=== PATIENT | male | born 1965 | race Caucasian/White ===

== ENCOUNTER 2024-05-05 14:18 | Outpatient (AMB) | payer BC, SELFPAY ==
--- NOTE | 2024-05-05 14:26 | MHC.PC.OV ---
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 Intake Note: New patient visit Rotor Balancer Required: No Allergies No Known Allergies Allergy (Verified 05/05/24 14:26) Tobacco use date assessed: 05/05/24 Dental Screening Dental Screen Date: 05/05/24 Did you have a dental visit in the last 12 months?: Yes Did you have a dental problem in the last 6 months where you did not have access to dental care?: No Was dental information given to patient?: Patient has dentist HPI HPI Comments History of Present Illness Details 58-year-old male with a past medical history of lumbosacral radiculopathy, controlled type 2 diabetes, hypertension, mesenteric panniculitis and ground glass opacities on chest CT presents to establish care. He is accompanied by his who is a nurse. Patient is here requesting Neurosurgery referral and MRI for his lower back. Patient was seen at [facility] on 04/21/2024 for severe chronic lower back pain radiating to his right hip and thigh and numbness of the right thigh that started a week prior to that. Patient reported that the pain began insidiously and increased in severity so much so that he was having difficulty with daily activities and could not sit down. He tried ibuprofen scheduled and ice with no relief. Heat helps slightly. 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 He was making 8 hours trips 3 times per week between [place] and [place]. Renal and hepatic function tests were normal. There was no leukocytosis. He had a CT scan of the lumbar spine without contrast which showed multilevel degenerative disc disease: L2-L3: No significant canal stenosis. Moderate right neural foraminal narrowing. No significant left neural foraminal narrowing L3-L4: Mild canal stenosis with symmetric disc bulge. Moderate bilateral neural foraminal stenosis. L4-L5: Mild canal stenosis with symmetric disc bulge. Severe left and moderate right neuroforaminal stenosis. L5-S1: No significant canal stenosis. Severe bilateral neural foraminal narrowing. He was treated with IV Dilaudid, Flexeril and Toradol with minimal symptom relief. He was discharged with naproxen 500 mg twice a day, oxycodone 5 mg every 6 hours, Medrol Dosepak and methocarbamol 500 mg 2 pills 3 times a day. Patient reports no relief with oxycodone 5 mg, naproxen 500 mg, Medrol Dosepak. He tried another Medrol Dosepak, and he still had no relief. Methocarbamol helps a little bit. Pain is worse when he is sitting, standing, walking and lying down. He is having a lot of difficulty sleeping. Patient reports having surgery for herniated discs in his lower back in [address] Casey. Patient says he was diagnosed by Gastroenterology with mesenteric panniculitis. He needs an EGD and colonoscopy but is going to defer this until after his back pain is treated. He takes metformin 500 mg daily for type 2 diabetes. His A1c was 5.9% in March. He sees thoracic surgery, Dr. Jasso, for ground-glass opacities that were originally in the left lung which resolved and now has them in the right lung. He sees him once per year. He quit smoking 20 years ago. He has a history of gout which has not been a problem recently. ROS: Constitutional: No unexplained weight loss, fevers, chills or night sweats. Respiratory: No shortness of breath, cough or sputum production. Cardiovascular: No chest pain, chest pressure or chest discomfort. No palpitations or pedal edema. Gastrointestinal: No anorexia, nausea, vomiting or diarrhea. No abdominal pain or blood in stool. Genitourinary: No dysuria, hematuria, urinary frequency. Neurologic: No headache, dizziness, syncope, seizures, loss of bowel or bladder control, footdrop. Skin: No rash Physical exam: Constitutional: Alert, appears uncomfortable in exam room in his standing and not able to sit for exam. Respiratory: Clear to auscultation. Cardiovascular: S1 S2 regular. No murmurs Neurologic: No focal neurological deficits. Musculoskeletal: Midline tenderness of the lumbosacral spine. Right paraspinal muscles tender and firm. Straight leg raise could not be performed because patient can not sit down on the table without severe pain. Bilateral lower extremity strength 4/5. No footdrop. Ambulates antalgic daily. Limited lumbar flexion, extension, lateral bending and rotation. Patient winces in pain with range of motion exercises. Extremities: Warm and well perfused. No clubbing, cyanosis or edema. 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 1. Little interest or pleasure in doing things: not at all 2. Feeling down, depressed, or hopeless: not at all 3. Trouble falling or staying asleep, or sleeping too much: not at all 4. Feeling tired or having little energy: not at all 5. Poor appetite or overeating: not at all 6. Feeling bad about yourself - or that you are a failure or have let yourself or your family down: not at all 7. Trouble concentrating on things, such as reading the newspaper or watching television: not at all 8. Moving or speaking so slowly that other people could have noticed. Or the opposite - being so fidgety or restless that you have been moving around a lot more than usual: not at all 9. Thoughts that you would be better off or of hurting yourself in some way: not at all Total score: 0 Source: Developed by Drs. Efraín Cardona, Marcy Villegas, Miki Garcia and colleagues, with an educational elsa from [employer]. Thrive Questionnaire I am a: Patient What is your living situation today?: I have a steady place to live Within the past 12 months, did the food you bought not last and you didn't have the money to get more?: Never true Within the past 12 months, did you worry whether your food would run out before you got money to buy more?: Never true Do you have trouble paying for medicines?: No Do you have trouble getting transportation to medical appointments?: No Do you have trouble paying your heating and electricity bill?: No Do you have trouble taking care of your child, family member or friend?: No Do you have trouble with day-to-day activities such as bathing, preparing meals, shopping, managing finances, etc.?: Yes Are you currently unemployed and looking for a job?: No Are you interested in more education?: No Please select the resources that you would like help with: None Currently or been in a relationship where the following occur: No concerns reported THRIVE Score: 0 AUDIT C Alcohol Use Questionnaire (AUDIT-C) 1. How often do you have a drink containing alcohol?: Never 3. How often do you have six or more drinks on one occasion?: Never Total Score: 0 MAYA-7 AMB Questionnaire MAYA-7 Feeling nervous, anxious, or on edge: 0 = Not at all Not being able to stop or control worryin = Not at all Worrying too much about different things: 0 = Not at all Trouble relaxin = Not at all Being so restless that it is hard to sit still: 0 = Not at all Feeling afraid as if something awful might happen: 0 = Not at all Source: Developed by Drs. Efraín Cardona, Marcy Villegas, Miki Garcia and colleagues, with an educational elsa from [employer]. Physical exam (Primary Care) Vital Signs: Last Vital Signs Pulse 93 05/05/24 14:30 Resp 16 05/05/24 14:30 BP 138/74 05/05/24 14:30 Pulse Ox 96 05/05/24 14:30 Oxygen Delivery Method Room Air 05/05/24 14:30 BMI result Body Mass Index 34.7 Tobacco/Smoking Status: Tobacco use Status Tobacco use date assessed 05/05/24 05/05/24 14:34 Patient Tobacco Use Status Former Tobacco user 05/05/24 14:34 e-Cigarette/Vaping Use Never Used 05/05/24 14:34 PHQ-9: PHQ-9 Score PHQ-9: Total score 0 05/05/24 15:03 Currently or been in a relationship where the following occur: No concerns reported Coding Level of Care Code New Pt Level 4 (16052) Complex EM visit Add On G2211 Diagnoses Lumbosacral radiculitis M54.17 Neuroforaminal stenosis of lumbar spine M48.061 Assessment & Plan Assessment & Plan (1) Lumbosacral radiculitis: Code(s): M54.17 - Radiculopathy, lumbosacral region Category: Medical (2) Neuroforaminal stenosis of lumbar spine: Code(s): M48.061 - Spinal stenosis, lumbar region without neurogenic claudication Category: Medical Plan Patient has severe symptoms of lumbosacral radiculitis despite 2 rounds of steroids, NSAIDs, opioid and muscle relaxer. He will stop his current medication regimen. He would not be able to participate in conservative management like physical therapy due to his level of pain. We discussed his CT and that he may need surgery. I prescribed meloxicam 15 mg daily for pain and inflammation. Side effects of NSAIDs reviewed. He will take famotidine every day on this medication. Do not take other NSAIDs with this. Since he does respond partially to a skeletal muscle relaxant I prescribed Valium 2-4 mg at night which will hopefully allow him enough relief and help him sleep. Prescribed Percocet 7.5-325 mg tab every 6 hours as needed. Advised not to exceed 3000 mg of acetaminophen from all sources in a day. Patient is aware this is a controlled substance that his habit forming. He is advised not to drive, operate heavy machinery or drink alcohol with the medication. Advised not to take this within 6 hours of Valium. Warned of risk of respiratory depression. Trial of gabapentin 300 mg 3 times daily for nerve pain. Advised this is sedating and not to drive or operate heavy machinery. Urgent order for MRI placed and patient has urgent referral into Dr. Judge. Note provided to stay out of work at this time. Follow up with me TBD. Orders: Orders MR lumbar spine wo con Today M48.07 - Spinal stenosis, lumbosacral region, M54.17 - Radiculopathy, lumbosacral region Medications: New gabapentin 300 mg PO TID 90 caps 0RF M48.061 - Spinal stenosis, lumbar region without neurogenic claudication meloxicam 15 mg PO DAILY 30 tabs 0RF M48.061 - Spinal stenosis, lumbar region without neurogenic claudication oxycodone-acetaminophen 7.5-325 mg (Percocet) Partial Fill upon patient request. 1 tab PO Q6H PRN 40 tabs 0RF pain 10 days M48.061 - Spinal stenosis, lumbar region without neurogenic claudication diazepam (Valium) 2 - 4 mg (1 - 2 x 2 mg) PO BEDTIME PRN 20 tabs 0RF muscle spasm M48.061 - Spinal stenosis, lumbar region without neurogenic claudication
[2024-05-05 14:30] VITALS: BP 138/74; PULSE 93; RESP 16; O2SAT 96; BMI 34.7
== END 2024-05-05 15:31 | disposition home or self-care (01) ==
PROVIDERS: PCP Internal Medicine; Visit Provider Physician Assistant Medical
DX: M54.17 Radiculopathy, lumbosacral region (principal); M48.061 Spinal stenosis, lumbar region without neurogenic claudication

== ENCOUNTER → 2024-05-05 14:18 | Outpatient (BNVA) | payer BC, SELFPAY | PROVIDERS: PCP Internal Medicine; Visit Provider Physician Assistant Medical ==

== ENCOUNTER 2024-05-07 12:41 | Outpatient (AMB) | payer BC, SELFPAY ==
--- NOTE | 2024-05-07 13:06 | HO.SPINEOV ---
Intake Visit Reasons: LBP Intake Note: Mr. Peralta is here today c/o low back pain. Cleat Thrower Required: No Allergies No Known Allergies Allergy (Verified 05/05/24 14:26) Assessment & Plan Assessment & Plan (1) Lumbar radiculopathy, acute: Code(s): M54.16 - Radiculopathy, lumbar region Category: Medical Plan Dear colleague Thank you for referring Swapnil Peralta to the office today with a chief complaint of right back and thigh pain. HPI: This 58-year-old male developed acute radiating pain from the back down to the front of his thigh on 04/16/2024. The pain was immediately associated with numbness. The pain is 9/10. 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 He also developed weakness of his right leg. Currently he can not sleep. He can only stand and sitting down produces severe pain in his buttock radiating down the front of his thigh. The left side is unaffected. He is currently taking steroids, morphine and muscle relaxants and despite all of these medications no improvement in pain is noted. PMH: Diabetes type 2, well controlled with an A1c of 5.1, previous laminectomy in 2008 and 2018, most likely at L2-3 and L4-5 according to the patient., hypertension Medications: Metformin, losartan, naproxen, diazepam, Neurontin, Percocet, Robaxin Allergies: NKDA Social history: . Employed. Nonsmoker Physical Exam: Pleasant male in severe agony. He can not sit in the office. He stands with a deviated posterior due to pain. Straight leg raise is positive on the right side with radiating pain down ventral part of his right thigh. There is numbness in the L4 dermatome. There is a grade 3/5 weakness of the hip flexors. Radiological Studies: A CT scan done at [facility] describes severe left and moderate right L5 foraminal stenosis and moderate L3 and bilateral L3-4 foraminal stenosis. More importantly, I reviewed the CT scan in detail and it shows a right extraforaminal disc herniation compressing the right L4 nerve root, which is not mentioned in the report. The patient is scheduled to undergo an MRI. Impression/Plan: This patient is suffering from a right L4 radiculopathy with numbness and weakness. The pain is unresponsive to heavy pain medications. He is scheduled to undergo an MRI. I think the right L4 radiculopathy is coming from an extraforaminal disc herniation compressing the L4 nerve root. I will see him after the MRI is done and schedule him for surgery KAL if my diagnosis is correct to prevent further neurological damage Thank you for allowing me to participate in your patients care. total time spent was 50 minutes in counseling ,coordination of plan, personal review of imaging, surgical decision making and subsequent plan Ellis Judge MD, PhD Sp[facility] Trained Neurosurgeon Director, [facility] Coding Level of Care Code New Pt Level 4 (22422) Diagnoses Lumbar radiculopathy, acute M54.16
== END 2024-05-07 13:39 | disposition home or self-care (01) ==
PROVIDERS: PCP Internal Medicine; Referring Provider Physician Assistant Medical; Visit Provider Neurological Surgery
DX: M54.16 Radiculopathy, lumbar region (principal)
CPT/HCPCS: 99204

== ENCOUNTER → 2024-05-07 12:41 | Outpatient (BNVA) | payer BC, SELFPAY | PROVIDERS: PCP Internal Medicine; Visit Provider Neurological Surgery ==

== ENCOUNTER 2024-05-09 07:43 | Outpatient (REF) | payer BC, SELFPAY ==
--- NOTE | ~2024-05-09 | MR_ITS ---
EXAMINATION: MR LUMBAR SPINE WITHOUT AND WITH CONTRAST CLINICAL INFORMATION: Right thigh pain. Low back pain. COMPARISON: None available. TECHNIQUE: MRI of the lumbar spine was obtained using routine sequences with and without contrast. Intravenous contrast: Gadavist 10 cc mL without reported immediate complications FINDINGS: [The last rib-bearing vertebra labeled T12. Bone marrow inhomogeneity. Multilevel marginal osteophyte formation and disc desiccation. Intrinsic hyperintense T1 bone lesion at vertebral body of T11. Grade 1 anterolisthesis L3-4. Grade 1 retrolisthesis L4-5 and L5-S1. Conus medullaris ends at the intervertebral disc T12-L1 with normal signal. No abnormal enhancement within the neural elements of the cauda equina, filum terminalis nor the prevertebral compartment T11-12: No disc herniation or compression upon neural elements. T12-L1: No disc herniation or compression upon elements. L1-2: Broad-based disc bulging. Facet joint hypertrophy. No compression upon neural elements. L2-3: Broad-based disc bulging. Facet joint and ligamentum flavum hypertrophy. Reduced AP diameter of the thecal sac and the neural foramina encroaching the exiting nerve roots. L3-4: Grade 1 anterolisthesis. Broad-based disc bulging. Facet joint hypertrophy. Bilateral neuroforamina narrowing encroaching the exiting nerve roots. L4-5: Broad-based disc bulging. Facet joint hypertrophy. Bilateral neuroforamina stenosis encroaching the exiting nerve roots. L5-S1: Broad-based disc bulging. Facet joint hypertrophy. Bilateral neuroforamina stenosis encroaching likely compressing the exiting nerve roots. No prevertebral compartment hematoma, mass or fluid collection. 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 . MR/MR lumbar spine wo/w con IMPRESSION: Multilevel lumbar spondylosis resulting in bilateral neuroforamina stenosis from L2-3 to L5-S1 more conspicuous at L4-5 and L5-S1 levels encroaching the exiting nerve roots. Grade 1 anterolisthesis L3-4 and grade 1 retrolisthesis L4-5 and L5-S1 on a degenerative basis. No abnormal enhancement. Discussed with the referring physician Dr. Cecilia Noyola on 05/09/2024 at 9:20 AM. Electronically signed by: Florentino Guerrier MD 05/09/2024 09:33 AM EDT RP
[2024-05-09] MEDS: gadobutroL 10 ML VIAL IVPUSH (09:11)
== END 2024-05-09 07:44 | disposition home or self-care (01) ==
LOC: HO.MRI 07:43
PROVIDERS: PCP Internal Medicine; Visit Provider Physician Assistant Medical
DX: M48.07 Spinal stenosis, lumbosacral region (principal); M48.061 Spinal stenosis, lumbar region without neurogenic claudication
CPT/HCPCS: 72158; A9585

== ENCOUNTER → 2024-05-09 08:09 | Outpatient (BNV) | payer BC, SELFPAY | PROVIDERS: PCP Internal Medicine; Visit Provider Radiology Diagnostic Radiology | DX: M54.50 Low back pain, unspecified (principal) | CPT/HCPCS: 72158 ==

== ENCOUNTER 2024-05-22 10:48 | Day surgery (SDC) | payer BC, SELFPAY ==
[2024-05-14 12:24] VITALS: BMI 34.6
--- NOTE | 2024-05-21 10:55 | P.CONAN_ITS ---
Documented by User: Krys Chakraborty NP 05/21/24 11:01 HPI - Anesthesia Eval Consult details Narrative: 59yo M for L4-5 Extraforaminal discectomy with Metrix Tubes, Follows thoracic for chronic pulmo nodules and ground glass opacities. CT q 6 months. Last was unchanged/improved PMF Active Problems Active Problems: All Active Problems Neuroforaminal stenosis of lumbar spine (Acute) Lumbar radiculopathy, acute (Acute) Ground glass opacity present on imaging of lung (Acute) Mesenteric panniculitis (Acute) Lumbosacral radiculitis (Acute) Controlled type 2 diabetes mellitus (Acute) Essential hypertension (Acute) Past Medical History Medical History Pulmonary nodule GERD (gastroesophageal reflux disease) Spinal stenosis Cervical radiculopathy Ground glass opacity present on imaging of lung Mesenteric panniculitis Lumbosacral radiculitis Controlled type 2 diabetes mellitus Essential hypertension Surgical History Surgical History History of laminectomy (2019) Hx of varicose vein ligation (~1998) Hx of colonoscopy Hx of appendectomy (~1974) Social History Social History Housing: House Are you a primary day care home mother to a significant other at home: No Do you presently have visiting nurse or other home services: No Patient Tobacco Use Status: Former Tobacco user Tobacco use type: Cigarette Cigarette Packs Per Day: 1 Years Smoked: 20 Smoked in Last 30 Days: No e-Cigarette/Vaping Use: Never Used Use of substances other than those prescribed or required for medical reasons: No Have you been hit, kicked, punched, or otherwise hurt by someone within the past year? 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 Current occupational exposures/hazards: No Cognitive needs: No Hearing needs: No Vision needs: No Meds Allergies Allergy/AdvReac Type Severity Reaction Status Date / Time No Known Allergies Allergy Verified 05/22/24 11:24 Home Medications ?Medication ?Instructions ?Recorded ?Confirmed ?Last Taken ?Type atorvastatin 20 mg tablet 20 mg PO BEDTIME 05/05/24 05/14/24 Unknown History losartan 25 mg tablet 25 mg PO DAILY 05/05/24 05/14/24 Unknown History metformin 500 mg tablet 500 mg PO DAILY 05/05/24 05/14/24 Unknown History famotidine 20 mg tablet 20 mg PO BID PRN heartburn 05/14/24 05/14/24 Unknown History sennosides 8.6 mg-docusate sodium 1 tab-cap PO BEDTIME PRN 05/14/24 05/14/24 Unknown History 50 mg tablet (Senexon-S) Constipation ibuprofen 800 mg tablet 800 mg PO TID 05/21/24 05/21/24 Unknown History Exam Height,Weight and Vital Signs: Height 6 ft 3 in Weight 125.645 kg Pertinent Lab Results Pertinent Lab Results: CBC and BMP 04/2024 from outside facility WNL Assessment and Plan Assessment Anesthesia Assessment: Chart Reviewed Documented by User: Cheyenne Jimenez MD 05/22/24 11:28 [facility] Active Problems Active Problems: All Active Problems Neuroforaminal stenosis of lumbar spine (Acute) Lumbar radiculopathy, acute (Acute) Ground glass opacity present on imaging of lung (Acute) Mesenteric panniculitis (Acute) Lumbosacral radiculitis (Acute) Controlled type 2 diabetes mellitus (Acute) Essential hypertension (Acute) Increased BMI Past Medical History Medical History Pulmonary nodule GERD (gastroesophageal reflux disease) Spinal stenosis Cervical radiculopathy Ground glass opacity present on imaging of lung Mesenteric panniculitis Lumbosacral radiculitis Controlled type 2 diabetes mellitus Essential hypertension Family History Family history of problems with anesthesia: No Surgical History Surgical History History of laminectomy (2019) Hx of varicose vein ligation (~1998) Hx of colonoscopy Hx of appendectomy (~1974) History of Problems with Anesthesia: No Social History Social History Housing: House Are you a primary day care home mother to a significant other at home: No Do you presently have visiting nurse or other home services: No Patient Tobacco Use Status: Former Tobacco user Tobacco use type: Cigarette Cigarette Packs Per Day: 1 Years Smoked: 20 Smoked in Last 30 Days: No e-Cigarette/Vaping Use: Never Used Use of substances other than those prescribed or required for medical reasons: No Have you been hit, kicked, punched, or otherwise hurt by someone within the past year? 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 Current occupational exposures/hazards: No Cognitive needs: No Hearing needs: No Vision needs: No Meds Allergies Allergy/AdvReac Type Severity Reaction Status Date / Time No Known Allergies Allergy Verified 05/22/24 11:24 Home Medications ?Medication ?Instructions ?Recorded ?Confirmed ?Last Taken ?Type atorvastatin 20 mg tablet 20 mg PO BEDTIME 05/05/24 05/14/24 Unknown History losartan 25 mg tablet 25 mg PO DAILY 05/05/24 05/14/24 Unknown History metformin 500 mg tablet 500 mg PO DAILY 05/05/24 05/14/24 Unknown History famotidine 20 mg tablet 20 mg PO BID PRN heartburn 05/14/24 05/14/24 Unknown History sennosides 8.6 mg-docusate sodium 1 tab-cap PO BEDTIME PRN 05/14/24 05/14/24 Unknown History 50 mg tablet (Senexon-S) Constipation ibuprofen 800 mg tablet 800 mg PO TID 05/21/24 05/21/24 Unknown History Exam Height,Weight and Vital Signs: Height 6 ft 3 in Weight 125.645 kg Vital Signs Temp Pulse Resp BP Pulse Ox O2 Del Method 05/22/24 11:20 98.8 F 74 15 114/68 96 Room Air Airway Mallampati Class: I TM Dist: >3cm Neck ROM: Full Loose/Missing/Broken Teeth: Yes (Missing 1 tooth bottom right. Dental implants intact. Denies broken or loose teeth) Heart: RRR Lungs: CTAB Assessment and Plan Assessment Anesthesia Assessment: Anesthesia Plan Discussed and Chart Reviewed Final Anesthetic Review Family History of Problems with Anesthesia: No History of Problems with Anesthesia: No NPO: Yes ASA Class: II Final Preanesthetic Review: No Changes in Pt Med Stat, Meds/Allgs Chart Revie wed, Consent Obtained/Reviewed and Anes Risks/Benef Reviewed Patient Risk: Low Procedure Risk: Low Assessment/Block/Sedation in SS: Assess/Block/Sedation-SS Anesthetic Plan Anesthetic Plan: GA Disposition: Standard PACU
[2024-05-22] MEDS: methocarbamoL 750 MG TABLET PO (11:08)
[2024-05-22 11:20] VITALS: BP 114/68; PULSE 74; RESP 15; TEMP 37.1; O2SAT 96; BMI 33.2
[2024-05-22 11:33] LABS: Glucose, Whole Blood 111 mg/dL (60-115)
[2024-05-22] MEDS: Lactated Ringers 1,000 ML 100 ML IVCONT (11:33)
--- NOTE | 2024-05-22 12:59 | MHC.SHP ---
Pre-Procedural Eval Section A - 24 Hr Update-Section A only Date of Service: 05/22/24 The patient is an INPATIENT: No Section B - Complete if H&P > 30 days Chief Complaint: Radiculopathy, lumbar region Details of Present Illness: right radiculopathy Allergies: Allergies Allergy/AdvReac Type Severity Reaction Status Date / Time No Known Allergies Allergy Verified 05/22/24 11:24 Review of Systems Sugical H&P ROS: Negative: Constitution, Cardiovascular, Respiratory, Neurological, Psychiatric, Hem-Onc, Allergic/Immunologic, Gastrointestinal, Genitourinary, Musculoskeletal, Integumentary, Endocrine and Eyes/Ears/Nose/Throat Exam Surgical H&P Exam: Normal: HEENT, Normal: Heart, Normal: Lungs, Normal: Extremities, Normal: Abdomen, Normal: Skin and Normal: Neurological (awake, alert) Plan Diagnosis/Plan: Unchanged I have reviewed the history and physical and performed a pertinent physical examination on my patient. No changes have occurred unless specified. extraforrminal L4-5 discectomy with Metrix tubes Time Spent With Patient Time: Total time managing care of this patient today ____ minutes.
--- NOTE | 2024-05-22 14:27 | P.OP_ITS ---
Operative Note Operative Note Date of Service: 05/22/24 Narrative: Preop diagnosis: lumbar disc herniation L4-5, extraforaminal ( far lateral) with lumbar radiculopathy Postop diagnosis: same Procedure: Right L4-5 lumbar microdiskectomy, extraforaminal approach with microscope Description of procedure: This patient is suffering from a right L4 lumbar radiculopathy due to an L4-5 extraforaminal lumbar disc herniation compressing the right L4 nerve root. The patient was offered a lumbar microdiskectomy through an extraforaminal approach. The procedure and complications were explained. The patient was consented. The patient was brought to the operating room and endotracheally intubated. The patient was turned in the prone position on Jermaine frame. Prepping and draping was done followed by time-out. The lateral border of the L4-5 facet joint was marked on the skin with x-ray. A right paramedian incision was made. The muscle fascia was opened. Sequential dilators were inserted followed by a 18 mm Metrx tube. the lateral border of the L4-5 facet joint as well as the transverse process of L5 and L 4 were exposed. The microscope was brought in. The lateral part of facet joint was resected with a high-speed drill. The medial border of the L L5 pedicle was i dentified as well as the foramen. I went into the Kambin's triangle and exposed the intervertebral disc. An annulotomy was done after which with a straight and curved pituitary several fragments of disc herniation were removed. Initially else feeling a bulge under the nerve root which was gone after the diskectomy was completed. Physician assistant professor of sociology took over the procedure and performed hemostasis and closure of the incision in 2 layers. Steri-Strips were used to approximate the incision. An Oppsite with tegaderm was used to cover the incision. All sponge and needle counts were correct. The patient was extubated and transported in stable condition to recovery room. Surgeon: Ellis Judge MD Assist: CHRISTINA Pastrana Anesthesia: general Estimated blood loss: minimal Specimen: none Deposition: Discharge home
--- NOTE | 2024-05-22 14:38 | PM.DS ---
DS: Providers Provider Date of Service: 05/22/24 Primary care physician: Rosario Heaton MD DS: Summary Time Attestation Discharge Coordination Time (in mins): 15 Quality: Safe Use of Opioids Does Pt have an Active Cancer Diagnosis on the Problem List?: No Quality: Stroke Does the patient have a stroke diagnosis?: No Physical Exam Vital Signs: Vital Signs: Last Vital Signs Temp 98.8 F 05/22/24 11:20 Pulse 74 05/22/24 11:20 Resp 15 05/22/24 11:20 BP 114/68 05/22/24 11:20 Pulse Ox 96 05/22/24 11:20 O2 Del Method Room Air 05/22/24 11:20 BMI result Body Mass Index 33.2 DS: Data Data Completed and Pending Labs on day of discharge: Laboratory Results - last 24 hr 05/22/24 11:18 POC Glucose 111 Discharge Plan Discharge Patient Disposition: Home, Self-Care Referrals: Rosario Heaton MD [Primary Care Provider] - 1 Week Discharge Medications: Continued diazepam [Valium] 2 mg tablet 2 - 4 mg PO BEDTIME PRN (Reason: muscle spasm) Qty: 30 0RF oxycodone-acetaminophen [Percocet] 7.5-325 mg tablet 1 tab PO Q6H PRN (Reason: pain) 15 Days Qty: 60 0RF Rx Instructions: Partial Fill upon patient request. sennosides-docusate sodium [Senexon-S] 8.6-50 mg tablet 1 tab-cap PO BEDTIME PRN (Reason: Constipation) famotidine 20 mg tablet 20 mg PO BID PRN (Reason: heartburn) metformin 500 mg tablet 500 mg PO DAILY losartan 25 mg tablet 25 mg PO DAILY atorvastatin 20 mg tablet 20 mg PO BEDTIME gabapentin 300 mg capsule 300 mg PO TID Qty: 90 0RF Held ibuprofen 800 mg tablet 800 mg PO TID Hold Instructions: Resume on 05/23/24. meloxicam 15 mg tablet 15 mg PO DAILY Qty: 30 0RF Hold Instructions: Resume on 05/23/24. Discharge Orders: Discharge Order (Routine); Ordered 05/22/24 Ordered By: Abraham Roman Diet: Advance to usual diet Activity on Discharge: As tolerated Activity Restrictions/Additional Instructions: After your spinal surgery we ask you to observe the following restrictions/guidelines: Activity: It is normal to feel some discomfort as you increase your activity, but that will improve with time. We ask you avoid heavy lifting or acitivities that cause pain. As a general rule, 8lbs is a safe limit for lifting right after surgery. Walk as much as you feel comfortable but not to exhaustion. You will feel extra tired the first few days after surgery. Stay well hydrated. It is OK to walk up and down stairs You may return to driving when you are off narcotics (such as vicodin, oxycodone, dilaudid, etc), and you are back to normal functional capacity. If you have any concerns please check with office before driving. Return to work is specific to each patient and each surgery, so please speak with your doctor/PA at first follow up. Please bring paperwork such as FMLA at that time if you need it filled out. Medications: We recommend you take 1,000mg Tylenol every 8 hours for the first few weeks after surgery, if you do not have any liver issues and can tolerate this medication. Do not exceed 4,000mg daily. We will give you a short supply of narcotics after surgery (usually one weeks worth). If you need more please call the office but do not use more than prescribed. You will need to give our office 48 hours notice if you need narcotics refilled and we do not fill narcotics on weekends or evenings. If you are on a narcotic, it is a good idea to take a stool softener such as colace or senna to avoid constipation If you take blood thinner such as aspirin, Plavix, Coumadin, Effient, Eliquis etc for conditions such as Afib, DVT, Pulmonary embolus, coronary disease, stents etc please speak with your surgeon about specific details as to when you can resume these medications. You can resume NSAIDs on post op day 1 (eg: Motrin, Naproxen, etc). Follow up: Please call the office, , after surgery to arrange a 3 week follow up for wound check. Wound Care: You may remove your dressing on the first day after surgery. ?You may ?leave open to air. Please do not remove the steri strips underneath. they will fall off on their own in one week. IT IS NORMAL FOR THE WOUND TO OOZE OR BE BLOODY FOR A FEW DAYS AFTER SURGERY. ?IF THIS HAPPENS JUST PLACE NEW DRESSING OVER IT TO AVOID STAINING CLOTHES. You may shower on post op day # 1 We ask that you do not let the water soak the wound. If it does get wet, just towel dry lightly. Please do not scrub your incision or place any type of chemical/ointment on the wound. No tub baths, pools or jacuzzis for one month. If you have any leaking or redness from your wound, or fevers, please call the office. Print Language: Ukrainian
[2024-05-22 14:50] VITALS: BP 133/67; PULSE 83; RESP 16; TEMP 36.3; O2SAT 100
[2024-05-22 14:55] VITALS: BP 128/65; PULSE 88; RESP 16; O2SAT 98
[2024-05-22 15:00] VITALS: BP 121/69; PULSE 90; RESP 16; O2SAT 97
[2024-05-22 15:05] VITALS: BP 115/66; PULSE 78; RESP 16; O2SAT 97
[2024-05-22 15:20] VITALS: BP 132/71; PULSE 82; RESP 16; TEMP 36.1; O2SAT 95
== END 2024-05-22 15:42 | disposition home or self-care (01) ==
PROVIDERS: PCP Internal Medicine; Visit Provider Neurological Surgery
PROC: (CPT 63056; principal; 2024-05-22 13:00)
DX: M51.16 Intervertebral disc disorders with radiculopathy, lumbar region (principal); R20.0 Anesthesia of skin; E11.9 Type 2 diabetes mellitus without complications; I10 Essential (primary) hypertension; Z79.1 Long term (current) use of non-steroidal anti-inflammatories (NSAID); Z79.84 Long term (current) use of oral hypoglycemic drugs; Z79.899 Other long term (current) drug therapy
CPT/HCPCS: 63056; 82947; J0131; J0690; J1100; J1885; J2003; J2371; J2405; J2704; J3010

== ENCOUNTER → 2024-05-22 10:48 | Outpatient (BNV) | payer BC, SELFPAY | PROVIDERS: PCP Internal Medicine; Visit Provider Neurological Surgery | DX: M54.16 Radiculopathy, lumbar region (principal); M51.26 Other intervertebral disc displacement, lumbar region | CPT/HCPCS: 63056; 99499 ==

== ENCOUNTER 2024-06-02 14:39 | Outpatient (AMB) | payer BC, SELFPAY ==
--- NOTE | 2024-06-02 14:58 | MHC.PC.OV ---
Vital Signs 06/02/24 15:00 Height 6 ft 3 in Weight 277 lb 2 oz BMI 34.6 BP 136/78 Blood Pressure Location Rt brachial Position Sitting Pulse 83 Pulse Source Pulse Oximeter Pulse Oximetry (%) 97 Oxygen Delivery Method Room Air Intake Visit Reasons: Post-op visit Intake Note: Post-op back sugery. Allergies No Known Allergies Allergy (Verified 05/22/24 11:24) Tobacco use date assessed: 05/05/24 Dental Screening Dental Screen Date: 05/05/24 HPI HPI Comments History of Present Illness Details 58-year-old male with a past medical history of lumbosacral radiculopathy, controlled type 2 diabetes, hypertension, mesenteric panniculitis and ground glass opacities on chest CT presenting for follow up Patient is s/p right L4-5 lumbar microdiscectomy, extraforaminal approach with microscope on 05/22/2024. Developed severe right hip and thigh pain, with numbness in the right thing, and associated chronic lower pain pain. He has MRI performed which was referred by [facility] and he was advised to have surgery. He notes complete resolution of pain. He only has some residual neuralgia in the right leg. He is off opiates. He continues the neurontin 300mg cap three times daily. Patient reports having surgery for herniated discs in his lower back in [address] Casey. During the surgery it was noted that his back was quite osteoporotic MSK: As above. Patient reports having surgery for herniated discs in his lower back in [address] Casey. History of gout. Quiet GI: has followed for mesenteric panniculitis. He notes that his colonoscopy is up to date. Endocrine: Type 2 diabetes His A1c was 5.9% in March. Continues metformin 500mg daily. On statin and ARB. He sees thoracic surgery, Dr. Jasso, for ground-glass opacities that were originally in the left lung which resolved and now has them in the right lung. He sees him once per year. He quit smoking 20 years ago. ROS see HPI PHYSICAL EXAM: GENERAL: Alert and oriented x 3. NAD EYES: EOMI. Anicteric. HENT: Moist mucous membranes. No scleral icterus. No cervical lymphadenopathy. LUNGS: Clear to auscultation bilaterally. CARDIOVASCULAR: Regular rate and rhythm. No murmur. No JVD. ABDOMEN: Soft, non-tender +bs EXTREMITIES: No edema. Non-tender. SKIN: No rashes or lesions. Warm. NEUROLOGIC: No focal neurological deficits. CN II-XII grossly intact PSYCHIATRIC: Cooperative. Appropriate mood and affect [facility] Medical History Pulmonary nodule GERD (gastroesophageal reflux disease) Spinal stenosis Cervical radiculopathy Ground glass opacity present on imaging of lung Mesenteric panniculitis Lumbosacral radiculitis Controlled type 2 diabetes mellitus Essential hypertension Surgical History History of laminectomy (2019) Hx of varicose vein ligation (~1998) Hx of colonoscopy Hx of appendectomy (~1974) Social History Housing: House Are you a primary critical care nurse practitioner to a significant other at home: No Do you presently have visiting nurse or other home services: No Patient Tobacco Use Status: Former Tobacco user Tobacco use type: Cigarette Cigarette Packs Per Day: 1 Years Smoked: 20 e-Cigarette/Vaping Use: Never Used service: Yes Current occupational status: employed 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 Current occupational exposures/hazards: No Cognitive needs: No Hearing needs: No Vision needs: No Questionnaire Thrive Questionnaire Date Thrive assessed: 05/05/24 I am a: Patient What is your living situation today?: I have a steady place to live Within the past 12 months, did the food you bought not last and you didn't have the money to get more?: Never true Within the past 12 months, did you worry whether your food would run out before you got money to buy more?: Never true Do you have trouble paying for medicines?: No Do you have trouble getting transportation to medical appointments?: No Do you have trouble paying your heating and electricity bill?: No Do you have trouble taking care of your child, family member or friend?: No Do you have trouble with day-to-day activities such as bathing, preparing meals, shopping, managing finances, etc.?: Yes Are you currently unemployed and looking for a job?: No Are you interested in more education?: No Please select the resources that you would like help with: None Currently or been in a relationship where the following occur: No concerns reported THRIVE Score: 0 MAYA-7 AMB Questionnaire MAYA-7 Becoming easily annoyed or irritable: 0 = Not at all Source: Developed by Drs. Efraín Cardona, Marcy Villegas, Miki Garcia and colleagues, with an educational elsa from [employer]. Physical exam (Primary Care) Vital Signs: Last Vital Signs Pulse 83 06/02/24 15:00 BP 136/78 06/02/24 15:00 Pulse Ox 97 06/02/24 15:00 Oxygen Delivery Method Room Air 06/02/24 15:00 BMI result Body Mass Index 34.6 Tobacco/Smoking Status: Tobacco use Status Tobacco use date assessed 05/05/24 06/02/24 15:02 Patient Tobacco Use Status Former Tobacco user 06/02/24 15:02 Tobacco use type Cigarette 06/02/24 15:02 e-Cigarette/Vaping Use Never Used 06/02/24 15:02 Thrive Assessment: Date of Thrive Assessment Date Thrive assessed 05/05/24 06/02/24 15:02 Currently or been in a relationship where the following occur: No concerns reported Coding Level of Care Code Est Pt Level 4 (59548) Diagnoses Controlled type 2 diabetes mellitus with diabetic polyneuropathy, without long-term current use of insulin E11.42 Diabetes mellitus complication detail: with polyneuropathy Diabetes mellitus complication status: with neurologic complications 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: without fdc use Neuroforaminal stenosis of lumbar spine M48.061 Mesenteric panniculitis K65.4 Assessment & Plan Assessment & Plan (1) Controlled type 2 diabetes mellitus: Comment: FBS usually 100-115, checks it daily, last A1c 5.7----04/14/24 Code(s): E11.9 - Type 2 diabetes mellitus without complications Category: Medical Qualifiers: Diabetes mellitus complication detail: with polyneuropathy Diabetes mellitus complication status: with neurologic complications 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: without intermodal owner operator truck driver use Qualified Code(s): E11.42 - Type 2 diabetes mellitus with diabetic polyneuropathy Plan: Controlled on metformin Annual eye exam (2) Neuroforaminal stenosis of lumbar spine: Code(s): M48.061 - Spinal stenosis, lumbar region without neurogenic claudication Category: Medical Plan: Resolving acute/subactue symptoms following surgery (3) Mesenteric panniculitis: Code(s): K65.4 - Sclerosing mesenteritis Category: Medical Plan: Continue follow up with GI Orders: Orders XR DEXA axial skeleton 06/02/24 M81.0 - Age-related osteoporosis without current pathological fracture Hemoglobin A1c 6 Months E11.9 - Type 2 diabetes mellitus without complications, M48.061 - Spinal stenosis, lumbar region without neurogenic claudication, M81.0 - Age-related osteoporosis without current pathological fracture Comprehensive Met. Panel 6 Months E11.9 - Type 2 diabetes mellitus without complications, M48.061 - Spinal stenosis, lumbar region without neurogenic claudication, M81.0 - Age-related osteoporosis without current pathological fracture Lipid Panel 6 Months E11.9 - Type 2 diabetes mellitus without complications, M48.061 - Spinal stenosis, lumbar region without neurogenic claudication, M81.0 - Age-related osteoporosis without current pathological fracture Complete Blood Count Auto Diff 6 Months E11.9 - Type 2 diabetes mellitus without complications, M48.061 - Spinal stenosis, lumbar region without neurogenic claudication, M81.0 - Age-related osteoporosis without current pathological fracture Prostate Specific Antigen 6 Months E11.9 - Type 2 diabetes mellitus without complications, M48.061 - Spinal stenosis, lumbar region without neurogenic claudication, M81.0 - Age-related osteoporosis without current pathological fracture Referrals Endocrinology Referral M81.0 - Age-related osteoporosis without current pathological fracture
[2024-06-02 15:00] VITALS: BP 136/78; PULSE 83; O2SAT 97; BMI 34.6
== END 2024-06-02 15:29 | disposition home or self-care (01) ==
PROVIDERS: PCP Internal Medicine; Visit Provider Internal Medicine
DX: E11.42 Type 2 diabetes mellitus with diabetic polyneuropathy (principal); M48.061 Spinal stenosis, lumbar region without neurogenic claudication; K65.4 Sclerosing mesenteritis

== ENCOUNTER → 2024-06-02 14:39 | Outpatient (BNVA) | payer BC, SELFPAY | PROVIDERS: PCP Internal Medicine; Visit Provider Internal Medicine ==

== ENCOUNTER 2024-06-16 08:45 | Outpatient (AMB) | payer BC, SELFPAY ==
--- NOTE | 2024-06-16 08:51 | A.SPINEOV_ITS ---
Intake Visit Reasons: 1st post op Intake Note: Mr. Peralta is here today for his 1st post op visit. 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 Peralta comes in today for his first post-operative visit. To recap he was initially evaluated in our clinic for low back pain radiating down his right leg into his anterior thigh. He reports he is feeling much better since his surgery and is overall very satisfied with the procedure we had completed. His right leg pain is completely gone, but he still reports some residual numbness/tingling in his right anterior thigh. He feels that this too is improving, day by day. He is only taking Neurontin routinely for medication at this time, along with the occasional ibuprofen. No new neurological deficits. The patient ambulates well and rises from a seated position without difficulty. His posterior incision site appears closed, well healing, no signs of edema or fluctuance. I would like to follow up with Swapnil again in 6 weeks for his 2nd postoperative visit to ensure his incision is completely healed and he continues to do well. At the conclusion of this visit I signed paperwork for short-term disability for him and discuss the postoperative healing course. Abraham Judge MD,PhD [facility] Coding Level of Care Code Global (60232) Diagnoses Status post lumbar spine surgery for decompression of spinal cord Z98.890
== END 2024-06-16 09:08 | disposition home or self-care (01) ==
PROVIDERS: PCP Internal Medicine; Visit Provider Physician Assistant
DX: Z98.890 Other specified postprocedural states (principal)
CPT/HCPCS: 99024

== ENCOUNTER → 2024-06-16 08:45 | Outpatient (BNVA) | payer BC, SELFPAY | PROVIDERS: PCP Internal Medicine; Visit Provider Physician Assistant ==

== ENCOUNTER 2024-07-11 10:03 | Outpatient (REF) | payer BC, SELFPAY ==
--- NOTE | ~2024-07-11 | MM_ITS ---
EXAMINATION: BONE DENSITOMETRY CLINICAL INDICATION: Age-related osteoporosis without current pathological fracture. Osteoporosis noted during spinal surgery. Severe lumbar degenerative disc disease. COMPARISON: This is the patient's baseline examination. TECHNIQUE: Using a [employer] DXA System (software version: 13.1) manufactured by [employer], dual-energy x-ray absorptiometry was performed of the lumbar spine and left hip. The images are of good technical quality. Summary results are attached. FINDINGS: AP SPINE L1-L4: BMD 1.487 g/cm2, Z-score 1.9, T-score 2.2, normal. LEFT FEMUR, NECK: BMD 0.994 g/cm2, Z-score -0.1, T-score -0.6, normal. LEFT FEMUR, TOTAL: BMD 1.048 g/cm2, Z-score -0.3, T-score -0.4, normal. IDENTIFIED RISK FACTORS: Osteoporosis. Height loss. HISTORY OF FRACTURE: None listed. MEDICATIONS: Multivitamin. MM/XR DEXA axial skeleton IMPRESSION: 1. DIAGNOSIS: Normal bone density based on the lowest T-score value of -0.6 in the femoral neck applying World Health Organization criteria. 2. 10-YEAR FRACTURE RISK PREDICTION, FRAX: According to the guidelines, FRAX calculation should only be performed on patients in the osteopenia bone density category. Therefore, FRAX was not performed on this patient. 3. Treatment Recommendations: NOF guidelines recommend consideration for treatment in postmenopausal women and men age 50 and older presenting with the following: -A hip or vertebral (clinical or morphometric) fracture. -T-score less than or equal to -2.5 at the femoral neck or spine after appropriate evaluation to exclude secondary causes. -Low bone mass at the hip or spine and a 10-year fracture probability by FRAX of greater than or equal to 3% for hip fracture or greater than or equal to 20% for major osteoporotic fracture based on the [place] adapted WHO algorithm. 4. Other Recommendations: All treatment decisions require clinical judgment and consideration of individual patient factors, including patient preferences, comorbidities, previous drug use, risk factors not captured in the FRAX model (e.g. frailty, falls, vitamin D deficiency, increased bone turnover, interval significant decline in bone density) and possible under or overestimation of fracture risk by FRAX. FUTURE SCAN RECOMMENDATION: People with diagnosed cases of osteoporosis or at high risk for fracture should have regular bone mineral density tests. For patients eligible for Medicare, routine testing is allowed once every 2 years. The testing frequency can be increased to one year for patients who have rapidly progressing disease, those who are receiving or discontinuing medical therapy to restore bone mass, or have additional risk factors. Electronically signed by: Lenore Russell MD 07/11/2024 11:27 AM [facility]
== END 2024-07-11 10:04 | disposition home or self-care (01) ==
LOC: HO.MAMMO 10:03
PROVIDERS: PCP Internal Medicine; Visit Provider Internal Medicine
DX: M81.0 Age-related osteoporosis without current pathological fracture (principal)
CPT/HCPCS: 77080

== ENCOUNTER 2024-07-28 08:44 | Outpatient (AMB) | payer BC, SELFPAY ==
--- NOTE | 2024-07-28 08:48 | A.SPINEOV_ITS ---
Intake Visit Reasons: 2nd post op Intake Note: Mr. Peralta is here today for his 2nd post op. 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 Judge. To recap he was initially seen in clinic for acute radiating pain from his back down to the front of his thigh on the right side. This leg pain completed resolved by his 1st postoperative visit. Today he reports that he has had new onset severe low back pain and worsening lower extremity numbness since he saw us last. He states that initially he had tingling in the bilateral anterior thighs, now it has progressed to feeling of near complete numbness in his bilateral anterior thighs and bilateral lateral calves. In addition to this he has developed severe axial low back pain across both sides of his low back since the beginning of June. He reports this feels as though it is worsening by the day, and was recently exacerbated by bending about 7-10 days ago. He is currently taking gabapentin 900 mg daily and 800 mg ibuprofen daily. Notably he does continue to report complete resolution of the shooting pain that he initially went to surgery for. He is concerned he is not able to return to work, and brought his employers paperwork with him to review which states that he must lift 50-70 lb occasionally. The patient has diffuse 4/5 strength in his right lower extremity, 5/5 strength in his left lower extremity. (+) right-sided straight leg raise. (-) left- sided straight leg raise. The patient is able to rise from a seated position with the assistance of a chair. He uses no assistive devices to ambulate. He walks with a slightly antalgic gait favoring the left side. He is still able to complete stairs and walked upstairs to get x-rays today. I believe that Swapnil may be suffering from either an instability issue or recurrent disc herniation. These need to be ruled out in the setting of new onset different pain status post microdiskectomy surgery. I will be sending him for a set of flexion/extension x-rays and ordering a stat MRI of the lumbar spine with contrast to evaluate the difference between his recent surgery and any new pathology. We will follow up with him after the MRI. Abraham Judge MD,PhD [facility] Orders: Orders XR lumbar spine 4V min Today Z98.890 - Other specified postprocedural states MR lumbar spine wo/w con Today Z98.890 - Other specified postprocedural states Coding Level of Care Code Global (38033) Diagnoses Status post lumbar spine surgery for decompression of spinal cord Z98.890
== END 2024-07-28 09:26 | disposition home or self-care (01) ==
PROVIDERS: PCP Internal Medicine; Visit Provider Physician Assistant
DX: Z98.890 Other specified postprocedural states (principal)
CPT/HCPCS: 99024

== ENCOUNTER 2024-07-28 08:44 | Outpatient (REF) | payer BC, SELFPAY ==
--- NOTE | ~2024-07-28 | XR_ITS ---
EXAMINATION: Lumbar spine 4 views. CLINICAL INDICATION: Low back pain. COMPARISON: Lumbar spine MRI 05/09/2024. FINDINGS: There is maintained lumbar lordosis. There is grade 1 anterolisthesis L3 over L4 and grade 1 retrolisthesis L4 over L5. There is no significant change on flexion or extension views. As the vertebral alignment is normal. There is loss of L2-3, L4-5 and L5-S1 disc heights with moderate ventral osteophytes throughout the lumbar spine. No lytic process seen. There is mild levoscoliosis of upper mid lumbar spine. XR/XR lumbar spine 4V min IMPRESSION: Grade 1 anterolisthesis L3 on L4 and grade 1 retrolisthesis L4 over L5. There is no change on flexion-extension views. Degenerative disc changes as described above. Moderate ventral spondylosis throughout lumbar spine. Electronically signed by: Liu Klein MD 07/28/2024 09:41 AM [facility]
== END 2024-07-28 08:45 | disposition home or self-care (01) ==
LOC: HO.HOSX 08:44
PROVIDERS: PCP Internal Medicine; Visit Provider Physician Assistant
DX: Z98.890 Other specified postprocedural states (principal)
CPT/HCPCS: 72110

== ENCOUNTER → 2024-07-28 09:12 | Outpatient (BNV) | payer BC, SELFPAY | PROVIDERS: PCP Internal Medicine; Visit Provider Radiology Diagnostic Radiology | DX: M54.50 Low back pain, unspecified (principal) | CPT/HCPCS: 72110; 72158 ==

== ENCOUNTER 2024-07-28 15:03 | Outpatient (REF) | payer BC, SELFPAY ==
--- NOTE | ~2024-07-28 | MR_ITS ---
EXAMINATION: MR LUMBAR SPINE WITH AND WITHOUT CONTRAST CLINICAL INFORMATION: Worsening descending numbness right lower extremity and severe back pain status post right side L4-5 microdiscectomy. COMPARISON: MR lumbar 05/09/2024. TECHNIQUE: Multiplanar multisequence MR imaging of the lumbar spine was done both before and after the administration of 10 mL IV Gadavist gadolinium contrast. Examination was performed on a 1.5 Betzy Siemens magnet, utilizing standard sequences. FINDINGS: CORONAL ALIGNMENT: -Mild levoconvex scoliosis, apex at L2. SAGITTAL ALIGNMENT: - Mild straightening of the normal lordosis. -5 mm degenerative appearing anterolisthesis L3 on L4, unchanged. -2 mm retrolisthesis L4 on L5 and L5 on S1, also unchanged. -Sagittal alignment otherwise anatomic. LUMBOSACRAL JUNCTION: -Normal. There are 5 suc-abq-[id number] lumbar-type vertebral bodies. VERTEBRAL BODIES/BONE MARROW: -There are no compression deformities or evidence of fractures. -No gross bone marrow edema, or abnormal infiltrating bone marrow signal. -Hemangioma partially imaged and T11. -No abnormal bone marrow enhancement. -There has been a micro-laminectomy at L4-5 with microdiscectomy. There has been stripping of the ligamentum flavum. DISCS: -Severe disc space desiccation, loss of height and signal at L2-3, L4-5, and L5-S1. -Mild air changes at the other levels. SPINAL CANAL: -There is congenital spinal canal narrowing with shortened pedicles spanning L1-2 through L4, CONUS MEDULLARIS: -Terminates at L1. Morphology and signal is normal. INTRADURAL NERVE ROOTS: - Within normal limits. -No abnormal nerve root enhancement, clumping, or mass. -No abnormal intra-axial or extra medullary enhancement identified aside from expected postoperative changes at L4-5. Axial Disc Space Images: T12-L1: Only included in the sagittal imaging. No central canal or neural foraminal stenosis. Normal facets. L1-L2: Mild congenital spinal canal narrowing. There is a shallow diffuse bulging disc with left paracentral annular fissuring, concentrically involving both foraminal zones left greater than right. There are mild to moderate hypertrophic degenerative facet changes bilaterally, with posterior ligamentous infolding/thickening. There is mild central canal narrowing, mild bilateral subarticular recess narrowing, and mild bilateral neural foraminal narrowing. No change. L2-L3: Mild congenital spinal canal narrowing. There is a concentric disc bulge present extending into both foraminal zones, with superimposed right foraminal disc extrusion which extends lateral to foramen. Moderate hypertrophic degenerative facet changes are present bilaterally, with mild posterior ligamentous thickening/infolding. Combination of findings is resulting in mild to moderate central canal stenosis, mild to moderate bilateral subarticular recess stenosis, and moderate right greater than left neural foraminal stenosis. No interval change. L3-L4: Mild congenital spinal canal narrowing. Disc uncovering secondary to anterolisthesis. There is a shallow concentric disc bulge extending into both foraminal zones. This indents upon the ventral thecal sac but does not contact or impingement nerve roots. There are moderate to severe hypertrophic degenerative facet changes bilaterally, left greater than right, with the combination of findings resulting in mild to moderate central canal stenosis, at least moderate left subarticular recess stenosis with mild deviation of the traversing left L4 nerve roots without gross impingement. There is moderate to severe right greater than left neural foraminal stenosis. No interval change. L4-L5: Since the prior study, there has been interval right foraminotomy and microdiscectomy. There appears to be a more remote laminectomy. No definite recurrent focal disc herniation or extrusion. There is a persistent diffuse bulging disc with a superimposed right foraminal extrusion of disc which appears to have been recently partially resected, with a mix of residual disc and enhancing granulation tissue in the inferior right foramen. Despite this, there is persistent severe narrowing of the right neural foramen with flattening and impingement of the exiting right L4 nerve root. Moderate to severe hypertrophic degenerative facet changes are present. There has been stripping of the ligamentum flavum. There is mild central canal narrowing, mild bilateral subarticular recess narrowing right greater than left, with contact but no definite deviation of the traversing right L5 nerve roots. There is moderate to severe left neural foraminal narrowing with contact but no definite impingement of the exiting left L4 nerve roots. There is no significant central canal narrowing. L5-S1: There is a subtle retrolisthesis. There is a shallow diffuse concentric disc bulge extending into both foraminal zones symmetrically. There is a significant left lateral to foramen component. This indents upon the ventral thecal sac but does not contact nor impinge nerve roots. There is mild central canal narrowing. There are moderate hypertrophic degenerative facet changes bilaterally. There is minimal bilateral subarticular recess narrowing, and severe bilateral neural foraminal impingement with mild flattening and impingement of the exiting L5 nerve roots. No change. IMAGED SI JOINTS: -Mild degenerative arthropathy bilaterally. PARAVERTEBRAL AND INCLUDED EXTRASPINAL SOFT TISSUES: -There is edema and enhancement in the right paraspinous musculature at the L4-5 level related to recent surgery. -Aorta is normal in caliber. -No retroperitoneal adenopathy detected. -No abnormal fluid collection. -Tiny Tarlov cyst S2. MR/MR lumbar spine wo/w con IMPRESSION: 1. Since the prior examination, there has been right foraminotomy and microdiscectomy at L4-5. There is enhancing granulation tissue within the right neural foramen, with some residual disc material present, although the majority appears to be enhancing suggesting granulation tissue.. Despite the decompression, the exiting right L4 root demonstrates persistent flattening and mild impingement. This may be a postoperative feature secondary to localized swelling. There is no definite new or recurrent disc herniation. 2. There is no change in the other levels, which are described in detail above. There is a component of congenital spinal canal narrowing, exacerbating acquired spondylosis, as detailed. 3. Remote unchanged laminectomies at L4-5. Electronically signed by: Sav Muir MD 07/29/2024 08:50 AM [facility]
[2024-07-28] MEDS: gadobutroL 10 ML VIAL IVPUSH (16:00)
== END 2024-07-28 15:04 | disposition home or self-care (01) ==
LOC: HO.MRI 15:03
PROVIDERS: PCP Internal Medicine; Visit Provider Physician Assistant
DX: Z98.890 Other specified postprocedural states (principal)
CPT/HCPCS: 72158; A9585

== ENCOUNTER 2024-08-06 14:32 | Outpatient (AMB) | payer BC, SELFPAY ==
--- NOTE | 2024-08-06 14:34 | A.SPINEOV_ITS ---
Intake Visit Reasons: MRI f/u discuss sx Intake Note: Mr. Peralta is here today to F/u on the results to his MRI and Discuss Surgical options. Baker Biscuit Required: No Allergies No Known Allergies Allergy (Verified 08/06/24 14:36) Assessment & Plan Assessment & Plan (1) Spondylolisthesis, lumbar region: Code(s): M43.16 - Spondylolisthesis, lumbar region Category: Medical Plan Dear colleague, On 08/06/2024, , I saw Swapnil Peralta with a new complaint of severe low back pain. As you know, he underwent an L4-5 microdiskectomy, extraforaminal approach for right lumbar radiculopathy to which he responded well. He has residual numbness but the radicular pain is gone. In June he developed acute lumbago. He has had episodes in the past that usually resolve within days or weeks. This time it is not getting better. When he gets up in the morning the symptoms start after proximally 20 minutes and progress of the day. Changing positions it is very painful. He is currently taking anti- inflammatories, gabapentin to control the pain. He denies radiation down his legs. On exam, he is in agony. Changing positions from sitting to standing is painful across the lumbar spine. No new neurological deficits. Radiologic studies: MRI of the lumbar spine shows a grade L3-4 spondylolisthesis with associated spinal stenosis. This is the same area where he had a previous laminotomy done in 2008 and 2018. This patient is suffering from severe low back pain that could be associated with the lumbar spondylolisthesis. I will refer him for a lumbar epidural steroid injection to see if we can calm the situation down. I will also review old MRIs to see if the spondylolisthesis is new. He will return to see me 3 weeks after the epidural steroid injection. I spent 30 minutes in his consult to review imaging and to discuss plan of care. Thank you for allowing me take care of your patient. Ellis Judge MD, PhD Spine Fellowship Trained Neurosurgeon Director, [facility] Orders: Referrals Pain Management Referral M43.16 - Spondylolisthesis, lumbar region Coding Level of Care Code Est Pt Level 3 (57545) Diagnoses Spondylolisthesis, lumbar region M43.16
== END 2024-08-06 14:45 | disposition home or self-care (01) ==
PROVIDERS: PCP Internal Medicine; Visit Provider Neurological Surgery
DX: M43.16 Spondylolisthesis, lumbar region (principal)
CPT/HCPCS: 99213

== ENCOUNTER → 2024-08-06 14:32 | Outpatient (BNVA) | payer BC, SELFPAY | PROVIDERS: PCP Internal Medicine; Visit Provider Neurological Surgery ==

== ENCOUNTER 2024-08-28 07:42 | Outpatient (REF) | payer BC, SELFPAY ==
--- NOTE | ~2024-08-28 | FL_ITS ---
EXAMINATION: FLUOROSCOPY GUIDANCE FOR NEEDLE PLACEMENT CLINICAL INFORMATION: M54.16 - Radiculopathy, lumbar region COMPARISON: None available. TECHNIQUE: Fluoroscopy guidance was provided to referring physician during intervention. No radiologist present. FINDINGS/ FL/FL guidance in treatment room IMPRESSION: 3 digital images obtained in the OR. There is a needle positioned right L4 pedicle with contrast opacifying the soft tissues. There is mild spondylosis at the L3-for L4-5 disc levels. FLUOROSCOPY TIME: 0.5 minutes DOSE AREA PRODUCT: 14.6 uGy-m2 (microgray-meter squared) Electronically signed by: Liu Klein MD 09/17/2024 07:46 AM [facility]
--- OUTSIDE RECORDS SUMMARY | 2024-08-28 07:44 | XMS_ITS | Encounter Summary ---
Author Organization [facility] Address [address] [place] [address] Care Team Providers Care Property Appraiser Name Role Phone Cain Cooley DO Primary Care Provider UnavailMichael Leonard MD Unavailable Namita Brown MD Primary Care Provider Un available Vahid Baum PA-C Unavailable [phone] Encounter Details Date Type Department Care Team Description 06/27/2023 Orders Only Medical Records [address] [place] [id number] Génesis Valero PA-C Social History Tobacco Use Types Packs/Day Years Used Date Smoking Tobacco: Former Cigarettes 1 20 Smokeless Tobacco: Never Alcohol Use Standard Drinks/Week Comments No 0 (1 standard drink = 0.6 oz pur e alcohol) Alcohol Habits Answer Date Recorded How often do you have a drin k containing alcohol? Not asked How many drinks containing a lcohol do you have on a typical day when you are drinking? Patient does not drink 09/13/2022 How often do you have six or more drinks on one occasion? Not asked Social Isolation Answer Date Recorded In a typical week, how many times do you talk on the phone with family, friends, or neighbors? More than three times a week 09/13/2022 How often do you get togethe r with friends or relatives? More than three times a week 09/13/2022 How often do you attend chur ch or jew services? Never 09/13/2022 Do you belong to any clubs o r organizations such as yazdanism groups, unions, fraternal or athletic groups, or school groups? No 09/13/2022 How often do you attend meet ings of the clubs or organizations you belong to? Never 09/13/2022 Are you now , , , , never or living with a partner? 09/13/2022 Physical Activity Answer Date Recorded On average, how many days pe r week do you engage in moderate to strenuous exercise (like walking fast, running, jogging, dancing, swimming, biking, or other activities that cause a light or heavy sweat)? 6 days 09/13/2022 On average, how many minutes do you engage in exercise at this level? 30 min 09/13/2022 Stress Answer Date Recorded Do you feel stress - tense, restless, nervous, or anxious, or unable to sleep at night because your mind is troubled all the time - these days? Not at all 09/13/2022 Financial Resource Strain Answer Date R ecorded How hard is it for you to pa y for the very basics like food, housing, medical care, and heating? Not hard at all 09/13/2022 Intimate Partner Violence Answer Date R ecorded Within the last year, have y ou been afraid of your partner or ex-partner? No 09/13/2022 Within the last year, have y ou been humiliated or emotionally abused in other ways by your partner or ex-partner? No Within the last year, have y ou been kicked, hit, slapped, or otherwise physically hurt by your partner or ex-partner? No 09/13/2022 Within the last year, have y ou been raped or forced to have any kind of sexual activity by your partner or ex-partner? No 09/13/2022 Food Insecurity Answer Date Recorded Within the past 12 months, y ou worried that your food would run out before you got money to buy more. Never true 09/13/2022 Within the past 12 months, t he food you bought just didn't last and you didn't have money to get more. Never true 09/13/2022 Transportation Needs Answer Date Record ed In the past 12 months, has l ack of transportation kept you from medical appointments or from getting medications? No 07/2022 In the past 12 months, has l ack of transportation kept you from meetings, work, or getting things needed for daily living? No 09/13/2022 Housing Stability Answer Date Recorded In the last 12 months, was t here a time when you were not able to pay the mortgage or rent on time? Not asked In the last 12 months, how many places have you lived? Not asked In the last 12 months, was t here a time when you did not have a steady place to sleep or slept in a jail (including now)? No 09/13/2022 Sex Assigned at Date Recorded Not on file Job Start Date Occupation Industry Not on file Not on file Not on file documented as of this encounter Plan of Treatment Not on file documented as of this encounter Procedures Procedure Name Priority Date/Time Associated Diagnosis Comments OUTSIDE CT Routine 06/01/2023 documented in this encounter Results * OUTSIDE CT (06/01/2023) Génesis Valero PA-C RADIOLOGY documented in this encounter Visit Diagnoses Not on filedocumented in this encounter Care Teams Property Appraiser Relationship Specialty Start Date End Date Cain Cooley DO PCP - General Internal Medicine 07/18/21 12/24/23 Namita Brown MD PCP - General Internal Medicine 12/25/23 Michael Herron MD Lung Cancer Hot Header Operator 10/08/23 Vahid Baum PA-C [address] [place] [phone] Specialist Thoracic Surgery 04/02/24 documented as of this encounter
--- OUTSIDE RECORDS SUMMARY | 2024-08-28 07:44 | XMS_ITS | Encounter Summary ---
Author Organization [facility] Address [address] [place] [address] Care Team Providers Care Digital Controls Technical Officer Name Role Phone Jannet Doherty MD Primary Care Provider Unavailable Cain Cooley DO Primary Care Provider UnavailMichael Leonard MD Unavailable Namita Brown MD Primary Care Provider Un available Vahid Baum PA-C Unavailable [phone] Encounter Details Date Type Department Care Team Description 10/28/2020 Supervisor Laboratory Report Medical Records [address] [place] [id number] Amy Young Social History Tobacco Use Types Packs/Day Years [...] often do you attend chur ch or synagogue services? Never 09/13/2022 Do you belong to any clubs o r organizations such as mandaeism groups, unions, fraternal or athletic groups, or [...] place to sleep or slept in a detention (including now)? No 09/13/2022 Sex Assigned at Date Recorded Not on file Job Start Date Occupation Industry Not on file Not on file Not on file COVID-19 Exposure Response Date Recorded In the last month, have you been in contact with someone who was confirmed or suspected to have Coronavirus / COVID-19? No / Unsure 10/27/2020 4:42 PM EDT documented as of this encounter Plan of Treatment Not on file documented as of this encounter Visit Diagnoses Not on filedocumented in this encounter Care Teams Digital Controls Technical Officer Relationship Specialty Start Date End Date Jannet Doherty MD PCP - General Internal Medicine 02/27/17 07/17/21 Cain Cooley DO PCP - General Internal Medicine 07/18/21 12/24/23 Namita Brown MD PCP - General Internal Medicine 12/25/23 Michael Herron MD Lung Cancer Senior Ux Designer 10/08/23 Vahid Baum PA-C [address] [place] [phone] Specialist Thoracic Surgery 04/02/24 documented as of this encounter
--- OUTSIDE RECORDS SUMMARY | 2024-08-28 07:44 | XMS_ITS | Encounter Summary ---
Author Organization [facility] Address [address] [place] [address] Care Team Providers Care Sketch Maker Name Role Phone Cain Cooley DO Primary Care Provider UnavailMichael Leonard MD Unavailable Namita Brown MD Primary Care Provider Un available Vahid Baum PA-C Unavailable Encounter Details Date Type Department Care Team Description 06/26/2023 Telephone Adult Medicine - [address] [address] Cain Cooley DO Social History Tobacco Use Types Packs/Day Years [...] often do you attend chur ch or church services? Never 09/13/2022 Do you belong to any clubs o r organizations such as jainism groups, unions, fraternal or athletic groups, or [...] place to sleep or slept in a intermediate (including now)? No 09/13/2022 Sex Assigned at Date Recorded Not on file Job Start Date Occupation Industry Not on file Not on file Not on file documented as of this encounter Miscellaneous Notes * Telephone Encounter - Cain Cooley DO - 06/26/2023 11:[address] chest reviewed Called and discussed with patient Patient has schedule appointment with Dr. Jasso on 06/29/2023 documented in this encounter Plan of Treatment Not on file documented as of this encounter Visit Diagnoses Not on filedocumented in this encounter Care Teams Sketch Maker Relationship Specialty Start Date End Date Cain Cooley DO PCP - General Internal Medicine 07/18/21 12/24/23 Namita Brown MD PCP - General Internal Medicine 12/25/23 Michael Herron MD Lung Cancer Knocker Off 10/08/23 Vahid Baum PA-C [address] [place] [phone] Specialist Thoracic Surgery 04/02/24 documented as of this encounter
--- OUTSIDE RECORDS SUMMARY | 2024-08-28 07:44 | XMS_ITS | Encounter Summary ---
Author Organization [facility] Address [address] [place] [address] Care Team Providers Care Beater Operator Name Role Phone Jannet Doherty MD Primary Care Provider Unavailable Cain Cooley DO Primary Care Provider UnavailMichael Leonard MD Unavailable Namita Brown MD Primary Care Provider Un available Vahid Baum PA-C Unavailable [phone] Encounter Details Date Type Department Care Team Description 01/29/2020 Orders Only Medical Records [address] [place] [id number] Jannet Doherty MD Social History Tobacco Use Types Packs/Day Years [...] 09/13/2022 How often do you attend chur or zoroastrian services? Never 09/13/2022 Do you belong to any clubs o r organizations such as alevism groups, unions, fraternal or athletic groups, or [...] place to sleep or slept in a correction (including now)? No 09/13/2022 Sex Assigned at Date Recorded Not on file Job Start Date Occupation Industry Not on file Not on file Not on file documented as of this encounter Plan of Treatment Not on file documented as of this encounter Procedures Procedure Name Priority Date/Time Associated Diagnosis Comments OUTSIDE LAB Routine 01/27/2020 documented in this encounter Results * OUTSIDE LAB (01/27/2020) Jannet Doherty MD LAB documented in this encounter Visit Diagnoses Not on filedocumented in this encounter Care Teams Beater Operator Relationship Specialty Start Date End Date Jannet Doherty MD PCP - General Internal Medicine 02/27/17 07/17/21 Cain Cooley DO PCP - General Internal Medicine 07/18/21 12/24/23 Namita Brown MD PCP - General Internal Medicine 12/25/23 Michael Herron MD Lung Cancer [facility] 10/08/23 Vahid Baum PA-C [address] [place] [phone] Specialist Thoracic Surgery 04/02/24 documented as of this encounter
--- OUTSIDE RECORDS SUMMARY | 2024-08-28 07:44 | XMS_ITS | Encounter Summary ---
Author Organization [facility] Address [address] [place] [address] Care Team Providers Care Design Engineering Manager Name Role Phone Jannet Doherty MD Primary Care Provider Unavailable Cain Cooley DO Primary Care Provider UnavailMichael Leonard MD Unavailable Namita Brown MD Primary Care Provider Un available Vahid Baum PA-C Unavailable [phone] Reason for Visit * Reason Onset Date Comments Pre-visit Diabetes Lab Adult Medicine 10/26/202011/08 Encounter Details Date Type Department Care Team Description 10/26/2020 Telephone Adult Medicine - [address] [address] Jannet Doherty MD Pre-visit Diabetes Lab Adult Medicine (11/08) Social History Tobacco Use Types Packs/Day Years [...] week 09/13/2022 How often do you attend [facility] or baptism services? Never 09/13/2022 Do you belong to any clubs o r organizations such as baptism groups, unions, fraternal or athletic groups, or [...] place to sleep or slept in a custodial (including now)? No 09/13/2022 Sex Assigned at [...] PM EDT documented as of this encounter Miscellaneous Notes * Telephone Encounter - Holly Rea - 10/26/2020 8:53 AM EDT Sent patient an email advising them to complete diabetic lab work at least three days prior to their upcoming appointment. documented in this encounter Plan of Treatment Not on file documented as of this encounter Results * HEMOGLOBIN A1C (10/27/2020 4:43 PM EDT) GLYCATED HEMOGLOBIN A1C 6.4 <6.5 % 10/27/2020 8:32 PM EDT [facility] ESTIMATED AVERAGE GLUCOSE 137 mg/dL 10/27/2020 8:32 PM EDT [facility] 10/27/2020 4:43 PM EDT 10/27/2020 4:44 PM EDT Narrative [facility] - 10/27/2020 8:32 PM EDT Release to patient->Immediate [facility] Doherty [facility] documented in this encounter Visit Diagnoses Diagnosis Type 2 diabetes mellitus without complication, without long-term current use of insulin (HCC)- Primary Type 2 diabetes mellitus without complication, without long-term current use of insulin (HCC) documented in this encounter Care Teams Design Engineering Manager Relationship Specialty Start Date End Date Jannet Doherty MD PCP - General Internal Medicine 02/27/17 07/17/21 Cain Cooley DO PCP - General Internal Medicine 07/18/21 12/24/23 Namita Brown MD PCP - General Internal Medicine 12/25/23 Michael Herron MD Lung Cancer Sheet Writer 10/08/23 Vahid Baum PA-C [address] [place] [phone] Specialist Thoracic Surgery 04/02/24 documented as of this encounter
--- OUTSIDE RECORDS SUMMARY | 2024-08-28 07:44 | XMS_ITS | Encounter Summary ---
Author Organization [facility] Address [address] [place] [address] Care Team Providers Care Junior Data Analyst Name Role Phone Jannet Doherty MD Primary Care Provider Unavailable Cain Cooley DO Primary Care Provider UnavailMichael Leonard MD Unavailable Namita Brown MD Primary Care Provider Un available Vahid Baum PA-C Unavailable [phone] Encounter Details Date Type Department Care Team Description 12/12/2018 Hospital Medical Records [address] [place] [id number] Swapnil Casey MD Social History Tobacco Use Types Packs/Day [...] often do you attend chur ch or holiness services? Never 09/13/2022 Do you belong to any clubs o r organizations such as jew groups, unions, fraternal or athletic groups, or [...] place to sleep or slept in a assisted (including now)? No 09/13/2022 Sex Assigned at Date Recorded Not on file Job Start Date Occupation Industry Not on file Not on file Not on file documented as of this encounter Plan of Treatment Not on file documented as of this encounter Visit Diagnoses Not on filedocumented in this encounter Care Teams Junior Data Analyst Relationship Specialty Start Date End Date Jannet Doherty MD PCP - General Internal Medicine 02/27/17 07/17/21 Cain Cooley DO PCP - General Internal Medicine 07/18/21 12/24/23 Namita Brown MD PCP - General Internal Medicine 12/25/23 Michael Herron MD Lung Cancer Linux Vmware Administrator 10/08/23 Vahid Baum PA-C [address] [place] [phone] Specialist Thoracic Surgery 04/02/24 documented as of this encounter
--- OUTSIDE RECORDS SUMMARY | 2024-08-28 07:44 | XMS_ITS | Encounter Summary ---
Author Organization [facility] Address [address] [place] [address] Care Team Providers Care Dolphin Trainer Name Role Phone Jannet Doherty MD Primary Care Provider Unavailable Cain Cooley DO Primary Care Provider UnavailMichael Leonard MD Unavailable Namita Brown MD Primary Care Provider Un available Vahid Baum PA-C Unavailable [phone] Encounter Details Date Type Department Care Team Description 09/30/2019 Refill Adult Medicine [address] [address] Jannet Doherty MD Social History Tobacco Use [...] week 09/13/2022 How often do you attend [facility] or baptism services? Never 09/13/2022 Do you belong to any clubs o r organizations such as baptist groups, unions, fraternal or athletic groups, or [...] on filedocumented in this encounter Care Teams Dolphin Trainer Relationship Specialty Start Date End Date Jannet Doherty MD PCP - General Internal Medicine 02/27/17 07/17/21 Cain Cooley DO PCP - General Internal Medicine 07/18/21 12/24/23 Namita Brown MD PCP - General Internal Medicine 12/25/23 Michael Herron MD Lung Cancer Seaman 10/08/23 Vahid Baum PA-C [address] [place] [phone] Specialist Thoracic Surgery 04/02/24 documented as of this encounter
--- OUTSIDE RECORDS SUMMARY | 2024-08-28 07:44 | XMS_ITS | Encounter Summary ---
Author Organization [facility] Address [address] [place] [address] Care Team Providers Care Instrument Designer Name Role Phone Jannet Doherty MD Primary Care Provider Unavailable Cain Cooley DO Primary Care Provider UnavailMichael Leonard MD Unavailable Namita Brown MD Primary Care Provider Un available Vahid Baum PA-C Unavailable [phone] Encounter Details Date Type Department Care Team Description 12/03/2018 Bull Driver Report Medical Records [address] [place] [address] Swapnil Casey MD Social History Tobacco Use [...] often do you attend chur ch or judaism services? Never 09/13/2022 Do you belong to any clubs o r organizations such as mormonism groups, unions, fraternal or athletic groups, or [...] place to sleep or slept in a [facility] (including now)? No 09/13/2022 Sex Assigned at Date Recorded Not on file Job Start Date Occupation Industry Not on file Not on file Not on file documented as of this encounter Plan of Treatment Not on file documented as of this encounter Visit Diagnoses Not on filedocumented in this encounter Care Teams Instrument Designer Relationship Specialty Start Date End Date Jannet Doherty MD PCP - General Internal Medicine 02/27/17 07/17/21 Cain Cooley DO PCP - General Internal Medicine 07/18/21 12/24/23 Namita Brown MD PCP - General Internal Medicine 12/25/23 Michael Herron MD Lung Cancer Baseboard Heating Installer 10/08/23 Vahid Bamu PA-C [address] [place] [phone] Specialist Thoracic Surgery 04/02/24 documented as of this encounter
--- OUTSIDE RECORDS SUMMARY | 2024-08-28 07:44 | XMS_ITS | Encounter Summary ---
Author Organization [facility] Address [address] [place] [address] Care Team Providers Care Tread Builder Name Role Phone Jannet Doherty MD Primary Care Provider Unavailable Cain Cooley DO Primary Care Provider UnavailMichael Leonard MD Unavailable Namita Brown MD Primary Care Provider Un available Vahid Baum PA-C Unavailable [phone] Reason for Visit * Reason Comments E-prescribe Rx Request Encounter Details Date Type Department Care Team Description 05/26/2020 Refill Adult Medicine [address] [address] Jannet Doherty MD E-prescribe Rx Request Social History Tobacco Use Types Packs/Day Years [...] week 09/13/2022 How often do you attend [facility] or methodist services? Never 09/13/2022 Do you belong to any clubs o r organizations such as druze groups, unions, fraternal or athletic groups, or [...] place to sleep or slept in a [place] [facility] (including now)? No 09/13/2022 Sex Assigned at Date Recorded Not on file Job Start Date Occupation Industry Not on file Not on file Not on file documented as of this encounter Miscellaneous Notes * Telephone Encounter - Dorina Patrick - 05/26/2020 12:19 PM EST Patient would like script to be: E-PRESCRIBED/FAXED TO PHARMACY ?? WHEN WAS THE PATIENT'S LAST APPOINTMENT IN ADULT MEDICINE? 03/17/2020 ?? WHEN WAS THE LAST TIME THE PATIENT SAW THEIR PCP? Same as above ?? Does patient have an upcoming appointment? No-unable to reach left [facility] to call for appointment due to refill request. Appt due dec ?? (THE MEDICATION REQUESTED IS ON THE MED LIST ABOVE) All of the medications requested were on the CURRENT MEDS list ?? Did you check the Pharmacy information above?: YES ?? Patient wants: 30 -day supply ?? Is this a mail order prescription request ? NO ?? If the refill is from a FAXED refill request what is the RX # listed on the fax? N/A ?? Patients current insurance carrier is: [place]: [place] / Plan: JOSÉ LUIS GARCIA $20/$35 / Product Type: HMO [id number] ? documented in this encounter Plan of Treatment Not on file documented as of this encounter Visit Diagnoses Not on filedocumented in this encounter Care Teams Tread Builder Relationship Specialty Start Date End Date Jannet Doherty MD PCP - General Internal Medicine 02/27/17 07/17/21 Cain Cooley DO PCP - General Internal Medicine 07/18/21 12/24/23 Namita Brown MD PCP - General Internal Medicine 12/25/23 Michael Herron MD Lung Cancer Trial Manager 10/08/23 Vahid Baum PA-C [address] [phone] Specialist Thoracic Surgery 04/02/24 documented as of this encounter
--- OUTSIDE RECORDS SUMMARY | 2024-08-28 07:44 | XMS_ITS | Encounter Summary ---
Author Organization [facility] Address [address] [place] [address] Care Team Providers Care Newspaper Distributor Supervisor Name Role Phone Cain Cooley DO Primary Care Provider UnavailMichael Leonard MD Unavailable Namita Brown MD Primary Care Provider Un available Vahid Baum PA-C Unavailable [phone] Encounter Details Date Type Department Care Team Description 07/02/2023 Refill Pediatrics [address] [address] Cain Cooley DO Social History Tobacco Use [...] often do you attend chur ch or adventist services? Never 09/13/2022 Do you belong to any clubs o r organizations such as latter-day groups, unions, fraternal or athletic groups, or [...] Telephone Encounter - Cain Cooley DO - 07/03/2023 12:24 PM EST Patient needs to schedule appointment for acute visit with available provider in the clinic If no provider available in the clinic, please advise patient to go to ER/urgent care IT IS strongly recommended to examine patient before prescribing the medicine I already prescribed prednisone without examining the patient No further medicine will prescribe without examine the patient * Telephone Encounter - Brigette Barber L.P.N. - 07/03/2023 10:44 AM EST Please review message regarding prednisone I started Prednisone on the and finished it Sunday the . The prednisone was working and helping my symptoms. I cannot get into GI until October 23 2023 and my GI symptoms started coming backon Monday 07/02. * Telephone Encounter - Cain Cooley DO - 07/03/2023 8:35 AM EST Refill not appropriate. Patient was prescribed prednisone for 9 days. Today is day 7. Please advisepatient to complete the course of the prednisone. If symptoms not improved then he needs to follow-up in the clinic as an acute visit. * Telephone Encounter - Brigette Childers.P.N. - 07/03/2023 8:18 AM EST Please review message regarding prednisone documented in this encounter Plan of Treatment Not on file documented as of this encounter Visit Diagnoses Diagnosis Pancolitis (HCC) [place] ulcerative (chronic) colitis documented in this encounter Care Teams Newspaper Distributor Supervisor Relationship Specialty Start Date End Date Cain Cooley DO PCP - General Internal Medicine 07/18/21 12/24/23 Namita Brown MD PCP - General Internal Medicine 12/25/23 Michael Herron MD Lung Cancer Post Doctoral Researcher 10/08/23 Vahid Baum PA-C [address] [place] [phone] Specialist Thoracic Surgery 04/02/24 documented as of this encounter
--- OUTSIDE RECORDS SUMMARY | 2024-08-28 07:44 | XMS_ITS | Encounter Summary ---
Author Organization [facility] Address [address] [place] [address] Care Team Providers Care Scanning Coordinator Name Role Phone Jannet Doherty MD Primary Care Provider Unavailable Cain Cooley DO Primary Care Provider UnavailMichael Leonard MD Unavailable Namita Brown MD Primary Care Provider Un available Vahid Baum PA-C Unavailable [phone] Encounter Details Date Type Department Care Team Description 03/05/2019 Outreach Manager Report Medical Records [address] [place] [address] Swapnil Casey MD Social History Tobacco Use [...] often do you attend chur ch or shinto services? Never 09/13/2022 Do you belong to any clubs o r organizations such as muslim groups, unions, fraternal or athletic groups, or [...] on filedocumented in this encounter Care Teams Scanning Coordinator Relationship Specialty Start Date End Date Jannet Doherty MD PCP - General Internal Medicine 02/27/17 07/17/21 Cain Cooley DO PCP - General Internal Medicine 07/18/21 12/24/23 Namita Brown MD PCP - General Internal Medicine 12/25/23 Michael Herron MD Lung Cancer Histologist Technologist 10/08/23 Vahid Baum PA-C [address] [place] [phone] Specialist Thoracic Surgery 04/02/24 documented as of this encounter
--- OUTSIDE RECORDS SUMMARY | 2024-08-28 07:44 | XMS_ITS | Encounter Summary ---
Author Organization [facility] Address [address] [place] [address] Care Team Providers Care Drafter Seismograph Name Role Phone Jannet Doherty MD Primary Care Provider Unavailable Cain Cooley DO Primary Care Provider UnavailMichael Leonard MD Unavailable Namita Brown MD Primary Care Provider Un available Vahid Baum PA-C Unavailable [phone] Encounter Details Date Type Department Care Team Description 12/06/2018 [facility] Adult [address] [address] Nuris Rivera PA-C Social History Tobacco Use Types Packs/Day [...] week 09/13/2022 How often do you attend [facility] or hoahaoism services? Never 09/13/2022 Do you belong to any clubs o r organizations such as religious groups, unions, fraternal or athletic groups, or [...] place to sleep or slept in a half-way (including now)? No 09/13/2022 Sex Assigned at Date Recorded Not on file Job Start Date Occupation Industry Not on file Not on file Not on file documented as of this encounter Miscellaneous Notes * Telephone Encounter - Long Alcazar M.A. - 12/06/2018 8:43 AM EDT 11/21 No upcoming No csc, psi Mass[employer] printed * Telephone Encounter - Long Alcazar M.A. - 12/06/2018 8:42 AM EDTFrom: Swapnil Peralta To: Nuris Rivera PA-C Sent: 12/06/2018 5:34 AM EDT Subject: Medication Renewal Request Original authorizing provider: BONY Carrion would like a refill of the following medications: oxycodone-acetaminophen (PERCOCET) 5-325 MG per tablet [Nuris Rivera PA-C] Preferred pharmacy: [facility] [place] [address] Comment: still no relief. surgery is scheduled for 12/12. hoping this will be my last refill ever! documented in this encounter Plan of Treatment Not on file documented as of this encounter Visit Diagnoses Not on filedocumented in this encounter Care Teams Drafter Seismograph Relationship Specialty Start Date End Date Jannet Doherty MD PCP - General Internal Medicine 02/27/17 07/17/21 Cain Cooley DO PCP - General Internal Medicine 07/18/21 12/24/23 Namita Brown MD PCP - General Internal Medicine 12/25/23 Michael Herron MD Lung Cancer Digital Imaging Technician 10/08/23 Vahid Baum PA-C [address] [place] [phone] Specialist Thoracic Surgery 04/02/24 documented as of this encounter
--- OUTSIDE RECORDS SUMMARY | 2024-08-28 07:44 | XMS_ITS | Encounter Summary ---
Author Organization [facility] Address [address] [place] [address] Care Team Providers Care Game Room Attendant Name Role Phone Jannet Doherty MD Primary Care Provider Unavailable Cain Cooley DO Primary Care Provider UnavailMichael Leonard MD Unavailable Namita Brown MD Primary Care Provider Un available Vahid Baum PA-C Unavailable [phone] Encounter Details Date Type Department Care Team Description 03/19/2020 Controlled Substance Plan Medical Records [address] [place] [address] Abstract, Provider Social History Tobacco Use Types Packs/Day Years [...] often do you attend chur ch or jain services? Never 09/13/2022 Do you belong to any clubs o r organizations such as episcopal groups, unions, fraternal or athletic groups, or [...] place to sleep or slept in a care home (including now)? No 09/13/2022 Sex Assigned at Date Recorded Not on file Job Start Date Occupation Industry Not on file Not on file Not on file COVID-19 Exposure Response Date Recorded In the last month, have you been in contact with someone who was confirmed or suspected to have Coronavirus / COVID-19? No / Unsure 03/17/2020 8:17 AM EDT documented as of this encounter Plan of Treatment Not on file documented as of this encounter Visit Diagnoses Not on filedocumented in this encounter Care Teams Game Room Attendant Relationship Specialty Start Date End Date Jannet Doherty MD PCP - General Internal Medicine 02/27/17 07/17/21 Cain Cooley DO PCP - General Internal Medicine 07/18/21 12/24/23 Namita Brown MD PCP - General Internal Medicine 12/25/23 Michael Herron MD Lung Cancer Under Cutter 10/08/23 Vahid Baum PA-C [address] [phone] Specialist Thoracic Surgery 04/02/24 documented as of this encounter
--- OUTSIDE RECORDS SUMMARY | 2024-08-28 07:44 | XMS_ITS | Encounter Summary ---
Author Organization [facility] Address [address] [place] [address] Care Team Providers Care Supervisor Concrete Stone Finishing Name Role Phone Cain Cooley DO Primary Care Provider UnavailMichael Leonard MD Unavailable Namita Brown MD Primary Care Provider Un available Vahid Baum PA-C Unavailable Encounter Details Date Type Department Care Team Description 06/25/2023 Pt. Non Urgent Medic al Question Adult Medicine - [address] [address] Cain Cooley, Social History Tobacco Use Types Packs/Day Years [...] often do you attend chur ch or sabianism services? Never 09/13/2022 Do you belong to any clubs o r organizations such as tenriism groups, unions, fraternal or athletic groups, or [...] place to sleep or slept in a residential (including now)? No 09/13/2022 Sex Assigned at Date Recorded Not on file Job Start Date Occupation Industry Not on file Not on file Not on file documented as of this encounter Miscellaneous Notes * Telephone Encounter - Aide Francois L.P.N. - 06/25/2023 10:23 AM ESTFrom: Swapnil Peralta To: James Cooley Sent: 06/25/2023 10:23 AM EST Subject: Prednisone RX I appreciate you sending in the RX for the Prednisone. I see that you have not received a copy of the CT scan on 06/12/23. I have included a copy of the findings documented in this encounter Plan of Treatment Not on file documented as of this encounter Visit Diagnoses Not on filedocumented in this encounter Care Teams Supervisor Concrete Stone Finishing Relationship Specialty Start Date End Date Cain Cooley DO PCP - General Internal Medicine 07/18/21 12/24/23 Namita Brown MD PCP - General Internal Medicine 12/25/23 Michael Herron MD Lung Cancer Director Of Customer Acquisition 10/08/23 Vahid Baum PA-C [address] [phone] Specialist Thoracic Surgery 04/02/24 documented as of this encounter
--- OUTSIDE RECORDS SUMMARY | 2024-08-28 07:44 | XMS_ITS | Encounter Summary ---
Author Organization [facility] Address [address] [place] [address] Care Team Providers Care Skin Peeling Machine Operator Name Role Phone Cain Cooley DO Primary Care Provider UnavailMichael Leonard MD Unavailable Namita Brown MD Primary Care Provider Un available Vahid Baum PA-C Unavailable [phone] Encounter Details Date Type Department Care Team Description 11/04/2021 Telephone Adult Medicine - [address] [address] Cain Cooley DO Social History Tobacco Use [...] often do you attend chur ch or congregational services? Never 09/13/2022 Do you belong to any clubs o r organizations such as nondenominational groups, unions, fraternal or athletic groups, or [...] Exposure Response Date Recorded In the last 10 days, have yo u been in contact with someone who was confirmed or suspected to have Coronavirus/COVID-19? No / Unsure 11/04/2021 8:45 AM EDT documented as of this encounter Miscellaneous Notes * Telephone Encounter - Gertrude Miles M.A. - 11/07/2021 3:09 PM EDT Pt informed of this message. * Telephone Encounter - Gertrude Miles M.A. - 11/04/2021 4:30 PM EDT Left message to return call * Telephone Encounter - Gertrude Miles M.A. - 11/04/2021 4:29 PM EDT ----- Message from Cain Cooley DO sent at 11/04/2021 10:33 AM EDT ----- Please review documented in this encounter Plan of Treatment Not on file documented as of this encounter Visit Diagnoses Not on filedocumented in this encounter Care Teams Skin Peeling Machine Operator Relationship Specialty Start Date End Date Cain Cooley DO PCP - General Internal Medicine 07/18/21 12/24/23 Namita Brown MD PCP - General Internal Medicine 12/25/23 Michael Herron MD Lung Cancer Continuous Wave Operator 10/08/23 Vahid Baum PA-C [address] [place] [phone] Specialist Thoracic Surgery 04/02/24 documented as of this encounter
--- OUTSIDE RECORDS SUMMARY | 2024-08-28 07:44 | XMS_ITS | Encounter Summary ---
Author Organization [facility] Address [address] [place] [address] Care Team Providers Care Last Picker Name Role Phone Jannet Doherty MD Primary Care Provider Unavailable Cain Cooley DO Primary Care Provider UnavailMichael Leonard MD Unavailable Namita Brown MD Primary Care Provider Un available Vahid Baum PA-C Unavailable [phone] Encounter Details Date Type Department Care Team Description 12/14/2018 Pt. Non Urgent Medic al Question Adult Medicine - [address] [address] Nuris Rivera PA-C Social History Tobacco Use [...] How often do you attend chur or orthodoxy services? Never 09/13/2022 Do you belong to any clubs o r organizations such as pentecostalism groups, unions, fraternal or athletic groups, or [...] place to sleep or slept in a skilled nursing (including now)? No 09/13/2022 Sex Assigned at Date Recorded Not on file Job Start Date Occupation Industry Not on file Not on file Not on file documented as of this encounter Plan of Treatment Not on file documented as of this encounter Visit Diagnoses Not on filedocumented in this encounter Care Teams Last Picker Relationship Specialty Start Date End Date Jannet Doherty MD PCP - General Internal Medicine 02/27/17 07/17/21 Cain Cooley DO PCP - General Internal Medicine 07/18/21 12/24/23 Namita Brown MD PCP - General Internal Medicine 12/25/23 Michael Herron MD Lung Cancer Extension Educator 10/08/23 Vahid Baum PA-C [address] [place] [phone] Specialist Thoracic Surgery 04/02/24 documented as of this encounter
--- OUTSIDE RECORDS SUMMARY | 2024-08-28 07:44 | XMS_ITS | Encounter Summary ---
Author Organization [facility] Address [address] [place] [address] Care Team Providers Care Orange Grower Name Role Phone Jannet Doherty MD Primary Care Provider Unavailable Cain Cooley DO Primary Care Provider UnavailMichael Leonard MD Unavailable Namita Brown MD Primary Care Provider Un available Vahid Baum PA-C Unavailable [phone] Encounter Details Date Type Department Care Team Description 01/30/2020 [facility] Medical Records [address] [place] [id number] Abstract, Provider Social History Tobacco Use Types [...] often do you attend chur ch or taoism services? Never 09/13/2022 Do you belong to any clubs o r organizations such as temple groups, unions, fraternal or athletic groups, or [...] on filedocumented in this encounter Care Teams Orange Grower Relationship Specialty Start Date End Date Jannet Doherty MD PCP - General Internal Medicine 02/27/17 07/17/21 Cain Cooley DO PCP - General Internal Medicine 07/18/21 12/24/23 Namita Brown MD PCP - General Internal Medicine 12/25/23 Michael Herron MD Lung Cancer Treasurer 10/08/23 Vahid Baum PA-C [address] [phone] Specialist Thoracic Surgery 04/02/24 documented as of this encounter
--- OUTSIDE RECORDS SUMMARY | 2024-08-28 07:44 | XMS_ITS | Encounter Summary ---
Author Organization [facility] Address [address] [place] [address] Care Team Providers Care Instructor Adjunct Surgical Technician Name Role Phone Michael Herron MD Unavailable Namita Brown MD Primary Care Provider Un available Vahid Baum PA-C Unavailable [phone] Encounter Details Date Type Department Care Team Description 02/24/2024 Refill Adult Medicine - [address] [address] Yoli Mckeon PA-C [address] [place] [address] Social History Tobacco Use Types Packs/Day Years [...] How often do you attend chur or voodoo services? Never 09/13/2022 Do you belong to any clubs o r organizations such as sikh groups, unions, fraternal or athletic groups, or [...] place to sleep or slept in a senior care (including now)? No 09/13/2022 Sex Assigned at Date Recorded Not on file Job Start Date Occupation Industry Not on file Not on file Not on file documented as of this encounter Plan of Treatment Not on file documented as of this encounter Visit Diagnoses Diagnosis Lumbar degenerative disc disease Degeneration of lumbar or lumbosacral intervertebral disc documented in this encounter Care Teams Instructor Adjunct Surgical Technician Relationship Specialty Start Date End Date Namita Brown MD PCP - General Internal Medicine 12/25/23 Michael Herron MD Lung Cancer Digital Marketing Project Manager 10/08/23 Vahid Baum PA-C [address] [phone] Specialist Thoracic Surgery 04/02/24 documented as of this encounter
--- OUTSIDE RECORDS SUMMARY | 2024-08-28 07:44 | XMS_ITS | Clinical Summary ---
Author Organization [facility] Address [address] [place] [address] Care Team Providers Care Necktie Maker Name Role Phone Cain Cooley DO Primary Care Provider [phone] Allergies No known active allergies Medications Medication Sig Dispensed Refills Start Date End Date Status ibuprofen 800 MG tablet Take by mouth every 8 (eight) hours as needed for pain. 0 Active metFORMIN (GLUCOPHAGE) tablet 500 mg Take 1 tablet (500 mg total) by mouth 2 (two) times a day with meals. 0 Active atorvastatin (LIPITOR) tablet 20 mg Take 1 tablet (20 mg total) by mouth daily. 0 Active losartan (COZAAR) tablet 25 mg Take 1 tablet (25 mg total) by mouth daily. 0 Active Multiple Vitamins-Minerals (CENTRUM SILVER 50+MEN PO) Take by mouth. 0 Active Glucosamine Sulfate 750 MG CAPS Take by mouth. 0 Active Methylsulfonylmethane (MSM) 500 MG CAPS Take by mouth. 0 Act vivian Turmeric (QC TUMERIC COMPLEX PO) Take by mouth. 0 Active ascorbic acid (VITAMIN C) 500 MG tablet Take 1 tablet (500 mg total) by mouth daily. 0 Active vitamin D3 (cholecalciferol) 25 MCG (1000 UT) tablet Take 1 tablet (25 mcg total) by mouth daily. 0 Active Family History Medical History Relation Name Comments Prostate cancer Brother Esophageal cancer Father Breast cancer Mother Breast cancer Sister Relation Name Status Comments Brother Alive Father Mother Sister Alive Social History Tobacco Use Types Packs/Day Years Used Date Smoking Tobacco: Former Cigarettes Q uit: 1999 Tobacco Cessation:Counseling Given: Not Answered Alcohol Use Standard Drinks/Week Comments Not Currently 0 (1 standard drink = 0.6 oz pur e alcohol) Sex and Gender Information Value Date Recorded Sex Assigned at Not on file Gender Identity Not on file Sexual Orientation Not on file Job Start Date Occupation Industry Not on file Not on file Not on file Last Filed Vital Signs Vital Sign Reading Time Taken Comments Blood Pressure 124/64 06/13/2023 9:41 AM EST Pulse 79 06/13/2023 9:41 AM EST Temperature 37 ??C (98.6 ??F) 06/13/2023 9:41 AM EST Respiratory Rate - - Oxygen Saturation 100% 06/13/2023 9:41 AM EST Inhaled Oxygen Concentration - - Weight 116.3 kg (256 lb 6.4 oz) 06/13/2023 9:41 AM EST Height 190.5 cm (6' 3 ) 06/13/2023 9:41 AM EST Body Mass Index 32.05 06/13/2023 9:41 AM EST Plan of Treatment Health Maintenance Due Date Last Done Comments Hepatitis C Screening 1963 Depression Screening 1975 Preventative Health Evaluation 1981 Colon Cancer Screening (Colonoscopy) 2008 Shingrix-Zoster Vaccine (1 o f 2) 2013 COVID-19 Vaccine (2 - 2023-2 5 season) 2024 10/21/2020 Influenza Vaccine (#1) 2024 3, 03/17/2020, 04/10/2018 DTap / Tdap / Td (2 - Td or Tdap) 10/23/2027 10/22/2017 RSV Adult > 60+ Yrs or (1 - 1-dose 75+ series) 2038 Pneumococcal Vaccine Aged Out 10/22/2017 No long er eligible based on patient's age to complete this topic Hepatitis B Vaccines Aged Out No long er eligible based on patient's age to complete this topic RSV Ped < 20 months Aged Out No longe r eligible based on patient's age to complete this topic Care Teams Necktie Maker Relationship Specialty Start Date End Date Cain Cooley DO [address] [place] [id number] PCP - General Family Medicine 03/30/23
--- OUTSIDE RECORDS SUMMARY | 2024-08-28 07:44 | XMS_ITS | Encounter Summary ---
Author Organization [facility] Address [address] [place] [address] Care Team Providers Care Welder Apprentice Combination Name Role Phone Jannet Doherty MD Primary Care Provider Unavailable Cain Cooley DO Primary Care Provider UnavailMichael Leonard MD Unavailable Namita Brown MD Primary Care Provider Un available Vahid Baum PA-C Unavailable [phone] Encounter Details Date Type Department Care Team Description 11/29/2018 Release of Information Medical Records [address] [place] [id number] Abstract, Provider Social History Tobacco Use Types [...] often do you attend chur ch or baptism services? Never 09/13/2022 Do you belong to any clubs o r organizations such as bahai groups, unions, fraternal or athletic groups, or [...] on filedocumented in this encounter Care Teams Welder Apprentice Combination Relationship Specialty Start Date End Date Jannet Doherty MD PCP - General Internal Medicine 02/27/17 07/17/21 Cain Cooley DO PCP - General Internal Medicine 07/18/21 12/24/23 Namita Brown MD PCP - General Internal Medicine 12/25/23 Michael Herron MD Lung Cancer Family Preservation Caseworker 10/08/23 Vahid Baum PA-C [address] [phone] Specialist Thoracic Surgery 04/02/24 documented as of this encounter
--- OUTSIDE RECORDS SUMMARY | 2024-08-28 07:44 | XMS_ITS | Encounter Summary ---
Author Organization [facility] Address [address] [place] [address] Care Team Providers Care Canary Breeder Name Role Phone Jannet Doherty MD Primary Care Provider Unavailable Cain Cooley DO Primary Care Provider UnavailMichael Leonard MD Unavailable Namita Brown MD Primary Care Provider Un available Vahid Baum PA-C Unavailable [phone] Encounter Details Date Type Department Care Team Description 09/10/2019 Pt. Non Urgent Medic al Question Adult Medicine - [address] [address] Jannet Doherty MD Social History Tobacco Use [...] do you attend [facility] or hoahaoism services? Never 09/13/2022 Do you belong to any clubs o r organizations such as buddhism groups, unions, fraternal or athletic groups, or [...] on file documented as of this encounter Progress Notes * Tracie Horn M.A. - 09/10/2019 8:56 AM ESTFrom: Swapnil Peralta To: Jannet Doherty MD Sent: 09/10/2019 7:55 AM EST Subject: Lower Back Good morning, I am having lower back pain again for over a week now. I have been taking Alieve twice a day and have had no relief. I have an appointment with you on September 21. I was hoping that you could call me in a prescription for Ibuprofen and or Robaxin to cover me until I see you on the . In liz tion to the pain I am getting signficant spasm at night. documented in this encounter Plan of Treatment Not on file documented as of this encounter Visit Diagnoses Not on filedocumented in this encounter Care Teams Canary Breeder Relationship Specialty Start Date End Date Jannet Doherty MD PCP - General Internal Medicine 02/27/17 07/17/21 Cain Cooley DO PCP - General Internal Medicine 07/18/21 12/24/23 Namita Brown MD PCP - General Internal Medicine 12/25/23 Michael Herron MD Lung Cancer Furnace Room Supervisor 10/08/23 Vahid Baum PA-C [address] [place] [phone] Specialist Thoracic Surgery 04/02/24 documented as of this encounter
--- OUTSIDE RECORDS SUMMARY | 2024-08-28 07:44 | XMS_ITS | Encounter Summary ---
Author Organization [facility] Address [address] [place] [address] Care Team Providers Care Pest Control Service Technician Name Role Phone Michael Herron MD Unavailable Namita Brown MD Primary Care Provider Un available Vahid Baum PA-C Unavailable [phone] Encounter Details Date Type Department Care Team Description 04/24/2024 Pt. Non Urgent Medic al Question Adult Medicine - [address] [address] Namita Brown MD Social History Tobacco Use Types Packs/Day [...] often do you attend chur ch or baptist services? Never 09/13/2022 Do you belong to any clubs o r organizations such as anglican groups, unions, fraternal or athletic groups, or [...] Telephone Encounter - Aide Francois L.P.N. - 04/24/2024 11:32 AM EDTFrom: Swapnil Peralta To: Genna Carrasco Sent: 04/24/2024 11:25 AM EDT Subject: need referral I was given a referral from you for [facility] and have an appointment with them 06/05/24. I was in the Emergency Room on Sunday for severe back pain. [facility] recommend that I go to [facility] to be seen sooner. I need a referral to be able to get into [facility]. Would you be able to provide the referral? documented in this encounter Plan of Treatment Not on file documented as of this encounter Visit Diagnoses Not on filedocumented in this encounter Care Teams Pest Control Service Technician Relationship Specialty Start Date End Date Namita Brown MD PCP - General Internal Medicine 12/25/23 Michael Herron MD Lung Cancer Media Director 10/08/23 Vahid Baum PA-C [address] [phone] Specialist Thoracic Surgery 04/02/24 documented as of this encounter
--- OUTSIDE RECORDS SUMMARY | 2024-08-28 07:44 | XMS_ITS | Encounter Summary ---
Author Organization [facility] Address [address] [place] [address] Care Team Providers Care Rubber Insulator Name Role Phone Cain Cooley DO Primary Care Provider UnavailMichael Leonard MD Unavailable Namita Brown MD Primary Care Provider Un available Vahid Baum PA-C Unavailable [phone] Encounter Details Date Type Department Care Team Description 03/19/2022 Pt. Non Urgent Medic al Question Adult Medicine - [address] [address] Cain Cooley, Social History Tobacco Use Types [...] often do you attend chur ch or protestant services? Never 09/13/2022 Do you belong to any clubs o r organizations such as samaritan groups, unions, fraternal or athletic groups, or [...] place to sleep or slept in a [facility] (including now)? No 09/13/2022 Sex Assigned at Date Recorded Not on file Job Start Date Occupation Industry Not on file Not on file Not on file COVID-19 Exposure Response Date Recorded In the last 10 days, have yo u been in contact with someone who was confirmed or suspected to have Coronavirus/COVID-19? No / Unsure 03/07/2022 2:27 PM EDT documented as of this encounter Miscellaneous Notes * Telephone Encounter - Brigette Barber L.P.N. - 03/21/2022 9:31 AM EDT From: Swapnil Peralta To: James Cooley Sent: 03/19/2022 3:21 PM EDT Subject: Covid I tested positive for COVID today 03/19/22. I have a Telehealth with [employer] and am taking paxlovid antiviral. documented in this encounter Plan of Treatment Not on file documented as of this encounter Visit Diagnoses Not on filedocumented in this encounter Care Teams Rubber Insulator Relationship Specialty Start Date End Date Cain Cooley DO PCP - General Internal Medicine 07/18/21 12/24/23 Namita Brown MD PCP - General Internal Medicine 12/25/23 Michael Herron MD Lung Cancer Center Sales And Service Associate 10/08/23 Vahid Baum PA-C [address] [place] [phone] Specialist Thoracic Surgery 04/02/24 documented as of this encounter
--- OUTSIDE RECORDS SUMMARY | 2024-08-28 07:44 | XMS_ITS | Encounter Summary ---
Author Organization [facility] Address [address] [place] [address] Care Team Providers Care Press Brake Operator Name Role Phone Jannet Doherty MD Primary Care Provider Unavailable Cain Cooley DO Primary Care Provider UnavailMichael Leonard MD Unavailable Namita Brown MD Primary Care Provider Un available Vahid Baum PA-C Unavailable [phone] Encounter Details Date Type Department Care Team Description 01/02/2019 [employer] Report Medical Records [address] [place] [id number] Swapnil Casey MD Social History Tobacco Use [...] often do you attend chur ch or roman catholic services? Never 09/13/2022 Do you belong to any clubs o r organizations such as advent groups, unions, fraternal or athletic groups, or [...] on filedocumented in this encounter Care Teams Press Brake Operator Relationship Specialty Start Date End Date Jannet Doherty MD PCP - General Internal Medicine 02/27/17 07/17/21 Cain Cooley DO PCP - General Internal Medicine 07/18/21 12/24/23 Namita Brown MD PCP - General Internal Medicine 12/25/23 Michael Herron MD Lung Cancer Sales Floor Team Leader 10/08/23 Vahid Baum PA-C [address] [place] [phone] Specialist Thoracic Surgery 04/02/24 documented as of this encounter
--- OUTSIDE RECORDS SUMMARY | 2024-08-28 07:44 | XMS_ITS | Encounter Summary ---
Author Organization [facility] Address [address] [place] [address] Care Team Providers Care Binder Fixer Name Role Phone Michael Herron MD Unavailable Namita Brown MD Primary Care Provider Un available Vahid Baum PA-C Unavailable [phone] Reason for Visit * Reason Comments E-prescribe Rx Request Encounter Details Date Type Department Care Team Description 03/11/2024 Refill Adult Medicine [address] [address] Cain Cooley, E-prescribe Rx Request Social History Tobacco Use [...] often do you attend chur ch or worship services? Never 09/13/2022 Do you belong to [...] Telephone Encounter - Brigette Barber L.P.N. - 03/19/2024 9:16 AM EDT Please review in ordering providers absence. Request pended for your review. Lab Results Component Value Date NA 141 08/27/2023 K 4.2 08/27/2023 CO2 27 08/27/2023 CL 108 08/27/2023 BUN 16 08/27/2023 CREAT 0.80 08/27/2023 GLU 114 08/27/2023 CA 9.4 08/27/2023 GFR 101 08/27/2023 * Telephone Encounter - Gertrude Guerrero - 03/12/2024 9:24 AM EDT Refills Last office visit: 08/27/23 Last pcp: new to pcp Next office visit: 04/14/24 documented in this encounter Plan of Treatment Not on file documented as of this encounter Visit Diagnoses Not on filedocumented in this encounter Care Teams Binder Fixer Relationship Specialty Start Date End Date Namita Brown MD PCP - General Internal Medicine 12/25/23 Michael Herron MD Lung Cancer Energy Director 10/08/23 Vahid Baum PA-C [address] [place] [phone] Specialist Thoracic Surgery 04/02/24 documented as of this encounter
--- OUTSIDE RECORDS SUMMARY | 2024-08-28 07:44 | XMS_ITS | Encounter Summary ---
Author Organization [facility] Address [address] [place] [address] Care Team Providers Care Oracle Identity Management Consultant Name Role Phone Cain Cooley DO Primary Care Provider UnavailMichael Leonard MD Unavailable Namita Brown MD Primary Care Provider Un available Vahid Baum PA-C Unavailable [phone] Reason for Visit * Reason Onset Date Comments Information Needed 06/15/2023 Encounter Details Date Type Department Care Team Description 06/15/2023 Telephone Gastroenterology - [place] [address] [facility] [address] [place] [address] Alex Navarrete MD [address] [place] [phone] Information Needed Social History Tobacco Use Types Packs/Day Years [...] week 09/13/2022 How often do you attend [facility] or alevism services? Never 09/13/2022 Do you belong to any clubs o r organizations such as jewish groups, unions, fraternal or athletic groups, or [...] to sleep or slept in a senior living (including now)? 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 Need an insurance referral. Sent an internal referral message to PCP and placed in [facility] accordian documented in this encounter Plan of Treatment Not on file documented as of this encounter Visit Diagnoses Not on filedocumented in this encounter Care Teams Oracle Identity Management Consultant Relationship Specialty Start Date End Date Cain Cooley DO PCP - General Internal Medicine 07/18/21 12/24/23 Namita Brown MD PCP - General Internal Medicine 12/25/23 Michael Herron MD Lung Cancer Career Consultant 10/08/23 Vahid Baum PA-C [address] [place] [phone] Specialist Thoracic Surgery 04/02/24 documented as of this encounter
--- OUTSIDE RECORDS SUMMARY | 2024-08-28 07:44 | XMS_ITS | Encounter Summary ---
Author Organization [facility] Address [address] [place] [address] Care Team Providers Care Manager Club Name Role Phone Jannet Doherty MD Primary Care Provider Unavailable Cain Cooley DO Primary Care Provider UnavailMichael Leonard MD Unavailable Namita Brown MD Primary Care Provider Un available Vahid Baum PA-C Unavailable [phone] Encounter Details Date Type Department Care Team Description 07/23/2020 [facility] Medical Records [address] [place] [id number] Abstract, Provider Social History Tobacco Use Types [...] often do you attend chur ch or zoroastrianism services? Never 09/13/2022 Do you belong to any clubs o r organizations such as scientologist groups, unions, fraternal or athletic groups, or [...] on filedocumented in this encounter Care Teams Manager Club Relationship Specialty Start Date End Date Jannet Doherty MD PCP - General Internal Medicine 02/27/17 07/17/21 Cain Cooley DO PCP - General Internal Medicine 07/18/21 12/24/23 Namita Brown MD PCP - General Internal Medicine 12/25/23 Michael Herron MD Lung Cancer Ferruler 10/08/23 Vahid Baum PA-C [address] [phone] Specialist Thoracic Surgery 04/02/24 documented as of this encounter
--- OUTSIDE RECORDS SUMMARY | 2024-08-28 07:44 | XMS_ITS | Encounter Summary ---
Author Organization [facility] Address [address] [place] [address] Care Team Providers Care Package Sealer Name Role Phone Jannet Doherty MD Primary Care Provider Unavailable Cain Cooley DO Primary Care Provider UnavailMichael Leonard MD Unavailable Namita Brown MD Primary Care Provider Un available Vahid Baum PA-C Unavailable [phone] Encounter Details Date Type Department Care Team Description 03/27/2019 [facility] Medical Records [address] [place] [id number] Abstract, Provider Social History Tobacco Use Types [...] often do you attend chur ch or religion services? Never 09/13/2022 Do you belong to any clubs o r organizations such as restoration groups, unions, fraternal or athletic groups, or [...] place to sleep or slept in a [facility] (including now)? No 09/13/2022 Sex Assigned at Date Recorded Not on file Job Start Date Occupation Industry Not on file Not on file Not on file documented as of this encounter Plan of Treatment Not on file documented as of this encounter Visit Diagnoses Not on filedocumented in this encounter Care Teams Package Sealer Relationship Specialty Start Date End Date Jannet Doherty MD PCP - General Internal Medicine 02/27/17 07/17/21 Cain Cooley DO PCP - General Internal Medicine 07/18/21 12/24/23 Namita Brown MD PCP - General Internal Medicine 12/25/23 Michael Herron MD Lung Cancer Lotus Notes Developer 10/08/23 Vahid Baum PA-C [address] [phone] Specialist Thoracic Surgery 04/02/24 documented as of this encounter
--- OUTSIDE RECORDS SUMMARY | 2024-08-28 07:44 | XMS_ITS | Encounter Summary ---
Author Organization [facility] Address [address] [place] [address] Care Team Providers Care Fruit And Vegetable Classer Name Role Phone Cain Cooley DO Primary Care Provider UnavailMichael Leonard MD Unavailable Namita Brown MD Primary Care Provider Un available Vahid Baum PA-C Unavailable [phone] Encounter Details Date Type Department Care Team Description 07/02/2023 Pt. Non Urgent Medic al Question Adult Medicine - [address] [address] Cain Cooley, Social History Tobacco Use Types [...] often do you attend chur ch or islam services? Never 09/13/2022 Do you belong to any clubs o r organizations such as restorationist groups, unions, fraternal or athletic groups, or [...] place to sleep or slept in a group home (including now)? No 09/13/2022 Sex Assigned at Date Recorded Not on file Job Start Date Occupation Industry Not on file Not on file Not on file documented as of this encounter Miscellaneous Notes * Telephone Encounter - Aide Francois L.P.N. - 07/03/2023 9:19 AM ESTFrom: Swapnil Peralta To: James Cooley Sent: 07/02/2023 8:33 PM EST Subject: Prednisone refill Good morning, I saw Dr Olson the thoracic surgeon on the ground glass nodules who will will recheck the CT scan in 90 days. He believes it is inflammation and thought a second round of prednisone could clear up the lungs. documented in this encounter Plan of Treatment Not on file documented as of this encounter Visit Diagnoses Not on filedocumented in this encounter Care Teams Fruit And Vegetable Classer Relationship Specialty Start Date End Date Cain Cooley DO PCP - General Internal Medicine 07/18/21 12/24/23 Namita Brown MD PCP - General Internal Medicine 12/25/23 Michael Herron MD Lung Cancer Hunting Sales Associate 10/08/23 Vahid Baum PA-C [address] [phone] Specialist Thoracic Surgery 04/02/24 documented as of this encounter
--- OUTSIDE RECORDS SUMMARY | 2024-08-28 07:44 | XMS_ITS | Clinical Summary ---
Author Organization [facility] Address [address] [place] [address] Care Team Providers Care Mower Sharpener Name Role Phone Michael Herron MD Unavailable Namita Brown MD Primary Care Provider Un available Vahid Baum PA-C Unavailable [phone] Allergies No known active allergies Medications Medication Sig Dispensed Refills Start Date End Date Status ibuprofen (ADVIL,MOTRIN) 800 MG tablet Take 1 Tablet by mouth every 8 hours as needed for Pain for up to 90 days. 90 Tablet 1 03/19/2024 Active losartan (COZAAR) 25 MG tablet Take 1 Tablet by mouth daily. 90 Tablet 1 04/03/2024 Active metformin (GLUCOPHAGE) 500 MG tabletIndications:Type 2 diabetes mellitus without complication, without long-term current use of insulin (HCC) Take 1 Tablet by mouth daily (with breakfast). 90 Tablet 1 04/03/2024 Active atorvastatin (LIPITOR) 20 MG tabletIndications:Type 2 diabetes mellitus without complication, without long-term current use of insulin (HCC) Take 1 Tablet by mouth daily. 90 Tablet 1 04/03/2024 Active methocarbamol (ROBAXIN) 750 MG tabletIndications:Lumb ar degenerative disc disease Take 1 Tablet by mouth 3 times daily for 10 days. 30 Tablet 1 04/14/2024 Active Active Problems Problem Noted Date COVID-19 07/05/2020 Lumbar degenerative disc disease 019 Overview: L3- L4 decompressive surgery -10 yrs ago. L2- L3- decompressive surgery and laminectomy- November 2018. Had facet injections for facet hypertropy and disease-4 injections- now pain free. Osteoarthritis of cervical spine 018 Pulmonary nodule 10/22/2017 Overview: 0.7 cms- RLL-recheck in 12 months Last Assessment & Plan: 58-year-old male former smoker smoked a pack per day starting at age 16 quit in [address] scan of the chest at [place] on 06/19/2023. Thoracic surgery has been following him for a 7 mm pulmonary nodule in the right lower lobe as well as waxing and waning groundglass opacities. He did have a chest CT scan on March 26, 2024 for which images I personally viewed and interpreted and compared to previous chest CT scans which show multiple areas of groundglass opacity throughout the right upper lobe and minimally in the right middle and right lower lobes and left lower lobes. The area of confluent groundglass opacity in the right middle lobe adjacent to the right major fissure noted in September 2023 has markedly improved. Previously described peripheral 0.7 cm nodule in the posterior aspect of the right lower lobe also remained stable and most likely represents focal atelectasis. Patient did tell me that his reports a cough at nighttime. We did discuss common reasons why a non-smoker could have a persistent nighttime cough and not have a cough during the day, 1 includes asthma which patient reports he has never had the other is GERD or persistent reflux, and if this is the case this may be why he continues to have waxing and waning groundglass opacities on his chest CT scan findings.. He denies any known GERD however I explained the patient that oftentimes patients are not aware of them having reflux especially at night and that his reflux may be apparent during times of sleep. He was instructed to trial a tgmg-gop-hznnigd PPI she has omeprazole and to continue with this medication should his cough dissipate in hopes that at his next chest CT scan which will be in 12 months time for March 2025 his scan may no longer have these findings of waxing and waning groundglass opacities. Colonic polyp 04/30/2017 Overview: Rpt in 3yrs, Dr Benz-adenom, sig diverticulosis and int hemorrhoids GERD (gastroesophageal reflux disease) 1 Gout 04/24/2017 Diabetes mellitus type 2, uncomplicated 04/24/2017 Diverticulosis 04/06/2017 Hx of pancreatitis 04/06/2017 Reactive hypoglycemia 04/06/2017 Overview: Seen by Dr. Jernigan Immunizations Name Administration Dates Next Due COVID-19 (GALDINO AND GALDINO) 10/21/2020 COVID-19 (Moderna) 06/23/2021 Influenza (> 6 Months) 04/10/2018 Influenza Flu (PT Reported) 05/20/2022, Influenza Vaccine-preservati ve Free-quadrivalent 4 Years 04/17/2023,03/17/2020 Pneumoccoccal(Adult) Polysaccharide PPSV23 10/22 Tdap 10/22/2017 Family History Medical History Relation Name Comments CA Prostate Brother 1 No Known Problems Brother 2 No Known Problems Brother 3 No Known Problems Brother 4 CA Esophageal Father Diabetes Mother type II, breast CA at 40 rectal ca Sister Relation Name Status Comments Brother 1 Alive Brother 2 Alive Brother 3 Alive Brother 4 Alive Father Mother Sister Alive Social History Tobacco Use Types Packs/Day Years Used Date Smoking Tobacco: Former Cigarettes 1 20 Smokeless Tobacco: Never Tobacco Cessation:Counseling Given: Not Answered Alcohol Use Standard Drinks/Week Comments No 0 [...] often do you attend chur ch or moravian services? Never 09/13/2022 Do you belong to [...] Sign Reading Time Taken Comments Blood Pressure 151/67 04/14/2024 9:40 AM EDT Pulse 72 04/14/2024 9:40 AM EDT Temperature 36.3 ??C (97.4 ??F) 04/14/2024 9:40 AM ED T Respiratory Rate 14 04/02/2024 9:50 AM EDT Oxygen Saturation 99% 04/02/2024 9:50 AM EDT Inhaled Oxygen Concentration - - Weight 126.4 kg (278 lb 9.6 oz) 04/14/2024 9:40 AM EDT Height 190.5 cm (6' 3 ) 04/14/2024 9:40 AM EDT Body Mass Index 34.82 04/14/2024 9:40 AM EDT Plan of Treatment Health Maintenance Due Date Last Done Comments SHINGLES VACCINE (1 of 2) 2013 DIABETES: ANNUAL EYE EXAM 07/04/20232021 (External Completion of test per patient (Patient reports normal results)), 04/19/2021 (External Completion of test per patient (Patient reports normal results)), 06/24/2019, Additional history exists Covid-19 Vaccine (3 - 2022-2 4 season) 2024 06/23/2021, 10/21/2020 INFLUENZA (#1) 2024 04/17/2023, 1111/2021, 06/12/2021, Additional history exists DIABETES: BLOOD SUGAR CONTRO L TEST (HGBA1C) 07/14/2024 04/14/2024, 08/27/2023, 03/27/2023, Additional history exists BMI CHECK/ADVISE 07/16/2024 04/14/2024, 06/2024, 04/26/2023, Additional history exists DIABETES/HEART DISEASE: KORTNEY AL CHOLESTEROL (LDL) 08/27/2024 08/27/2023, 09/13/2022, 03/16/2021, Additional history exists DIABETES: ANNUAL URINE PROTE IN TEST (MICROALBUMIN) 08/30/2024 08/30/2023, 09/13/2022, 03/16/2021, Additional history exists DIABETES: ANNUAL FOOT EXAM 09/11/202409/11 (Completed), 09/13/2022, 08/03/2020, Additional history exists BASELINE HEALTH EXAM 40-64 09/13/202409/13, 08/05/2021, 01/27/2020, Additional history exists COLON CANCER SCREENING 05/19/2026 , 04/19/2017, 04/17/2017 (External Completion), Additional history exists DTAP/TDAP/TD (2 - Td or Tdap) 10/23/2027 10/22/2017 PNEUMOCOCCAL VACCINE FOR HIG H RISK PATIENTS (#2) 2028 10/22/2017 HEPATITIS C SCREENING Completed 10/22/2017 Care Teams Mower Sharpener Relationship Specialty Start Date End Date Namita Brown MD PCP - General Internal Medicine 12/25/23 Michael Herron MD Lung Cancer Rail Setter 10/08/23 Vahid Baum PA-C [address] [place] [phone] Specialist Thoracic Surgery 04/02/24
--- OUTSIDE RECORDS SUMMARY | 2024-08-28 07:44 | XMS_ITS | Encounter Summary ---
Author Organization [facility] Address [address] [place] [address] Care Team Providers Care Recovery Room Nurse Name Role Phone Michael Herron MD Unavailable Namita Brown MD Primary Care Provider Un available Vahid Baum PA-C Unavailable [phone] Encounter Details Date Type Department Care Team Description 02/12/2024 Pt. Non Urgent Medic al Question Adult Medicine - [address] [address] Namiat Brown MD Social History Tobacco Use Types [...] any clubs o r organizations such as restorationism groups, unions, fraternal or athletic groups, or [...] Telephone Encounter - Aide Francois L.P.N. - 02/12/2024 9:42 AM EDTFrom: Swapnil Peralta To: Genna Carrasco Sent: 02/12/2024 8:50 AM EDT Subject: Back issue Good morning, my back is out again. My brother this weekend in [place]. Did a lot of driving and was in his ICU room for 36 hour straight. Was hoping for a refill on the prednisone and roboxin. I did submit the refill requeat documented in this encounter Plan of Treatment Not on file documented as of this encounter Visit Diagnoses Not on filedocumented in this encounter Care Teams Recovery Room Nurse Relationship Specialty Start Date End Date Namita Brown MD PCP - General Internal Medicine 12/25/23 Michael Herron MD Lung Cancer Special Services Coordinator 10/08/23 Vahid Baum PA-C [address] [place] [phone] Specialist Thoracic Surgery 04/02/24 documented as of this encounter
--- OUTSIDE RECORDS SUMMARY | 2024-08-28 07:44 | XMS_ITS | Encounter Summary ---
Author Organization [facility] Address [address] [place] [address] Care Team Providers Care Advice Clerk Name Role Phone Jannet Doherty MD Primary Care Provider Unavailable Cain Cooley DO Primary Care Provider UnavailMichael Leonard MD Unavailable Namita Brown MD Primary Care Provider Un available Vahid Baum PA-C Unavailable [phone] Encounter Details Date Type Department Care Team Description 05/18/2021 Orders Only Medical Records [address] [place] [address] Alex Navarrete MD [address] [place] [address] Social History Tobacco Use Types Packs/Day Years [...] week 09/13/2022 How often do you attend [facility] or protestant services? Never 09/13/2022 Do you belong to any clubs o r organizations such as voodoo groups, unions, fraternal or athletic groups, or [...] place to sleep or slept in a usp (including now)? No 09/13/2022 Sex Assigned at Date Recorded Not on file Job Start Date Occupation Industry Not on file Not on file Not on file COVID-19 Exposure Response Date Recorded In the last month, have you been in contact with someone who was confirmed or suspected to have Coronavirus / COVID-19? Unable to assess 05/03/2021 1:12 PM EDT documented as of this encounter Plan of Treatment Not on file documented as of this encounter Procedures Procedure Name Priority Date/Time Associated Diagnosis Comments OUTSIDE LAB Routine 05/17/2021 documented in this encounter Results * OUTSIDE LAB (05/17/2021) Alex Navarrete MD LAB documented in this encounter Visit Diagnoses Not on filedocumented in this encounter Care Teams Advice Clerk Relationship Specialty Start Date End Date Jannet Doherty MD PCP - General Internal Medicine 02/27/17 07/17/21 Cain Cooley DO PCP - General Internal Medicine 07/18/21 12/24/23 Namita Brown MD PCP - General Internal Medicine 12/25/23 Michael Herron MD Lung Cancer Coke Burner 10/08/23 Vahid Baum PA-C [address] [place] [phone] Specialist Thoracic Surgery 04/02/24 documented as of this encounter
--- OUTSIDE RECORDS SUMMARY | 2024-08-28 07:44 | XMS_ITS | Encounter Summary ---
Author Organization [facility] Address [address] [place] [address] Care Team Providers Care Amusement Ride Inspector Name Role Phone Cain Cooley DO Primary Care Provider UnavailMichael Leonard MD Unavailable Namita Brown MD Primary Care Provider Un available Vahid Baum PA-C Unavailable [phone] Reason for Visit * Reason Comments E-prescribe Rx Request Encounter Details Date Type Department Care Team Description 05/12/2023 Refill Adult Medicine [address] [address] Yoli Mckeon PA-C [address] [place] [id number] E-prescribe Rx Request Social History Tobacco Use [...] week 09/13/2022 How often do you attend [facility] or restoration services? Never 09/13/2022 Do you belong to any clubs o r organizations such as judaism groups, unions, fraternal or athletic groups, or [...] suspected to have Coronavirus/COVID-19? No / Unsure 04/26/2023 8:35 AM EDT documented as of this encounter Miscellaneous Notes * Telephone Encounter - Julio Gutierrez - 05/14/2023 1:21 PM EDT Patient would like script to be: E-PRESCRIBED/FAXED TO PHARMACY WHEN WAS THE PATIENT'S LAST APPOINTMENT IN ADULT MEDICINE? 04/26/2023 WHEN WAS THE LAST TIME THE PATIENT SAW THEIR PCP? Does patient have an upcoming appointment? Yes 08/27/2023 (THE MEDICATION REQUESTED IS ON THE MED LIST ABOVE) All of the medications requested were on the CURRENT MEDS list Did you check the Pharmacy information above?: YES Patient wants: 90 -day supply Is this a mail order prescription request ? NO If the refill is from a FAXED refill request what is the RX # listed on the fax? N/A Patients current insurance carrier is: [facility] FFS / Plan: JOSÉ LUIS GARCIA $20/$35 / Product Type: HMO [id number]-[id number] documented in this encounter Plan of Treatment Not on file documented as of this encounter Visit Diagnoses Diagnosis Type 2 diabetes mellitus without complication, without long-term current use of insulin (HCC) documented in this encounter Care Teams Amusement Ride Inspector Relationship Specialty Start Date End Date Cain Cooley DO PCP - General Internal Medicine 07/18/21 12/24/23 Namita Brown MD PCP - General Internal Medicine 12/25/23 Michael Herron MD Lung Cancer Film Waxer 10/08/23 Vahid Baum PA-C [address] [place] [phone] Specialist Thoracic Surgery 04/02/24 documented as of this encounter
--- OUTSIDE RECORDS SUMMARY | 2024-08-28 07:44 | XMS_ITS | Encounter Summary ---
Author Organization [facility] Address [address] [place] [address] Care Team Providers Care Crepe Machine Operator Name Role Phone Cain Cooley DO Primary Care Provider UnavailMichael Leonard MD Unavailable Namita Brown MD Primary Care Provider Un available Vahid Baum PA-C Unavailable [phone] Encounter Details Date Type Department Care Team Description 12/27/2021 Pt. Non Urgent Medic al Question [facility] Medical [facility] [address] [place] [address] [place] [phone] Angelo Quan DPM Social History Tobacco Use Types Packs/Day Years [...] week 09/13/2022 How often do you attend [facility] or druze services? Never 09/13/2022 Do you belong to any clubs o r organizations such as rastafari groups, unions, fraternal or athletic groups, or [...] suspected to have Coronavirus/COVID-19? No / Unsure 12/27/2021 8:47 AM EDT documented as of this encounter Plan of Treatment Not on file documented as of this encounter Visit Diagnoses Not on filedocumented in this encounter Care Teams Crepe Machine Operator Relationship Specialty Start Date End Date Cain Cooley DO PCP - General Internal Medicine 07/18/21 12/24/23 Namita Brown MD PCP - General Internal Medicine 12/25/23 Michael Herron MD Lung Cancer Transmission And Coordination Engineer 10/08/23 Vahid Baum PA-C [address] [phone] Specialist Thoracic Surgery 04/02/24 documented as of this encounter
--- OUTSIDE RECORDS SUMMARY | 2024-08-28 07:44 | XMS_ITS | Encounter Summary ---
Author Organization [facility] Address [address] [place] [address] Care Team Providers Care Statement Clerk Name Role Phone Cain Cooley DO Primary Care Provider UnavailMichael Leonard MD Unavailable Namita Brown MD Primary Care Provider Un available Vahid Baum PA-C Unavailable [phone] Encounter Details Date Type Department Care Team Description 07/01/2022 Refill Adult Medicine [address] [address] Jannet Doherty MD Social History Tobacco Use [...] often do you attend chur ch or quaker services? Never 09/13/2022 Do you belong to any clubs o r organizations such as religion groups, unions, fraternal or athletic groups, or [...] place to sleep or slept in a retirement (including now)? No 09/13/2022 Sex Assigned at Date Recorded Not on file Job Start Date Occupation Industry Not on file Not on file Not on file documented as of this encounter Miscellaneous Notes * Telephone Encounter - Brigette Barber L.P.N. - 07/03/2022 12:20 PM EST Last seen - 08/18 Lab Results Component Value Date NA 140 06/20/2021 K 5.0 06/20/2021 CO2 29 06/20/2021 CL 106 06/20/2021 BUN 14 06/20/2021 CREAT 0.79 06/20/2021 GLU 111 06/20/2021 CA 9.8 06/20/2021 GFR > 60 06/20/2021 documented in this encounter Plan of Treatment Not on file documented as of this encounter Visit Diagnoses Not on filedocumented in this encounter Care Teams Statement Clerk Relationship Specialty Start Date End Date Cain Cooley DO PCP - General Internal Medicine 07/18/21 12/24/23 Namita Brown MD PCP - General Internal Medicine 12/25/23 Michael Herron MD Lung Cancer Purchasing Engineer 10/08/23 Vahid Baum PA-C [address] [place] [phone] Specialist Thoracic Surgery 04/02/24 documented as of this encounter
--- OUTSIDE RECORDS SUMMARY | 2024-08-28 07:44 | XMS_ITS | Encounter Summary ---
Author Organization [facility] Address [address] [place] [address] Care Team Providers Care Customer Service Trainer Name Role Phone Jannet Doherty MD Primary Care Provider Unavailable Cain Cooley DO Primary Care Provider UnavailMichael Leonard MD Unavailable Namita Brown MD Primary Care Provider Un available Vahid Baum PA-C Unavailable [phone] Encounter Details Date Type Department Care Team Description 02/06/2019 Clinical Rehab Liaison Report Medical Records [address] [place] [address] Alexis, [facility] [address] [place] [address] Social History Tobacco Use Types Packs/Day Years [...] week 09/13/2022 How often do you attend [facility] or yazdanism services? Never 09/13/2022 Do you belong to [...] medical appointments or from getting medications? No 03/0 07/2022 In the past 12 months, has [...] place to sleep or slept in a fpc (including now)? No 09/13/2022 Sex Assigned at Date Recorded Not on file Job Start Date Occupation Industry Not on file Not on file Not on file documented as of this encounter Plan of Treatment Not on file documented as of this encounter Visit Diagnoses Not on filedocumented in this encounter Care Teams Customer Service Trainer Relationship Specialty Start Date End Date Jannet Doherty MD PCP - General Internal Medicine 02/27/17 07/17/21 Cain Cooley DO PCP - General Internal Medicine 07/18/21 12/24/23 Namita Brown MD PCP - General Internal Medicine 12/25/23 Michael Herron MD Lung Cancer Morphology Teacher 10/08/23 Vahid Baum PA-C [address] [place] [phone] Specialist Thoracic Surgery 04/02/24 documented as of this encounter
--- OUTSIDE RECORDS SUMMARY | 2024-08-28 07:44 | XMS_ITS | Encounter Summary ---
Author Organization [facility] Address [address] [place] [address] Care Team Providers Care Delivery Room Clerk Name Role Phone Jannet Doherty MD Primary Care Provider Unavailable Cain Cooley DO Primary Care Provider UnavailMichael Leonard MD Unavailable Namita Brown MD Primary Care Provider Un available Vahid Baum PA-C Unavailable [phone] Reason for Visit * Reason Comments E-prescribe Rx Request Encounter Details Date Type Department Care Team Description 12/01/2018 Refill Adult Medicine [address] [address] Jannet Doherty MD E-prescribe Rx Request Social [...] How often do you attend [facility] or voodoo services? Never 09/13/2022 Do you belong to any clubs o r organizations such as oriental orthodox groups, unions, fraternal or athletic groups, or [...] on filedocumented in this encounter Care Teams Delivery Room Clerk Relationship Specialty Start Date End Date Jannet Doherty MD PCP - General Internal Medicine 02/27/17 07/17/21 Cain Cooley DO PCP - General Internal Medicine 07/18/21 12/24/23 Namita Brown MD PCP - General Internal Medicine 12/25/23 Michael Herron MD Lung Cancer Charge Lpn 10/08/23 Vahid Baum PA-C [address] [place] [phone] Specialist Thoracic Surgery 04/02/24 documented as of this encounter
--- OUTSIDE RECORDS SUMMARY | 2024-08-28 07:44 | XMS_ITS | Encounter Summary ---
Author Organization [facility] Address [address] [place] [address] Care Team Providers Care Air Tank Assembler Name Role Phone Jannet Doherty MD Primary Care Provider Unavailable Cain Cooley DO Primary Care Provider UnavailMichael Leonard MD Unavailable Namita Brown MD Primary Care Provider Un available Vahid Baum PA-C Unavailable [phone] Encounter Details Date Type Department Care Team Description 09/29/2020 Refill Adult Medicine - [facility] [address] [place] [address] Arina Gerber MD [address] [place] [address] Social History Tobacco Use Types Packs/Day Years [...] week 09/13/2022 How often do you attend [facility] or episcopal services? Never 09/13/2022 Do you belong to any clubs o r organizations such as lutheran groups, unions, fraternal or athletic groups, or [...] Telephone Encounter - Brigette Barber L.P.N. - 09/29/2020 10:02 AM EDT Placed at patient slate picker * Telephone Encounter - Pat York M.A. - 09/29/2020 7:57 AM EDT Atul - 08/03/20 Nov - 11/08/20 Controlled substance contract and last issue date of medication reviewed. Patient is due for medication. [place] to covering. Lab Results Component Value Date URBENZO NONE DETECTED 03/17/2020 UROPIATES NONE DETECTED 03/17/2020 URBARBITUATE NONE DETECTED 03/17/2020 PAINAMPHETAM NONE DETECTED 03/17/2020 PAINCOCAINE NONE DETECTED 03/17/2020 PAINCANNABIN NONE DETECTED 03/17/2020 documented in this encounter Plan of Treatment Not on file documented as of this encounter Visit Diagnoses Diagnosis Lumbar degenerative disc disease Degeneration of lumbar or lumbosacral intervertebral disc Osteoarthritis of spine with radiculopathy, cervical region documented in this encounter Care Teams Air Tank Assembler Relationship Specialty Start Date End Date Jannet Doherty MD PCP - General Internal Medicine 02/27/17 07/17/21 Cain Cooley DO PCP - General Internal Medicine 07/18/21 12/24/23 Namita Brown MD PCP - General Internal Medicine 12/25/23 Michael Herron MD Lung Cancer Modern And Contemporary Art Curator 10/08/23 Vahid Baum PA-C [address] [place] [phone] Specialist Thoracic Surgery 04/02/24 documented as of this encounter
--- OUTSIDE RECORDS SUMMARY | 2024-08-28 07:44 | XMS_ITS | Encounter Summary ---
Author Organization [facility] Address [address] [place] [address] Care Team Providers Care Business Development Agent Name Role Phone Jannet Doherty MD Primary Care Provider Unavailable Cain Cooley DO Primary Care Provider UnavailMichael Leonard MD Unavailable Namita Brown MD Primary Care Provider Un available Vahid Baum PA-C Unavailable [phone] Encounter Details Date Type Department Care Team Description 08/10/2020 [facility] Medical Records [address] [place] [id number] Abstract, Provider Social History Tobacco Use Types [...] any clubs o r organizations such as holiness groups, unions, fraternal or athletic groups, or [...] place to sleep or slept in a long-term (including now)? No 09/13/2022 Sex Assigned at Date Recorded Not on file Job Start Date Occupation Industry Not on file Not on file Not on file COVID-19 Exposure Response Date Recorded In the last month, have you been in contact with someone who was confirmed or suspected to have Coronavirus / COVID-19? No / Unsure 08/03/2020 10:41 AM EST documented as of this encounter Plan of Treatment Not on file documented as of this encounter Visit Diagnoses Not on filedocumented in this encounter Care Teams Business Development Agent Relationship Specialty Start Date End Date Jannet Doherty MD PCP - General Internal Medicine 02/27/17 07/17/21 Cain Cooley DO PCP - General Internal Medicine 07/18/21 12/24/23 Namita Brown MD PCP - General Internal Medicine 12/25/23 Michael Herron MD Lung Cancer Rural Electrification Engineer 10/08/23 Vahid Baum PA-C [address] [phone] Specialist Thoracic Surgery 04/02/24 documented as of this encounter
--- OUTSIDE RECORDS SUMMARY | 2024-08-28 07:45 | XMS_ITS | Encounter Summary ---
Author Organization [facility] Address [address] [place] [address] Care Team Providers Care Chief Lending Officer Name Role Phone Jannet Doherty MD Primary Care Provider Unavailable Cain Cooley DO Primary Care Provider UnavailMichael Leonard MD Unavailable Namita Brown MD Primary Care Provider Un available Vahid Baum PA-C Unavailable [phone] Encounter Details Date Type Department Care Team Description 03/15/2021 Refill Adult Medicine [address] [address] Jannet Doherty MD Social History Tobacco Use [...] week 09/13/2022 How often do you attend [facility] or christianity services? Never 09/13/2022 Do you belong to [...] have Coronavirus / COVID-19? No / Unsure 03/16/2021 10:42 AM EDT documented as of this encounter Plan of Treatment Not on file documented as of this encounter Visit Diagnoses Not on filedocumented in this encounter Care Teams Chief Lending Officer Relationship Specialty Start Date End Date Jannet Doherty MD PCP - General Internal Medicine 02/27/17 07/17/21 Cain Cooley DO PCP - General Internal Medicine 07/18/21 12/24/23 Namita Brown MD PCP - General Internal Medicine 12/25/23 Michael Herron MD Lung Cancer Opthalmic Tech 10/08/23 Vahid Baum PA-C [address] [place] [phone] Specialist Thoracic Surgery 04/02/24 documented as of this encounter
--- OUTSIDE RECORDS SUMMARY | 2024-08-28 07:45 | XMS_ITS | Encounter Summary ---
Author Organization [facility] Address [address] [place] [address] Care Team Providers Care Sewer Bricklayer Name Role Phone Cain Cooley DO Primary Care Provider UnavailMichael Leonard MD Unavailable Namita Brown MD Primary Care Provider Un available aVhid Baum PA-C Unavailable [phone] Encounter Details Date Type Department Care Team Description 07/25/2023 Orders Only Medical Records [address] [place] [address] Génesis Valero PA-C Social History Tobacco Use [...] any clubs o r organizations such as christian groups, unions, fraternal or athletic groups, or [...] Date/Time Associated Diagnosis Comments OUTSIDE CT Routine 06/12/2023 documented in this encounter Results * OUTSIDE CT (06/12/2023) Génesis Valero PA-C RADIOLOGY documented in this encounter Visit Diagnoses Not on filedocumented in this encounter Care Teams Sewer Bricklayer Relationship Specialty Start Date End Date Cain Cooley DO PCP - General Internal Medicine 07/18/21 12/24/23 Namita Brown MD PCP - General Internal Medicine 12/25/23 Michael Herron MD Lung Cancer Green End Worker 10/08/23 Vahid Baum PA-C [address] [place] [phone] Specialist Thoracic Surgery 04/02/24 documented as of this encounter
--- OUTSIDE RECORDS SUMMARY | 2024-08-28 07:45 | XMS_ITS | Encounter Summary ---
Author Organization [facility] Address [address] [place] [address] Care Team Providers Care Composite Bond Technician Name Role Phone Jannet Doherty MD Primary Care Provider Unavailable Cain Cooley DO Primary Care Provider UnavailMichael Leonard MD Unavailable Namita Brown MD Primary Care Provider Un available Vahid Baum PA-C Unavailable [phone] Encounter Details Date Type Department Care Team Description 09/18/2018 Pt. Non Urgent Medic al Question Adult Medicine - [address] [address] Jannet Doherty MD Social History Tobacco Use [...] week 09/13/2022 How often do you attend [facility] or catholic services? Never 09/13/2022 Do you belong to any clubs o r organizations such as worship groups, unions, fraternal or athletic groups, or [...] as of this encounter Progress Notes * Kera Lundy L.P.N. - 09/18/2018 12:59 PM ESTFrom: Swapnil Peralta To: Jannet Doherty MD Sent: 09/18/2018 11:58 AM EST Subject: Lower Back Good morning Dr, I have my initial physical therapy evaluation scheduled for 09/27/18. I have seen minor improvement.It is more bothersome at night. I was hoping that you could refill my Robaxin prescription until I start physical therapy. Thanks in advance. documented in this encounter Plan of Treatment Not on file documented as of this encounter Visit Diagnoses Not on filedocumented in this encounter Care Teams Composite Bond Technician Relationship Specialty Start Date End Date Jannet Doherty MD PCP - General Internal Medicine 02/27/17 07/17/21 Cain Cooley DO PCP - General Internal Medicine 07/18/21 12/24/23 Namita Brown MD PCP - General Internal Medicine 12/25/23 Michael Herron MD Lung Cancer Risk Analyst 10/08/23 Vahid Baum PA-C [address] [place] [phone] Specialist Thoracic Surgery 04/02/24 documented as of this encounter
--- OUTSIDE RECORDS SUMMARY | 2024-08-28 07:45 | XMS_ITS | Encounter Summary ---
Author Organization [facility] Address [address] [place] [address] Care Team Providers Care Screen Print Operator Name Role Phone Jannet Doherty MD Primary Care Provider Unavailable Cain Cooley DO Primary Care Provider UnavailMichael Leonard MD Unavailable Namita Brown MD Primary Care Provider Un available Vahid Baum PA-C Unavailable [phone] Reason for Visit * Reason Comments E-prescribe Rx Request Encounter Details Date Type Department Care Team Description 10/20/2020 Refill Adult Medicine [address] [address] Jannet Doherty MD E-prescribe Rx Request Social [...] How often do you attend [facility] or yarsanism services? Never 09/13/2022 Do you belong to [...] encounter Miscellaneous Notes * Telephone Encounter - Pat York M.A. - 10/20/2020 12:14 PM EDT Atul - 08/03/20 Nov - 11/08/20 Lab Results Component Value Date NA 139 03/17/2020 K 4.9 03/17/2020 CO2 28 03/17/2020 CL 103 03/17/2020 BUN 18 03/17/2020 CREAT 0.86 03/17/2020 GLU 131 03/17/2020 CA 10.0 03/17/2020 GFR > 60 03/17/2020 * Telephone Encounter - Gertrude Guerrero - 10/20/2020 12:05 PM EDT Patient would like script to be: E-PRESCRIBED/FAXED TO PHARMACY WHEN WAS THE PATIENT'S LAST APPOINTMENT IN ADULT MEDICINE? 08/03/2020 WHEN WAS THE LAST TIME THE PATIENT SAW THEIR PCP? Same as above Does patient have an upcoming appointment? Yes 11/08/2020 (THE MEDICATION REQUESTED IS ON THE MED [...] N/A Patients current insurance carrier is: Payor: [facility]/HMO FFS / Plan: raksul [facility] $20/$35 / Product Type: HMO [id number] documented in this encounter Plan of Treatment Not on file documented as of this encounter Visit Diagnoses Not on filedocumented in this encounter Care Teams Screen Print Operator Relationship Specialty Start Date End Date Jannet Doherty MD PCP - General Internal Medicine 02/27/17 07/17/21 Cain Cooley DO PCP - General Internal Medicine 07/18/21 12/24/23 Namita Brown MD PCP - General Internal Medicine 12/25/23 Michael Herron MD Lung Cancer Teller Head 10/08/23 Vahid Baum PA-C [address] [place] [phone] Specialist Thoracic Surgery 04/02/24 documented as of this encounter
--- OUTSIDE RECORDS SUMMARY | 2024-08-28 07:45 | XMS_ITS | Encounter Summary ---
Author Organization [facility] Address [address] [place] [address] Care Team Providers Care Distillation Operator Name Role Phone Cain Cooley DO Primary Care Provider UnavailMichael Leonard MD Unavailable Namita Brown MD Primary Care Provider Un available Vahid Baum PA-C Unavailable [phone] Reason for Visit * Reason Onset Date Comments REFERRAL 07/04/2023 Referral to [facility] with Dr. Looney Encounter Details Date Type Department Care Team Description 07/04/2023 Telephone Adult Medicine - [address] [address] Cain Cooley DO REFERRAL (Referral to [facility] with Dr. Looney) Social History Tobacco Use Types Packs/Day Years [...] 09/13/2022 How often do you attend [facility] or restorationism services? Never 09/13/2022 Do you belong to [...] encounter Miscellaneous Notes * Telephone Encounter - Jewell Deal M.A. - 07/04/2023 12:24 PM EST FYI: [facility] not have any cancellations. Pt was informed of two new providers being hired in August 2022. He should continue calling from time to time. Pt informed. documented in this encounter Plan of Treatment Not on file documented as of this encounter Visit Diagnoses Not on filedocumented in this encounter Care Teams Distillation Operator Relationship Specialty Start Date End Date Cain Cooley DO PCP - General Internal Medicine 07/18/21 12/24/23 Namita Brown MD PCP - General Internal Medicine 12/25/23 Michael Herron MD Lung Cancer Radio Sportscaster 10/08/23 Vahid Baum PA-C [address] [phone] Specialist Thoracic Surgery 04/02/24 documented as of this encounter
--- OUTSIDE RECORDS SUMMARY | 2024-08-28 07:45 | XMS_ITS | Encounter Summary ---
Author Organization [facility] Address [address] [place] [address] Care Team Providers Care Farm Tractor Mechanic Name Role Phone Jannet Doherty MD Primary Care Provider Unavailable Cain Cooley DO Primary Care Provider UnavailMichael Leonard MD Unavailable Namita Brown MD Primary Care Provider Un available Vahid Baum PA-C Unavailable [phone] Encounter Details Date Type Department Care Team Description 04/18/2021 [facility] Medical Records [address] [place] [address] Abstract, Provider Social History Tobacco Use Types [...] often do you attend chur ch or adventism services? Never 09/13/2022 Do you belong to any clubs o r organizations such as episcopalian groups, unions, fraternal or athletic groups, or [...] on filedocumented in this encounter Care Teams Farm Tractor Mechanic Relationship Specialty Start Date End Date Jannet Doherty MD PCP - General Internal Medicine 02/27/17 07/17/21 Cain Cooley DO PCP - General Internal Medicine 07/18/21 12/24/23 Namita Brown MD PCP - General Internal Medicine 12/25/23 Michael Herron MD Lung Cancer Branch Director 10/08/23 Vahid Baum PA-C [address] [phone] Specialist Thoracic Surgery 04/02/24 documented as of this encounter
--- OUTSIDE RECORDS SUMMARY | 2024-08-28 07:45 | XMS_ITS | Encounter Summary ---
Author Organization [facility] Address [address] [place] [address] Care Team Providers Care Quarter Folder Name Role Phone Jannet Doherty MD Primary Care Provider Unavailable Cain Cooley DO Primary Care Provider UnavailMichael Leonard MD Unavailable Namita Brown MD Primary Care Provider Un available Vahid Baum PA-C Unavailable [phone] Encounter Details Date Type Department Care Team Description 06/04/2018 [facility] Medical Records [address] [place] [address] Abstract, Provider Social History Tobacco Use Types [...] place to sleep or slept in a longterm (including now)? No 09/13/2022 Sex Assigned at Date Recorded Not on file Job Start Date Occupation Industry Not on file Not on file Not on file documented as of this encounter Plan of Treatment Not on file documented as of this encounter Visit Diagnoses Not on filedocumented in this encounter Care Teams Quarter Folder Relationship Specialty Start Date End Date Jannet Doherty MD PCP - General Internal Medicine 02/27/17 07/17/21 Cain Cooley DO PCP - General Internal Medicine 07/18/21 12/24/23 Namita Brown MD PCP - General Internal Medicine 12/25/23 Michael Herron MD Lung Cancer Stock Parts Inspector 10/08/23 Vahid Baum PA-C [address] [phone] Specialist Thoracic Surgery 04/02/24 documented as of this encounter
--- OUTSIDE RECORDS SUMMARY | 2024-08-28 07:45 | XMS_ITS | Encounter Summary ---
Author Organization [facility] Address [address] [place] [address] Care Team Providers Care Government Contracts Manager Name Role Phone Cain Cooley DO Primary Care Provider UnavailMichael Leonard MD Unavailable Namita Brown MD Primary Care Provider Un available Vahid Baum PA-C Unavailable [phone] Encounter Details Date Type Department Care Team Description 09/07/2023 Pt. Non Urgent Medic al Question Adult Medicine - [address] [address] Cain Cooley, Social History Tobacco Use Types [...] any clubs o r organizations such as synagogue groups, unions, fraternal or athletic groups, or [...] Telephone Encounter - Brigette Barber L.P.N. - 09/07/2023 8:00 AM EST From: Swapnil Peralta To: James Cooley Sent: 09/07/2023 6:25 AM EST Subject: Prednisone Good morning, As I emailed yesterday I started the prednisone that you had prescribed for my back yesterday. Question is on taking the ibuprofen that I need to take for the pain. Is it alright to take both? documented in this encounter Plan of Treatment Not on file documented as of this encounter Visit Diagnoses Not on filedocumented in this encounter Care Teams Government Contracts Manager Relationship Specialty Start Date End Date Cain Cooley DO PCP - General Internal Medicine 07/18/21 12/24/23 Namita Brown MD PCP - General Internal Medicine 12/25/23 Michael Herron MD Lung Cancer Psychiatrist 10/08/23 Vahid Baum PA-C [address] [phone] Specialist Thoracic Surgery 04/02/24 documented as of this encounter
--- OUTSIDE RECORDS SUMMARY | 2024-08-28 07:45 | XMS_ITS | Encounter Summary ---
Author Organization [facility] Address [address] [place] [address] Care Team Providers Care Belt Splicer Name Role Phone Cain Cooley DO Primary Care Provider UnavailMichael Leonard MD Unavailable Namita Brown MD Primary Care Provider Un available Vahid Baum PA-C Unavailable [phone] Encounter Details Date Type Department Care Team Description 06/20/2023 Telephone Gastroenterology - [address] [place] [address] Shaina Gay DScPAS Social History Tobacco Use Types Packs/Day Years [...] How often do you attend chur or sabianist services? Never 09/13/2022 Do you belong to [...] on filedocumented in this encounter Care Teams Belt Splicer Relationship Specialty Start Date End Date Cain Cooley DO PCP - General Internal Medicine 07/18/21 12/24/23 Namita Brown MD PCP - General Internal Medicine 12/25/23 Michael Herron MD Lung Cancer Tourist Information Assistant 10/08/23 Vahid Baum PA-C [address] [phone] Specialist Thoracic Surgery 04/02/24 documented as of this encounter
== END 2024-08-28 07:43 | disposition home or self-care (01) ==
LOC: CF 07:42
PROVIDERS: Visit Provider Internal Medicine
DX: M54.16 Radiculopathy, lumbar region (principal)
CPT/HCPCS: 64483; J1100; J2003; J3301; Q9967

== ENCOUNTER 2024-08-28 12:30 | Outpatient (AMB) | payer BC, SELFPAY ==
--- OUTSIDE RECORDS SUMMARY | 2024-08-28 12:38 | XMS_ITS | Clinical Summary ---
Author Organization [facility] Address [address] [place] [address] Care Team Providers Care Coat Fitter Name Role Phone Cain Cooley DO Primary Care Provider [phone] Allergies No known active allergies Medications Medication [...] age to complete this topic Care Teams Coat Fitter Relationship Specialty Start Date End Date Cain Cooley DO [address] [place] [address] PCP - General Family Medicine 03/30/23
--- NOTE | 2024-08-28 12:42 | A.OFFVIS_ITS ---
Vital Signs 08/28/24 12:43 Height 6 ft 3 in Weight 277 lb BMI 34.6 BP 145/73 H Blood Pressure Location Lt brachial Position Sitting Pulse 58 Pulse Source Pulse Oximeter Pulse Oximetry (%) 100 Oxygen Delivery Method Room Air Intake Visit Reasons: L4-L5 MARSHALL (Per Dr. Judge) Graphic Design Specialist Required: No Allergies No Known Allergies Allergy (Verified 08/28/24 12:44) Medication List - Last Reconciled 08/28/24 by Miri Wong, NURSE MIDWIFE/CLINICAL INSTRUCTOR atorvastatin 20 mg PO BEDTIME famotidine 20 mg PO BID PRN gabapentin 300 mg PO TID ibuprofen 800 mg PO TID losartan 25 mg PO DAILY meloxicam 15 mg PO DAILY metformin 500 mg PO DAILY HPI HPI L4-L5 MARSHALL (Per Dr. Judge): Details: Patient presents for scheduled procedure. Denies any recent cough, cold, infection, fever or other significant changes in medical history since last office visit. Axial low back pain with numbness and tingling in lower extremities, right more than left. We will proceed with right L4-5 transforaminal MARSHALL today. [facility] Medical History Pulmonary nodule GERD (gastroesophageal reflux disease) Spinal stenosis Cervical radiculopathy Ground glass opacity present on imaging of lung Mesenteric panniculitis Lumbosacral radiculitis Controlled type 2 diabetes mellitus Essential hypertension Surgical History History of laminectomy (2019) Hx of varicose vein ligation (~1998) Hx of colonoscopy Hx of appendectomy (~1974) Social History Housing: House Are you a primary long term acute care registered nurse to a significant other at home: No Do you presently have visiting nurse or other home services: No Patient Tobacco Use Status: Former Tobacco user Tobacco use type: Cigarette Cigarette Packs Per Day: 1 Years Smoked: 20 e-Cigarette/Vaping Use: Never Used service: Yes Current occupational status: employed 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 The patient was placed in the prone position on the fluoroscopy table. The lumbosacral area was prepped with chloraprep, allowed to dry and draped in sterile fashion. Using fluoroscopy, the skin overlying our target was anesthetized with 0.5% lidocaine. A 22 gauge 3.5 inch spinal needle was advanced to the safe triangle in the upper pole of the right L4/5 foramen. No paresthesias were elicited with needle placement and aspiration was negative for blood and CSF. Correct needle position was confirmed with approximately 1 ml contrast dye (Omnipaque 180 mg/ml) injected under real-time fluoroscopy. No evidence of vascular or intrathecal uptake was seen and there was both epidural and peripheral spread of the contrast agent. [10] mg dexamethasone plus 1 ml containing 0.5% lidocaine was slowly injected. The needle was flushed and removed. The skin was cleansed and a sterile bandages were applied. The patient tolerated the procedure well and no complications were encountered. Following the procedure the patient's vital signs were stable. The patient was discharged home in good condition with post-procedural instructions. Time Out: Immediately prior to the procedure, the following was verbally confirmed that there is a signed consent form and that the correct patient, planned procedure, site and side are consistent with documentation and that necessary equipment and/or blood products are available prior to the start of the case. Complications: none EBL: <5 cc 09676 - Lumbar/Sacral Procedure code (CPT) selection complete Assessment & Plan Assessment & Plan (1) Lumbosacral radiculitis: Code(s): M54.17 - Radiculopathy, lumbosacral region Category: Medical Plan Patient is status post right L4/5 TFESI. Patient tolerated procedure well and was discharged home in stable condition with discharge instructions. All questions were answered. We will follow-up via telephone or in clinic to assess response to therapy. A follow-up appointment was made during today's visit. Orders: Orders FL guidance in treatment room Today M54.16 - Radiculopathy, lumbar region Coding Level of Care Code Procedure Only Diagnoses Lumbosacral radiculitis M54.17 CPT Codes Transforaminal Epidural Steroid Inj - TESI 3: 12504 - Lumbar/Sacral ([id number])
[2024-08-28 12:43] VITALS: BP 145/73; PULSE 58; O2SAT 100; BMI 34.6
== END 2024-08-28 13:18 | disposition home or self-care (01) ==
LOC: HO.PMCPRC 12:30
PROVIDERS: PCP Internal Medicine; Visit Provider Internal Medicine
DX: M54.17 Radiculopathy, lumbosacral region (principal)
CPT/HCPCS: 64483

== ENCOUNTER 2024-09-19 11:15 | Outpatient (AMB) | payer BC, SELFPAY ==
--- NOTE | 2024-09-19 11:51 | HO.SPINEOV ---
Intake Visit Reasons: f/up after injection Intake Note: Mr. Peralta is here today to F/u after injection. Physiotherapist'S Assistant Required: No Allergies No Known Allergies Allergy (Verified 09/19/24 11:55) Assessment & Plan Assessment & Plan (1) Spondylolisthesis, lumbar region: Code(s): M43.16 - Spondylolisthesis, lumbar region Category: Medical Plan: Dear colleague, On 09/19/2024, I saw for follow-up Swapnil Peralta. Last time I saw him he was suffering from severe back pain. We decide to refer him for an epidural steroid injection L3-4. This, the symptoms down by 25%. The pain is worse when he goes from a sitting to standing position, which may indicate instability of the lumbar spine. He does have the L3-4 spondylolisthesis, which has not progressed over the years. Pain management thought it would be facet related. I explained to the patient that if there is instability then automatically the facet joints will enlarge. He will see the pain management coming Sunday and we will ask about the facet blocks. Second complaint is increasing tingling in an L5 dermatome on the right side. I reviewed the MRI of the lumbar spine again and do not see any compression of the L5 nerve root. In summary, this patient is suffering from positional low back pain that could be related to the L3-4 spondylolisthesis. I advised him to it of exhaust all conservative management before considering correction of the spondylolisthesis. Thank you for allowing me take care of your patient. Ellis Judge MD, PhD Spine Fellowship Trained Neurosurgeon Director, [facility] Orders: Orders PT Evaluation and Treatment Today M43.16 - Spondylolisthesis, lumbar region Coding Level of Care Code Est Pt Level 3 (28220) Diagnoses Spondylolisthesis, lumbar region M43.16
--- OUTSIDE RECORDS SUMMARY | 2024-09-19 13:01 | XMS_ITS | Clinical Summary ---
Author Organization [facility] Address [address] [place] [address] Care Team Providers Care Health Technical Writer Name Role Phone Cain Cooley DO Primary Care Provider [phone] Allergies No known active allergies Medications Medication [...] age to complete this topic Care Teams Health Technical Writer Relationship Specialty Start Date End Date Cain Cooley DO [address] [place] [address] PCP - General Family Medicine 03/30/23
== END 2024-09-19 12:23 | disposition home or self-care (01) ==
PROVIDERS: PCP Internal Medicine; Visit Provider Neurological Surgery
DX: M43.16 Spondylolisthesis, lumbar region (principal)
CPT/HCPCS: 99213

== ENCOUNTER 2024-09-24 09:56 | Outpatient (AMB) | payer BC, SELFPAY ==
--- NOTE | 2024-09-24 09:57 | MHC.OFFVIS ---
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 Despite having undergone a left L4-5 transforaminal epidural steroid injection with minimal relief, the patient continues to experience pain localized primarily to the lower back. Spondylolisthesis at the L3-4 level has been identified as the primary cause, with associated bilateral neuroforaminal narrowing, more pronounced on the right side, showing correlation with right-leg numbness. Pain is described as severe, predominantly affecting the right side and exacerbated by standing from a seated position. There is also a radiating numb sensation down the thigh and calf on the right side. Recent spine surgery evaluation identified the need for potential facet blocks, as the epidural injection showed limited efficacy. MRI findings substantiate the patient's symptomatology, showing significant spondylolisthetic changes and facet degeneration at L3-4. Pain Description - Onset: No significant relief following a recent injection. - Quality: Severe, positional, likened to a toothache. - Location: Lower back, predominantly right-sided; associated right thigh and calf numbness. - Radiation: Numbness radiates down the right leg. - Aggravating Factors: Transition from sitting to standing exacerbates pain. - Relieving Factors: Not specified. - Interference: Pain affects mobility, making it necessary to hold breath when transitioning positions. Physical Exam - Musculoskeletal- Lumbar extension reproduces pain. Facet loading on the left side reproduces lower back pain; facet loading on the right side does not reproduce as much pain. Results - MRI: Spondylolisthesis of L3 over L4, to a lesser extent L4 over L5, with bilateral neuroforaminal narrowing more severe on the right at both L3-4 and L4-5. Associated facet arthritis and degeneration most pronounced at L3-4. Pain Management - Affect: Patient shows concern for ongoing pain, affecting mobility. - Analgesia: Currently on gabapentin, meloxicam, ibuprofen; considering changes due to side effects. - Adverse Effects: Ibuprofen causing gastric irritation. - Activities of Daily Living: Mobility affected by pain; current regimen inadequate for effective pain management. - Aberrant Drug Related Behaviors: None reported. [facility] Medical History Pulmonary nodule GERD (gastroesophageal reflux disease) Spinal stenosis Cervical radiculopathy Ground glass opacity present on imaging of lung Mesenteric panniculitis Lumbosacral radiculitis Controlled type 2 diabetes mellitus Essential hypertension Surgical History History of laminectomy (2019) Hx of varicose vein ligation (~1998) Hx of colonoscopy Hx of appendectomy (~1974) Social History Housing: House Are you a primary patient care specialist to a significant other at home: No Do you presently have visiting nurse or other home services: No Patient Tobacco Use Status: Former Tobacco user Tobacco use type: Cigarette Cigarette Packs Per Day: 1 Years Smoked: 20 e-Cigarette/Vaping Use: Never Used service: Yes Current occupational status: employed 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 Current occupational exposures/hazards: No Cognitive needs: No Hearing needs: No Vision needs: No Physical Exam Vital Signs: Last Vital Signs Pulse 88 09/24/24 09:58 Resp 16 09/24/24 09:58 BP 142/83 H 09/24/24 09:58 Pulse Ox 100 09/24/24 09:58 Oxygen Delivery Method Room Air 09/24/24 09:58 BMI result Body Mass Index 36.0 Assessment & Plan Assessment & Plan (1) Lumbar spondylosis: Code(s): M47.816 - Spondylosis without myelopathy or radiculopathy, lumbar region Category: Medical Plan Plan The treatment plan includes diagnostic facet joint blocks at the L3-4 and L4-5 (L2 and L3 medial branches) levels to assess the source of pain, with the potential to proceed with temporary nerve stimulation based on the block outcomes. Current medications are being adjusted to mitigate adverse effects from long-term NSAID usage, substituting with increased gabapentin and Tylenol for pain management. An Ativan prescription has been given to manage anxiety during procedures. Physical therapy will be integral in relieving nerve-related symptoms through targeted exercises while observing the effects of these treatments. Patient was informed and verbally consented to the use of an ambient scribe for clinic note documentation during this visit. Discussion Notes We discussed with the patient the diagnosis of lumbar spondylolisthesis, associated findings from the MRI, and the decision to proceed with diagnostic facet joint injections at the L3-4 and L4-5 levels. The potential for subsequent temporary nerve stimulation was explained, highlighting its ability to relieve pain and aid in muscle activation. Medication adjustments were discussed in detail to avoid adverse effects like gastrointestinal disturbances. The patient was advised to discontinue ibuprofen due to its long-term impact on stomach and kidneys, and was recommended to switch to Tylenol and adjust gabapentin dosage as appropriate. The necessity of specific stretches for nerve decompression was outlined. The patient expressed understanding of these plans, particularly the change in medication regimen, and the importance of avoiding potential renal complications. Discussions included procedural expectations and recommendations for managing anxiety during procedures. The patient was agreeable to proceeding with this outlined plan. Patient Instructions - Stop taking ibuprofen immediately due to stomach issues; use Tylenol as needed for pain up to three times a day. - Continue gabapentin as directed, with possible increase in dosage if well-tolerated. - Discontinue metacarbamol as it's no longer beneficial after prolonged use. - Take meloxicam only as needed for pain. - Practice recommended stretches for nerve decompression; feeling cooling in the leg indicates effectiveness. - An Ativan prescription has been provided for anxiety, to be taken two hours before any scheduled procedures requiring sedation. - Plan for a ride to appointments if receiving procedures or sedation. - Monitor for and report any worsening symptoms or new issues. Medications: New lorazepam 1 mg PO DAILY PRN 1 tab 0RF anxiety Coding Level of Care Code Est Pt Level 4 (01876) Diagnoses Lumbar spondylosis M47.816
[2024-09-24 09:58] VITALS: BP 142/83; PULSE 88; RESP 16; O2SAT 100; BMI 36.0
--- OUTSIDE RECORDS SUMMARY | 2024-09-24 11:11 | XMS_ITS | Encounter Summary ---
Author Organization [facility] Address [address] [place] [address] Care Team Providers Care Business Office Technician Name Role Phone Cain Cooley DO Primary Care Provider UnavailMichael Leonard MD Unavailable Namita Brown MD Primary Care Provider Un available Vahid Baum PA-C Unavailable [phone] Encounter Details Date Type Department Care Team Description 08/23/2021 Pt. Non Urgent Medic al Question Adult Medicine - [address] [address] Cain Cooley, Social History Tobacco Use Types [...] have Coronavirus / COVID-19? No / Unsure 08/05/2021 8:19 AM EST documented as of this encounter Miscellaneous Notes * Telephone Encounter - Tracie Horn M.A. - 08/23/2021 2:01 PM ESTFrom: Swapnil Peralta To: James Cooley Sent: 08/23/2021 1:59 PM EST Subject: CSC Sorry about the quick email this morning. I found out last night that I had to be in [facility] for work to cover for someone who tested positive for COVID last night. So, for the 1st time in 18 months, I have no back pain. I started an at home program based off of the book Foundation by Dr. Tha Hernandez and have been working his program f or Chronic back issues for 3 weeks now and feel betterthan I have in years. I do not want to rely on medication to function and as you said that I am tooyoung to live in pain. We also talked about an alternative to being on pain medication and believe that this is my answer. By terminating my contract, it forces me to keep working this program. It islike burn the boats so retreat is not an option. I appreciate you support and papa lópez see you in October. documented in this encounter Plan of Treatment Not on file documented as of this encounter Visit Diagnoses Not on filedocumented in this encounter Care Teams Business Office Technician Relationship Specialty Start Date End Date Cain Cooley DO PCP - General Internal Medicine 07/18/21 12/24/23 Namita Brown MD PCP - General Internal Medicine 12/25/23 Michael Herron MD Lung Cancer Surgical Rn 10/08/23 Vahid Baum PA-C [address] [place] [phone] Specialist Thoracic Surgery 04/02/24 documented as of this encounter
--- OUTSIDE RECORDS SUMMARY | 2024-09-24 11:11 | XMS_ITS | Clinical Summary ---
Author Organization [facility] Address [address] [place] [address] Care Team Providers Care Radio Electronics Technician Name Role Phone Michael Herron MD Unavailable Namita Brown MD Primary Care Provider Un available Vahid Baum PA-C Unavailable [phone] Allergies No known active allergies Medications Medication [...] a CT scan of the chest at [facility] on 06/19/2023. Thoracic surgery has been following [...] sleep. He was instructed to trial a [id number] PPI she has omeprazole and to continue [...] often do you attend chur ch or samaritan services? Never 09/13/2022 Do you belong to any clubs o r organizations such as jehovah's witness groups, unions, fraternal or athletic groups, or [...] HEPATITIS C SCREENING Completed 10/22/2017 Care Teams Radio Electronics Technician Relationship Specialty Start Date End Date Nmaita Brown MD PCP - General Internal Medicine 12/25/23 Michael Herron MD Lung Cancer [place] 10/08/23 Vahid Baum PA-C [address] [place] [phone] Specialist Thoracic Surgery 04/02/24
--- OUTSIDE RECORDS SUMMARY | 2024-09-24 11:11 | XMS_ITS | Encounter Summary ---
Author Organization [facility] Address [address] [place] [address] Care Team Providers Care Document Examiner Name Role Phone Jannet Doherty MD Primary Care Provider Unavailable Cain Cooley DO Primary Care Provider UnavailMichael Leonard MD Unavailable Namita Brown MD Primary Care Provider Un available Vahid Baum PA-C Unavailable Encounter Details Date Type Department Care Team Description 04/13/2017 Integrated Marketing Manager Report Medical Records [address] [place] [id number] [facility] [place] Social History Tobacco Use Types Packs/Day Years Used Date Smoking Tobacco: Former Cigarettes 1 20 Alcohol Use Standard Drinks/Week Comments No 0 [...] often do you attend chur ch or christianity services? Never 09/13/2022 Do you [...] place to sleep or slept in a nursing home (including now)? No 09/13/2022 Sex Assigned at Date Recorded Not on file Job Start Date Occupation Industry Not on file Not on file Not on file documented as of this encounter Plan of Treatment Not on file documented as of this encounter Visit Diagnoses Not on filedocumented in this encounter Care Teams Document Examiner Relationship Specialty Start Date End Date Jannet Doherty MD PCP - General Internal Medicine 02/27/17 07/17/21 Cain Cooley DO PCP - General Internal Medicine 07/18/21 12/24/23 Namita Brown MD PCP - General Internal Medicine 12/25/23 Michael Herron MD Lung Cancer Black Leather Buffer 10/08/23 Vahid Baum PA-C [address] [phone] Specialist Thoracic Surgery 04/02/24 documented as of this encounter
--- OUTSIDE RECORDS SUMMARY | 2024-09-24 11:11 | XMS_ITS | Encounter Summary ---
Author Organization [facility] Address [address] [place] [address] Care Team Providers Care Remote Ruby On Rails Developer Name Role Phone Jannet Doherty MD Primary Care Provider Unavailable Cain Cooley DO Primary Care Provider UnavailMichael Leonard MD Unavailable Namita Brown MD Primary Care Provider Un available Vahid Baum PA-C Unavailable [phone] Encounter Details Date Type Department Care Team Description 01/02/2019 Computational Theory Scientist Report Medical Records [address] [place] [id number] Swapnil Casey MD Social History Tobacco Use [...] place to sleep or slept in a halfway (including now)? No 09/13/2022 Sex Assigned at Date Recorded Not on file Job Start Date Occupation Industry Not on file Not on file Not on file documented as of this encounter Plan of Treatment Not on file documented as of this encounter Visit Diagnoses Not on filedocumented in this encounter Care Teams Remote Ruby On Rails Developer Relationship Specialty Start Date End Date Jannet Doherty MD PCP - General Internal Medicine 02/27/17 07/17/21 Cain Cooley DO PCP - General Internal Medicine 07/18/21 12/24/23 Namita Brown MD PCP - General Internal Medicine 12/25/23 Michael Herron MD Lung Cancer [employer] Rocket Crew Member 10/08/23 Vahid Baum PA-C [address] [place] [phone] Specialist Thoracic Surgery 04/02/24 documented as of this encounter
--- OUTSIDE RECORDS SUMMARY | 2024-09-24 11:11 | XMS_ITS | Encounter Summary ---
Author Organization [facility] Address [address] [place] [address] Care Team Providers Care Bowling Ball Mold Assembler Name Role Phone Michael Herron MD Unavailable Namita Brown MD Primary Care Provider Un available Vahid Baum PA-C Unavailable [phone] Encounter Details Date Type Department Care Team Description 02/24/2024 Refill Adult Medicine - [address] [address] Yoli Mckeon PA-C [address] [place] [id number] Social History Tobacco Use Types Packs/Day Years [...] you attend [facility] or jainism services? Never 09/13/2022 Do you belong to any clubs o r organizations such as roman catholic groups, unions, fraternal or athletic groups, or [...] place to sleep or slept in a prison (including now)? No 09/13/2022 Sex Assigned at Date Recorded Not on file Job Start Date Occupation Industry Not on file Not on file Not on file documented as of this encounter Plan of Treatment Not on file documented as of this encounter Visit Diagnoses Diagnosis Lumbar degenerative disc disease Degeneration of lumbar or lumbosacral intervertebral disc documented in this encounter Care Teams Bowling Ball Mold Assembler Relationship Specialty Start Date End Date Namita Brown MD PCP - General Internal Medicine 12/25/23 Michael Herron MD Lung Cancer Tile Sprayer 10/08/23 Vahid Baum PA-C [address] [phone] Specialist Thoracic Surgery 04/02/24 documented as of this encounter
--- OUTSIDE RECORDS SUMMARY | 2024-09-24 11:11 | XMS_ITS | Encounter Summary ---
Author Organization [facility] Address [address] [place] [address] Care Team Providers Care Pattern Shop Supervisor Name Role Phone Cain Cooley DO Primary Care Provider UnavailMichael Leonard MD Unavailable Namita Brown MD Primary Care Provider Un available Vahid Baum PA-C Unavailable [phone] Encounter Details Date Type Department Care Team Description 03/19/2022 Pt. Non Urgent Medic al Question Adult Medicine - [address] [address] Cain Cooley, Social History Tobacco Use Types [...] often do you attend chur ch or latter day services? Never 09/13/2022 Do you belong to any clubs o r organizations such as latter day groups, unions, fraternal or athletic groups, or [...] today 03/19/22. I have a Telehealth with [employer] and am taking paxlovid antiviral. documented in this encounter Plan of Treatment Not on file documented as of this encounter Visit Diagnoses Not on filedocumented in this encounter Care Teams Pattern Shop Supervisor Relationship Specialty Start Date End Date Cain Cooley DO PCP - General Internal Medicine 07/18/21 12/24/23 Namita Brown MD PCP - General Internal Medicine 12/25/23 Michael Herron MD Lung Cancer Zinc Plating Machine Operator 10/08/23 Vahid Baum PA-C [address] [place] [phone] Specialist Thoracic Surgery 04/02/24 documented as of this encounter
--- OUTSIDE RECORDS SUMMARY | 2024-09-24 11:11 | XMS_ITS | Encounter Summary ---
Author Organization [facility] Address [address] [place] [address] Care Team Providers Care Vp Production Name Role Phone Jannet Doherty MD Primary Care Provider Unavailable Cain Cooley DO Primary Care Provider UnavailMichael Leonard MD Unavailable Namita Brown MD Primary Care Provider Un available Vahid Baum PA-C Unavailable [phone] Encounter Details Date Type Department Care Team Description 04/06/2017 Release of Information Medical Records [address] [place] [address] Abstract, Provider Social History Tobacco Use Types [...] often do you attend chur ch or buddhist services? Never 09/13/2022 Do you belong to [...] on filedocumented in this encounter Care Teams Vp Production Relationship Specialty Start Date End Date Jannet Doherty MD PCP - General Internal Medicine 02/27/17 07/17/21 Cain Cooley DO PCP - General Internal Medicine 07/18/21 12/24/23 Namita Brown MD PCP - General Internal Medicine 12/25/23 Michael Herron MD Lung Cancer Facilities Project Manager 10/08/23 Vahid Baum PA-C [address] [phone] Specialist Thoracic Surgery 04/02/24 documented as of this encounter
--- OUTSIDE RECORDS SUMMARY | 2024-09-24 11:11 | XMS_ITS | Encounter Summary ---
Author Organization [facility] Address [address] [place] [address] Care Team Providers Care Blood Typer Name Role Phone Jannet Doherty MD Primary Care Provider Unavailable Cain Cooley DO Primary Care Provider UnavailMichael Leonard MD Unavailable Namita Brown MD Primary Care Provider Un available Vahid Baum PA-C Unavailable [phone] Encounter Details Date Type Department Care Team Description 2020 [facility] Medical Records [address] [place] [address] Abstract, Provider Social History Tobacco Use Types [...] often do you attend chur ch or scientologist services? Never 09/13/2022 Do you belong to [...] on filedocumented in this encounter Care Teams Blood Typer Relationship Specialty Start Date End Date Jannet Doherty MD PCP - General Internal Medicine 02/27/17 07/17/21 Cain Cooley DO PCP - General Internal Medicine 07/18/21 12/24/23 Namita Brown MD PCP - General Internal Medicine 12/25/23 Michael Herron MD Lung Cancer [employer] Social Science Teacher 10/08/23 Vahid Baum PA-C [address] [phone] Specialist Thoracic Surgery 04/02/24 documented as of this encounter
--- OUTSIDE RECORDS SUMMARY | 2024-09-24 11:11 | XMS_ITS | Encounter Summary ---
Author Organization [facility] Address [address] [place] [address] Care Team Providers Care Supervisor Locomotive Name Role Phone Jannet Doherty MD Primary Care Provider Unavailable Cain Cooley DO Primary Care Provider UnavailMichael Leonard MD Unavailable Namita Brown MD Primary Care Provider Un available Vahid Baum PA-C Unavailable [phone] Encounter Details Date Type Department Care Team Description 12/06/2018 [facility] Adult [address] [address] Nuris Rivera PA-C Social History Tobacco Use [...] week 09/13/2022 How often do you attend [facility] or baptist services? Never 09/13/2022 Do you belong to any clubs o r organizations such as confucianist groups, unions, fraternal or athletic groups, or [...] place to sleep or slept in a long term (including now)? No 09/13/2022 Sex Assigned at [...] per tablet [Nuris Rivera PA-C] Preferred pharmacy: [facility] [address] [place] [address] Comment: still no relief. surgery is scheduled for 12/12. hoping this will be my last refill ever! documented in this encounter Plan of Treatment Not on file documented as of this encounter Visit Diagnoses Not on filedocumented in this encounter Care Teams Supervisor Locomotive Relationship Specialty Start Date End Date Jannet Doherty MD PCP - General Internal Medicine 02/27/17 07/17/21 Cain Cooley DO PCP - General Internal Medicine 07/18/21 12/24/23 Namita Brown MD PCP - General Internal Medicine 12/25/23 Michael Herron MD Lung Cancer Billboard Erector Helper 10/08/23 Vahid Baum PA-C [address] [place] [phone] Specialist Thoracic Surgery 04/02/24 documented as of this encounter
--- OUTSIDE RECORDS SUMMARY | 2024-09-24 11:11 | XMS_ITS | Encounter Summary ---
Author Organization [facility] Address [address] [place] [address] Care Team Providers Care Technical Support Agent Name Role Phone Jannet Doherty MD Primary Care Provider Unavailable Cain Cooley DO Primary Care Provider UnavailMichael Leonard MD Unavailable Namita Brown MD Primary Care Provider Un available Vahid Baum PA-C Unavailable [phone] Encounter Details Date Type Department Care Team Description 05/03/2017 Pt. Non Urgent Medic al Question Adult Medicine - [address] [address] Nuris Rivera PA-C Social History Tobacco Use [...] week 09/13/2022 How often do you attend [facility] or taoism services? Never 09/13/2022 Do you [...] on filedocumented in this encounter Care Teams Technical Support Agent Relationship Specialty Start Date End Date Jannet Doherty MD PCP - General Internal Medicine 02/27/17 07/17/21 Cain Cooley DO PCP - General Internal Medicine 07/18/21 12/24/23 Namita Brown MD PCP - General Internal Medicine 12/25/23 Michael Herron MD Lung Cancer Bioinformatics Specialist 10/08/23 Vahid Baum PA-C [address] [place] [phone] Specialist Thoracic Surgery 04/02/24 documented as of this encounter
--- OUTSIDE RECORDS SUMMARY | 2024-09-24 11:11 | XMS_ITS | Encounter Summary ---
Author Organization [facility] Address [address] [place] [address] Care Team Providers Care Shut Off Worker Name Role Phone Jannet Doherty MD Primary Care Provider Unavailable Cain Cooley DO Primary Care Provider UnavailMichael Leonard MD Unavailable Namita Brown MD Primary Care Provider Un available Vahid Baum PA-C Unavailable [phone] Reason for Visit * Reason Comments E-prescribe Rx Request Encounter Details Date Type Department Care Team Description 12/01/2018 Refill Adult Medicine [address] [address] Jannet Doherty MD E-prescribe Rx Request Social [...] week 09/13/2022 How often do you attend [facility] or jain services? Never 09/13/2022 Do you belong to any clubs o r organizations such as mormon groups, unions, fraternal or athletic groups, or [...] on filedocumented in this encounter Care Teams Shut Off Worker Relationship Specialty Start Date End Date Jannet Doherty MD PCP - General Internal Medicine 02/27/17 07/17/21 Cain Cooley DO PCP - General Internal Medicine 07/18/21 12/24/23 Namita Brown MD PCP - General Internal Medicine 12/25/23 Michael Herron MD Lung Cancer Drum Attendant 10/08/23 Vahid Baum PA-C [address] [place] [phone] Specialist Thoracic Surgery 04/02/24 documented as of this encounter
--- OUTSIDE RECORDS SUMMARY | 2024-09-24 11:11 | XMS_ITS | Encounter Summary ---
Author Organization [facility] Address [address] [place] [address] Care Team Providers Care Industrial Security Analyst Name Role Phone Jannet Doherty MD Primary Care Provider Unavailable Cain Cooley DO Primary Care Provider UnavailMichael Leonard MD Unavailable Namita Brown MD Primary Care Provider Un available Vahid Baum PA-C Unavailable [phone] Encounter Details Date Type Department Care Team Description 08/10/2020 [facility] Medical Records [address] [place] [id number] Abstract, Provider Social History Tobacco Use Types [...] often do you attend chur ch or anabaptist services? Never 09/13/2022 Do you belong to any clubs o r organizations such as quaker groups, unions, fraternal or athletic groups, or [...] place to sleep or slept in a alf (including now)? No 09/13/2022 Sex Assigned at [...] on filedocumented in this encounter Care Teams Industrial Security Analyst Relationship Specialty Start Date End Date Jannet Doherty MD PCP - General Internal Medicine 02/27/17 07/17/21 Cain Cooley DO PCP - General Internal Medicine 07/18/21 12/24/23 Namita Brown MD PCP - General Internal Medicine 12/25/23 Micahel Herron MD Lung Cancer Senior Medical Writer 10/08/23 Vahid Baum PA-C [address] [phone] Specialist Thoracic Surgery 04/02/24 documented as of this encounter
--- OUTSIDE RECORDS SUMMARY | 2024-09-24 11:11 | XMS_ITS | Encounter Summary ---
Author Organization [facility] Address [address] [place] [address] Care Team Providers Care Corporate Security Manager Name Role Phone Michael Herron MD Unavailable Namita Brown MD Primary Care Provider Un available Vahid Baum PA-C Unavailable [phone] Encounter Details Date Type Department Care Team Description 12/31/2023 Refill Adult Medicine [address] [address] Cain Cooley, DO Social History Tobacco Use Types Packs/Day [...] often do you attend chur ch or anglican services? Never 09/13/2022 Do you belong to [...] Telephone Encounter - Tracie Horn M.A. - 12/31/2023 2:50 PM EDT Medications have already been sent in another encounter * Telephone Encounter - Tracie Horn M.A. - 12/31/2023 2:48 PM EDT Pt needs to choose a New PCP and schedule next appt - do not cancel upcoming appt 02/01/24 - pt requesting refill on Prednisone - states would prescribe taper dose with robaxin when pt has back pain FRANKIE 08/27/23 w/ - Lumbar degenerative disc disease methocarbamol (ROBAXIN) 750 MG tablet ?? predniSONE (DELTASONE) 5 MG tablet * Telephone Encounter - Tracie Horn M.A. - 12/31/2023 10:11 AM EDTFrom: Swapnil Peralta To: Office of James Cooley Sent: 12/31/2023 9:52 AM EDT Subject: Medication Renewal Request Refills have been requested for the following medications: Other - Prednisone Preferred pharmacy: [id number] - [address] Medication renewals requested in this message routed separately: methocarbamol (ROBAXIN) 750 MG tablet [James Cooley, DO] documented in this encounter Plan of Treatment Not on file documented as of this encounter Visit Diagnoses Not on filedocumented in this encounter Care Teams Corporate Security Manager Relationship Specialty Start Date End Date Namita Brown MD PCP - General Internal Medicine 12/25/23 Michael Herron MD Lung Cancer Air Quality Manager 10/08/23 Vahid Baum PA-C [address] [place] [phone] Specialist Thoracic Surgery 04/02/24 documented as of this encounter
--- OUTSIDE RECORDS SUMMARY | 2024-09-24 11:11 | XMS_ITS | Encounter Summary ---
Author Organization [facility] Address [address] [place] [address] Care Team Providers Care Harbor Pilot Name Role Phone Jannet Doherty MD Primary Care Provider Unavailable Cain Cooley DO Primary Care Provider UnavailMichael Leonard MD Unavailable Namita Brown MD Primary Care Provider Un available Vahid Baum PA-C Unavailable [phone] Reason for Visit * Reason Comments E-prescribe Rx Request Encounter Details Date Type Department Care Team Description 05/26/2020 Refill Adult Medicine [address] [address] Jannet Doherty MD E-prescribe Rx Request Social [...] How often do you attend [facility] or druze services? Never 09/13/2022 Do you belong to any clubs o r organizations such as islam groups, unions, fraternal or athletic groups, or [...] an upcoming appointment? No-unable to reach left [facility] to call for appointment due to refill [...] ?? Patients current insurance carrier is: Payor: -[place] / Plan: JOSÉ LUIS GARCIA $20/$35 / Product Type: HMO [id number] ? documented in this encounter Plan of Treatment Not on file documented as of this encounter Visit Diagnoses Not on filedocumented in this encounter Care Teams Harbor Pilot Relationship Specialty Start Date End Date Jannet Doherty MD PCP - General Internal Medicine 02/27/17 07/17/21 Cain Cooley DO PCP - General Internal Medicine 07/18/21 12/24/23 Namita Brown MD PCP - General Internal Medicine 12/25/23 Michael Herron MD Lung Cancer Churn Operator Margarine 10/08/23 Vahid Baum PA-C [address] [phone] Specialist Thoracic Surgery 04/02/24 documented as of this encounter
--- OUTSIDE RECORDS SUMMARY | 2024-09-24 11:11 | XMS_ITS | Encounter Summary ---
Author Organization [facility] Address [address] [place] [address] Care Team Providers Care Accountant Systems Name Role Phone Jannet Doherty MD Primary Care Provider Unavailable Cain Cooley DO Primary Care Provider UnavailMichael Leonard MD Unavailable Namita Brown MD Primary Care Provider Un available Vahid Baum PA-C Unavailable [phone] Encounter Details Date Type Department Care Team Description 05/25/2021 Orders Only Medical Records [address] [place] [address] Alex Navarrete MD [address] [place] [address] Social History Tobacco Use Types Packs/Day Years [...] How often do you attend [facility] or adventist services? Never 09/13/2022 Do you [...] place to sleep or slept in a penitentiary (including now)? No 09/13/2022 Sex Assigned at [...] PM EDT documented as of this encounter Progress Notes * Eliecer Navarrete MD - 05/31/2021 9:00 AM EST Dear Swapnil,The polyp(s) that were removed during your colonoscopy were precancerous, but benign. Fortunately, we removed them and therefore, they will not cause any more problems in the future. Based on the number, the size, and the features of the polyp(s) removed, I recommend a follow-up colonoscopy in 5 years. Before, the 5 years are due, we will send you a reminder in the mail asking you tocontact our office to have the colonoscopy scheduled. I would like to personally thank you for allowing us to take care of you. Please don't hesitate to call us for any questions or concerns. Regards, Kev Navarrete MD Board Certified Gastroenterology and Internal Medicine Transplant Hepatology [facility] documented in this encounter Plan of Treatment Not on file documented as of this encounter Procedures Procedure Name Priority Date/Time Associated Diagnosis Comments OUTSIDE PATHOLOGY Routine 05/19/2021 documented in this encounter Results * OUTSIDE PATHOLOGY (05/19/2021) H Timo Navarrete MD OUTSIDE LAB documented in this encounter Visit Diagnoses Not on filedocumented in this encounter Care Teams Accountant Systems Relationship Specialty Start Date End Date Jannet Doherty MD PCP - General Internal Medicine 02/27/17 07/17/21 Cain Cooley DO PCP - General Internal Medicine 07/18/21 12/24/23 Namita Brown MD PCP - General Internal Medicine 12/25/23 Michael Herron MD Lung Cancer Quality Rn 10/08/23 Vahid Baum PA-C [address] [place] [phone] Specialist Thoracic Surgery 04/02/24 documented as of this encounter
--- OUTSIDE RECORDS SUMMARY | 2024-09-24 11:11 | XMS_ITS | Clinical Summary ---
Author Organization [facility] Address [address] [place] [address] Care Team Providers Care Top Trimmer Name Role Phone Cain Cooley DO Primary Care Provider [phone] Allergies No known active allergies Medications Medication [...] age to complete this topic Care Teams Top Trimmer Relationship Specialty Start Date End Date Cain Cooley DO [address] [place] [address] PCP - General Family Medicine 03/30/23
--- OUTSIDE RECORDS SUMMARY | 2024-09-24 11:11 | XMS_ITS | Encounter Summary ---
Author Organization [facility] Address [address] [place] [address] Care Team Providers Care Rn Triage Name Role Phone Michael Herron MD Unavailable Namita Brown MD Primary Care Provider Un available Vahid Baum PA-C Unavailable [phone] Encounter Details Date Type Department Care Team Description 02/12/2024 Pt. Non Urgent Medic al Question Adult Medicine - [address] [address] Namita Brown MD Social History Tobacco Use [...] any clubs o r organizations such as jain groups, unions, fraternal or athletic groups, or [...] out again. My brother this weekend in [place]. Did a lot of driving and was in his ICU room for 36 hour straight. Was hoping for a refill on the prednisone and roboxin. I did submit the refill requeat documented in this encounter Plan of Treatment Not on file documented as of this encounter Visit Diagnoses Not on filedocumented in this encounter Care Teams Rn Triage Relationship Specialty Start Date End Date Namita Brown MD PCP - General Internal Medicine 12/25/23 Michael Herron MD Lung Cancer Soft Boarder 10/08/23 Vahid Baum PA-C [address] [place] [phone] Specialist Thoracic Surgery 04/02/24 documented as of this encounter
--- OUTSIDE RECORDS SUMMARY | 2024-09-24 11:11 | XMS_ITS | Encounter Summary ---
Author Organization [facility] Address [address] [place] [address] Care Team Providers Care Central Supply Tech Name Role Phone Jannet Doherty MD Primary Care Provider Unavailable Cain Cooley DO Primary Care Provider UnavailMichael Leonard MD Unavailable Namita Brown MD Primary Care Provider Un available Vahid Baum PA-C Unavailable [phone] Encounter Details Date Type Department Care Team Description 12/03/2018 [employer] Supervisor Report Medical Records [address] [place] [id number] Swapnil Casey MD Social History Tobacco Use [...] any clubs o r organizations such as uatsdin groups, unions, fraternal or athletic groups, or [...] on filedocumented in this encounter Care Teams Central Supply Tech Relationship Specialty Start Date End Date Jannet Doherty MD PCP - General Internal Medicine 02/27/17 07/17/21 Cain Cooley DO PCP - General Internal Medicine 07/18/21 12/24/23 Namita Brown MD PCP - General Internal Medicine 12/25/23 Michael Herron MD Lung Cancer Manager Of Case Management 10/08/23 Vahid Baum PA-C [address] [place] [phone] Specialist Thoracic Surgery 04/02/24 documented as of this encounter
--- OUTSIDE RECORDS SUMMARY | 2024-09-24 11:11 | XMS_ITS | Encounter Summary ---
Author Organization [facility] Address [address] [place] [address] Care Team Providers Care Glass Laminating Operator Name Role Phone Jannet Doherty MD Primary Care Provider Unavailable Cain Cooley DO Primary Care Provider UnavailMichael Leonard MD Unavailable Namita Brown MD Primary Care Provider Un available Vahid Baum PA-C Unavailable [phone] Encounter Details Date Type Department Care Team Description 01/30/2020 [facility] Medical Records [address] [place] [address] Abstract, Provider Social History Tobacco Use Types [...] often do you attend chur ch or christian services? Never 09/13/2022 Do you belong to any clubs o r organizations such as buddhist groups, unions, fraternal or athletic groups, or [...] on filedocumented in this encounter Care Teams Glass Laminating Operator Relationship Specialty Start Date End Date Jannet Doherty MD PCP - General Internal Medicine 02/27/17 07/17/21 Cain Cooley DO PCP - General Internal Medicine 07/18/21 12/24/23 Namita Brown MD PCP - General Internal Medicine 12/25/23 Michael Herron MD Lung Cancer Barrel Bridge Assembler 10/08/23 Vahid Baum PA-C [address] [phone] Specialist Thoracic Surgery 04/02/24 documented as of this encounter
--- OUTSIDE RECORDS SUMMARY | 2024-09-24 11:11 | XMS_ITS | Encounter Summary ---
Author Organization [facility] Address [address] [place] [address] Care Team Providers Care Cartographic Technician Name Role Phone Cain Cooley DO Primary Care Provider UnavailMichael Leonard MD Unavailable Namita Brown MD Primary Care Provider Un available Vahid Baum PA-C Unavailable [phone] Encounter Details Date Type Department Care Team Description 04/05/2022 [facility] Adult Medicine [address] [address] Cain Cooley DO Social History Tobacco Use [...] often do you attend chur ch or yazidism services? Never 09/13/2022 Do you belong to [...] place to sleep or slept in a fdc (including now)? No 09/13/2022 Sex Assigned at [...] on filedocumented in this encounter Care Teams Cartographic Technician Relationship Specialty Start Date End Date Cain Cooley DO PCP - General Internal Medicine 07/18/21 12/24/23 Namita Brown MD PCP - General Internal Medicine 12/25/23 Michael Herron MD Lung Cancer Mottler Machine Feeder 10/08/23 Vahid Baum PA-C [address] [place] [phone] Specialist Thoracic Surgery 04/02/24 documented as of this encounter
--- OUTSIDE RECORDS SUMMARY | 2024-09-24 11:11 | XMS_ITS | Encounter Summary ---
Author Organization [facility] Address [address] [place] [address] Care Team Providers Care Composing Machine Operator/Tender Name Role Phone Cain Cooley DO Primary Care Provider UnavailMichael Leonard MD Unavailable Namita Brown MD Primary Care Provider Un available Vahid Baum PA-C Unavailable [phone] Encounter Details Date Type Department Care Team Description 09/16/2022 Pt. Non Urgent Medic al Question Adult Medicine - [address] [address] Foreign Gardner PA-C [address] [place] [address] Social History Tobacco Use Types Packs/Day Years [...] How often do you attend [facility] or pentecostal services? Never 09/13/2022 Do you belong to [...] suspected to have Coronavirus/COVID-19? No / Unsure 09/13/2022 9:47 AM EST documented as of this encounter Miscellaneous Notes * Telephone Encounter - Aide Francois L.P.N. - 09/18/2022 8:57 AM ESTFrom: Swapnil Peralta To: Genna Gardner Sent: 09/16/2022 1:05 PM EST Subject: Lamisil I have decided that I am not comfortable taking this perscription with all its potential side effects. documented in this encounter Plan of Treatment Not on file documented as of this encounter Visit Diagnoses Not on filedocumented in this encounter Care Teams Composing Machine Operator/Tender Relationship Specialty Start Date End Date Cain Cooley DO PCP - General Internal Medicine 07/18/21 12/24/23 Namita Brown MD PCP - General Internal Medicine 12/25/23 Michael Herron MD Lung Cancer Truck Driving 10/08/23 Vahid Baum PA-C [address] [phone] Specialist Thoracic Surgery 04/02/24 documented as of this encounter
--- OUTSIDE RECORDS SUMMARY | 2024-09-24 11:11 | XMS_ITS | Encounter Summary ---
Author Organization [facility] Address [address] [place] [address] Care Team Providers Care Utility Porter Name Role Phone Michael Herron MD Unavailable Namita Brown MD Primary Care Provider Un available Vahid Baum PA-C Unavailable [phone] Reason for Visit * Reason Comments E-prescribe Rx Request Encounter Details Date Type Department Care Team Description 03/11/2024 Refill Adult Medicine [address] [address] Cain Cooley, E-prescribe Rx Request Social History [...] often do you attend chur ch or sabianist services? Never 09/13/2022 Do you belong to any clubs o r organizations such as christianity groups, unions, fraternal or athletic groups, or [...] on filedocumented in this encounter Care Teams Utility Porter Relationship Specialty Start Date End Date Namita Brown MD PCP - General Internal Medicine 12/25/23 Michael Herron MD Lung Cancer Meat Grader 10/08/23 Vahid Baum PA-C [address] [place] [phone] Specialist Thoracic Surgery 04/02/24 documented as of this encounter
--- OUTSIDE RECORDS SUMMARY | 2024-09-24 11:12 | XMS_ITS | Encounter Summary ---
Author Organization [facility] Address [address] [place] [address] Care Team Providers Care Senior Sales Administrator Name Role Phone Cain Cooley DO Primary Care Provider UnavailMichael Leonard MD Unavailable Namita Brown MD Primary Care Provider Un available Vahid Baum PA-C Unavailable [phone] Encounter Details Date Type Department Care Team Description 06/25/2023 Pt. Non Urgent Medic al Question Adult Medicine - [address] [address] Cain Cooley, Social History Tobacco Use Types [...] any clubs o r organizations such as taoism groups, unions, fraternal or athletic groups, or [...] on filedocumented in this encounter Care Teams Senior Sales Administrator Relationship Specialty Start Date End Date Cain Cooley DO PCP - General Internal Medicine 07/18/21 12/24/23 Namita Brown MD PCP - General Internal Medicine 12/25/23 Michael Herron MD Lung Cancer Director Of Sales Support 10/08/23 Vahid Baum PA-C [address] [phone] Specialist Thoracic Surgery 04/02/24 documented as of this encounter
--- OUTSIDE RECORDS SUMMARY | 2024-09-24 11:12 | XMS_ITS | Encounter Summary ---
Author Organization [facility] Address [address] [place] [address] Care Team Providers Care Emergency Medical Services Coordinator Name Role Phone Cain Cooley DO Primary Care Provider UnavailMichael Leonard MD Unavailable Namita Brown MD Primary Care Provider Un available Vahid Baum PA-C Unavailable [phone] Encounter Details Date Type Department Care Team Description 07/02/2023 Refill Pediatrics [address] [address] Cain Cooley DO Social History Tobacco Use [...] often do you attend chur ch or advent services? Never 09/13/2022 Do you belong to any clubs o r organizations such as moravian groups, unions, fraternal or athletic groups, or [...] this encounter Visit Diagnoses Diagnosis Pancolitis (HCC) Castell ulcerative (chronic) colitis documented in this encounter Care Teams Emergency Medical Services Coordinator Relationship Specialty Start Date End Date Cain Cooley DO PCP - General Internal Medicine 07/18/21 12/24/23 Namita Brown MD PCP - General Internal Medicine 12/25/23 Michael Herron MD Lung Cancer Recruiting Specialist 10/08/23 Vahid Baum PA-C [address] [place] [phone] Specialist Thoracic Surgery 04/02/24 documented as of this encounter
--- OUTSIDE RECORDS SUMMARY | 2024-09-24 11:12 | XMS_ITS | Encounter Summary ---
Author Organization [facility] Address [address] [place] [address] Care Team Providers Care Rail Car Mechanic Name Role Phone Jannet Doherty MD Primary Care Provider Unavailable Cain Cooley DO Primary Care Provider UnavailMichael Leonard MD Unavailable Namita Brown MD Primary Care Provider Un available Vahid Baum PA-C Unavailable Encounter Details Date Type Department Care Team Description 09/30/2019 Refill Adult Medicine [address] [address] Jannet Doherty MD Social History Tobacco Use [...] How often do you attend [facility] or quaker services? Never 09/13/2022 Do you belong to any clubs o r organizations such as congregation groups, unions, fraternal or athletic groups, or [...] on filedocumented in this encounter Care Teams Rail Car Mechanic Relationship Specialty Start Date End Date Jannet Doherty MD PCP - General Internal Medicine 02/27/17 07/17/21 Cain Cooley DO PCP - General Internal Medicine 07/18/21 12/24/23 Namita Brown MD PCP - General Internal Medicine 12/25/23 Michael Herron MD Lung Cancer Claims Adjuster Supervisor 10/08/23 Vahid Baum PA-C [address] [place] [phone] Specialist Thoracic Surgery 04/02/24 documented as of this encounter
--- OUTSIDE RECORDS SUMMARY | 2024-09-24 11:12 | XMS_ITS | Encounter Summary ---
Author Organization [facility] Address [address] [place] [address] Care Team Providers Care Seed Cleaning Machine Operator Name Role Phone Jannet Doherty MD Primary Care Provider Unavailable Cain Cooley DO Primary Care Provider UnavailMichael Leonard MD Unavailable Namita Brown MD Primary Care Provider Un available Vahid Baum PA-C Unavailable Encounter Details Date Type Department Care Team Description 09/26/2019 [facility] Medical Records [address] [place] [address] Abstract, Provider Social History Tobacco Use Types [...] often do you attend chur ch or mormon services? Never 09/13/2022 Do you belong to any clubs o r organizations such as cheondoism groups, unions, fraternal or athletic groups, or [...] on filedocumented in this encounter Care Teams Seed Cleaning Machine Operator Relationship Specialty Start Date End Date Jannet Doherty MD PCP - General Internal Medicine 02/27/17 07/17/21 Cain Cooley DO PCP - General Internal Medicine 07/18/21 12/24/23 Namita Brown MD PCP - General Internal Medicine 12/25/23 Michael Herron MD Lung Cancer Screener Perfumer 10/08/23 Vahid Baum PA-C [address] [phone] Specialist Thoracic Surgery 04/02/24 documented as of this encounter
--- OUTSIDE RECORDS SUMMARY | 2024-09-24 11:12 | XMS_ITS | Encounter Summary ---
Author Organization [facility] Address [address] [place] [address] Care Team Providers Care Assembly Associate Name Role Phone Jannet oDherty MD Primary Care Provider Unavailable Cain Cooley DO Primary Care Provider UnavailMichael Leonard MD Unavailable Namita Brown MD Primary Care Provider Un available Vahid Baum PA-C Unavailable [phone] Encounter Details Date Type Department Care Team Description 04/15/2019 Release of Information Medical Records [address] [place] [id number] Abstract, Provider Social History Tobacco Use Types [...] often do you attend chur ch or pentecostal services? Never 09/13/2022 Do you belong to any clubs o r organizations such as yazidism groups, unions, fraternal or athletic groups, or [...] on filedocumented in this encounter Care Teams Assembly Associate Relationship Specialty Start Date End Date Jannet Doherty MD PCP - General Internal Medicine 02/27/17 07/17/21 Cain Cooley DO PCP - General Internal Medicine 07/18/21 12/24/23 Namita Brown MD PCP - General Internal Medicine 12/25/23 Michael Herron MD Lung Cancer Surface To Air Weapons Officer 10/08/23 Vahid Baum PA-C [address] [phone] Specialist Thoracic Surgery 04/02/24 documented as of this encounter
--- OUTSIDE RECORDS SUMMARY | 2024-09-24 11:12 | XMS_ITS | Encounter Summary ---
Author Organization [facility] Address [address] [place] [address] Care Team Providers Care Electrical Tester Name Role Phone Cain Cooley DO Primary Care Provider UnavailMichael Leonard MD Unavailable Namita Brown MD Primary Care Provider Un available Vahid Baum PA-C Unavailable [phone] Encounter Details Date Type Department Care Team Description 06/13/2023 Diagnostic Cardiac Sonographer Report Medical Records [address] [place] [id number] Génesis Valero PA-C Social History Tobacco Use [...] any clubs o r organizations such as sikhism groups, unions, fraternal or athletic groups, or [...] on filedocumented in this encounter Care Teams Electrical Tester Relationship Specialty Start Date End Date Cain Cooley DO PCP - General Internal Medicine 07/18/21 12/24/23 Namita Brown MD PCP - General Internal Medicine 12/25/23 Michael Herron MD Lung Cancer Financial Legal Assistant 10/08/23 Vahid Baum PA-C [address] [place] [phone] Specialist Thoracic Surgery 04/02/24 documented as of this encounter
--- OUTSIDE RECORDS SUMMARY | 2024-09-24 11:12 | XMS_ITS | Encounter Summary ---
Author Organization [facility] Address [address] [place] [address] Care Team Providers Care Solar Water Heater Installer Name Role Phone Cain Cooley DO Primary Care Provider UnavailMichael Leonrad MD Unavailable Namita Brown MD Primary Care Provider Un available Vahid Baum PA-C Unavailable [phone] Encounter Details Date Type Department Care Team Description 06/26/2023 Telephone Adult Medicine - [address] [address] Cain Cooley DO Social History Tobacco Use [...] any clubs o r organizations such as rastafarian groups, unions, fraternal or athletic groups, or [...] on filedocumented in this encounter Care Teams Solar Water Heater Installer Relationship Specialty Start Date End Date Cain Cooley DO PCP - General Internal Medicine 07/18/21 12/24/23 Namita Brown MD PCP - General Internal Medicine 12/25/23 Michael Herron MD Lung Cancer Primary Care Provider 10/08/23 Vahid Baum PA-C [address] [place] [phone] Specialist Thoracic Surgery 04/02/24 documented as of this encounter
--- OUTSIDE RECORDS SUMMARY | 2024-09-24 11:12 | XMS_ITS | Encounter Summary ---
Author Organization [facility] Address [address] [place] [address] Care Team Providers Care Terminal Computer Operator Name Role Phone Jannet Doherty MD Primary Care Provider Unavailable Cain Cooley DO Primary Care Provider UnavailMichael Leonard MD Unavailable Namita Brown MD Primary Care Provider Un available Vahid Baum PA-C Unavailable [phone] Encounter Details Date Type Department Care Team Description 09/29/2020 Refill Adult Medicine - [place] [address] [place] [address] Arina Gerber MD [address] [place] [address] Social History Tobacco Use Types Packs/Day Years [...] week 09/13/2022 How often do you attend [facility] or adventist services? Never 09/13/2022 Do you belong to any clubs o r organizations such as adventism groups, unions, fraternal or athletic groups, or [...] 09/29/2020 10:02 AM EDT Placed at patient pick up worker * Telephone Encounter - Pat York M.A. [...] region documented in this encounter Care Teams Terminal Computer Operator Relationship Specialty Start Date End Date Jannet Doherty MD PCP - General Internal Medicine 02/27/17 07/17/21 Cian Cooley DO PCP - General Internal Medicine 07/18/21 12/24/23 Namita Brown MD PCP - General Internal Medicine 12/25/23 Michael Herron MD Lung Cancer Terrazzo Journeyman 10/08/23 Vahid Baum PA-C [address] [place] [phone] Specialist Thoracic Surgery 04/02/24 documented as of this encounter
--- OUTSIDE RECORDS SUMMARY | 2024-09-24 11:12 | XMS_ITS | Encounter Summary ---
Author Organization [facility] Address [address] [place] [address] Care Team Providers Care Surveillance Sensor Operator Name Role Phone Jannet Doherty MD Primary Care Provider Unavailable Cain Cooley DO Primary Care Provider UnavailMichael Leonard MD Unavailable Namita Brown MD Primary Care Provider Un available Vahid Baum PA-C Unavailable [phone] Encounter Details Date Type Department Care Team Description 03/12/2019 Painting Instructor Report Medical Records [address] [place] [address] [place] [address] [place] [address] Social History Tobacco Use Types Packs/Day Years [...] week 09/13/2022 How often do you attend [facility] or orthodoxy services? Never 09/13/2022 Do you belong to any clubs o r organizations such as mu-ism groups, unions, fraternal or athletic groups, or [...] on filedocumented in this encounter Care Teams Surveillance Sensor Operator Relationship Specialty Start Date End Date Jannet Doherty MD PCP - General Internal Medicine 02/27/17 07/17/21 Cain Cooley DO PCP - General Internal Medicine 07/18/21 12/24/23 Namita Brown MD PCP - General Internal Medicine 12/25/23 Michael Herron MD Lung Cancer Tourist Guide 10/08/23 Vahid Baum PA-C [address] [place] [phone] Specialist Thoracic Surgery 04/02/24 documented as of this encounter
--- OUTSIDE RECORDS SUMMARY | 2024-09-24 11:12 | XMS_ITS | Encounter Summary ---
Author Organization [facility] Address [address] [place] [address] Care Team Providers Care Behavioral Health Therapist Name Role Phone Cain Cooley DO Primary Care Provider UnavailMichael Leonard MD Unavailable Namita Brown MD Primary Care Provider Un available Vahid Baum PA-C Unavailable [phone] Encounter Details Date Type Department Care Team Description 06/26/2023 Orders Only Medical Records [address] [place] [id number] Abstract, Provider Social History Tobacco Use Types [...] often do you attend chur ch or hindu services? Never 09/13/2022 Do you belong to [...] Date/Time Associated Diagnosis Comments OUTSIDE LAB Routine 05/23/2023 documented in this encounter Results * OUTSIDE LAB (05/23/2023) Provider Abstract LAB documented in this encounter Visit Diagnoses Not on filedocumented in this encounter Care Teams Behavioral Health Therapist Relationship Specialty Start Date End Date Cain Cooley DO PCP - General Internal Medicine 07/18/21 12/24/23 Namita Brown MD PCP - General Internal Medicine 12/25/23 Michael Herron MD Lung Cancer Purler 10/08/23 Vahid Baum PA-C [address] [place] [phone] Specialist Thoracic Surgery 04/02/24 documented as of this encounter
--- OUTSIDE RECORDS SUMMARY | 2024-09-24 11:12 | XMS_ITS | Encounter Summary ---
Author Organization [facility] Address [address] [place] [address] Care Team Providers Care Metal Spinner Name Role Phone Jannet Doherty MD Primary Care Provider Unavailable Cain Cooley DO Primary Care Provider UnavailMichael Leonard MD Unavailable Namita Brown MD Primary Care Provider Un available Vahid Baum PA-C Unavailable [phone] Encounter Details Date Type Department Care Team Description 09/27/2019 Refill Adult Medicine [address] [address] Jannet Doherty MD Social History Tobacco Use [...] How often do you attend [facility] or cheondoism services? Never 09/13/2022 Do you belong to [...] Telephone Encounter - Aide Francois L.P.N. - 09/30/2019 1:47 PM EDT appt 09/22/19 documented in this encounter Plan of Treatment Not on file documented as of this encounter Visit Diagnoses Not on filedocumented in this encounter Care Teams Metal Spinner Relationship Specialty Start Date End Date Jannet Doherty MD PCP - General Internal Medicine 02/27/17 07/17/21 Cain Cooley DO PCP - General Internal Medicine 07/18/21 12/24/23 Namita Brown MD PCP - General Internal Medicine 12/25/23 Michael Herron MD Lung Cancer Zipper Measurer 10/08/23 Vahid Baum PA-C [address] [place] [phone] Specialist Thoracic Surgery 04/02/24 documented as of this encounter
--- OUTSIDE RECORDS SUMMARY | 2024-09-24 11:12 | XMS_ITS | Encounter Summary ---
Author Organization [facility] Address [address] [place] [address] Care Team Providers Care Resident Services Coordinator Name Role Phone Cain Cooley DO Primary Care Provider UnavailMichael Leonard MD Unavailable Namita Brown MD Primary Care Provider Un available Vahid Baum PA-C Unavailable [phone] Encounter Details Date Type Department Care Team Description 07/02/2023 Pt. Non Urgent Medic al Question Adult Medicine - [address] [address] Cain Cooley, Social History Tobacco Use Types [...] often do you attend chur ch or muslim services? Never 09/13/2022 Do you belong to [...] on filedocumented in this encounter Care Teams Resident Services Coordinator Relationship Specialty Start Date End Date Cain Cooley DO PCP - General Internal Medicine 07/18/21 12/24/23 Namita Brown MD PCP - General Internal Medicine 12/25/23 Michael Herron MD Lung Cancer Sql Server Developer 10/08/23 Vahid Baum PA-C [address] [phone] Specialist Thoracic Surgery 04/02/24 documented as of this encounter
--- OUTSIDE RECORDS SUMMARY | 2024-09-24 11:12 | XMS_ITS | Encounter Summary ---
Author Organization [facility] Address [address] [place] [address] Care Team Providers Care Assistant Editor Name Role Phone Cain Cooley DO Primary Care Provider UnavailMichael Leonard MD Unavailable Namita Brown MD Primary Care Provider Un available Vahid Baum PA-C Unavailable [phone] Reason for Visit * Reason Comments E-prescribe Rx Request Encounter Details Date Type Department Care Team Description 05/12/2023 Refill Adult Medicine [address] [address] Yoli Mckeon PA-C [address] [place] [address] E-prescribe Rx Request Social History Tobacco Use [...] week 09/13/2022 How often do you attend [facility] or pentecostalism services? Never 09/13/2022 Do you belong to [...] N/A Patients current insurance carrier is: [facility] / Plan: JOSÉ LUIS GARCIA $20/$35 / Product Type: HMO [id number] documented in this encounter Plan of Treatment Not on file documented as of this encounter Visit Diagnoses Diagnosis Type 2 diabetes mellitus without complication, without long-term current use of insulin (HCC) documented in this encounter Care Teams Assistant Editor Relationship Specialty Start Date End Date Cain Cooley DO PCP - General Internal Medicine 07/18/21 12/24/23 Namita Brown MD PCP - General Internal Medicine 12/25/23 Michael Herron MD Lung Cancer Paper Cone Drying Machine Operator 10/08/23 Vahid Baum PA-C [address] [place] [phone] Specialist Thoracic Surgery 04/02/24 documented as of this encounter
--- OUTSIDE RECORDS SUMMARY | 2024-09-24 11:12 | XMS_ITS | Encounter Summary ---
Author Organization [facility] Address [address] [place] [address] Care Team Providers Care Sports Teacher Name Role Phone Jannet Doherty MD Primary Care Provider Unavailable Cain Cooley DO Primary Care Provider UnavailMichael Leonard MD Unavailable Namita Brown MD Primary Care Provider Un available Vahid Baum PA-C Unavailable [phone] Encounter Details Date Type Department Care Team Description 09/10/2019 Pt. Non Urgent Medic al Question Adult Medicine - [address] [address] Jannet Doherty MD Social History Tobacco Use [...] 09/13/2022 How often do you attend [facility] or methodist services? Never 09/13/2022 Do you [...] on filedocumented in this encounter Care Teams Sports Teacher Relationship Specialty Start Date End Date Jannet Doherty MD PCP - General Internal Medicine 02/27/17 07/17/21 Cain Cooley DO PCP - General Internal Medicine 07/18/21 12/24/23 Namita Brown MD PCP - General Internal Medicine 12/25/23 Michael Herron MD Lung Cancer Assistant Housekeeping Manager 10/08/23 Vahid Baum PA-C [address] [place] [phone] Specialist Thoracic Surgery 04/02/24 documented as of this encounter
--- OUTSIDE RECORDS SUMMARY | 2024-09-24 11:12 | XMS_ITS | Encounter Summary ---
Author Organization [facility] Address [address] [place] [address] Care Team Providers Care Wall Steamer Name Role Phone Michael Herron MD Unavailable Namita Brown MD Primary Care Provider Un available Vahid Baum PA-C Unavailable [phone] Encounter Details Date Type Department Care Team Description 12/31/2023 Refill Adult Medicine [address] [address] Cain Cooley, DO Social History Tobacco Use [...] often do you attend chur ch or jehovah's witness services? Never 09/13/2022 Do you belong to any clubs o r organizations such as congregational groups, unions, fraternal or athletic groups, or [...] disc documented in this encounter Care Teams Wall Steamer Relationship Specialty Start Date End Date Namita Brown MD PCP - General Internal Medicine 12/25/23 Michael Herron MD Lung Cancer Risk Tech 10/08/23 Vahid Baum PA-C [address] [place] [phone] Specialist Thoracic Surgery 04/02/24 documented as of this encounter
--- OUTSIDE RECORDS SUMMARY | 2024-09-24 11:12 | XMS_ITS | Encounter Summary ---
Author Organization [facility] Address [address] [place] [address] Care Team Providers Care Skin Carver Name Role Phone Cain Cooley DO Primary Care Provider UnavailMichael Leonard MD Unavailable Namita Brown MD Primary Care Provider Un available aVhid Baum PA-C Unavailable Encounter Details Date Type Department Care Team Description 06/27/2023 Orders Only Medical Records [address] [place] [address] Génesis Valero PA-C Social History Tobacco Use [...] often do you attend chur ch or orthodoxy services? Never 09/13/2022 Do you [...] filedocumented in this encounter Care Teams Skin Carver Relationship Specialty Start Date End Date Cain Cooley DO PCP - General Internal Medicine 07/18/21 12/24/23 Namita Brown MD PCP - General Internal Medicine 12/25/23 Michael Herron MD Lung Cancer Corporate Communications Intern 10/08/23 Vahid Baum PA-C [address] [place] [phone] Specialist Thoracic Surgery 04/02/24 documented as of this encounter
--- OUTSIDE RECORDS SUMMARY | 2024-09-24 11:12 | XMS_ITS | Encounter Summary ---
Author Organization [facility] Address [address] [place] [address] Care Team Providers Care Dairy Nutrition Consultant Name Role Phone Jannet Doherty MD Primary Care Provider Unavailable Cain Cooley DO Primary Care Provider UnavailMichael Leonard MD Unavailable Namita Brown MD Primary Care Provider Un available Vahid Baum PA-C Unavailable [phone] Encounter Details Date Type Department Care Team Description 03/27/2019 [facility] Medical Records [address] [place] [address] Abstract, Provider Social History Tobacco Use Types [...] often do you attend chur ch or orthodox services? Never 09/13/2022 Do you belong to [...] on filedocumented in this encounter Care Teams Dairy Nutrition Consultant Relationship Specialty Start Date End Date Jannet Doherty MD PCP - General Internal Medicine 02/27/17 07/17/21 Cain Cooley DO PCP - General Internal Medicine 07/18/21 12/24/23 Namita Brown MD PCP - General Internal Medicine 12/25/23 Michael Herron MD Lung Cancer Motor Equipment Commanding Officer 10/08/23 Vahid Baum PA-C [address] [phone] Specialist Thoracic Surgery 04/02/24 documented as of this encounter
--- OUTSIDE RECORDS SUMMARY | 2024-09-24 11:12 | XMS_ITS | Encounter Summary ---
Author Organization [facility] Address [address] [place] [address] Care Team Providers Care Cleaning Handyman Name Role Phone Cain Cooley DO Primary Care Provider UnavailMichael Leonard MD Unavailable Namita Brown MD Primary Care Provider Un available Vahid Baum PA-C Unavailable Encounter Details Date Type Department Care Team Description 12/27/2021 Pt. Non Urgent Medic al Question [facility] Medical [facility] [address] [place] [address] [place] [phone] Angelo Quan DPM Social History Tobacco [...] week 09/13/2022 How often do you attend [facility] or synagogue services? Never 09/13/2022 Do you [...] on filedocumented in this encounter Care Teams Cleaning Handyman Relationship Specialty Start Date End Date Cain Cooley DO PCP - General Internal Medicine 07/18/21 12/24/23 Namita Brown MD PCP - General Internal Medicine 12/25/23 Michael Herron MD Lung Cancer Antenna Installer 10/08/23 Vahid Baum PA-C [address] [phone] Specialist Thoracic Surgery 04/02/24 documented as of this encounter
--- OUTSIDE RECORDS SUMMARY | 2024-09-24 11:12 | XMS_ITS | Encounter Summary ---
Author Organization [facility] Address [address] [place] [address] Care Team Providers Care Securities Compliance Examiner Name Role Phone Jannet Doherty MD Primary Care Provider Unavailable Cain Cooley DO Primary Care Provider UnavailMichael Leonard MD Unavailable Namita Brown MD Primary Care Provider Un available Vahid Baum PA-C Unavailable Encounter Details Date Type Department Care Team Description 10/29/2020 [facility] Medical Records [address] [place] [address] Abstract, Provider Social History Tobacco Use Types [...] often do you attend chur ch or hoahaoism services? Never 09/13/2022 Do you [...] on filedocumented in this encounter Care Teams Securities Compliance Examiner Relationship Specialty Start Date End Date Jannet Doherty MD PCP - General Internal Medicine 02/27/17 07/17/21 Cain Cooley DO PCP - General Internal Medicine 07/18/21 12/24/23 Namita Brown MD PCP - General Internal Medicine 12/25/23 Michael Herron MD Lung Cancer Assembler Lay Ups 10/08/23 Vahid Baum PA-C [address] [phone] Specialist Thoracic Surgery 04/02/24 documented as of this encounter
--- OUTSIDE RECORDS SUMMARY | 2024-09-24 11:12 | XMS_ITS | Encounter Summary ---
Author Organization [facility] Address [address] [place] [address] Care Team Providers Care Priming Mixture Carrier Name Role Phone Jannet Doherty MD Primary Care Provider Unavailable Cain Cooley DO Primary Care Provider UnavailMichael Leonard MD Unavailable Namita Brown MD Primary Care Provider Un available Vahid Baum PA-C Unavailable [phone] Reason for Visit * Reason Onset Date Comments Pre-visit Diabetes Lab Adult Medicine 10/26/202011/08 Encounter Details Date Type Department Care Team Description 10/26/2020 Telephone Adult Medicine - [address] [address] Jannet Doherty MD Pre-visit Diabetes Lab Adult [...] week 09/13/2022 How often do you attend [facility] or buddhism services? Never 09/13/2022 Do you belong to any clubs o r organizations such as catholic groups, unions, fraternal or athletic groups, [...] <6.5 % 10/27/2020 8:32 PM EDT [facility] ESTIMATED AVERAGE GLUCOSE 137 mg/dL 10/27/2020 8:32 PM EDT [facility] 10/27/2020 4:43 PM EDT 10/27/2020 4:44 PM EDT Narrative [facility] - 10/27/2020 8:32 PM EDT Release to patient->Immediate [facility]herty [facility] documented in this encounter Visit Diagnoses Diagnosis Type 2 diabetes mellitus without complication, without long-term current use of insulin (HCC)- Primary Type 2 diabetes mellitus without complication, without long-term current use of insulin (HCC) documented in this encounter Care Teams Priming Mixture Carrier Relationship Specialty Start Date End Date Jannet Doherty MD PCP - General Internal Medicine 02/27/17 07/17/21 Cain Cooley DO PCP - General Internal Medicine 07/18/21 12/24/23 Namita Brown MD PCP - General Internal Medicine 12/25/23 Michael Herron MD Lung Cancer Ergonomics Technician 10/08/23 Vahid Baum PA-C [address] [place] [phone] Specialist Thoracic Surgery 04/02/24 documented as of this encounter
--- OUTSIDE RECORDS SUMMARY | 2024-09-24 11:12 | XMS_ITS | Encounter Summary ---
Author Organization [facility] Address [address] [place] [address] Care Team Providers Care Emergency Crew Supervisor Name Role Phone Cain Cooley DO Primary Care Provider UnavailMichael Leonard MD Unavailable Namita Brown MD Primary Care Provider Un available Vahid Baum PA-C Unavailable [phone] Reason for Visit * Reason Onset Date Comments refill request 01/04/2022 Encounter Details Date Type Department Care Team Description 01/04/2022 Telephone [facility] Medical [facility] [address] [facility] [address] [place] [phone] Angelo Quan DPM refill request Social History Tobacco Use Types Packs/Day Years [...] week 09/13/2022 How often do you attend [facility] or oriental orthodox services? Never 09/13/2022 Do you belong [...] encounter Miscellaneous Notes * Telephone Encounter - Angelo Quan DPM - 01/04/2022 11:04 AM EDT Sent * Telephone Encounter - Brenda Curiel - 01/04/2022 9:59 AM EDT Received call from patient's spouse, she is requesting a refill on her spouse's script for Ketoconazole Cream 2% apply daily. Please advise. Please call her with any questions @ [phone]. documented in this encounter Plan of Treatment Not on file documented as of this encounter Visit Diagnoses Not on filedocumented in this encounter Care Teams Emergency Crew Supervisor Relationship Specialty Start Date End Date Cain Cooley DO PCP - General Internal Medicine 07/18/21 12/24/23 Namita Brown MD PCP - General Internal Medicine 12/25/23 Michael Herron MD Lung Cancer Senior It Architect 10/08/23 Vahid Baum PA-C [address] [phone] Specialist Thoracic Surgery 04/02/24 documented as of this encounter
--- OUTSIDE RECORDS SUMMARY | 2024-09-24 11:12 | XMS_ITS | Encounter Summary ---
Author Organization [facility] Address [address] [place] [address] Care Team Providers Care Cloud Engineer Name Role Phone Cain Cooley DO Primary Care Provider UnavailMichael Leonard MD Unavailable Namita Brown MD Primary Care Provider Un available Vahid Baum PA-C Unavailable Encounter Details Date Type Department Care Team Description 06/20/2023 Telephone Gastroenterology - [address] [place] [address] Shaina Gay DScPAS Social History [...] How often do you attend chur or synagogue services? Never 09/13/2022 Do you [...] place to sleep or slept in a chcf (including now)? No 09/13/2022 Sex Assigned at Date Recorded Not on file Job Start Date Occupation Industry Not on file Not on file Not on file documented as of this encounter Plan of Treatment Not on file documented as of this encounter Visit Diagnoses Not on filedocumented in this encounter Care Teams Cloud Engineer Relationship Specialty Start Date End Date Cain Cooley DO PCP - General Internal Medicine 07/18/21 12/24/23 Namita Brown MD PCP - General Internal Medicine 12/25/23 Michael Herron MD Lung Cancer Locomotive Oiler 10/08/23 Vahid Baum PA-C [address] [phone] Specialist Thoracic Surgery 04/02/24 documented as of this encounter
--- OUTSIDE RECORDS SUMMARY | 2024-09-24 11:13 | XMS_ITS | Encounter Summary ---
Author Organization [facility] Address [address] [place] [address] Care Team Providers Care Industrial Hire Sales Assistant Name Role Phone Jannet Doherty MD Primary Care Provider Unavailable Cain Cooley DO Primary Care Provider UnavailMichael Leonard MD Unavailable Namita Brown MD Primary Care Provider Un available Vahid Baum PA-C Unavailable [phone] Encounter Details Date Type Department Care Team Description 12/24/2020 [facility] Medical Records [address] [place] [address] Abstract, Provider Social History Tobacco Use Types [...] often do you attend chur ch or congregation services? Never 09/13/2022 Do you belong to [...] filedocumented in this encounter Care Teams Industrial Hire Sales Assistant Relationship Specialty Start Date End Date Jannet Doherty MD PCP - General Internal Medicine 02/27/17 07/17/21 Cain Cooley DO PCP - General Internal Medicine 07/18/21 12/24/23 Namita Brown MD PCP - General Internal Medicine 12/25/23 Michael Herron MD Lung Cancer Production Administrator 10/08/23 Vahid Baum PA-C [address] [phone] Specialist Thoracic Surgery 04/02/24 documented as of this encounter
--- OUTSIDE RECORDS SUMMARY | 2024-09-24 11:13 | XMS_ITS | Encounter Summary ---
Author Organization [facility] Address [address] [place] [address] Care Team Providers Care Shear Operator Automatic Name Role Phone Jannet Doherty MD Primary Care Provider Unavailable Cain Cooley DO Primary Care Provider UnavailMichael Leonard MD Unavailable Namita Brown MD Primary Care Provider Un available Vahid Baum PA-C Unavailable [phone] Encounter Details Date Type Department Care Team Description 09/18/2018 Pt. Non Urgent Medic al Question Adult Medicine - [address] [address] Jannet Doherty MD Social History Tobacco Use [...] do you attend [facility] or roman catholic services? Never 09/13/2022 Do [...] on filedocumented in this encounter Care Teams Shear Operator Automatic Relationship Specialty Start Date End Date Jannet Doherty MD PCP - General Internal Medicine 02/27/17 07/17/21 Cain Cooley DO PCP - General Internal Medicine 07/18/21 12/24/23 Namita Brown MD PCP - General Internal Medicine 12/25/23 Michael Herron MD Lung Cancer Meringuer 10/08/23 Vahid Baum PA-C [address] [place] [phone] Specialist Thoracic Surgery 04/02/24 documented as of this encounter
--- OUTSIDE RECORDS SUMMARY | 2024-09-24 11:13 | XMS_ITS | Encounter Summary ---
Author Organization [facility] Address [address] [place] [address] Care Team Providers Care Supplier Relationship Director Name Role Phone Cain Cooley DO Primary Care Provider UnavailMichael Leonard MD Unavailable Namita Brown MD Primary Care Provider Un available Vahid Baum PA-C Unavailable [phone] Encounter Details Date Type Department Care Team Description 07/25/2023 Orders Only Medical Records [address] [place] [address] Génesis Valero PA-C Social History Tobacco Use [...] often do you attend chur ch or episcopalian services? Never 09/13/2022 Do you belong to [...] on filedocumented in this encounter Care Teams Supplier Relationship Director Relationship Specialty Start Date End Date Cain Cooley DO PCP - General Internal Medicine 07/18/21 12/24/23 Namita Brown MD PCP - General Internal Medicine 12/25/23 Michael Herron MD Lung Cancer Manager User Interface 10/08/23 Vahid Baum PA-C [address] [place] [phone] Specialist Thoracic Surgery 04/02/24 documented as of this encounter
--- OUTSIDE RECORDS SUMMARY | 2024-09-24 11:13 | XMS_ITS | Encounter Summary ---
Author Organization [facility] Address [address] [place] [address] Care Team Providers Care Tissue Coordinator Name Role Phone Jannet Doherty MD Primary Care Provider Unavailable Cain Cooley DO Primary Care Provider UnavailMichael Leonard MD Unavailable Namita Brown MD Primary Care Provider Un available Vahid Baum PA-C Unavailable [phone] Encounter Details Date Type Department Care Team Description 07/17/2017 Sas Administrator Report Medical Records [address] [place] [address] Abstract, Provider Social History Tobacco Use Types [...] often do you attend chur ch or presybeterian services? Never 09/13/2022 Do you belong to [...] on filedocumented in this encounter Care Teams Tissue Coordinator Relationship Specialty Start Date End Date Jannet Doherty MD PCP - General Internal Medicine 02/27/17 07/17/21 Cain Cooley DO PCP - General Internal Medicine 07/18/21 12/24/23 Namita Brown MD PCP - General Internal Medicine 12/25/23 Michael Herron MD Lung Cancer Chair Inspector And Leveler 10/08/23 Vahid Baum PA-C [address] [place] [phone] Specialist Thoracic Surgery 04/02/24 documented as of this encounter
--- OUTSIDE RECORDS SUMMARY | 2024-09-24 11:13 | XMS_ITS | Encounter Summary ---
Author Organization [facility] Address [address] [place] [address] Care Team Providers Care Warehouse Record Clerk Name Role Phone Cain Cooley DO Primary Care Provider UnavailMichael Leonard MD Unavailable Namita Brown MD Primary Care Provider Un available Vahid Baum PA-C Unavailable [phone] Reason for Visit * Reason Onset Date Comments REFERRAL 07/04/2023 Referral to [facility] with Dr. Looney Encounter Details Date Type Department Care Team Description 07/04/2023 Telephone Adult Medicine - [address] [address] Cain Cooley DO REFERRAL (Referral to [facility] with Dr. Looney) Social History Tobacco Use [...] attend [facility] or pentecostalism services? Never 09/13/2022 Do you belong to any clubs o r organizations such as protestant groups, unions, fraternal or athletic groups, or [...] EST FYI: [facility] any cancellations. Pt was informed of two new providers being hired in August 2022. He should continue calling from time to time. Pt informed. documented in this encounter Plan of Treatment Not on file documented as of this encounter Visit Diagnoses Not on filedocumented in this encounter Care Teams Warehouse Record Clerk Relationship Specialty Start Date End Date Cain Cooley DO PCP - General Internal Medicine 07/18/21 12/24/23 Namita Brown MD PCP - General Internal Medicine 12/25/23 Michael Herron MD Lung Cancer Pipe Threading Machine Operator 10/08/23 Vahid Baum PA-C [address] [phone] Specialist Thoracic Surgery 04/02/24 documented as of this encounter
--- OUTSIDE RECORDS SUMMARY | 2024-09-24 11:13 | XMS_ITS | Encounter Summary ---
Author Organization [facility] Address [address] [place] [address] Care Team Providers Care Play Therapist Name Role Phone Jannet Doherty MD Primary Care Provider Unavailable Cain Cooley DO Primary Care Provider UnavailMichael Leonard MD Unavailable Namita Brown MD Primary Care Provider Un available Vahid Baum PA-C Unavailable [phone] Encounter Details Date Type Department Care Team Description 06/04/2018 [facility] Medical Records [address] [place] [address] Abstract, Provider Social History Tobacco Use Types [...] often do you attend chur ch or yarsanism services? Never 09/13/2022 Do you belong to any clubs o r organizations such as confucianism groups, unions, fraternal or athletic groups, or [...] on filedocumented in this encounter Care Teams Play Therapist Relationship Specialty Start Date End Date Jannet Doherty MD PCP - General Internal Medicine 02/27/17 07/17/21 Cain Cooley DO PCP - General Internal Medicine 07/18/21 12/24/23 Namita Brown MD PCP - General Internal Medicine 12/25/23 Michael Herron MD Lung Cancer Compliance Quality Performance Analyst 10/08/23 Vahid Baum PA-C [address] [phone] Specialist Thoracic Surgery 04/02/24 documented as of this encounter
== END 2024-09-24 10:25 | disposition home or self-care (01) ==
LOC: HO.PMC 09:56
PROVIDERS: PCP Internal Medicine; Visit Provider Internal Medicine
DX: M47.816 Spondylosis without myelopathy or radiculopathy, lumbar region (principal)
CPT/HCPCS: 99214

== ENCOUNTER → 2024-09-24 09:56 | Outpatient (BNVA) | payer BC, SELFPAY | PROVIDERS: PCP Internal Medicine; Visit Provider Internal Medicine ==

== ENCOUNTER 2024-10-30 06:07 | Outpatient (REF) | payer BC, SELFPAY ==
--- NOTE | ~2024-10-30 | FL_ITS ---
EXAMINATION: FL GUIDANCE ONLY HISTORY: M47.816 - Spondylosis without myelopathy or radiculopathy, lumbar region COMPARISON: None available. TECHNIQUE: Fluoroscopy time: 0.1 minutes. Cumulative Dose: 3.20 mGy. DAP: 0.0501 mGym2 Images: 2. FINDINGS: Images demonstrate needles in the regions of the bilateral L3-4, L4-5, and L5-S1 facet joints. FL/FL guidance in treatment room IMPRESSION: Fluoroscopy during procedure. Please see procedure report for additional information. Electronically signed by: Efraín Garcia MD 10/30/2024 10:38 AM EDT
--- OUTSIDE RECORDS SUMMARY | 2024-10-30 06:09 | XMS_ITS | Encounter Summary ---
Author Organization [facility] Address [address] [place] [address] Care Team Providers Care Ash Worker Name Role Phone Jannet Doherty MD Primary Care Provider Unavailable Cain Cooley DO Primary Care Provider UnavailMichael Leonard MD Unavailable Namita Brown MD Primary Care Provider Un available Vahid Baum PA-C Unavailable [phone] Encounter Details Date Type Department Care Team Description 06/16/2020 Refill Adult Medicine [address] [address] Jannet Doherty MD Social History Tobacco Use [...] week 09/13/2022 How often do you attend [facility] or rastafari services? Never 09/13/2022 Do you belong to any clubs o r organizations such as presybeterian groups, unions, fraternal or athletic groups, or [...] encounter Miscellaneous Notes * Telephone Encounter - Birgette Barber L.P.N. 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 - 06/16/2020 9:11 AM EST [employer] to covering. Controlled substance contract and last issue date of medication reviewed. Patient is due for medication. Lab Results Component Value Date URBENZO NONE DETECTED 03/17/2020 UROPIATES NONE DETECTED 03/17/2020 URBARBITUATE NONE DETECTED 03/17/2020 PAINAMPHETAM NONE DETECTED 03/17/2020 PAINCOCAINE NONE DETECTED 03/17/2020 PAINCANNABIN NONE DETECTED 03/17/2020 Medication request pended for your review. FRANKIE-03/24 documented in this encounter Plan of Treatment Not on file documented as of this encounter Visit Diagnoses Not on filedocumented in this encounter Care Teams Ash Worker Relationship Specialty Start Date End Date Jannet Doherty MD PCP - General Internal Medicine 02/27/17 07/17/21 Cain Cooley DO PCP - General Internal Medicine 07/18/21 12/24/23 Namita Brown MD PCP - General Internal Medicine 12/25/23 Michael Herron MD Lung Cancer Anatomical Embalmer 10/08/23 Vahid Baum PA-C [address] [place] [phone] Specialist Thoracic Surgery 04/02/24 documented as of this encounter
--- OUTSIDE RECORDS SUMMARY | 2024-10-30 06:09 | XMS_ITS | Encounter Summary ---
Author Organization [facility] Address [address] [place] [address] Care Team Providers Care Vocational Education Teacher Name Role Phone Jannet Doherty MD Primary Care Provider Unavailable Cain Cooley DO Primary Care Provider UnavailMichael Leonard MD Unavailable Namita Brown MD Primary Care Provider Un available Vahid Baum PA-C Unavailable [phone] Encounter Details Date Type Department Care Team Description 12/14/2018 Pt. Non Urgent Medic al Question Adult Medicine - [address] [address] Nuris Rivera PA-C Social History Tobacco Use [...] How often do you attend chur or catholic services? Never 09/13/2022 Do you belong to any clubs o r organizations such as anabaptist groups, unions, fraternal or athletic groups, or [...] on filedocumented in this encounter Care Teams Vocational Education Teacher Relationship Specialty Start Date End Date Jannet Doherty MD PCP - General Internal Medicine 02/27/17 07/17/21 Cain Cooley DO PCP - General Internal Medicine 07/18/21 12/24/23 Namita Brown MD PCP - General Internal Medicine 12/25/23 Michael Herron MD Lung Cancer Nursery School Attendant 10/08/23 Vahid Baum PA-C [address] [place] [phone] Specialist Thoracic Surgery 04/02/24 documented as of this encounter
--- OUTSIDE RECORDS SUMMARY | 2024-10-30 06:09 | XMS_ITS | Encounter Summary ---
Author Organization [facility] Address [address] [place] [address] Care Team Providers Care Bone Crusher Name Role Phone Jannet Doherty MD Primary Care Provider Unavailable Cain Cooley DO Primary Care Provider UnavailMichael Leonard MD Unavailable Namita Brown MD Primary Care Provider Un available Vahid Baum PA-C Unavailable [phone] Encounter Details Date Type Department Care Team Description 01/02/2019 Rotoformer Backtender Report Medical Records [address] [place] [address] Swapnil Casey MD Social History Tobacco Use [...] on filedocumented in this encounter Care Teams Bone Crusher Relationship Specialty Start Date End Date Jannet Doherty MD PCP - General Internal Medicine 02/27/17 07/17/21 Cain Cooley DO PCP - General Internal Medicine 07/18/21 12/24/23 Namita Brown MD PCP - General Internal Medicine 12/25/23 Michael Herron MD Lung Cancer Perinatal Director 10/08/23 Vahid Baum PA-C [address] [place] [phone] Specialist Thoracic Surgery 04/02/24 documented as of this encounter
--- OUTSIDE RECORDS SUMMARY | 2024-10-30 06:09 | XMS_ITS | Encounter Summary ---
Author Organization [facility] Address [address] [place] [address] Care Team Providers Care Federal Mediation Commissioner Name Role Phone Jannet Doherty MD Primary Care Provider Unavailable Cain Cooley DO Primary Care Provider UnavailMichael Leonard MD Unavailable Namita Brown MD Primary Care Provider Un available Vahid Baum PA-C Unavailable [phone] Encounter Details Date Type Department Care Team Description 01/31/2019 Unit Support Representative Report Medical Records [address] [place] [address] Swapnil Casey MD Social History Tobacco Use [...] on filedocumented in this encounter Care Teams Federal Mediation Commissioner Relationship Specialty Start Date End Date Jannet Doherty MD PCP - General Internal Medicine 02/27/17 07/17/21 Cain Cooley DO PCP - General Internal Medicine 07/18/21 12/24/23 Namita Brown MD PCP - General Internal Medicine 12/25/23 Michael Herron MD Lung Cancer Registered Vascular Technologist (Rvt) 10/08/23 Vahid Baum PA-C [address] [place] [phone] Specialist Thoracic Surgery 04/02/24 documented as of this encounter
--- OUTSIDE RECORDS SUMMARY | 2024-10-30 06:09 | XMS_ITS | Encounter Summary ---
Author Organization [facility] Address [address] [place] [address] Care Team Providers Care Bridal Service Sales And Management Name Role Phone Jannet Doherty MD Primary Care Provider Unavailable Cain Cooley DO Primary Care Provider UnavailMichael Leonard MD Unavailable Namita Brown MD Primary Care Provider Un available Vahid Baum PA-C Unavailable [phone] Encounter Details Date Type Department Care Team Description 08/05/2020 [place] Controlled Substance Contract Medical Records [address] [place] [address] Abstract, Provider Social History Tobacco Use Types [...] often do you attend chur ch or rastafarian services? Never 09/13/2022 Do you belong to any clubs o r organizations such as faith groups, unions, fraternal or athletic groups, or [...] on filedocumented in this encounter Care Teams Bridal Service Sales And Management Relationship Specialty Start Date End Date Jannet Doherty MD PCP - General Internal Medicine 02/27/17 07/17/21 Cain Cooley DO PCP - General Internal Medicine 07/18/21 12/24/23 Namita Brown MD PCP - General Internal Medicine 12/25/23 Michael Herron MD Lung Cancer Business Info Consultant 10/08/23 Vahid Baum PA-C [address] [phone] Specialist Thoracic Surgery 04/02/24 documented as of this encounter
--- OUTSIDE RECORDS SUMMARY | 2024-10-30 06:09 | XMS_ITS | Encounter Summary ---
Author Organization [facility] Address [address] [place] [address] Care Team Providers Care Sole Blacker Name Role Phone Cain Cooley DO Primary Care Provider UnavailMichael Leonard MD Unavailable Namita Brown MD Primary Care Provider Un available Vahid Baum PA-C Unavailable [phone] Encounter Details Date Type Department Care Team Description 04/05/2022 [facility] Adult Medicine [address] [address] Cain Cooley DO Social History Tobacco Use [...] often do you attend chur ch or cheondoism services? Never 09/13/2022 Do you belong to any clubs o r organizations such as evangelical groups, unions, fraternal or athletic groups, or [...] on filedocumented in this encounter Care Teams Sole Blacker Relationship Specialty Start Date End Date Cain Cooley DO PCP - General Internal Medicine 07/18/21 12/24/23 Namita Brown MD PCP - General Internal Medicine 12/25/23 Michael Herron MD Lung Cancer Cytogenetic Technologist 10/08/23 Vahid Baum PA-C [address] [place] [phone] Specialist Thoracic Surgery 04/02/24 documented as of this encounter
--- OUTSIDE RECORDS SUMMARY | 2024-10-30 06:09 | XMS_ITS | Clinical Summary ---
Author Organization [facility] Address [address] [place] [address] Care Team Providers Care Military Professional Name Role Phone Cain Cooley DO Primary Care Provider [phone] Allergies No known active allergies Medications Medication [...] age to complete this topic Care Teams Military Professional Relationship Specialty Start Date End Date Cain Cooley DO [address] [place] [address] PCP - General Family Medicine 03/30/23
--- OUTSIDE RECORDS SUMMARY | 2024-10-30 06:09 | XMS_ITS | Encounter Summary ---
Author Organization [facility] Address [address] [place] [address] Care Team Providers Care Flower Machine Operator Name Role Phone Jannet Doherty MD Primary Care Provider Unavailable Cain Cooley DO Primary Care Provider UnavailMichael Leonard MD Unavailable Namita Brown MD Primary Care Provider Un available Vahid Baum PA-C Unavailable [phone] Encounter Details Date Type Department Care Team Description 05/18/2021 Orders Only Medical Records [address] [place] [address] Alex Navarrete MD [address] [place] [address] Social History Tobacco Use Types Packs/Day Years [...] How often do you attend [facility] or sabianism services? Never 09/13/2022 Do you [...] on filedocumented in this encounter Care Teams Flower Machine Operator Relationship Specialty Start Date End Date Jannet Doherty MD PCP - General Internal Medicine 02/27/17 07/17/21 Cain Cooley DO PCP - General Internal Medicine 07/18/21 12/24/23 Namita Brown MD PCP - General Internal Medicine 12/25/23 Michael Herron MD Lung Cancer Screen Printing Stencil Preparer 10/08/23 Vahid Baum PA-C [address] [place] [phone] Specialist Thoracic Surgery 04/02/24 documented as of this encounter
--- OUTSIDE RECORDS SUMMARY | 2024-10-30 06:09 | XMS_ITS | Encounter Summary ---
Author Organization [facility] Address [address] [place] [address] Care Team Providers Care Professor Of Theatre Name Role Phone Jannet Doherty MD Primary Care Provider Unavailable Cain Cooley DO Primary Care Provider UnavailMichael Leonard MD Unavailable Namita Brown MD Primary Care Provider Un available Vahid Baum PA-C Unavailable [phone] Reason for Visit * Reason Comments E-prescribe Rx Request Encounter Details Date Type Department Care Team Description 05/26/2020 Refill Adult Medicine [address] [address] Jannet Doherty MD E-prescribe Rx Request Social [...] 09/13/2022 How often do you attend [facility] or hinduism services? Never 09/13/2022 Do you belong to [...] an upcoming appointment? No-unable to reach left [facility] to call for appointment due to refill [...] ?? Patients current insurance carrier is: Payor: -UT/HMO FFS / Plan: JOSÉ LUIS GARCIA $20/$35 / Product Type: HMO [id number] ? documented in this encounter Plan of Treatment Not on file documented as of this encounter Visit Diagnoses Not on filedocumented in this encounter Care Teams Professor Of Theatre Relationship Specialty Start Date End Date Jannet Doherty MD PCP - General Internal Medicine 02/27/17 07/17/21 Cain Cooley DO PCP - General Internal Medicine 07/18/21 12/24/23 Namita Brown MD PCP - General Internal Medicine 12/25/23 Michael Herron MD Lung Cancer Director Of Retention 10/08/23 Vahid Baum PA-C [address] [phone] Specialist Thoracic Surgery 04/02/24 documented as of this encounter
--- OUTSIDE RECORDS SUMMARY | 2024-10-30 06:09 | XMS_ITS | Clinical Summary ---
Author Organization [facility] Address [address] [place] [address] Care Team Providers Care Laboratory Helper Name Role Phone Michael Herron MD Unavailable Namita Brown MD Primary Care Provider Un available Vahid Baum PA-C Unavailable [phone] Allergies No known active allergies Medications Medication [...] a CT scan of the chest at [place] on 06/19/2023. Thoracic surgery has been following [...] sleep. He was instructed to trial a [id number] PPI she has omeprazole and to continue [...] any clubs o r organizations such as yarsani groups, unions, fraternal or athletic groups, or [...] results)), 06/24/2019, Additional history exists Covid-19 Vaccine (2022-2 4 season) 2024 06/23/2021, 10/21/2020 DIABETES: BLOOD SUGAR CONTRO L TEST (HGBA1C) 07/14/2024 04/14/2024, 08/27/2023, 03/27/2023, Additional history exists BMI CHECK/ADVISE 07/16/2024 04/14/2024, 06/2024, 04/26/2023, Additional history exists DIABETES/HEART DISEASE: KORTNEY JIMENEZ CHOLESTEROL (LDL) 08/27/2024 08/27/2023, 09/13/2022, 03/16/2021, Additional history exists DIABETES: ANNUAL URINE PROTE IN TEST (MICROALBUMIN) 08/30/2024 08/30/2023, 09/13/2022, 03/16/2021, Additional history exists DIABETES: ANNUAL FOOT EXAM 09/11/202409/11 (Completed), 09/13/2022, 08/03/2020, Additional history exists BASELINE HEALTH EXAM 40-64 09/13/202409/13, 08/05/2021, 01/27/2020, Additional history exists INFLUENZA (Season Ended) 2025 023, 05/20/2022, 06/12/2021, Additional history exists COLON CANCER SCREENING 05/19/2026 , 04/19/2017, 04/17/2017 (External Completion), Additional history exists DTAP/TDAP/TD (2 - Td or Tdap) 10/23/2027 10/22/2017 PNEUMOCOCCAL VACCINE FOR HIG H RISK PATIENTS (#2) 2028 10/22/2017 HEPATITIS C SCREENING Completed 10/22/2017 Care Teams Laboratory Helper Relationship Specialty Start Date End Date Namita Brown MD PCP - General Internal Medicine 12/25/23 Michael Herron MD Lung Cancer Waiter/Waitress Captain 10/08/23 Vahid Baum PA-C [address] [place] [phone] Specialist Thoracic Surgery 04/02/24
--- OUTSIDE RECORDS SUMMARY | 2024-10-30 06:09 | XMS_ITS | Encounter Summary ---
Author Organization [facility] Address [address] [place] [address] Care Team Providers Care Apartment Leasing Specialist Name Role Phone Jannet Doherty MD Primary Care Provider Unavailable Cain Cooley DO Primary Care Provider UnavailMichael Leonard MD Unavailable Namita Brown MD Primary Care Provider Un available Vahid Baum PA-C Unavailable [phone] Encounter Details Date Type Department Care Team Description 11/29/2018 Release of Information Medical Records [address] [place] [address] Abstract, Provider Social History Tobacco Use Types [...] often do you attend chur ch or jewish services? Never 09/13/2022 Do you belong to any clubs o r organizations such as hoahaoism groups, unions, fraternal or athletic groups, or [...] on filedocumented in this encounter Care Teams Apartment Leasing Specialist Relationship Specialty Start Date End Date Jannet Doherty MD PCP - General Internal Medicine 02/27/17 07/17/21 Cain oColey DO PCP - General Internal Medicine 07/18/21 12/24/23 Namita Brown MD PCP - General Internal Medicine 12/25/23 Michael Herron MD Lung Cancer Take Off Man 10/08/23 Vahid Baum PA-C [address] [phone] Specialist Thoracic Surgery 04/02/24 documented as of this encounter
--- OUTSIDE RECORDS SUMMARY | 2024-10-30 06:09 | XMS_ITS | Encounter Summary ---
Author Organization [facility] Address [address] [place] [address] Care Team Providers Care Scientific Diver Name Role Phone Cain Cooley DO Primary Care Provider UnavailMichael Leonard MD Unavailable Namita Brown MD Primary Care Provider Un available Vahid Baum PA-C Unavailable [phone] Encounter Details Date Type Department Care Team Description 07/01/2022 Refill Adult Medicine [address] [address] Jannet Doherty MD Social History Tobacco Use [...] often do you attend chur ch or mandaen services? Never 09/13/2022 Do you belong to [...] on filedocumented in this encounter Care Teams Scientific Diver Relationship Specialty Start Date End Date Cain Cooley DO PCP - General Internal Medicine 07/18/21 12/24/23 Namita Brown MD PCP - General Internal Medicine 12/25/23 Michael Herron MD Lung Cancer Defective Cigarette Slitter 10/08/23 Vahid Baum PA-C [address] [place] [phone] Specialist Thoracic Surgery 04/02/24 documented as of this encounter
--- OUTSIDE RECORDS SUMMARY | 2024-10-30 06:09 | XMS_ITS | Encounter Summary ---
Author Organization [facility] Address [address] [place] [address] Care Team Providers Care Manager Security And Safety Name Role Phone Jannet Doherty MD Primary Care Provider Unavailable Cain Cooley DO Primary Care Provider UnavailMichael Leonard MD Unavailable Namita Brown MD Primary Care Provider Un available Vahid Baum PA-C Unavailable [phone] Encounter Details Date Type Department Care Team Description 01/30/2020 [facility] Medical Records [address] [place] [address] Abstract, Provider Social History Tobacco Use Types [...] often do you attend chur ch or sikh services? Never 09/13/2022 Do you belong to [...] filedocumented in this encounter Care Teams Manager Security And Safety Relationship Specialty Start Date End Date Jannet Doherty MD PCP - General Internal Medicine 02/27/17 07/17/21 Cain Cooley DO PCP - General Internal Medicine 07/18/21 12/24/23 Namita Brown MD PCP - General Internal Medicine 12/25/23 Michael Herron MD Lung Cancer Soils Technician 10/08/23 Vahid Baum PA-C [address] [phone] Specialist Thoracic Surgery 04/02/24 documented as of this encounter
--- OUTSIDE RECORDS SUMMARY | 2024-10-30 06:09 | XMS_ITS | Encounter Summary ---
Author Organization [facility] Address [address] [place] [address] Care Team Providers Care Clinical Appeals Rn Name Role Phone Cain Cooley DO Primary Care Provider UnavailMichael Leonard MD Unavailable Namita Brown MD Primary Care Provider Un available Vahid Baum PA-C Unavailable [phone] Encounter Details Date Type Department Care Team Description 09/16/2022 Pt. Non Urgent Medic al Question Adult Medicine - [address] [address] Foreign Gardner PA-C [address] [place] [address] Social History Tobacco Use Types Packs/Day Years [...] 09/13/2022 How often do you attend [facility] or denominational services? Never 09/13/2022 Do you belong to [...] on filedocumented in this encounter Care Teams Clinical Appeals Rn Relationship Specialty Start Date End Date Cain Cooley DO PCP - General Internal Medicine 07/18/21 12/24/23 Namita Brown MD PCP - General Internal Medicine 12/25/23 Michael Herron MD Lung Cancer Element Setter 10/08/23 Vahid Baum PA-C [address] [phone] Specialist Thoracic Surgery 04/02/24 documented as of this encounter
--- OUTSIDE RECORDS SUMMARY | 2024-10-30 06:09 | XMS_ITS | Encounter Summary ---
Author Organization [facility] Address [address] [place] [address] Care Team Providers Care Head Scorer Name Role Phone Michael Herron MD Unavailable Namita Brown MD Primary Care Provider Un available Vahid Baum PA-C Unavailable [phone] Encounter Details Date Type Department Care Team Description 12/31/2023 Refill Adult Medicine [address] [address] Cain Cooley, DO Social History Tobacco Use [...] often do you attend chur ch or evangelical services? Never 09/13/2022 Do you belong to [...] following medications: Other - Prednisone Preferred pharmacy: [id number] - [address] Medication renewals requested in this message routed separately: methocarbamol (ROBAXIN) 750 MG tablet [James Cooley, DO] documented in this encounter Plan of Treatment Not on file documented as of this encounter Visit Diagnoses Not on filedocumented in this encounter Care Teams Head Scorer Relationship Specialty Start Date End Date Namita Brown MD PCP - General Internal Medicine 12/25/23 Michael Herron MD Lung Cancer Brand Planner 10/08/23 Vahid Baum PA-C [address] [place] [phone] Specialist Thoracic Surgery 04/02/24 documented as of this encounter
--- OUTSIDE RECORDS SUMMARY | 2024-10-30 06:10 | XMS_ITS | Encounter Summary ---
Author Organization [facility] Address [address] [place] [address] Care Team Providers Care Printed Forms Proofreader Name Role Phone Michael Herron MD Unavailable Namita Brown MD Primary Care Provider Un available Vahid Baum PA-C Unavailable [phone] Encounter Details Date Type Department Care Team Description 02/12/2024 Pt. Non Urgent Medic al Question Adult Medicine - [address] [address] Namita Brown MD Social History Tobacco Use [...] any clubs o r organizations such as zoroastrianism groups, unions, fraternal or athletic groups, or [...] out again. My brother this weekend in [place]. Did a lot of driving and was in his ICU room for 36 hour straight. Was hoping for a refill on the prednisone and roboxin. I did submit the refill requeat documented in this encounter Plan of Treatment Not on file documented as of this encounter Visit Diagnoses Not on filedocumented in this encounter Care Teams Printed Forms Proofreader Relationship Specialty Start Date End Date Namita Brown MD PCP - General Internal Medicine 12/25/23 Michael Herron MD Lung Cancer Transportation Supervisor 10/08/23 Vahid Baum PA-C [address] [place] [phone] Specialist Thoracic Surgery 04/02/24 documented as of this encounter
--- OUTSIDE RECORDS SUMMARY | 2024-10-30 06:10 | XMS_ITS | Encounter Summary ---
Author Organization [facility] Address [address] [place] [address] Care Team Providers Care Field Operations Coordinator Name Role Phone Jannet Doherty MD Primary Care Provider Unavailable Cain Cooley DO Primary Care Provider UnavailMichael Leonard MD Unavailable Namita Brown MD Primary Care Provider Un available Vahid Baum PA-C Unavailable [phone] Encounter Details Date Type Department Care Team Description 09/30/2019 Refill Adult Medicine [address] [address] Jannet Doherty MD Social History Tobacco Use [...] 09/13/2022 How often do you attend [facility] or hindu services? Never 09/13/2022 Do you [...] on filedocumented in this encounter Care Teams Field Operations Coordinator Relationship Specialty Start Date End Date Jannet Doherty MD PCP - General Internal Medicine 02/27/17 07/17/21 Cain Cooley DO PCP - General Internal Medicine 07/18/21 12/24/23 Namita Brown MD PCP - General Internal Medicine 12/25/23 Michael Herron MD Lung Cancer National Secretary 10/08/23 Vahid Baum PA-C [address] [place] [phone] Specialist Thoracic Surgery 04/02/24 documented as of this encounter
--- OUTSIDE RECORDS SUMMARY | 2024-10-30 06:10 | XMS_ITS | Encounter Summary ---
Author Organization [facility] Address [address] [place] [address] Care Team Providers Care Overhead Crane Operator Name Role Phone Jannet Doherty MD Primary Care Provider Unavailable Cain Cooley DO Primary Care Provider UnavailMichael Leonard MD Unavailable Namita Brown MD Primary Care Provider Un available Vahid Baum PA-C Unavailable Encounter Details Date Type Department Care Team Description 02/06/2019 Plaster Form Maker Report Medical Records [address] [place] [address] [place] [address] [place] [address] Social History Tobacco Use Types Packs/Day Years [...] attend [facility] or temple services? Never 09/13/2022 Do you belong to any clubs o r organizations such as denominational groups, unions, fraternal or athletic groups, or [...] on filedocumented in this encounter Care Teams Overhead Crane Operator Relationship Specialty Start Date End Date Jannet Doherty MD PCP - General Internal Medicine 02/27/17 07/17/21 Cain Cooley DO PCP - General Internal Medicine 07/18/21 12/24/23 Namita Brown MD PCP - General Internal Medicine 12/25/23 Michael Herron MD Lung Cancer Furnace Attendant 10/08/23 Vahid Baum PA-C [address] [place] [phone] Specialist Thoracic Surgery 04/02/24 documented as of this encounter
--- OUTSIDE RECORDS SUMMARY | 2024-10-30 06:10 | XMS_ITS | Encounter Summary ---
Author Organization [facility] Address [address] [place] [address] Care Team Providers Care Commissary Worker Name Role Phone Jannet Doherty MD Primary Care Provider Unavailable Cain Cooley DO Primary Care Provider UnavailMichael Leonard MD Unavailable Namita Brown MD Primary Care Provider Un available Vahid Baum PA-C Unavailable [phone] Encounter Details Date Type Department Care Team Description 12/12/2018 [facility] Medical Records [address] [place] [address] Abstract, Provider Social History Tobacco Use Types [...] any clubs o r organizations such as yazidi groups, unions, fraternal or athletic groups, or [...] on filedocumented in this encounter Care Teams Commissary Worker Relationship Specialty Start Date End Date Jannet Doherty MD PCP - General Internal Medicine 02/27/17 07/17/21 Cain Cooley DO PCP - General Internal Medicine 07/18/21 12/24/23 Namita Brown MD PCP - General Internal Medicine 12/25/23 Michael Herron MD Lung Cancer Cork Pressing Machine Operator 10/08/23 Vahid Baum PA-C [address] [phone] Specialist Thoracic Surgery 04/02/24 documented as of this encounter
--- OUTSIDE RECORDS SUMMARY | 2024-10-30 06:10 | XMS_ITS | Encounter Summary ---
Author Organization [facility] Address [address] [place] [address] Care Team Providers Care Crib Clerk Name Role Phone Cain Cooley DO Primary Care Provider UnavailMichael Leonard MD Unavailable Namita Brown MD Primary Care Provider Un available Vahid Baum PA-C Unavailable [phone] Encounter Details Date Type Department Care Team Description 04/19/2023 Pt. Non Urgent Medic al Question Adult Medicine - [facility] [address] [place] [address] Felton Kenny PA [address] [place] [address] Social History Tobacco Use Types Packs/Day Years [...] 09/13/2022 How often do you attend [facility] or oriental orthodox services? Never 09/13/2022 Do you belong to any clubs o r organizations such as orthodox groups, unions, fraternal or athletic groups, [...] suspected to have Coronavirus/COVID-19? No / Unsure 04/17/2023 1:43 PM EDT documented as of this encounter Plan of Treatment Not on file documented as of this encounter Visit Diagnoses Not on filedocumented in this encounter Care Teams Crib Clerk Relationship Specialty Start Date End Date Cain Cooley DO PCP - General Internal Medicine 07/18/21 12/24/23 Namita Brown MD PCP - General Internal Medicine 12/25/23 Michael Herron MD Lung Cancer Gauger Delivery 10/08/23 Vahid Baum PA-C [address] [place] [phone] Specialist Thoracic Surgery 04/02/24 documented as of this encounter
--- OUTSIDE RECORDS SUMMARY | 2024-10-30 06:10 | XMS_ITS | Encounter Summary ---
Author Organization [facility] Address [address] [place] [address] Care Team Providers Care Machine Heel Builder Name Role Phone Jannet Doherty MD Primary Care Provider Unavailable Cain Cooley DO Primary Care Provider UnavailMichael Leonard MD Unavailable Namita Brown MD Primary Care Provider Un available Vahid Baum PA-C Unavailable [phone] Encounter Details Date Type Department Care Team Description 09/26/2019 [facility] Medical Records [address] [place] [address] Abstract, Provider Social History Tobacco Use Types [...] on filedocumented in this encounter Care Teams Machine Heel Builder Relationship Specialty Start Date End Date Jannet Doherty MD PCP - General Internal Medicine 02/27/17 07/17/21 Cain Cooley DO PCP - General Internal Medicine 07/18/21 12/24/23 Namita Brown MD PCP - General Internal Medicine 12/25/23 Michael Herron MD Lung Cancer Medical Concierge 10/08/23 Vahid Baum PA-C [address] [phone] Specialist Thoracic Surgery 04/02/24 documented as of this encounter
--- OUTSIDE RECORDS SUMMARY | 2024-10-30 06:10 | XMS_ITS | Encounter Summary ---
Author Organization [facility] Address [address] [place] [address] Care Team Providers Care Filament Coil Winder Name Role Phone Cain Cooley DO Primary Care Provider UnavailMichael Leonard MD Unavailable Namita Brown MD Primary Care Provider Un available Vahid Baum PA-C Unavailable [phone] Encounter Details Date Type Department Care Team Description 11/04/2021 Telephone Adult Medicine - [address] [address] Cain Cooley DO Social History Tobacco Use [...] any clubs o r organizations such as taoist groups, unions, fraternal or athletic groups, or [...] on filedocumented in this encounter Care Teams Filament Coil Winder Relationship Specialty Start Date End Date Cain Cooley DO PCP - General Internal Medicine 07/18/21 12/24/23 Namita Brown MD PCP - General Internal Medicine 12/25/23 Michael Herron MD Lung Cancer Cardiothoracic Surgeon 10/08/23 Vahid Baum PA-C [address] [place] [phone] Specialist Thoracic Surgery 04/02/24 documented as of this encounter
--- OUTSIDE RECORDS SUMMARY | 2024-10-30 06:10 | XMS_ITS | Encounter Summary ---
Author Organization [facility] Address [address] [place] [address] Care Team Providers Care Yeast Culture Developer Name Role Phone Jannet Doherty MD Primary Care Provider Unavailable Cain Cooley DO Primary Care Provider UnavailMichael Leonard MD Unavailable Namita Brown MD Primary Care Provider Un available Vahid Baum PA-C Unavailable [phone] Reason for Visit * Reason Comments E-prescribe Rx Request Encounter Details Date Type Department Care Team Description 12/01/2018 Refill Adult Medicine [address] [address] Jannet Doherty MD E-prescribe Rx Request Social [...] you attend [facility] or amish services? Never 09/13/2022 Do you belong to [...] on filedocumented in this encounter Care Teams Yeast Culture Developer Relationship Specialty Start Date End Date Jannet Doherty MD PCP - General Internal Medicine 02/27/17 07/17/21 Cain Cooley DO PCP - General Internal Medicine 07/18/21 12/24/23 Namita Brown MD PCP - General Internal Medicine 12/25/23 Michael Herron MD Lung Cancer Egg Caser 10/08/23 Vahid Baum PA-C [address] [place] [phone] Specialist Thoracic Surgery 04/02/24 documented as of this encounter
--- OUTSIDE RECORDS SUMMARY | 2024-10-30 06:10 | XMS_ITS | Encounter Summary ---
Author Organization [facility] Address [address] [place] [address] Care Team Providers Care Bathroom Tiling Professional Name Role Phone Cain Cooley DO Primary Care Provider UnavailMichael Leonard MD Unavailable Namita Brown MD Primary Care Provider Un available Vahid Baum PA-C Unavailable [phone] Encounter Details Date Type Department Care Team Description 12/07/2021 Pt. Non Urgent Medic al Question Adult Medicine - [address] [address] Cain Cooley, Social History Tobacco Use Types [...] often do you attend chur ch or yazdanism services? Never 09/13/2022 Do you [...] Telephone Encounter - Tracie Horn M.A. - 12/07/2021 11:58 AM EDTFrom: Swapnil Peralta To: James Cooley Sent: 12/07/2021 11:57 AM EDT Subject: Right lateral foot pain I continue to struggle with severe right lateral foot pain Plantar Fasciitis . I have a referral with a director of creative services on December 27. The naproxen did not help at all. Could we possibly try something else like maybe prednisone? documented in this encounter Plan of Treatment Not on file documented as of this encounter Visit Diagnoses Not on filedocumented in this encounter Care Teams Bathroom Tiling Professional Relationship Specialty Start Date End Date Cain Cooley DO PCP - General Internal Medicine 07/18/21 12/24/23 Namita Brown MD PCP - General Internal Medicine 12/25/23 Michael Herron MD Lung Cancer Weigher And Charger 10/08/23 Vahid Baum PA-C [address] [place] [phone] Specialist Thoracic Surgery 04/02/24 documented as of this encounter
--- OUTSIDE RECORDS SUMMARY | 2024-10-30 06:10 | XMS_ITS | Encounter Summary ---
Author Organization [facility] Address [address] [place] [address] Care Team Providers Care Pharmacy Student Name Role Phone Cain Cooley DO Primary Care Provider UnavailMichael Leonard MD Unavailable Namita Brown MD Primary Care Provider Un available Vahid Baum PA-C Unavailable [phone] Reason for Visit * Reason Comments E-prescribe Rx Request Encounter Details Date Type Department Care Team Description 05/12/2023 Refill Adult Medicine [address] [address] Yoli Mckeon PA-C [address] [place] [address] E-prescribe Rx Request Social History Tobacco Use [...] do you attend [facility] or mandaeism services? Never 09/13/2022 Do you belong to [...] N/A Patients current insurance carrier is: Payor: [facility]/HMO FFS / Plan: JOSÉ LUIS GARCIA $20/$35 / Product Type: HMO [id number] documented in this encounter Plan of Treatment Not on file documented as of this encounter Visit Diagnoses Diagnosis Type 2 diabetes mellitus without complication, without long-term current use of insulin (HCC) documented in this encounter Care Teams Pharmacy Student Relationship Specialty Start Date End Date Cain Cooley DO PCP - General Internal Medicine 07/18/21 12/24/23 Namita Brown MD PCP - General Internal Medicine 12/25/23 Michael Herron MD Lung Cancer Overlay Plastician 10/08/23 Vaihd Baum PA-C [address] [place] [phone] Specialist Thoracic Surgery 04/02/24 documented as of this encounter
--- OUTSIDE RECORDS SUMMARY | 2024-10-30 06:10 | XMS_ITS | Encounter Summary ---
Author Organization [facility] Address [address] [place] [address] Care Team Providers Care E Business Specialist Name Role Phone Cain Cooley DO Primary Care Provider UnavailMichael Leonard MD Unavailable Namita Brown MD Primary Care Provider Un available Vahid Baum PA-C Unavailable [phone] Encounter Details Date Type Department Care Team Description 06/25/2023 Transfer Records Medical Records [address] [place] [address] Abstract, Provider Social History Tobacco Use Types [...] on filedocumented in this encounter Care Teams E Business Specialist Relationship Specialty Start Date End Date Cain Cooley DO PCP - General Internal Medicine 07/18/21 12/24/23 Namita Brown MD PCP - General Internal Medicine 12/25/23 Michael Herron MD Lung Cancer Spider Assembler 10/08/23 Vahid Baum PA-C [address] [place] [phone] Specialist Thoracic Surgery 04/02/24 documented as of this encounter
--- OUTSIDE RECORDS SUMMARY | 2024-10-30 06:10 | XMS_ITS | Encounter Summary ---
Author Organization [facility] Address [address] [place] [address] Care Team Providers Care Wood Chopper Name Role Phone Jannet Doherty MD Primary Care Provider Unavailable Cain Cooley DO Primary Care Provider UnavailMichael Leonard MD Unavailable Namita Brown MD Primary Care Provider Un available Vahid Baum PA-C Unavailable [phone] Encounter Details Date Type Department Care Team Description 10/28/2020 Portrait Studio Photographer Report Medical Records [address] [place] [address] Amy Young Social History Tobacco Use Types [...] on filedocumented in this encounter Care Teams Wood Chopper Relationship Specialty Start Date End Date Jannet Doherty MD PCP - General Internal Medicine 02/27/17 07/17/21 Cain Cooley DO PCP - General Internal Medicine 07/18/21 12/24/23 Namita Brown MD PCP - General Internal Medicine 12/25/23 Michael Herron MD Lung Cancer Product Management Consultant 10/08/23 Vahid Baum PA-C [address] [place] [phone] Specialist Thoracic Surgery 04/02/24 documented as of this encounter
--- OUTSIDE RECORDS SUMMARY | 2024-10-30 06:10 | XMS_ITS | Encounter Summary ---
Author Organization [facility] Address [address] [place] [address] Care Team Providers Care Enterprise Systems Architect Name Role Phone Jannet Doherty MD Primary Care Provider Unavailable Cain Cooley DO Primary Care Provider UnavailMichael Leonard MD Unavailable Namita Brown MD Primary Care Provider Un available Vahid Baum PA-C Unavailable [phone] Encounter Details Date Type Department Care Team Description 04/15/2019 Release of Information Medical Records [address] [place] [address] Abstract, Provider Social History Tobacco Use Types [...] on filedocumented in this encounter Care Teams Enterprise Systems Architect Relationship Specialty Start Date End Date Jannet Doherty MD PCP - General Internal Medicine 02/27/17 07/17/21 Cain Cooley DO PCP - General Internal Medicine 07/18/21 12/24/23 Namita Brown MD PCP - General Internal Medicine 12/25/23 Michael Herron MD Lung Cancer Plant Tender 10/08/23 Vahid Baum PA-C [address] [phone] Specialist Thoracic Surgery 04/02/24 documented as of this encounter
--- OUTSIDE RECORDS SUMMARY | 2024-10-30 06:10 | XMS_ITS | Encounter Summary ---
Author Organization [facility] Address [address] [place] [address] Care Team Providers Care Migratory Worker Name Role Phone Jannet Doherty MD Primary Care Provider Unavailable Cain Cooley DO Primary Care Provider UnavailMichael Leonard MD Unavailable Namita Brown MD Primary Care Provider Un available Vahid Baum PA-C Unavailable [phone] Encounter Details Date Type Department Care Team Description 10/29/2020 [facility] Medical Records [address] [place] [address] Abstract, Provider Social History Tobacco Use Types [...] often do you attend chur ch or temple services? Never 09/13/2022 Do you [...] on filedocumented in this encounter Care Teams Migratory Worker Relationship Specialty Start Date End Date Jannet Doherty MD PCP - General Internal Medicine 02/27/17 07/17/21 Cain Cooley DO PCP - General Internal Medicine 07/18/21 12/24/23 Namtia Brown MD PCP - General Internal Medicine 12/25/23 Michael Herron MD Lung Cancer Casino Runner 10/08/23 Vahid Baum PA-C [address] [phone] Specialist Thoracic Surgery 04/02/24 documented as of this encounter
--- OUTSIDE RECORDS SUMMARY | 2024-10-30 06:10 | XMS_ITS | Encounter Summary ---
Author Organization [facility] Address [address] [place] [address] Care Team Providers Care Child Psychologist Name Role Phone Cain Cooley DO Primary Care Provider UnavailMichael Leonard MD Unavailable Namita Brown MD Primary Care Provider Un available Vahid Baum PA-C Unavailable [phone] Encounter Details Date Type Department Care Team Description 12/27/2021 Pt. Non Urgent Medic al Question [facility] Medical [facility] [address] [place] [address] [place] [phone] Angelo Quan DPM Social History Tobacco [...] you attend [facility] or caodaism services? Never 09/13/2022 Do you belong to any clubs o r organizations such as mosque groups, unions, fraternal or athletic groups, or [...] on filedocumented in this encounter Care Teams Child Psychologist Relationship Specialty Start Date End Date Cain Cooley DO PCP - General Internal Medicine 07/18/21 12/24/23 Namita Brown MD PCP - General Internal Medicine 12/25/23 Michael Herron MD Lung Cancer Healthcare Administration Intern 10/08/23 Vahid Baum PA-C [address] [phone] Specialist Thoracic Surgery 04/02/24 documented as of this encounter
--- OUTSIDE RECORDS SUMMARY | 2024-10-30 06:10 | XMS_ITS | Encounter Summary ---
Author Organization [facility] Address [address] [place] [address] Care Team Providers Care Acid Polymerization Operator Name Role Phone Jannet Doherty MD Primary Care Provider Unavailable Cain Cooley DO Primary Care Provider UnavailMichael Leonard MD Unavailable Namita Brown MD Primary Care Provider Un available Vahid Baum PA-C Unavailable [phone] Reason for Visit * Reason Onset Date Comments Pre-visit Diabetes Lab Adult Medicine 10/26/202011/08 Encounter Details Date Type Department Care Team Description 10/26/2020 Telephone Adult Medicine - [address] [address] Jannet Doherty MD Pre-visit Diabetes Lab Adult [...] week 09/13/2022 How often do you attend [facility] or church services? Never 09/13/2022 Do you [...] place to sleep or slept in a snf (including now)? No 09/13/2022 Sex Assigned at [...] <6.5 % 10/27/2020 8:32 PM EDT [facility] ESTIMATED AVERAGE GLUCOSE 137 mg/dL 10/27/2020 8:32 PM EDT [facility] 10/27/2020 4:43 PM EDT 10/27/2020 4:44 PM EDT Narrative [facility] - 10/27/2020 8:32 PM EDT Release to patient->Immediate [facility]et Doherty [facility] documented in this encounter Visit Diagnoses Diagnosis Type 2 diabetes mellitus without complication, without long-term current use of insulin (HCC)- Primary Type 2 diabetes mellitus without complication, without long-term current use of insulin (HCC) documented in this encounter Care Teams Acid Polymerization Operator Relationship Specialty Start Date End Date Jannet Doherty MD PCP - General Internal Medicine 02/27/17 07/17/21 Cain Cooley DO PCP - General Internal Medicine 07/18/21 12/24/23 Namita Brown MD PCP - General Internal Medicine 12/25/23 Michael Herron MD Lung Cancer Belt Splicer 10/08/23 Vahid Baum PA-C [address] [place] [phone] Specialist Thoracic Surgery 04/02/24 documented as of this encounter
--- OUTSIDE RECORDS SUMMARY | 2024-10-30 06:10 | XMS_ITS | Encounter Summary ---
Author Organization [facility] Address [address] [place] [address] Care Team Providers Care Science And Operations Officer Name Role Phone Jannet Doherty MD Primary Care Provider Unavailable Cain Cooley DO Primary Care Provider UnavailMichael Leonard MD Unavailable Namita Brown MD Primary Care Provider Un available Vahid Baum PA-C Unavailable [phone] Encounter Details Date Type Department Care Team Description 03/15/2021 Refill Adult Medicine [address] [address] Jannet Doherty MD Social History Tobacco Use [...] 09/13/2022 How often do you attend [facility] or mandaen services? Never 09/13/2022 Do you [...] on filedocumented in this encounter Care Teams Science And Operations Officer Relationship Specialty Start Date End Date Jannet Doherty MD PCP - General Internal Medicine 02/27/17 07/17/21 Cain Cooley DO PCP - General Internal Medicine 07/18/21 12/24/23 Namita Brown MD PCP - General Internal Medicine 12/25/23 Michael Herron MD Lung Cancer Turntable Operator 10/08/23 Vahid Baum PA-C [address] [place] [phone] Specialist Thoracic Surgery 04/02/24 documented as of this encounter
--- OUTSIDE RECORDS SUMMARY | 2024-10-30 06:10 | XMS_ITS | Encounter Summary ---
Author Organization [facility] Address [address] [place] [address] Care Team Providers Care Massage Therapy Instructor Name Role Phone Jannet Doherty MD Primary Care Provider Unavailable Cain Cooley DO Primary Care Provider UnavailMichael Leonard MD Unavailable Namita Brown MD Primary Care Provider Un available Vahid Baum PA-C Unavailable [phone] Encounter Details Date Type Department Care Team Description 05/25/2021 Orders Only Medical Records [address] [place] [address] Alex Navarrete MD [address] [place] [address] Social History Tobacco Use Types Packs/Day Years [...] you attend [facility] or mosque services? Never 09/13/2022 Do you belong to any clubs o r organizations such as zoroastrian groups, unions, fraternal or athletic groups, or [...] Certified Gastroenterology and Internal Medicine Transplant Hepatology [facility] documented in this encounter Plan of Treatment Not on file documented as of this encounter Procedures Procedure Name Priority Date/Time Associated Diagnosis Comments OUTSIDE PATHOLOGY Routine 05/19/2021 documented in this encounter Results * OUTSIDE PATHOLOGY (05/19/2021) H Timo Navarrete MD OUTSIDE LAB documented in this encounter Visit Diagnoses Not on filedocumented in this encounter Care Teams Massage Therapy Instructor Relationship Specialty Start Date End Date Jannet Doherty MD PCP - General Internal Medicine 02/27/17 07/17/21 Cain Cooley DO PCP - General Internal Medicine 07/18/21 12/24/23 Namita Brown MD PCP - General Internal Medicine 12/25/23 Michael Herron MD Lung Cancer Events Manager 10/08/23 Vahid Baum PA-C [address] [place] [phone] Specialist Thoracic Surgery 04/02/24 documented as of this encounter
--- OUTSIDE RECORDS SUMMARY | 2024-10-30 06:10 | XMS_ITS | Encounter Summary ---
Author Organization [facility] Address [address] [place] [address] Care Team Providers Care Tobacco Drummer Name Role Phone Jannet Doherty MD Primary Care Provider Unavailable Cain Cooley DO Primary Care Provider UnavailMichael Leonard MD Unavailable Namita Brown MD Primary Care Provider Un available Vahid Baum PA-C Unavailable [phone] Reason for Visit * Reason Comments E-prescribe Rx Request Encounter Details Date Type Department Care Team Description 10/25/2018 Refill Adult Medicine [address] [address] Jannet Doherty MD E-prescribe Rx Request Social [...] week 09/13/2022 How often do you attend [facility] or cheondoism services? Never 09/13/2022 Do you [...] encounter Miscellaneous Notes * Telephone Encounter - Kristy Stoddard - 10/25/2018 4:02 PM EDT Images from the original note were not included. Patient would like script to be: E-PRESCRIBED/FAXED TO PHARMACY WHEN WAS THE PATIENT'S LAST APPOINTMENT IN ADULT MEDICINE? 09/11/18 WHEN WAS THE LAST TIME THE PATIENT SAW THEIR PCP? Same as above Does patient have an upcoming appointment? No-[facility] to refill request. Appt due Return in about 3 months (around 12/09/2018) for f/u dm, f/u member of care team (THE MEDICATION REQUESTED IS ON THE MED LIST ABOVE) All of the medications requested were on the CURRENT MEDS list Did you check the Pharmacy information above?: YES Patient wants: 30 -day supply Is this a mail order prescription request ? NO If the refill is from a FAXED refill request what is the RX # listed on the fax? N/A Patients current insurance carrier is: Payor: [employer] FFS / Plan: HMO $15 [place] [id number] / ProductType: O [id number]-Iocpxni documented in this encounter Plan of Treatment Not on file documented as of this encounter Visit Diagnoses Not on filedocumented in this encounter Care Teams Tobacco Drummer Relationship Specialty Start Date End Date Jannet Doherty MD PCP - General Internal Medicine 02/27/17 07/17/21 Cain Cooley DO PCP - General Internal Medicine 07/18/21 12/24/23 Namita Brown MD PCP - General Internal Medicine 12/25/23 Michael Herron MD Lung Cancer Marine Water Tender 10/08/23 Vahid Baum PA-C [address] [place] [phone] Specialist Thoracic Surgery 04/02/24 documented as of this encounter
--- OUTSIDE RECORDS SUMMARY | 2024-10-30 06:10 | XMS_ITS | Encounter Summary ---
Author Organization [facility] Address [address] [place] [address] Care Team Providers Care Mud Temperer Name Role Phone Cain Cooley DO Primary Care Provider UnavailMichael Leonard MD Unavailable Namita Brown MD Primary Care Provider Un available Vahid Baum PA-C Unavailable [phone] Reason for Visit * Reason Onset Date Comments refill request 01/04/2022 Encounter Details Date Type Department Care Team Description 01/04/2022 Telephone [facility] Medical [facility] [address] [facility] [address] [place] [phone] Angelo Quan DPM refill request Social History [...] How often do you attend [facility] or sikhism services? Never 09/13/2022 Do you belong to [...] Please call her with any questions @ [phone]. documented in this encounter Plan of Treatment Not on file documented as of this encounter Visit Diagnoses Not on filedocumented in this encounter Care Teams Mud Temperer Relationship Specialty Start Date End Date Cain Cooley DO PCP - General Internal Medicine 07/18/21 12/24/23 Namita Brown MD PCP - General Internal Medicine 12/25/23 Michael Herron MD Lung Cancer Zoning Technician 10/08/23 Vahid Baum PA-C [address] [phone] Specialist Thoracic Surgery 04/02/24 documented as of this encounter
--- OUTSIDE RECORDS SUMMARY | 2024-10-30 06:10 | XMS_ITS | Encounter Summary ---
Author Organization [facility] Address [address] [place] [address] Care Team Providers Care Automotive Parts Counter Assistant Name Role Phone Cain Cooley DO Primary Care Provider UnavailMichael Leonard MD Unavailable Namita Brown MD Primary Care Provider Un available Vahid Baum PA-C Unavailable [phone] Encounter Details Date Type Department Care Team Description 07/02/2023 Refill Pediatrics [address] [address] Cain Cooley DO Social History Tobacco Use [...] often do you attend [facility] or catholic services? Never 09/13/2022 Do you [...] this encounter Visit Diagnoses Diagnosis Pancolitis (HCC) [place] ulcerative (chronic) colitis documented in this encounter Care Teams Automotive Parts Counter Assistant Relationship Specialty Start Date End Date Cain Cooley DO PCP - General Internal Medicine 07/18/21 12/24/23 Namita Brown MD PCP - General Internal Medicine 12/25/23 Michael Herron MD Lung Cancer Wafer Substrate Tester 10/08/23 Vahid Baum PA-C [address] [place] [phone] Specialist Thoracic Surgery 04/02/24 documented as of this encounter
--- OUTSIDE RECORDS SUMMARY | 2024-10-30 06:10 | XMS_ITS | Encounter Summary ---
Author Organization [facility] Address [address] [place] [address] Care Team Providers Care Microbiology Supervisor Name Role Phone Jannet Doherty MD Primary Care Provider Unavailable Cain Cooley DO Primary Care Provider UnavailMichael Leonard MD Unavailable Namita Brown MD Primary Care Provider Un available Vahid Baum PA-C Unavailable [phone] Encounter Details Date Type Department Care Team Description 03/27/2019 [facility] Medical Records [address] [place] [address] Abstract, Provider Social History Tobacco Use Types [...] on filedocumented in this encounter Care Teams Microbiology Supervisor Relationship Specialty Start Date End Date Jannet Doherty MD PCP - General Internal Medicine 02/27/17 07/17/21 Cain Cooley DO PCP - General Internal Medicine 07/18/21 12/24/23 Namita Brown MD PCP - General Internal Medicine 12/25/23 Michael Herron MD Lung Cancer Craft Recruiter 10/08/23 Vahid Baum PA-C [address] [phone] Specialist Thoracic Surgery 04/02/24 documented as of this encounter
--- OUTSIDE RECORDS SUMMARY | 2024-10-30 06:10 | XMS_ITS | Encounter Summary ---
Author Organization [facility] Address [address] [place] [address] Care Team Providers Care National Guard Member Name Role Phone Cain Cooley DO Primary Care Provider UnavailMichael Leonard MD Unavailable Namita Brown MD Primary Care Provider Un available Vahid Baum PA-C Unavailable [phone] Encounter Details Date Type Department Care Team Description 06/13/2023 Chinese Medicine Practitioner Report Medical Records [address] [place] [address] Génesis Valero PA-C Social History Tobacco Use [...] often do you attend chur ch or gnosticism services? Never 09/13/2022 Do you belong to [...] on filedocumented in this encounter Care Teams National [employer] Member Relationship Specialty Start Date End Date Cain Cooley DO PCP - General Internal Medicine 07/18/21 12/24/23 Namita Brown MD PCP - General Internal Medicine 12/25/23 Michael Herron MD Lung Cancer Concrete Pipe Maker 10/08/23 Vahid Baum PA-C [address] [place] [phone] Specialist Thoracic Surgery 04/02/24 documented as of this encounter
--- OUTSIDE RECORDS SUMMARY | 2024-10-30 06:10 | XMS_ITS | Encounter Summary ---
Author Organization [facility] Address [address] [place] [address] Care Team Providers Care Furniture Sales Associate Name Role Phone Jannet Doherty MD Primary Care Provider Unavailable Cain Cooley DO Primary Care Provider UnavailMichael Leonard MD Unavailable Namita Brown MD Primary Care Provider Un available Vahid Baum PA-C Unavailable [phone] Reason for Visit * Reason Comments E-prescribe Rx Request Encounter Details Date Type Department Care Team Description 10/20/2020 Refill Adult Medicine [address] [address] Jannet Doherty MD E-prescribe Rx Request Social [...] week 09/13/2022 How often do you attend [facility] or mormon services? Never 09/13/2022 Do you [...] N/A Patients current insurance carrier is: Payor: [employer] [facility] [place]/HMO FFS / Plan: [employer] [facility] $20/$35 / Product Type: HMO [id number] documented in this encounter Plan of Treatment Not on file documented as of this encounter Visit Diagnoses Not on filedocumented in this encounter Care Teams Furniture Sales Associate Relationship Specialty Start Date End Date Jannet Doherty MD PCP - General Internal Medicine 02/27/17 07/17/21 Cian Cooley DO PCP - General Internal Medicine 07/18/21 12/24/23 Namita Brown MD PCP - General Internal Medicine 12/25/23 Michael Herron MD Lung Cancer Pattern Painter 10/08/23 Vahid Baum PA-C [address] [place] [phone] Specialist Thoracic Surgery 04/02/24 documented as of this encounter
--- OUTSIDE RECORDS SUMMARY | 2024-10-30 06:11 | XMS_ITS | Encounter Summary ---
Author Organization [facility] Address [address] [place] [address] Care Team Providers Care Civil Engineering Director Name Role Phone Jannet Doherty MD Primary Care Provider Unavailable Cain Cooley DO Primary Care Provider UnavailMichael Leonard MD Unavailable Namita Brown MD Primary Care Provider Un available Vahid Baum PA-C Unavailable [phone] Encounter Details Date Type Department Care Team Description 01/18/2021 Pt. Non Urgent Medic al Question Adult Medicine - [address] [address] Jannet Doherty MD Social History Tobacco Use [...] week 09/13/2022 How often do you attend [facility] or nondenominational services? Never 09/13/2022 Do you belong to [...] Telephone Encounter - Tracie Horn M.A. - 01/18/2021 3:20 PM EDTFrom: Swapnil Peralta To: Song Doherty Sent: 01/18/2021 3:14 PM EDT Subject: [place] I submitted a refill request for my [place] and for some reason it went to another physician within the group. I will be out of medication tomorrow and am having back issues. documented in this encounter Plan of Treatment Not on file documented as of this encounter Visit Diagnoses Not on filedocumented in this encounter Care Teams Civil Engineering Director Relationship Specialty Start Date End Date Jannet Doherty MD PCP - General Internal Medicine 02/27/17 07/17/21 Cain Cooley DO PCP - General Internal Medicine 07/18/21 12/24/23 Namita Brown MD PCP - General Internal Medicine 12/25/23 Michael Herron MD Lung Cancer Colored Liquid Plastic Applier 10/08/23 Vahid Baum PA-C [address] [place] [phone] Specialist Thoracic Surgery 04/02/24 documented as of this encounter
--- OUTSIDE RECORDS SUMMARY | 2024-10-30 06:11 | XMS_ITS | Encounter Summary ---
Author Organization [facility] Address [address] [place] [address] Care Team Providers Care Fruit Grading Supervisor Name Role Phone Jannet Doherty MD Primary Care Provider Unavailable Cain Cooley DO Primary Care Provider UnavailMichael Leonard MD Unavailable Namita Brown MD Primary Care Provider Un available Vahid Baum PA-C Unavailable [phone] Encounter Details Date Type Department Care Team Description 09/27/2018 [facility] Report Medical Records [address] [place] [address] Rehab., [place] Social History Tobacco Use Types Packs/Day Years [...] often do you attend chur ch or tenriism services? Never 09/13/2022 Do you belong to [...] filedocumented in this encounter Care Teams Fruit Grading Supervisor Relationship Specialty Start Date End Date Jannet Doherty MD PCP - General Internal Medicine 02/27/17 07/17/21 Cain Cooley DO PCP - General Internal Medicine 07/18/21 12/24/23 Namita Brown MD PCP - General Internal Medicine 12/25/23 Michael Herron MD Lung Cancer Physician/Ophthalmologist 10/08/23 Vahid Baum PA-C [address] [place] [phone] Specialist Thoracic Surgery 04/02/24 documented as of this encounter
--- OUTSIDE RECORDS SUMMARY | 2024-10-30 06:11 | XMS_ITS | Encounter Summary ---
Author Organization [facility] Address [address] [place] [address] Care Team Providers Care Hand Silvering Supervisor Name Role Phone Jannet Doherty MD Primary Care Provider Unavailable Cain Cooley DO Primary Care Provider UnavailMichael Leonard MD Unavailable Namita Brown MD Primary Care Provider Un available Vahid Baum PA-C Unavailable [phone] Encounter Details Date Type Department Care Team Description 06/04/2018 [facility] Medical Records [address] [place] [address] Abstract, Provider Social History Tobacco Use Types [...] any clubs o r organizations such as sabianist groups, unions, fraternal or athletic groups, or [...] on filedocumented in this encounter Care Teams Hand Silvering Supervisor Relationship Specialty Start Date End Date Jannet Doherty MD PCP - General Internal Medicine 02/27/17 07/17/21 Cain Cooley DO PCP - General Internal Medicine 07/18/21 12/24/23 Namita Brown MD PCP - General Internal Medicine 12/25/23 Michael Herron MD Lung Cancer Food Runner 10/08/23 Vahid Baum PA-C [address] [phone] Specialist Thoracic Surgery 04/02/24 documented as of this encounter
--- OUTSIDE RECORDS SUMMARY | 2024-10-30 06:11 | XMS_ITS | Encounter Summary ---
Author Organization [facility] Address [address] [place] [address] Care Team Providers Care Chief Sales Officer Name Role Phone Jannet Doherty MD Primary Care Provider Unavailable Cain Cooley DO Primary Care Provider UnavailMichael Leonard MD Unavailable Namita Brown MD Primary Care Provider Un available Vahid Baum PA-C Unavailable [phone] Encounter Details Date Type Department Care Team Description 07/17/2017 Pantograph Transferrer Report Medical Records [address] [place] [address] Abstract, Provider Social History Tobacco Use Types [...] filedocumented in this encounter Care Teams Chief Sales Officer Relationship Specialty Start Date End Date Jannet Doherty MD PCP - General Internal Medicine 02/27/17 07/17/21 Cain Cooley DO PCP - General Internal Medicine 07/18/21 12/24/23 Namita Brown MD PCP - General Internal Medicine 12/25/23 Michael Herron MD Lung Cancer Coating Technician 10/08/23 Vahid Baum PA-C [address] [place] [phone] Specialist Thoracic Surgery 04/02/24 documented as of this encounter
--- OUTSIDE RECORDS SUMMARY | 2024-10-30 06:11 | XMS_ITS | Encounter Summary ---
Author Organization [facility] Address [address] [place] [address] Care Team Providers Care Online Marketing Director Name Role Phone Jannet Doherty MD Primary Care Provider Unavailable Cain Cooley DO Primary Care Provider UnavailMichael Leonard MD Unavailable Namita Brown MD Primary Care Provider Un available Vahid Baum PA-C Unavailable [phone] Encounter Details Date Type Department Care Team Description 04/18/2021 [facility] Medical Records [address] [place] [address] Abstract, Provider Social History Tobacco Use Types [...] on filedocumented in this encounter Care Teams Online Marketing Director Relationship Specialty Start Date End Date Jannet Doherty MD PCP - General Internal Medicine 02/27/17 07/17/21 Cain Cooley DO PCP - General Internal Medicine 07/18/21 12/24/23 Namita Brown MD PCP - General Internal Medicine 12/25/23 Michael Herron MD Lung Cancer Watershed Coordinator 10/08/23 Vahid Baum PA-C [address] [phone] Specialist Thoracic Surgery 04/02/24 documented as of this encounter
--- OUTSIDE RECORDS SUMMARY | 2024-10-30 06:11 | XMS_ITS | Encounter Summary ---
Author Organization [facility] Address [address] [place] [address] Care Team Providers Care Foundry Equipment Mechanic Name Role Phone Jannet Doherty MD Primary Care Provider Unavailable Cain Cooley DO Primary Care Provider UnavailMichael Leonard MD Unavailable Namita Brown MD Primary Care Provider Un available Vahid Baum PA-C Unavailable [phone] Encounter Details Date Type Department Care Team Description 09/18/2018 Pt. Non Urgent Medic al Question Adult Medicine - [address] [address] Jannet Doherty MD Social History Tobacco Use [...] you attend [facility] or sikhism services? Never 09/13/2022 Do you [...] on filedocumented in this encounter Care Teams Foundry Equipment Mechanic Relationship Specialty Start Date End Date Jannet Doherty MD PCP - General Internal Medicine 02/27/17 07/17/21 Cain Cooley DO PCP - General Internal Medicine 07/18/21 12/24/23 Namita Brown MD PCP - General Internal Medicine 12/25/23 Michael Herron MD Lung Cancer Administrative Services Assistant 10/08/23 Vahid Baum PA-C [address] [place] [phone] Specialist Thoracic Surgery 04/02/24 documented as of this encounter
== END 2024-10-30 06:08 | disposition home or self-care (01) ==
LOC: CF 06:07
PROVIDERS: Visit Provider Internal Medicine
DX: M47.816 Spondylosis without myelopathy or radiculopathy, lumbar region (principal)
CPT/HCPCS: 64493; 64494; J2003; J2795; Q9967

== ENCOUNTER 2024-10-30 09:14 | Outpatient (AMB) | payer BC, SELFPAY ==
[2024-10-30 09:23] VITALS: BP 121/64; PULSE 63; RESP 16; O2SAT 98
--- NOTE | 2024-10-30 09:23 | A.OFFVIS_ITS ---
Vital Signs 10/30/24 09:23 10/30/24 10:07 BP 121/64 143/71 H Blood Pressure Location Lt brachial Lt brachial Position Sitting Sitting Respiration 16 16 Pulse 63 75 Pulse Source Pulse Oximeter Pulse Oximeter Pulse Oximetry (%) 98 98 Oxygen Delivery Method Room Air Room Air Intake Visit Reasons: Zeeshan Dx L2-L3-L4-L5 MBB Internet Sales Representative Required: No Allergies No Known Allergies Allergy (Verified 10/30/24 09:23) Medication List - Last Reconciled 10/30/24 by Anisha Lui LPN atorvastatin 20 mg PO BEDTIME famotidine 20 mg PO BID PRN gabapentin 600 mg PO TID ibuprofen 800 mg PO TID lorazepam 1 mg PO DAILY PRN losartan 25 mg PO DAILY metformin 500 mg PO DAILY methocarbamol 750 mg PO DAILY HPI HPI Zeeshan Dx L2-L3-L4-L5 MBB: Details: Patient presents for scheduled procedure. Denies any recent cough, cold, infection, fever or other significant changes in medical history since last office visit. [facility] Medical History Pulmonary nodule GERD (gastroesophageal reflux disease) Spinal stenosis Cervical radiculopathy Ground glass opacity present on imaging of lung Mesenteric panniculitis Lumbosacral radiculitis Controlled type 2 diabetes mellitus Essential hypertension Surgical History History of laminectomy (2019) Hx of varicose vein ligation (~1998) Hx of colonoscopy Hx of appendectomy (~1974) Social History Housing: House Are you a primary prompt care rn to a significant other at home: No Do you presently have visiting nurse or other home services: No Patient Tobacco Use Status: Former Tobacco user Tobacco use type: Cigarette Cigarette Packs Per Day: 1 Years Smoked: 20 e-Cigarette/Vaping Use: Never Used service: Yes Current occupational status: employed 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 The patient was placed in a prone position. The respective lumbosacral area was prepped with chloraprep and draped in sterile fashion. The skin over the target medial branch nerves was anesthetized with 0.5% lidocaine. A 22 gauge 3.5 inch needle was inserted into the target medial branch nerve under fluoroscopic guidance. No paresthesias were elicited with needle placement and aspiration was negative for blood and CSF. Next, 0.2cc of omnipaque 180 was injected to verify positioning. Next 0.5 ml 0.5% ropivicaine was injected (0.5cc total per level). The identical procedure was performed at the remaining levels. The skin was cleansed and a sterile bandage was applied. Following the procedure the patient's vital signs were stable. The patient tolerated the procedure well and no complications were encountered. Following the procedure the patient's vital signs were stable. The patient was discharged home in good condition with post-procedural instructions. Time Out: Immediately prior to the procedure, the following was verbally confirmed that there is a signed consent form and that the correct patient, planned procedure, site and side are consistent with documentation and that necessary equipment and/or blood products are available prior to the start of the case. Complications: none EBL: <5 cc 58789 - with Fluoroscopy (bilateral) 45875 - second level, with Fluoroscopy (bilateral) Procedure code (CPT) selection complete Assessment & Plan Assessment & Plan (1) Lumbar spondylosis: Code(s): M47.816 - Spondylosis without myelopathy or radiculopathy, lumbar region Category: Medical Plan Patient is status post bilateral diagnostic lumbar medial branch blocks. Patient tolerated procedure well and was discharged home in stable condition with discharge instructions. All questions were answered. We will follow-up via telephone or in clinic to assess response to therapy. A follow-up appointment was made during today's visit. Orders: Orders FL guidance in treatment room Today M47.816 - Spondylosis without myelopathy or radiculopathy, lumbar region Coding Level of Care Code Procedure Only Diagnoses Lumbar spondylosis M47.816 CPT Codes Facet Injection-Lumbar/Sacral - CPT: 81621 - with Fluoroscopy ([id number]) Facet Injection-Lumbar/Sacral - CPT: 03825 - second level, with Fluoroscopy ([id number])
[2024-10-30 10:07] VITALS: BP 143/71; PULSE 75; RESP 16; O2SAT 98
--- OUTSIDE RECORDS SUMMARY | 2024-10-30 10:16 | XMS_ITS | Clinical Summary ---
Author Organization [facility] Address [address] [place] [address] Care Team Providers Care Dispatch Officer Name Role Phone Cain Cooley DO Primary Care Provider [phone] Allergies No known active allergies Medications Medication [...] age to complete this topic Care Teams Dispatch Officer Relationship Specialty Start Date End Date Cain Cooley DO [address] [place] [address] PCP - General Family Medicine 03/30/23
== END 2024-10-30 10:07 | disposition home or self-care (01) ==
LOC: HO.PMCPRC 09:14
PROVIDERS: PCP Internal Medicine; Visit Provider Internal Medicine
DX: M47.816 Spondylosis without myelopathy or radiculopathy, lumbar region (principal)
CPT/HCPCS: 64493; 64494

== ENCOUNTER 2024-11-05 09:14 | Outpatient (AMB) | payer BC, SELFPAY ==
--- NOTE | 2024-11-05 09:24 | A.OFFVIS_ITS ---
Vital Signs 11/05/24 09:25 Height 6 ft 3 in Weight 293 lb BMI 36.6 BP 156/73 H Blood Pressure Location Lt brachial Position Sitting Respiration 16 Pulse 76 Pulse Source Pulse Oximeter Pulse Oximetry (%) 99 Oxygen Delivery Method Room Air Intake Visit Reasons: s/p jacques Dx L2-L3-L4-L5 MBB Director Content Marketing Required: No Allergies No Known Allergies Allergy (Verified 11/05/24 09:26) Medication List - Last Reconciled 11/05/24 by Anisha Lui LPN atorvastatin 20 mg PO BEDTIME famotidine 20 mg PO BID PRN gabapentin 600 mg PO TID ibuprofen 800 mg PO TID losartan 25 mg PO DAILY metformin 500 mg PO DAILY HPI HPI s/p jacques Dx L2-L3-L4-L5 MBB: Details: History of Present Illness The patient is a 59-year-old male presenting with chronic low back pain exacerbated in the last month. He reports prior decompression laminectomies in 2008 and 2018, and a microdiscectomy in April 2023, with ongoing discomfort post-surgery. Recently, functional abilities have declined, with increased pain on ambulation and back movements. The patient commenced physical therapy four weeks ago with limited relief, and describes his pain as highly positional, exacerbated by movements of the spine and extended periods of sitting or standing. Initial relief was followed by a resurgence of symptoms on the left and subsequently the right side, with improvement from therapies being transient. An episode of diagnostic medial branch block at L2 and L3-4 delivered temporary >80% relief, indicative of possible facet joint arthropathy, yet persistent dynamic instability at L3-4 continues. Pain Description - Onset: Progressive over the past month. - Quality: Positional; worsens with movements like bending forward, backward, or lateral bending, and with prolonged sitting or standing. - Location: Predominantly lower back, initially left-sided then right-sided involvement. - Exacerbating Factors: Movement of spine, sitting, standing. - Alleviating Factors: Transient relief with physical therapy and a diagnostic medial branch block. - Impact: Significant reduction in ambulation; difficulty in walking more than half a mile compared to three miles previously. Physical Exam - Appears afebrile. - Alert and oriented. - Mood and affect appropriate. - Follows and participates in conversation appropriately. - Respiratory effort is unlabored. - Able to transition from sit to stand unassisted. - Ambulates with bilaterally normal heel strike and toe off. - Able to stand and walk on toes and heels. Pain Management - Affect: Pain significantly affects mood, reducing daily activity from prior abilities. - Analgesia: Limited benefit from current physical therapy; previous positive response to diagnostic medial branch block. - Adverse Effects: Not discussed. - Activities of Daily Living: Markedly impaired, unable to walk more than half a mile. - Aberrant Drug Related Behaviors: Not discussed. [facility] Medical History Pulmonary nodule GERD (gastroesophageal reflux disease) Spinal stenosis Cervical radiculopathy Ground glass opacity present on imaging of lung Mesenteric panniculitis Lumbosacral radiculitis Controlled type 2 diabetes mellitus Essential hypertension Surgical History History of laminectomy (2019) Hx of varicose vein ligation (~1998) Hx of colonoscopy Hx of appendectomy (~1974) Social History Housing: House Are you a primary chronic care nurse to a significant other at home: No Do you presently have visiting nurse or other home services: No Patient Tobacco Use Status: Former Tobacco user Tobacco use type: Cigarette Cigarette Packs Per Day: 1 Years Smoked: 20 e-Cigarette/Vaping Use: Never Used service: Yes Current occupational status: employed 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 Current occupational exposures/hazards: No Cognitive needs: No Hearing needs: No Vision needs: No Physical Exam Vital Signs: Last Vital Signs Pulse 76 11/05/24 09:25 Resp 16 11/05/24 09:25 BP 156/73 H 11/05/24 09:25 Pulse Ox 99 11/05/24 09:25 Oxygen Delivery Method Room Air 11/05/24 09:25 BMI result Body Mass Index 36.6 Assessment & Plan Assessment & Plan (1) Lumbar spondylosis: Code(s): M47.816 - Spondylosis without myelopathy or radiculopathy, lumbar region Category: Medical (2) Status post lumbar spine surgery for decompression of spinal cord: Code(s): Z98.890 - Other specified postprocedural states Category: Surgical (3) Neuroforaminal stenosis of lumbar spine: Code(s): M48.061 - Spinal stenosis, lumbar region without neurogenic claudication Category: Medical Plan Plan - Schedule right L3 medial branch temporary nerve stimulator placement to address chronic pain. - Consider left-sided intervention depending on the outcome of the right-sided approach. - Monitor and assess potential impact on dynamic spinal irritation; plan adjustments if no improvement is observed post-placement. Patient was informed and verbally consented to the use of an ambient scribe for clinic note documentation during this visit. Discussion Notes I discussed with the patient the chronic nature of his low back pain, likely due to post-surgical instability and lumbar facet arthropathy. We reviewed the challenges in achieving long-term relief due to complexities from previous surgeries and scar tissue formation. I detailed the plan for right-sided L3 medial branch nerve stimulator placement, emphasizing its potential benefits and procedure risks, including reinforcing function while masking pain. Both side efficacy and safety were confirmed, especially considering potential dynamic irritation which may need further differential strategies if unresolved. Insurance authorization for the procedure will be sought, and the patient consented to follow up depending on initial outcomes. Patient Instructions - Await insurance approval for the nerve stimulator procedure. - Plan to return in two weeks for potential bilateral nerve stimulator placement. - Avoid exacerbating activities; no pool or bath until two months post- procedure. - Showering is permitted immediately post-procedure. - Arrange follow-ups as recommended based on symptom improvement. Coding Level of Care Code Est Pt Level 4 (21721) Diagnoses Lumbar spondylosis M47.816 Status post lumbar spine surgery for decompression of spinal cord Z98.890 Neuroforaminal stenosis of lumbar spine M48.061
[2024-11-05 09:25] VITALS: BP 156/73; PULSE 76; RESP 16; O2SAT 99; BMI 36.6
--- OUTSIDE RECORDS SUMMARY | 2024-11-05 10:07 | XMS_ITS | Encounter Summary ---
Author Organization [facility] Address [address] [place] [address] Care Team Providers Care Laborer Airport Maintenance Name Role Phone Jannet Doherty MD Primary Care Provider Unavailable Cain Cooley DO Primary Care Provider UnavailMichael Leonard MD Unavailable Namita Brown MD Primary Care Provider Un available Vahid Baum PA-C Unavailable [phone] Encounter Details Date Type Department Care Team Description 05/18/2021 Orders Only Medical Records [address] [place] [address] Alex Navarrete MD [address] [place] [address] Social History Tobacco Use Types Packs/Day Years [...] 09/13/2022 How often do you attend [facility] or adventist services? Never 09/13/2022 Do you [...] on filedocumented in this encounter Care Teams Laborer Airport Maintenance Relationship Specialty Start Date End Date Jannet Doherty MD PCP - General Internal Medicine 02/27/17 07/17/21 Cain Cooley DO PCP - General Internal Medicine 07/18/21 12/24/23 Namita Brown MD PCP - General Internal Medicine 12/25/23 Michael Herron MD Lung Cancer Reservations Manager 10/08/23 Vahid Baum PA-C [address] [place] [phone] Specialist Thoracic Surgery 04/02/24 documented as of this encounter
--- OUTSIDE RECORDS SUMMARY | 2024-11-05 10:07 | XMS_ITS | Encounter Summary ---
Author Organization [facility] Address [address] [place] [address] Care Team Providers Care Label Printing Machinist Name Role Phone Jannet Doherty MD Primary Care Provider Unavailable Cain Cooley DO Primary Care Provider UnavailMichael Leonard MD Unavailable Namita Brown MD Primary Care Provider Un available Vahid Baum PA-C Unavailable [phone] Reason for Visit * Reason Comments E-prescribe Rx Request Encounter Details Date Type Department Care Team Description 12/01/2018 Refill Adult Medicine [address] [address] Jannet Doherty MD E-prescribe Rx Request Social [...] week 09/13/2022 How often do you attend [facility] or druze services? Never 09/13/2022 Do you belong to any clubs o r organizations such as orthodoxy groups, unions, fraternal or athletic groups, or [...] on filedocumented in this encounter Care Teams Label Printing Machinist Relationship Specialty Start Date End Date Jannet Doherty MD PCP - General Internal Medicine 02/27/17 07/17/21 Cain Cooley DO PCP - General Internal Medicine 07/18/21 12/24/23 Namita Brown MD PCP - General Internal Medicine 12/25/23 Michael Herron MD Lung Cancer Bull Gang Worker 10/08/23 Vahid Baum PA-C [address] [place] [phone] Specialist Thoracic Surgery 04/02/24 documented as of this encounter
--- OUTSIDE RECORDS SUMMARY | 2024-11-05 10:07 | XMS_ITS | Encounter Summary ---
Author Organization [facility] Address [address] [place] [address] Care Team Providers Care Geospatial Technician Name Role Phone Michael Herron MD Unavailable Namita Brown MD Primary Care Provider Un available Vahid Baum PA-C Unavailable Encounter Details Date Type Department Care Team Description 02/12/2024 Pt. Non Urgent Medic al Question Adult Medicine - [address] [address] Namita Brown MD Social History Tobacco Use [...] out again. My brother this weekend in [place]. Did a lot of driving and was in his ICU room for 36 hour straight. Was hoping for a refill on the prednisone and roboxin. I did submit the refill requeat documented in this encounter Plan of Treatment Not on file documented as of this encounter Visit Diagnoses Not on filedocumented in this encounter Care Teams Geospatial Technician Relationship Specialty Start Date End Date Namita Brown MD PCP - General Internal Medicine 12/25/23 Michael Herron MD Lung Cancer Organ Pipe Voicer 10/08/23 Vaihd Baum PA-C [address] [place] [phone] Specialist Thoracic Surgery 04/02/24 documented as of this encounter
--- OUTSIDE RECORDS SUMMARY | 2024-11-05 10:07 | XMS_ITS | Encounter Summary ---
Author Organization [facility] Address [address] [place] [address] Care Team Providers Care Senior Construction Manager Name Role Phone Jannet Doherty MD Primary Care Provider Unavailable Cain Cooley DO Primary Care Provider UnavailMichael Leonard MD Unavailable Namita Brown MD Primary Care Provider Un available Vahid Baum PA-C Unavailable Encounter Details Date Type Department Care Team Description 09/30/2019 Refill Adult Medicine [address] [address] Jannet Doherty MD Social History Tobacco Use [...] How often do you attend [facility] or latter-day services? Never 09/13/2022 Do you belong to any clubs o r organizations such as gnosticist groups, unions, fraternal or athletic groups, or [...] filedocumented in this encounter Care Teams Senior Construction Manager Relationship Specialty Start Date End Date Jannet Doherty MD PCP - General Internal Medicine 02/27/17 07/17/21 Cain Cooley DO PCP - General Internal Medicine 07/18/21 12/24/23 Namita Brown MD PCP - General Internal Medicine 12/25/23 Michael Herron MD Lung Cancer Supervisor Assembly Room 10/08/23 Vahid Baum PA-C [address] [place] [phone] Specialist Thoracic Surgery 04/02/24 documented as of this encounter
--- OUTSIDE RECORDS SUMMARY | 2024-11-05 10:07 | XMS_ITS | Encounter Summary ---
Author Organization [facility] Address [address] [place] [address] Care Team Providers Care Rn Licensed Practical Name Role Phone Cain Cooley DO Primary Care Provider UnavailMichael Leonard MD Unavailable Namita Brown MD Primary Care Provider Un available Vahid Baum PA-C Unavailable [phone] Encounter Details Date Type Department Care Team Description 04/05/2022 [facility] Adult Medicine [address] [address] Cain Cooley DO Social History Tobacco Use [...] often do you attend chur ch or sikhism services? Never 09/13/2022 Do you [...] filedocumented in this encounter Care Teams Rn Licensed Practical Relationship Specialty Start Date End Date Cain Cooley DO PCP - General Internal Medicine 07/18/21 12/24/23 Namita Brown MD PCP - General Internal Medicine 12/25/23 Michael Herron MD Lung Cancer University Registrar 10/08/23 Vahid Baum PA-C [address] [place] [phone] Specialist Thoracic Surgery 04/02/24 documented as of this encounter
--- OUTSIDE RECORDS SUMMARY | 2024-11-05 10:07 | XMS_ITS | Encounter Summary ---
Author Organization [facility] Address [address] [place] [address] Care Team Providers Care Farm Management Supervisor Name Role Phone Cain Cooley DO Primary Care Provider UnavailMichael Leonard MD Unavailable Namita Brown MD Primary Care Provider Un available Vahid Baum PA-C Unavailable [phone] Encounter Details Date Type Department Care Team Description 03/10/2022 [facility] Medical Records [address] [place] [id number] Abstract, Provider Social History Tobacco Use Types [...] often do you attend chur ch or restorationist services? Never 09/13/2022 Do you belong to [...] filedocumented in this encounter Care Teams Farm Management Supervisor Relationship Specialty Start Date End Date Cain Cooley DO PCP - General Internal Medicine 07/18/21 12/24/23 Namita Brown MD PCP - General Internal Medicine 12/25/23 Michael Herron MD Lung Cancer Data Communications Software Consultant 10/08/23 Vahid Baum PA-C [address] [place] [phone] Specialist Thoracic Surgery 04/02/24 documented as of this encounter
--- OUTSIDE RECORDS SUMMARY | 2024-11-05 10:07 | XMS_ITS | Encounter Summary ---
Author Organization [facility] Address [address] [place] [address] Care Team Providers Care Training And Development Manager Name Role Phone Jannet Doherty MD Primary Care Provider Unavailable Cain Cooley DO Primary Care Provider UnavailMichael Leonard MD Unavailable Namita Brown MD Primary Care Provider Un available Vahid Baum PA-C Unavailable [phone] Reason for Visit * Reason Comments E-prescribe Rx Request Encounter Details Date Type Department Care Team Description 05/26/2020 Refill Adult Medicine [address] [address] Jannet Doherty MD E-prescribe Rx Request Social [...] you attend [facility] or episcopal services? Never 09/13/2022 Do you [...] an upcoming appointment? No-unable to reach left [facility] to call for appointment due to refill [...] ?? Patients current insurance carrier is: Payor: -[place] FFS / Plan: JOSÉ LUIS GARCIA $20/$35 / Product Type: HMO [id number] ? documented in this encounter Plan of Treatment Not on file documented as of this encounter Visit Diagnoses Not on filedocumented in this encounter Care Teams Training And Development Manager Relationship Specialty Start Date End Date Jannet Doherty MD PCP - General Internal Medicine 02/27/17 07/17/21 Cain Cooley DO PCP - General Internal Medicine 07/18/21 12/24/23 Namita Brown MD PCP - General Internal Medicine 12/25/23 Michael Herron MD Lung Cancer Jewelry Casting Model Maker Apprentice 10/08/23 Vahid Baum PA-C [address] [phone] Specialist Thoracic Surgery 04/02/24 documented as of this encounter
--- OUTSIDE RECORDS SUMMARY | 2024-11-05 10:07 | XMS_ITS | Encounter Summary ---
Author Organization [facility] Address [address] [place] [address] Care Team Providers Care Particle Board Supervisor Name Role Phone Jannet Doherty MD Primary Care Provider Unavailable Cain Cooley DO Primary Care Provider UnavailMichael Leonard MD Unavailable Namita Brown MD Primary Care Provider Un available Vahid Baum PA-C Unavailable [phone] Encounter Details Date Type Department Care Team Description [facility] Medical Records [address] [place] [id number] Abstract, Provider Social History Tobacco Use Types [...] often do you attend chur ch or restorationism services? Never 09/13/2022 Do you [...] on filedocumented in this encounter Care Teams Particle Board Supervisor Relationship Specialty Start Date End Date Jannet Doherty MD PCP - General Internal Medicine 02/27/17 07/17/21 Cain oColey DO PCP - General Internal Medicine 07/18/21 12/24/23 Namita Brown MD PCP - General Internal Medicine 12/25/23 Michael Herron MD Lung Cancer Special Officer 10/08/23 Vahid Baum PA-C [address] [phone] Specialist Thoracic Surgery 04/02/24 documented as of this encounter
--- OUTSIDE RECORDS SUMMARY | 2024-11-05 10:07 | XMS_ITS | Encounter Summary ---
Author Organization [facility] Address [address] [place] [address] Care Team Providers Care Automobile Carpets Molder Name Role Phone Michael Herron MD Unavailable Namita Brown MD Primary Care Provider Un available Vahid Baum PA-C Unavailable [phone] Encounter Details Date Type Department Care Team Description 12/31/2023 Refill Adult Medicine [address] [address] Cain Cooley, DO Social History Tobacco Use [...] often do you attend chur ch or bahai services? Never 09/13/2022 Do you belong to [...] following medications: Other - Prednisone Preferred pharmacy: [id number] - [address] Medication renewals requested in this message routed separately: methocarbamol (ROBAXIN) 750 MG tablet [James Cooley, DO] documented in this encounter Plan of Treatment Not on file documented as of this encounter Visit Diagnoses Not on filedocumented in this encounter Care Teams Automobile Carpets Molder Relationship Specialty Start Date End Date Namita Brown MD PCP - General Internal Medicine 12/25/23 Michael Herron MD Lung Cancer Carpet Repairer 10/08/23 Vahid Baum PA-C [address] [place] [phone] Specialist Thoracic Surgery 04/02/24 documented as of this encounter
--- OUTSIDE RECORDS SUMMARY | 2024-11-05 10:07 | XMS_ITS | Encounter Summary ---
Author Organization [facility] Address [address] [place] [address] Care Team Providers Care Executive Chairman Of The Board Name Role Phone Jannet Doherty MD Primary Care Provider Unavailable Cain Cooley DO Primary Care Provider UnavailMichael Leonard MD Unavailable Namita Brown MD Primary Care Provider Un available Vahid Baum PA-C Unavailable [phone] Encounter Details Date Type Department Care Team Description 06/16/2020 Refill Adult Medicine [address] [address] Jannet Doherty MD Social History Tobacco Use [...] do you attend [facility] or jainism services? Never 09/13/2022 Do you [...] Encounter - Brigette Barber L.P.N. - 06/16/2020 11:57 AM EST Placed at patient fruit picker * Telephone Encounter - Brigette Barber L.P.N. [...] on filedocumented in this encounter Care Teams Executive Chairman Of The Board Relationship Specialty Start Date End Date Jannet Doherty MD PCP - General Internal Medicine 02/27/17 07/17/21 Cain Cooley DO PCP - General Internal Medicine 07/18/21 12/24/23 Namita Brown MD PCP - General Internal Medicine 12/25/23 Michael Herron MD Lung Cancer Oil Pit Attendant 10/08/23 Vahid Baum PA-C [address] [place] [phone] Specialist Thoracic Surgery 04/02/24 documented as of this encounter
--- OUTSIDE RECORDS SUMMARY | 2024-11-05 10:07 | XMS_ITS | Encounter Summary ---
Author Organization [facility] Address [address] [place] [address] Care Team Providers Care Block Sealer Name Role Phone Cain Cooley DO Primary Care Provider UnavailMichael Leonard MD Unavailable Namita Brown MD Primary Care Provider Un available Vahid Baum PA-C Unavailable [phone] Encounter Details Date Type Department Care Team Description 07/01/2022 Refill Adult Medicine [address] [address] Jannet Doherty MD Social History Tobacco Use [...] on filedocumented in this encounter Care Teams Block Sealer Relationship Specialty Start Date End Date Cain Cooley DO PCP - General Internal Medicine 07/18/21 12/24/23 Namita Brown MD PCP - General Internal Medicine 12/25/23 Michael Herron MD Lung Cancer Sole Rounding Machine Operator 10/08/23 Vahid Baum PA-C [address] [place] [phone] Specialist Thoracic Surgery 04/02/24 documented as of this encounter
--- OUTSIDE RECORDS SUMMARY | 2024-11-05 10:07 | XMS_ITS | Clinical Summary ---
Author Organization [facility] Address [address] [place] [address] Care Team Providers Care Transition Nurse Name Role Phone Cain Cooley DO Primary Care Provider [phone] Allergies No known active allergies Medications Medication [...] age to complete this topic Care Teams Transition Nurse Relationship Specialty Start Date End Date Cain Cooley DO [address] [place] [address] PCP - General Family Medicine 03/30/23
--- OUTSIDE RECORDS SUMMARY | 2024-11-05 10:07 | XMS_ITS | Clinical Summary ---
Author Organization [facility] Address [address] [place] [address] Care Team Providers Care Horse Groomer Name Role Phone Michael Herron MD Unavailable Namita Brown MD Primary Care Provider Un available Vahid Baum PA-C Unavailable [phone] Allergies No known active allergies Medications Medication [...] a CT scan of the chest at [facility] on 06/19/2023. Thoracic surgery has been following [...] sleep. He was instructed to trial a [id number] PPI she has omeprazole and to continue [...] HEPATITIS C SCREENING Completed 10/22/2017 Care Teams Horse Groomer Relationship Specialty Start Date End Date Namita Brown MD PCP - General Internal Medicine 12/25/23 Michael Herron MD Lung Cancer Employee Relations Administrator 10/08/23 Vahid Baum PA-C [address] [place] [address] Specialist Thoracic Surgery 04/02/24
--- OUTSIDE RECORDS SUMMARY | 2024-11-05 10:07 | XMS_ITS | Encounter Summary ---
Author Organization [facility] Address [address] [place] [address] Care Team Providers Care Airline Pilot Flight Instructor Name Role Phone Jannet Doherty MD Primary Care Provider Unavailable Cain Cooley DO Primary Care Provider UnavailMichael Leonard MD Unavailable Namita Brown MD Primary Care Provider Un available Vahid Baum PA-C Unavailable [phone] Encounter Details Date Type Department Care Team Description 01/02/2019 Baggage Agent Supervisor Report Medical Records [address] [place] [address] Swapnil Casey MD Social History Tobacco Use [...] often do you attend chur ch or gnosticist services? Never 09/13/2022 Do you belong to [...] on filedocumented in this encounter Care Teams Airline Pilot Flight Instructor Relationship Specialty Start Date End Date Jannet Doherty MD PCP - General Internal Medicine 02/27/17 07/17/21 Cain Cooley DO PCP - General Internal Medicine 07/18/21 12/24/23 Namita Brown MD PCP - General Internal Medicine 12/25/23 Michael Herron MD Lung Cancer Glaciologist 10/08/23 Vahid Baum PA-C [address] [place] [phone] Specialist Thoracic Surgery 04/02/24 documented as of this encounter
--- OUTSIDE RECORDS SUMMARY | 2024-11-05 10:07 | XMS_ITS | Encounter Summary ---
Author Organization [facility] Address [address] [place] [address] Care Team Providers Care Hvac Designer Name Role Phone Jannet Doherty MD Primary Care Provider Unavailable Cain Cooley DO Primary Care Provider UnavailMichael Leonard MD Unavailable Namita Brown MD Primary Care Provider Un available Vahid Baum PA-C Unavailable [phone] Encounter Details Date Type Department Care Team Description 09/27/2019 Refill Adult Medicine [address] [address] Jannet Doherty MD Social History Tobacco Use [...] week 09/13/2022 How often do you attend [facility] or gnosticism services? Never 09/13/2022 Do you [...] on filedocumented in this encounter Care Teams Hvac Designer Relationship Specialty Start Date End Date Jannet Doherty MD PCP - General Internal Medicine 02/27/17 07/17/21 Cain Cooley DO PCP - General Internal Medicine 07/18/21 12/24/23 Namita Brown MD PCP - General Internal Medicine 12/25/23 Michael Herron MD Lung Cancer Rock Loader 10/08/23 Vahid Baum PA-C [address] [place] [phone] Specialist Thoracic Surgery 04/02/24 documented as of this encounter
--- OUTSIDE RECORDS SUMMARY | 2024-11-05 10:07 | XMS_ITS | Encounter Summary ---
Author Organization [facility] Address [address] [place] [address] Care Team Providers Care Primer Boxer Name Role Phone Jannet Doherty MD Primary Care Provider Unavailable Cain Cooley DO Primary Care Provider UnavailMichael Leonard MD Unavailable Namita Brown MD Primary Care Provider Un available Vahid Baum PA-C Unavailable [phone] Encounter Details Date Type Department Care Team Description 12/12/2018 [facility] Medical Records [address] [place] [address] Abstract, Provider Social History Tobacco Use Types [...] on filedocumented in this encounter Care Teams Primer Boxer Relationship Specialty Start Date End Date Jannet Doherty MD PCP - General Internal Medicine 02/27/17 07/17/21 Cain Cooley DO PCP - General Internal Medicine 07/18/21 12/24/23 Namita Brown MD PCP - General Internal Medicine 12/25/23 Michael Herron MD Lung Cancer Package Maker 10/08/23 Vahid Baum PA-C [address] [phone] Specialist Thoracic Surgery 04/02/24 documented as of this encounter
--- OUTSIDE RECORDS SUMMARY | 2024-11-05 10:07 | XMS_ITS | Encounter Summary ---
Author Organization [facility] Address [address] [place] [address] Care Team Providers Care Spare Hand Carding Name Role Phone Jannet Doherty MD Primary Care Provider Unavailable Cain Cooley DO Primary Care Provider UnavailMichael Leonard MD Unavailable Namita Brown MD Primary Care Provider Un available Vahid Baum PA-C Unavailable [phone] Encounter Details Date Type Department Care Team Description 12/03/2018 Wares Sorter Report Medical Records [address] [place] [address] Swapnil Casey MD Social History Tobacco Use [...] on filedocumented in this encounter Care Teams Spare Hand Carding Relationship Specialty Start Date End Date Jannet Doherty MD PCP - General Internal Medicine 02/27/17 07/17/21 Cain Cooley DO PCP - General Internal Medicine 07/18/21 12/24/23 Namita Brown MD PCP - General Internal Medicine 12/25/23 Michael Herron MD Lung Cancer Calcine Furnace Loader 10/08/23 Vahid Baum PA-C [address] [place] [phone] Specialist Thoracic Surgery 04/02/24 documented as of this encounter
--- OUTSIDE RECORDS SUMMARY | 2024-11-05 10:07 | XMS_ITS | Encounter Summary ---
Author Organization [facility] Address [address] [place] [address] Care Team Providers Care Cut Off Machine Helper Name Role Phone Cain Cooley DO Primary Care Provider UnavailMichael Leonard MD Unavailable Namita Brown MD Primary Care Provider Un available Vahid Baum PA-C Unavailable [phone] Encounter Details Date Type Department Care Team Description 08/23/2021 Pt. Non Urgent Medic al Question Adult Medicine - [address] [address] Cain Cooley, Social History Tobacco Use Types [...] often do you attend chur ch or amish services? Never 09/13/2022 Do you [...] night that I had to be in [facility] for work to cover for someone who [...] on filedocumented in this encounter Care Teams Cut Off Machine Helper Relationship Specialty Start Date End Date Cain Cooley DO PCP - General Internal Medicine 07/18/21 12/24/23 Namita Brown MD PCP - General Internal Medicine 12/25/23 Michael Herron MD Lung Cancer Heel Nail Rasper 10/08/23 Vahid Baum PA-C [address] [place] [phone] Specialist Thoracic Surgery 04/02/24 documented as of this encounter
--- OUTSIDE RECORDS SUMMARY | 2024-11-05 10:07 | XMS_ITS | Encounter Summary ---
Author Organization [facility] Address [address] [place] [address] Care Team Providers Care Teacher Of The Sight Impaired Name Role Phone Jannet Doherty MD Primary Care Provider Unavailable Cain Cooley DO Primary Care Provider UnavailMichael Leonard MD Unavailable Namita Brown MD Primary Care Provider Un available Vahid Baum PA-C Unavailable [phone] Encounter Details Date Type Department Care Team Description 05/03/2017 Pt. Non Urgent Medic al Question Adult Medicine - [address] [address] Nuris Rivera PA-C Social History Tobacco Use [...] you attend [facility] or adventism services? Never 09/13/2022 Do you [...] on filedocumented in this encounter Care Teams Teacher Of The Sight Impaired Relationship Specialty Start Date End Date Jannet Doherty MD PCP - General Internal Medicine 02/27/17 07/17/21 Cain Cooley DO PCP - General Internal Medicine 07/18/21 12/24/23 Namita Brown MD PCP - General Internal Medicine 12/25/23 Michael Herron MD Lung Cancer Tuna Purse Seiner 10/08/23 Vahid Baum PA-C [address] [place] [phone] Specialist Thoracic Surgery 04/02/24 documented as of this encounter
--- OUTSIDE RECORDS SUMMARY | 2024-11-05 10:07 | XMS_ITS | Encounter Summary ---
Author Organization [facility] Address [address] [place] [address] Care Team Providers Care Business Unit Leader Name Role Phone Jannet Doherty MD Primary Care Provider Unavailable Cain Cooley DO Primary Care Provider UnavailMichael Leonard MD Unavailable Namita Brown MD Primary Care Provider Un available Vahid Baum PA-C Unavailable [phone] Encounter Details Date Type Department Care Team Description 01/29/2020 Orders Only Medical Records [address] [place] [address] Jannet Doherty MD Social History Tobacco Use [...] How often do you attend chur or judaism services? Never 09/13/2022 Do you belong to any clubs o r organizations such as sabianism groups, unions, fraternal or athletic groups, or [...] filedocumented in this encounter Care Teams Business Unit Leader Relationship Specialty Start Date End Date Jannet Doherty MD PCP - General Internal Medicine 02/27/17 07/17/21 Cain Cooley DO PCP - General Internal Medicine 07/18/21 12/24/23 Namita Brown MD PCP - General Internal Medicine 12/25/23 Michael Herron MD Lung Cancer Complex Care Nurse 10/08/23 Vahid Baum PA-C [address] [place] [phone] Specialist Thoracic Surgery 04/02/24 documented as of this encounter
--- OUTSIDE RECORDS SUMMARY | 2024-11-05 10:08 | XMS_ITS | Encounter Summary ---
Author Organization [facility] Address [address] [place] [address] Care Team Providers Care Manager Surgical Name Role Phone Jannet Doherty MD Primary Care Provider Unavailable Cain Cooley DO Primary Care Provider UnavailMichael Leonard MD Unavailable Namita Brown MD Primary Care Provider Un available Vahid Baum PA-C Unavailable [phone] Encounter Details Date Type Department Care Team Description 06/04/2018 [facility] Medical Records [address] [place] [address] Abstract, Provider Social History Tobacco Use Types [...] filedocumented in this encounter Care Teams Manager Surgical Relationship Specialty Start Date End Date Jannet Doherty MD PCP - General Internal Medicine 02/27/17 07/17/21 Cain Cooley DO PCP - General Internal Medicine 07/18/21 12/24/23 Namita Brown MD PCP - General Internal Medicine 12/25/23 Michael Herron MD Lung Cancer Pharmaceutical Representative 10/08/23 Vahid Baum PA-C [address] [phone] Specialist Thoracic Surgery 04/02/24 documented as of this encounter
--- OUTSIDE RECORDS SUMMARY | 2024-11-05 10:08 | XMS_ITS | Encounter Summary ---
Author Organization [facility] Address [address] [place] [address] Care Team Providers Care Customer Agent Name Role Phone Cain Cooley DO Primary Care Provider UnavailMichael Leonard MD Unavailable Namita Brown MD Primary Care Provider Un available Vahid Baum PA-C Unavailable [phone] Reason for Visit * Reason Comments E-prescribe Rx Request Encounter Details Date Type Department Care Team Description 05/12/2023 Refill Adult Medicine [address] [address] Yoli Mckeon PA-C [address] [place] [address] E-prescribe Rx Request Social History Tobacco Use [...] week 09/13/2022 How often do you attend [facility] or synagogue services? Never 09/13/2022 Do [...] current insurance carrier is: Payor: [facility]/HMO FFS / Plan: JOSÉ LUIS GARCIA $20/$35 / Product Type: HMO [id number] documented in this encounter Plan of Treatment Not on file documented as of this encounter Visit Diagnoses Diagnosis Type 2 diabetes mellitus without complication, without long-term current use of insulin (HCC) documented in this encounter Care Teams Customer Agent Relationship Specialty Start Date End Date Cain Cooley DO PCP - General Internal Medicine 07/18/21 12/24/23 Namita Brown MD PCP - General Internal Medicine 12/25/23 Michael Herron MD Lung Cancer Ironworker Wire Fence Erector 10/08/23 Vahid Baum PA-C [address] [place] [phone] Specialist Thoracic Surgery 04/02/24 documented as of this encounter
--- OUTSIDE RECORDS SUMMARY | 2024-11-05 10:08 | XMS_ITS | Encounter Summary ---
Author Organization [facility] Address [address] [place] [address] Care Team Providers Care Licensed Plumber Name Role Phone Cain Cooley DO Primary Care Provider UnavailMichael Leonard MD Unavailable Namita Brown MD Primary Care Provider Un available Vahid Baum PA-C Unavailable [phone] Encounter Details Date Type Department Care Team Description 06/26/2023 Orders Only Medical Records [address] [place] [address] Abstract, Provider Social History Tobacco Use Types [...] any clubs o r organizations such as adventist groups, unions, fraternal or athletic groups, or [...] on filedocumented in this encounter Care Teams Licensed Plumber Relationship Specialty Start Date End Date Cain Cooley DO PCP - General Internal Medicine 07/18/21 12/24/23 Namita Brown MD PCP - General Internal Medicine 12/25/23 Michael Herron MD Lung Cancer Oracle Security Consultant 10/08/23 Vahid Baum PA-C [address] [place] [phone] Specialist Thoracic Surgery 04/02/24 documented as of this encounter
--- OUTSIDE RECORDS SUMMARY | 2024-11-05 10:08 | XMS_ITS | Encounter Summary ---
Author Organization [facility] Address [address] [place] [address] Care Team Providers Care Processor Helper Name Role Phone Jannet Doherty MD Primary Care Provider Unavailable Cain Cooley DO Primary Care Provider UnavailMichael Leonard MD Unavailable Namita Brown MD Primary Care Provider Un available Vahid Baum PA-C Unavailable [phone] Encounter Details Date Type Department Care Team Description 09/18/2018 Pt. Non Urgent Medic al Question Adult Medicine - [address] [address] Jannet Doherty MD Social History Tobacco Use [...] do you attend [facility] or muslim services? Never 09/13/2022 Do you [...] on filedocumented in this encounter Care Teams Processor Helper Relationship Specialty Start Date End Date Jannet Doherty MD PCP - General Internal Medicine 02/27/17 07/17/21 Cain Cooley DO PCP - General Internal Medicine 07/18/21 12/24/23 Namita Brown MD PCP - General Internal Medicine 12/25/23 Michael Herron MD Lung Cancer Aoc Director Combat Operations Officer 10/08/23 Vahid Baum PA-C [address] [place] [phone] Specialist Thoracic Surgery 04/02/24 documented as of this encounter
--- OUTSIDE RECORDS SUMMARY | 2024-11-05 10:08 | XMS_ITS | Encounter Summary ---
Author Organization [facility] Address [address] [place] [address] Care Team Providers Care Retort Load Expediter Name Role Phone Cain Cooley DO Primary Care Provider UnavailMichael Leonard MD Unavailable Namita Brown MD Primary Care Provider Un available Vahid Baum PA-C Unavailable [phone] Encounter Details Date Type Department Care Team Description 09/07/2023 Pt. Non Urgent Medic al Question Adult Medicine - [address] [address] Cain Cooley, Social History Tobacco Use Types [...] on filedocumented in this encounter Care Teams Retort Load Expediter Relationship Specialty Start Date End Date Cain Cooley DO PCP - General Internal Medicine 07/18/21 12/24/23 Namita Brown MD PCP - General Internal Medicine 12/25/23 Michael Herron MD Lung Cancer Neonatal Doctor 10/08/23 Vahid Baum PA-C [address] [phone] Specialist Thoracic Surgery 04/02/24 documented as of this encounter
--- OUTSIDE RECORDS SUMMARY | 2024-11-05 10:08 | XMS_ITS | Encounter Summary ---
Author Organization [facility] Address [address] [place] [address] Care Team Providers Care Construction Job Cost Estimator Name Role Phone Cain Cooley DO Primary Care Provider UnavailMichael Leonard MD Unavailable Namita Brown MD Primary Care Provider Un available Vahid Baum PA-C Unavailable [phone] Encounter Details Date Type Department Care Team Description 06/25/2023 Pt. Non Urgent Medic al Question Adult Medicine - [address] [address] Cain Cooley, Social History Tobacco Use Types [...] often do you attend chur ch or confucianist services? Never 09/13/2022 Do you belong to [...] on filedocumented in this encounter Care Teams Construction Job Cost Estimator Relationship Specialty Start Date End Date Cain Cooley DO PCP - General Internal Medicine 07/18/21 12/24/23 Namita Brown MD PCP - General Internal Medicine 12/25/23 Michael Herron MD Lung Cancer Home Health Clinician 10/08/23 Vahid Baum PA-C [address] [phone] Specialist Thoracic Surgery 04/02/24 documented as of this encounter
--- OUTSIDE RECORDS SUMMARY | 2024-11-05 10:08 | XMS_ITS | Encounter Summary ---
Author Organization [facility] Address [address] [place] [address] Care Team Providers Care Captain Room Service Name Role Phone Cain Cooley DO Primary Care Provider UnavailMichael Leonard MD Unavailable Namita Brown MD Primary Care Provider Un available Vahid Baum PA-C Unavailable [phone] Encounter Details Date Type Department Care Team Description 06/27/2023 Orders Only Medical Records [address] [place] [address] Génesis Valero PA-C Social History Tobacco Use [...] often do you attend chur ch or scientology services? Never 09/13/2022 Do you belong to [...] on filedocumented in this encounter Care Teams Captain Room Service Relationship Specialty Start Date End Date Cain Cooley DO PCP - General Internal Medicine 07/18/21 12/24/23 Namita Brown MD PCP - General Internal Medicine 12/25/23 Michael Herron MD Lung Cancer Wedding Designer 10/08/23 Vahid Baum PA-C [address] [place] [phone] Specialist Thoracic Surgery 04/02/24 documented as of this encounter
--- OUTSIDE RECORDS SUMMARY | 2024-11-05 10:08 | XMS_ITS | Encounter Summary ---
Author Organization [facility] Address [address] [place] [address] Care Team Providers Care Nitro Worker Name Role Phone Cain Cooley DO Primary Care Provider UnavailMichael Leonard MD Unavailable Namita Brown MD Primary Care Provider Un available Vahid Baum PA-C Unavailable Reason for Visit * Reason Onset Date Comments refill request 01/04/2022 Encounter Details Date Type Department Care Team Description 01/04/2022 Telephone [facility] Medical [facility] [address] [facility] [address] [place] [id number] Angelo Quan DPM refill request Social History [...] do you attend [facility] or mandaeism services? Never 09/13/2022 Do [...] Please call her with any questions @ [phone]. documented in this encounter Plan of Treatment Not on file documented as of this encounter Visit Diagnoses Not on filedocumented in this encounter Care Teams Nitro Worker Relationship Specialty Start Date End Date Cain Cooley DO PCP - General Internal Medicine 07/18/21 12/24/23 Namita Brown MD PCP - General Internal Medicine 12/25/23 Michael Herron MD Lung Cancer Chlorination Operator 10/08/23 Vahid Baum PA-C [address] [phone] Specialist Thoracic Surgery 04/02/24 documented as of this encounter
--- OUTSIDE RECORDS SUMMARY | 2024-11-05 10:08 | XMS_ITS | Encounter Summary ---
Author Organization [facility] Address [address] [place] [address] Care Team Providers Care Gate Technician Name Role Phone Jannet Doherty MD Primary Care Provider Unavailable Cain Cooley DO Primary Care Provider UnavailMichael Leonard MD Unavailable Namita Brown MD Primary Care Provider Un available Vahid Baum PA-C Unavailable [phone] Encounter Details Date Type Department Care Team Description 03/19/2019 [facility] Medical Records [address] [place] [address] Abstract, Provider Social History Tobacco Use Types [...] on filedocumented in this encounter Care Teams Gate Technician Relationship Specialty Start Date End Date Jannet Doherty MD PCP - General Internal Medicine 02/27/17 07/17/21 Cain Cooley DO PCP - General Internal Medicine 07/18/21 12/24/23 Namita Brown MD PCP - General Internal Medicine 12/25/23 Michael Herron MD Lung Cancer Curriculum Assistant 10/08/23 Vahid Baum PA-C [address] [phone] Specialist Thoracic Surgery 04/02/24 documented as of this encounter
--- OUTSIDE RECORDS SUMMARY | 2024-11-05 10:08 | XMS_ITS | Encounter Summary ---
Author Organization [facility] Address [address] [place] [address] Care Team Providers Care Beverage Distiller Name Role Phone Cain Cooley DO Primary Care Provider UnavailMichael Leonard MD Unavailable Namita Brown MD Primary Care Provider Un available Vahid Baum PA-C Unavailable [phone] Encounter Details Date Type Department Care Team Description 06/25/2023 Transfer Records Medical Records [address] [place] [address] Abstract, Provider Social History Tobacco Use Types [...] on filedocumented in this encounter Care Teams Beverage Distiller Relationship Specialty Start Date End Date Cain Cooley DO PCP - General Internal Medicine 07/18/21 12/24/23 Namita Brown MD PCP - General Internal Medicine 12/25/23 Michael Herron MD Lung Cancer Science Tutor 10/08/23 Vahid Baum PA-C [address] [place] [phone] Specialist Thoracic Surgery 04/02/24 documented as of this encounter
--- OUTSIDE RECORDS SUMMARY | 2024-11-05 10:08 | XMS_ITS | Encounter Summary ---
Author Organization [facility] Address [address] [place] [address] Care Team Providers Care Barkeep Name Role Phone Jannet Doherty MD Primary Care Provider Unavailable Cain Cooley DO Primary Care Provider UnavailMichael Leonard MD Unavailable Namita Brown MD Primary Care Provider Un available Vahid Baum PA-C Unavailable [phone] Encounter Details Date Type Department Care Team Description 10/28/2020 School Psychologist Assistant Report Medical Records [address] [place] [address] Amy Young Social History Tobacco Use Types [...] often do you attend chur ch or oriental orthodox services? Never 09/13/2022 Do [...] on filedocumented in this encounter Care Teams Barkeep Relationship Specialty Start Date End Date Jannet Doherty MD PCP - General Internal Medicine 02/27/17 07/17/21 Cain Cooley DO PCP - General Internal Medicine 07/18/21 12/24/23 Namita Brown MD PCP - General Internal Medicine 12/25/23 Michael Herron MD Lung Cancer Dredge Worker 10/08/23 Vahid Baum PA-C [address] [place] [phone] Specialist Thoracic Surgery 04/02/24 documented as of this encounter
--- OUTSIDE RECORDS SUMMARY | 2024-11-05 10:08 | XMS_ITS | Encounter Summary ---
Author Organization [facility] Address [address] [place] [address] Care Team Providers Care Entrepreneur Name Role Phone Cain Cooley DO Primary Care Provider UnavailMichael Leonard MD Unavailable Namita Brown MD Primary Care Provider Un available Vahid Baum PA-C Unavailable [phone] Encounter Details Date Type Department Care Team Description 08/13/2023 Pt. Non Urgent Medical Question Gastroenterology - [place] [address] [facility] [address] [place] [address] Pratik Looney PA-C [address] [facility] [address] [place] [address] Social History Tobacco Use Types Packs/Day Years [...] often do you attend [facility] or moravian services? Never 09/13/2022 Do you [...] on filedocumented in this encounter Care Teams Entrepreneur Relationship Specialty Start Date End Date Cain Cooley DO PCP - General Internal Medicine 07/18/21 12/24/23 Namita Brown MD PCP - General Internal Medicine 12/25/23 Michael Herron MD Lung Cancer Cemetery Vault Installer 10/08/23 Vahid Baum PA-C [address] [place] [phone] Specialist Thoracic Surgery 04/02/24 documented as of this encounter
--- OUTSIDE RECORDS SUMMARY | 2024-11-05 10:08 | XMS_ITS | Encounter Summary ---
Author Organization [facility] Address [address] [place] [address] Care Team Providers Care Train Crew Member Name Role Phone Cain Cooley DO Primary Care Provider UnavailMichael Leonard MD Unavailable Namita Brown MD Primary Care Provider Un available Vahid Baum PA-C Unavailable [phone] Encounter Details Date Type Department Care Team Description 06/13/2023 Merchandiser Seasonal Report Medical Records [address] [place] [address] Génesis Valero PA-C Social History Tobacco Use [...] any clubs o r organizations such as anabaptism groups, unions, fraternal or athletic groups, or [...] on filedocumented in this encounter Care Teams Train Crew Member Relationship Specialty Start Date End Date Cain Cooley DO PCP - General Internal Medicine 07/18/21 12/24/23 Namita Brown MD PCP - General Internal Medicine 12/25/23 Michael Herron MD Lung Cancer Precision Crop Manager 10/08/23 Vahid Baum PA-C [address] [place] [phone] Specialist Thoracic Surgery 04/02/24 documented as of this encounter
--- OUTSIDE RECORDS SUMMARY | 2024-11-05 10:08 | XMS_ITS | Encounter Summary ---
Author Organization [facility] Address [address] [place] [address] Care Team Providers Care Rn Plastic Surgery Name Role Phone Jannet Doherty MD Primary Care Provider Unavailable Cain Cooley DO Primary Care Provider UnavailMichael Leonard MD Unavailable Namita Brown MD Primary Care Provider Un available Vahid Baum PA-C Unavailable [phone] Encounter Details Date Type Department Care Team Description 04/15/2019 Release of Information Medical Records [address] [place] [address] Abstract, Provider Social History Tobacco Use Types [...] filedocumented in this encounter Care Teams Rn Plastic Surgery Relationship Specialty Start Date End Date Jannet Doherty MD PCP - General Internal Medicine 02/27/17 07/17/21 Cain Cooley DO PCP - General Internal Medicine 07/18/21 12/24/23 Namita Brown MD PCP - General Internal Medicine 12/25/23 Michael Herron MD Lung Cancer Mortgage Professional 10/08/23 Vahid Baum PA-C [address] [phone] Specialist Thoracic Surgery 04/02/24 documented as of this encounter
--- OUTSIDE RECORDS SUMMARY | 2024-11-05 10:08 | XMS_ITS | Encounter Summary ---
Author Organization [facility] Address [address] [place] [address] Care Team Providers Care Floor Mechanic Name Role Phone Michael Herron MD Unavailable Namita Brown MD Primary Care Provider Un available Vahid Baum PA-C Unavailable [phone] Encounter Details Date Type Department Care Team Description 12/31/2023 Refill Adult Medicine [address] [address] Cain Cooley, DO Social History Tobacco Use [...] disc documented in this encounter Care Teams Floor Mechanic Relationship Specialty Start Date End Date Nmaita Brown MD PCP - General Internal Medicine 12/25/23 Michael Herron MD Lung Cancer Tube Dispatcher 10/08/23 Vahid Baum PA-C [address] [place] [phone] Specialist Thoracic Surgery 04/02/24 documented as of this encounter
--- OUTSIDE RECORDS SUMMARY | 2024-11-05 10:08 | XMS_ITS | Encounter Summary ---
Author Organization [facility] Address [address] [place] [address] Care Team Providers Care Manager Cancer Name Role Phone Cain Cooley DO Primary Care Provider UnavailMichael Leonard MD Unavailable Namita Brown MD Primary Care Provider Un available Vahid Baum PA-C Unavailable [phone] Reason for Visit * Reason Onset Date Comments REFERRAL 07/04/2023 Referral to [facility] with Dr. Looney Encounter Details Date Type Department Care Team Description 07/04/2023 Telephone Adult Medicine - [address] [address] Cain Cooley DO REFERRAL (Referral to [facility] with Dr. Looney) Social History Tobacco [...] How often do you attend [facility] or episcopalian services? Never 09/13/2022 Do you [...] EST FYI: [facility] and they do not have any cancellations. Pt was informed of two new providers being hired in August 2022. He should continue calling from time to time. Pt informed. documented in this encounter Plan of Treatment Not on file documented as of this encounter Visit Diagnoses Not on filedocumented in this encounter Care Teams Manager Cancer Relationship Specialty Start Date End Date Cain Cooley DO PCP - General Internal Medicine 07/18/21 12/24/23 Namita Brown MD PCP - General Internal Medicine 12/25/23 Michael Herron MD Lung Cancer Division Officer Weapons Department 10/08/23 Vahid Baum PA-C [address] [phone] Specialist Thoracic Surgery 04/02/24 documented as of this encounter
--- OUTSIDE RECORDS SUMMARY | 2024-11-05 10:08 | XMS_ITS | Encounter Summary ---
Author Organization [facility] Address [address] [place] [address] Care Team Providers Care Change Manager Name Role Phone Cain Cooley DO Primary Care Provider UnavailMichael Leonard MD Unavailable Namita Brown MD Primary Care Provider Un available Vahid Baum PA-C Unavailable [phone] Encounter Details Date Type Department Care Team Description 09/06/2023 Pt. Non Urgent Medic al Question Adult Medicine - [address] [address] Cain Cooley, Social History Tobacco Use Types [...] Telephone Encounter - Brigette Barber L.P.N. - 09/06/2023 10:10 AM EST From: Swapnil Peralta To: James Cooley Sent: 09/06/2023 9:42 AM EST Subject: Back I had to start the prednisone today. Back is bad. I had to drive to [place] for work and driving back tonight. I have sent in a request to refill the Robaxin please. documented in this encounter Plan of Treatment Not on file documented as of this encounter Visit Diagnoses Not on filedocumented in this encounter Care Teams Change Manager Relationship Specialty Start Date End Date Cain Cooley DO PCP - General Internal Medicine 07/18/21 12/24/23 Namita Brown MD PCP - General Internal Medicine 12/25/23 Michael Herron MD Lung Cancer Traction Power Engineer 10/08/23 Vahid Baum PA-C [address] [phone] Specialist Thoracic Surgery 04/02/24 documented as of this encounter
--- OUTSIDE RECORDS SUMMARY | 2024-11-05 10:08 | XMS_ITS | Encounter Summary ---
Author Organization [facility] Address [address] [place] [address] Care Team Providers Care Document Reviewer Name Role Phone Jannet Doherty MD Primary Care Provider Unavailable Cain Cooley DO Primary Care Provider UnavailMichael Leonard MD Unavailable Namita Brown MD Primary Care Provider Un available Vahid Baum PA-C Unavailable [phone] Encounter Details Date Type Department Care Team Description 03/05/2019 Flexographic Press Operator Report Medical Records [address] [place] [address] Swapnil Casey MD Social History Tobacco Use [...] filedocumented in this encounter Care Teams Document Reviewer Relationship Specialty Start Date End Date Jannet Doherty MD PCP - General Internal Medicine 02/27/17 07/17/21 Cain Cooley DO PCP - General Internal Medicine 07/18/21 12/24/23 Namita Brown MD PCP - General Internal Medicine 12/25/23 Michael Herron MD Lung Cancer Lead Recoverer 10/08/23 Vahid Baum PA-C [address] [place] [phone] Specialist Thoracic Surgery 04/02/24 documented as of this encounter
--- OUTSIDE RECORDS SUMMARY | 2024-11-05 10:08 | XMS_ITS | Encounter Summary ---
Author Organization [facility] Address [address] [place] [address] Care Team Providers Care Paper Deliverer Name Role Phone Jannet Doherty MD Primary Care Provider Unavailable Cain Cooley DO Primary Care Provider UnavailMichael Leonard MD Unavailable Namita Brown MD Primary Care Provider Un available Vahid Baum PA-C Unavailable [phone] Encounter Details Date Type Department Care Team Description 07/17/2017 Wastewater Treatment Plant Supervisor Report Medical Records [address] [place] [address] Abstract, Provider Social History Tobacco Use Types [...] on filedocumented in this encounter Care Teams Paper Deliverer Relationship Specialty Start Date End Date Jannet Doherty MD PCP - General Internal Medicine 02/27/17 07/17/21 Cain Cooley DO PCP - General Internal Medicine 07/18/21 12/24/23 Namita Brown MD PCP - General Internal Medicine 12/25/23 Michael Herron MD Lung Cancer Compatibility Test Engineer 10/08/23 Vahid Baum PA-C [address] [place] [phone] Specialist Thoracic Surgery 04/02/24 documented as of this encounter
--- OUTSIDE RECORDS SUMMARY | 2024-11-05 10:08 | XMS_ITS | Encounter Summary ---
Author Organization [facility] Address [address] [place] [address] Care Team Providers Care Director Camp Name Role Phone Jannet Doherty MD Primary Care Provider Unavailable Cain Cooley DO Primary Care Provider UnavailMichael Leonard MD Unavailable Namita Brown MD Primary Care Provider Un available Vahid Baum PA-C Unavailable [phone] Encounter Details Date Type Department Care Team Description 02/06/2019 Dispatcher Motor Vehicle Report Medical Records [address] [place] [address] [place] [address] [place] [address] Social History Tobacco Use Types Packs/Day Years [...] you attend [facility] or shinto services? Never 09/13/2022 Do you [...] on filedocumented in this encounter Care Teams Director Camp Relationship Specialty Start Date End Date Jannet Doherty MD PCP - General Internal Medicine 02/27/17 07/17/21 Cain Cooley DO PCP - General Internal Medicine 07/18/21 12/24/23 Namita Brown MD PCP - General Internal Medicine 12/25/23 Michael Herron MD Lung Cancer Aircraft Engineer 10/08/23 Vahid Baum PA-C [address] [place] [phone] Specialist Thoracic Surgery 04/02/24 documented as of this encounter
--- OUTSIDE RECORDS SUMMARY | 2024-11-05 10:08 | XMS_ITS | Encounter Summary ---
Author Organization [facility] Address [address] [place] [address] Care Team Providers Care President/Gm Production & Live Experiences Name Role Phone Jannet Doherty MD Primary Care Provider Unavailable Cain Cooley DO Primary Care Provider UnavailMichael Leonard MD Unavailable Namita Brown MD Primary Care Provider Un available Vahid Baum PA-C Unavailable [phone] Encounter Details Date Type Department Care Team Description 12/24/2020 [facility] Medical Records [address] [place] [address] Abstract, Provider Social History Tobacco Use Types [...] often do you attend chur ch or mormonism services? Never 09/13/2022 Do you belong to [...] on filedocumented in this encounter Care Teams President/Gm Production & Live Experiences Relationship Specialty Start Date End Date Jannet Doherty MD PCP - General Internal Medicine 02/27/17 07/17/21 Cain Cooley DO PCP - General Internal Medicine 07/18/21 12/24/23 Namita Brown MD PCP - General Internal Medicine 12/25/23 Michael Herron MD Lung Cancer Icing Machine Operator 10/08/23 Vahid Baum PA-C [address] [phone] Specialist Thoracic Surgery 04/02/24 documented as of this encounter
--- OUTSIDE RECORDS SUMMARY | 2024-11-05 10:08 | XMS_ITS | Encounter Summary ---
Author Organization [facility] Address [address] [place] [address] Care Team Providers Care Cancer Registry Manager Name Role Phone Jannet Doherty MD Primary Care Provider Unavailable Cain Cooley DO Primary Care Provider UnavailMichael Leonard MD Unavailable Namita Brown MD Primary Care Provider Un available Vahid Baum PA-C Unavailable [phone] Reason for Visit * Reason Comments E-prescribe Rx Request Encounter Details Date Type Department Care Team Description 10/20/2020 Refill Adult Medicine [address] [address] Jannet Doherty MD E-prescribe Rx Request Social [...] attend [facility] or hindu services? Never 09/13/2022 Do you [...] N/A Patients current insurance carrier is: Payor: [facility]/HMO FFS / Plan: [employer] [facility] $20/$35 / Product Type: HMO [id number] documented in this encounter Plan of Treatment Not on file documented as of this encounter Visit Diagnoses Not on filedocumented in this encounter Care Teams Cancer Registry Manager Relationship Specialty Start Date End Date Jannet Doherty MD PCP - General Internal Medicine 02/27/17 07/17/21 Cain Cooley DO PCP - General Internal Medicine 07/18/21 12/24/23 Namita Brown MD PCP - General Internal Medicine 12/25/23 Michael Herron MD Lung Cancer Underground Truck Operator 10/08/23 Vahid Baum PA-C [address] [place] [phone] Specialist Thoracic Surgery 04/02/24 documented as of this encounter
--- OUTSIDE RECORDS SUMMARY | 2024-11-05 10:08 | XMS_ITS | Encounter Summary ---
Author Organization [facility] Address [address] [place] [address] Care Team Providers Care Maintainer Plant Name Role Phone Cain Cooley DO Primary Care Provider UnavailMichael Leonard MD Unavailable Namita Brown MD Primary Care Provider Un available Vahid Baum PA-C Unavailable [phone] Encounter Details Date Type Department Care Team Description 06/26/2023 Telephone Adult Medicine - [address] [address] Cain Cooley DO Social History Tobacco Use [...] often do you attend chur ch or taoist services? Never 09/13/2022 Do you belong to [...] on filedocumented in this encounter Care Teams Maintainer Plant Relationship Specialty Start Date End Date Cain Cooley DO PCP - General Internal Medicine 07/18/21 12/24/23 Namita Brown MD PCP - General Internal Medicine 12/25/23 Michael Herron MD Lung Cancer Personnel Arbitrator 10/08/23 Vahid Baum PA-C [address] [place] [phone] Specialist Thoracic Surgery 04/02/24 documented as of this encounter
--- OUTSIDE RECORDS SUMMARY | 2024-11-05 10:08 | XMS_ITS | Encounter Summary ---
Author Organization [facility] Address [address] [place] [address] Care Team Providers Care Trichologist Name Role Phone Jannet Doherty MD Primary Care Provider Unavailable Cain Cooley DO Primary Care Provider UnavailMichael Leonard MD Unavailable Namita Brown MD Primary Care Provider Un available Vahid Baum PA-C Unavailable Encounter Details Date Type Department Care Team Description 01/18/2021 Pt. Non Urgent Medic al Question Adult Medicine - [address] [address] Jannet Doherty MD Social History Tobacco Use [...] attend [facility] or amish services? Never 09/13/2022 Do you [...] Doherty Sent: 01/18/2021 3:14 PM EDT Subject: Avoca I submitted a refill request for my Avoca and for some reason it went to another physician within the group. I will be out of medication tomorrow and am having back issues. documented in this encounter Plan of Treatment Not on file documented as of this encounter Visit Diagnoses Not on filedocumented in this encounter Care Teams Trichologist Relationship Specialty Start Date End Date Jannet Doherty MD PCP - General Internal Medicine 02/27/17 07/17/21 Cain Cooley DO PCP - General Internal Medicine 07/18/21 12/24/23 Namita Brown MD PCP - General Internal Medicine 12/25/23 Michael Herron MD Lung Cancer Biochemistry Specialist 10/08/23 Vahid Baum PA-C [address] [place] [phone] Specialist Thoracic Surgery 04/02/24 documented as of this encounter
--- OUTSIDE RECORDS SUMMARY | 2024-11-05 10:08 | XMS_ITS | Encounter Summary ---
Author Organization [facility] Address [address] [place] [address] Care Team Providers Care Lineman Apprentice Name Role Phone Jannet Doherty MD Primary Care Provider Unavailable Cain Cooley DO Primary Care Provider UnavailMichael Leonard MD Unavailable Namita Brown MD Primary Care Provider Un available Vahid Baum PA-C Unavailable Encounter Details Date Type Department Care Team Description 03/27/2019 [facility] Medical Records [address] [place] [address] Abstract, Provider Social History Tobacco Use Types [...] on filedocumented in this encounter Care Teams Lineman Apprentice Relationship Specialty Start Date End Date Jannet Doherty MD PCP - General Internal Medicine 02/27/17 07/17/21 Cain Cooley DO PCP - General Internal Medicine 07/18/21 12/24/23 Namita Brown MD PCP - General Internal Medicine 12/25/23 Michael Herron MD Lung Cancer Lead Simulation Modeling Engineer 10/08/23 Vahid Baum PA-C [address] [phone] Specialist Thoracic Surgery 04/02/24 documented as of this encounter
== END 2024-11-05 09:55 | disposition home or self-care (01) ==
LOC: HO.PMC 09:15
PROVIDERS: PCP Internal Medicine; Visit Provider Internal Medicine
DX: M47.816 Spondylosis without myelopathy or radiculopathy, lumbar region (principal); Z98.890 Other specified postprocedural states; M48.061 Spinal stenosis, lumbar region without neurogenic claudication
CPT/HCPCS: 99214

== ENCOUNTER 2024-11-12 08:39 | Outpatient (RCR) | payer BC, SELFPAY | END 2025-07-06 10:37 | disposition home or self-care (01) | LOC: HO.PT 08:39 | PROVIDERS: PCP Internal Medicine; Visit Provider Neurological Surgery | DX: M43.16 Spondylolisthesis, lumbar region (principal) | CPT/HCPCS: 97014; 97110; 97112; 97161 ==

== ENCOUNTER 2024-11-17 07:51 | Outpatient (REF) | payer BC, SELFPAY ==
--- OUTSIDE RECORDS SUMMARY | 2024-11-17 07:55 | XMS_ITS | Clinical Summary ---
Author Organization [facility] Address [address] [place] [address] Care Team Providers Care Lead Warehouse Associate Name Role Phone Cain Cooley DO Primary Care Provider [phone] Allergies No known active allergies Medications Medication [...] age to complete this topic Care Teams Lead Warehouse Associate Relationship Specialty Start Date End Date Cain Cooley DO [address] [place] [address] PCP - General Family Medicine 03/30/23
[2024-11-17 11:28] LABS: MANUAL DIFF FLAG NO
[2024-11-17 11:36] LABS: Basophils Absolute Auto 0.1 X10*3/uL (0.0-0.2); Basophils Percent Auto 0.8 % (0-2); Eosinophils Absolute Auto 0.8 X10*3/uL (0.0-0.4); Eosinophils Percent Auto 10.2 % (0-4); Hemoglobin 13.1 g/dl (14.0-18.0); Imm Gran Abs Auto 0.02 X10*3/uL (0.00-0.03); Imm Gran Pct Auto 0.3 % (0.0-0.4); Lymphocytes Absolute Auto 2.2 X10*3/uL (1.2-4.9); Lymphocytes Percent Auto 30.2 % (20-40); Mean Corpuscular HGB Conc 33.6 g/dl (31.0-36.0); Mean Corpuscular Hemoglobin 30.7 pg (27.0-33.0); Mean Corpuscular Volume 91.3 fL (80.0-98.0); Mean Platelet Volume 10.5 fL (9.4-12.4); Monocytes Absolute Auto 0.6 X10*3/uL (0.1-1.2); Monocytes Percent Auto 7.5 % (2-11); Neutrophils Absolute Auto 3.7 x10*3/uL (2.0-8.3); Platelet Count 347 X10*3/uL (160-400); Red Blood Count 4.27 X10*6/uL (4.60-5.80); Red Cell Distribution Width 13.5 % (11.0-16.0); White Blood Count 7.3 X10*3/uL (4.8-10.8)
[2024-11-17 11:38] LABS: Estimated Average Glucose 134 mg/dL; Hemoglobin A1C 150.2401 umol/L; Hemoglobin A1c % 6.3 % (<6.0); Total Hemoglobin (HGBA1C) 3339.1595 umol/L
[2024-11-17 12:14] LABS: Prostate Specific Antigen 0.68 ng/mL (<0.05-4.0)
[2024-11-17 12:38] LABS: Alanine Aminotransferase 25 U/L (0-40); Albumin Level 4.1 g/dL (3.5-5.0); Anion Gap 12 (12-20); Aspartate Amino Transferase 23 U/L (5-37); Bilirubin Total 0.4 mg/dL (0.0-1.0); Blood Urea Nitrogen 16 mg/dL (9-16); Carbon Dioxide 28 mmol/L (22-29); Chloride 107 mmol/L (96-108); Cholesterol 97 mg/dL (<200); Estimated Glomerular Filt Rate > 60; Glucose Random 143 mg/dL (60-115); HDL Cholesterol 45 mg/dL (>40); LDL Cholesterol Calculated 46 mg/dL (<100); Potassium 4.3 mmol/L (3.3-5.1); Sodium 143 mmol/L (135-145); Total Protein 6.7 g/dL (6.5-8.0); Triglycerides 33 mg/dL (<150)
[2024-11-17 13:09] LABS: Alkaline Phosphatase 70 U/L (39-117)
== END 2024-11-17 07:52 | disposition home or self-care (01) ==
LOC: HO.WFDLDS 07:51
PROVIDERS: Visit Provider Internal Medicine
DX: M81.0 Age-related osteoporosis without current pathological fracture (principal); M48.061 Spinal stenosis, lumbar region without neurogenic claudication; E11.9 Type 2 diabetes mellitus without complications; Z12.5 Encounter for screening for malignant neoplasm of prostate
CPT/HCPCS: 36415; 80053; 80061; 83036; 84153; 85025

== ENCOUNTER 2024-11-20 06:16 | Outpatient (REF) | payer BC, SELFPAY ==
--- NOTE | ~2024-11-20 | FL_ITS ---
EXAMINATION: XR FLUOROSCOPY WITH IMAGES CLINICAL INFORMATION: Lumbar pain management injection. COMPARISON: None available. TECHNIQUE: Fluoroscopy provided to: Dr. Andrews Fluoroscopy time: 0.2 minutes DAP: 0.0897 mGycm2 Images: 2 FINDINGS: 2 fluoroscopic spot images of the lumbar spine during pain management procedure. Please refer to the full operative report for details. FL/FL guidance in treatment room IMPRESSION: Fluoroscopic guidance. Electronically signed by: Sav Muir MD 11/20/2024 11:38 AM EDT
== END 2024-11-20 06:17 | disposition home or self-care (01) ==
LOC: CF 06:16
PROVIDERS: Visit Provider Internal Medicine
DX: M47.816 Spondylosis without myelopathy or radiculopathy, lumbar region (principal); M43.16 Spondylolisthesis, lumbar region; G89.29 Other chronic pain; Z98.890 Other specified postprocedural states
CPT/HCPCS: 64555; C1778; J2003

== ENCOUNTER 2024-11-20 10:42 | Outpatient (AMB) | payer BC, SELFPAY ==
--- NOTE | 2024-11-20 10:46 | A.OFFVIS_ITS ---
Vital Signs 11/20/24 10:51 11/20/24 11:23 Height 6 ft 3 in BP 140/72 H 138/70 Blood Pressure Location Lt brachial Lt brachial Position Sitting Sitting Pulse 55 59 Pulse Source Pulse Oximeter Pulse Oximeter Pulse Oximetry (%) 99 100 Oxygen Delivery Method Room Air Room Air Intake Visit Reasons: Right L3 Sprint/ ativan Allergies No Known Allergies Allergy (Verified 11/20/24 10:52) [facility] Medical History Pulmonary nodule GERD (gastroesophageal reflux disease) Spinal stenosis Cervical radiculopathy Ground glass opacity present on imaging of lung Mesenteric panniculitis Lumbosacral radiculitis Controlled type 2 diabetes mellitus Essential hypertension Surgical History History of laminectomy (2019) Hx of varicose vein ligation (~1998) Hx of colonoscopy Hx of appendectomy (~1974) Social History Housing: House Are you a primary floor care specialist to a significant other at home: No Do you presently have visiting nurse or other home services: No Patient Tobacco Use Status: Former Tobacco user Tobacco use type: Cigarette Cigarette Packs Per Day: 1 Years Smoked: 20 e-Cigarette/Vaping Use: Never Used service: Yes Current occupational status: employed 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 After the risks, benefits and alternatives were discussed with the patient and informed consent was obtained, patient was placed in the prone position and padded to foster comfort. The skin overlying the lumbosacral spine was prepped and draped in sterile fashion. Fluoroscopy was used to identify the spinous process and lamina in the center of the patient?s region of pain. After identifying and marking the intended target along the course of the medial branch nerve, the skin around the planned entry point and the subcutaneous tissues were injected with lidocaine 1%. An introducer needle and stimulating probe were assembled, inserted and advanced along the intended course of the medial branch nerve as it traverses the lamina medial and inferior to the zygapophyseal joint, taking care to maintain the proper depth of insertion as the introducer is advanced under fluoroscopic guidance. The introducer needle was delivered to a location in proximity to the nerve. Multiple stimulation parameters were used to deliver stimulation to the target medial branch nerve in concert with stimulating at multiple positions around the nerve. Nerve target acquisition was confirmed noting generation of paresthesias in the paravertebral regions corresponding to the level being stimulated. Various electrical parameter combinations were tested, and the lead location was adjusted (physically relocated) until the patient indicated paresthesia/muscle tension overlapping the distribution of the patient?s typical region of pain. The stimulating probe was removed from the introducer and a percutaneous lead was guided through the needle and delivered to a location in similar proximity to the nerve. Final location was verified with electrical stimulation and documented with fluoroscopy. The introducer needle was removed, and the exposed end of the percutaneous lead was attached to an external stimulator unit. Various electrical parameter combinations were again tested until the patient indicated paresthesia or muscle tension overlapping the distribution of the patient?s typical region of pain. After confirming that lead impedance was in the normal range, the external unit was detached, the needle was removed, and the lead was anchored at the skin. The lead was threaded into the connector block and electrical continuity and desired patient response was confirmed. The connector block was attached to the external stimulator unit. The site was covered with a sterile occlusive dressing. The patient was observed for stability of vital signs and comfort. Sprint PNS Device: Sprint PNS Device [id number] Percutaneous Peripheral Neuroelectrode Procedure: 89963 - Percutaneous Peripheral Neuroelectrode Procedure code (CPT) selection complete Office Meds lidocaine HCl 10 mg/mL (1 %) injection solution Performing Provider: Niurka Dukes APRN, LESLY Performing Location: [facility] [place] [facility] Administered by: Leonardo Andrews MD on 11/20/24 10:46 Dose Route Admin Location Dispensed Lot Number Expiration Date NDC Computer Software Engineer 5 mL subcut 5 mL Assessment & Plan Assessment & Plan (1) Lumbar spondylosis: Code(s): M47.816 - Spondylosis without myelopathy or radiculopathy, lumbar region Category: Medical (2) Spondylolisthesis, lumbar region: Code(s): M43.16 - Spondylolisthesis, lumbar region Category: Medical (3) Status post lumbar spine surgery for decompression of spinal cord: Code(s): Z98.890 - Other specified postprocedural states Category: Surgical (4) Chronic pain: Code(s): G89.29 - Other chronic pain Category: Medical Plan Patient is status post right L3 medial branch temporary nerve stimulator placement. Patient tolerated procedure well and was discharged home in stable condition with discharge instructions. All questions were answered. We will follow-up via telephone or in clinic to assess response to therapy. A follow-up appointment was made during today's visit. Orders: Orders FL guidance in treatment room Today M47.816 - Spondylosis without myelopathy or radiculopathy, lumbar region AMB Sprint PNS Today M47.816 - Spondylosis without myelopathy or radiculopathy, lumbar region Medications: New lorazepam (Ativan) Take 30 minutes prior to arrival to procedure 1 mg PO ONCE 1 tab 0RF anxiety Coding Level of Care Code Procedure Only Diagnoses Lumbar spondylosis M47.816 Spondylolisthesis, lumbar region M43.16 Status post lumbar spine surgery for decompression of spinal cord Z98.890 Chronic pain G89.29 CPT Codes Sprint PNS - Sprint PNS Device: Sprint PNS Device ([id number]) Sprint PNS - SPRINT: 60932 - Percutaneous Peripheral Neuroelectrode ([id number]) Implantable Device Implantable Device Implantable Devices Qty Computer Software Engineer Implant Date Expiration Date Analgesic PENS system 1 [employer] 11/20/24
[2024-11-20 10:51] VITALS: BP 140/72; PULSE 55; O2SAT 99
[2024-11-20 11:23] VITALS: BP 138/70; PULSE 59; O2SAT 100
--- OUTSIDE RECORDS SUMMARY | 2024-11-20 12:07 | XMS_ITS | Encounter Summary ---
Author Organization [facility] Address [address] [place] [address] Care Team Providers Care Product Manager E Commerce Name Role Phone Jannet Doherty MD Primary Care Provider Unavailable Cain Cooley DO Primary Care Provider UnavailMichael Leonard MD Unavailable Namita Brown MD Primary Care Provider Un available Vahid Baum PA-C Unavailable [phone] Encounter Details Date Type Department Care Team Description 09/26/2019 [facility] Medical Records [address] [place] [id number] Abstract, Provider Social History Tobacco Use Types [...] on filedocumented in this encounter Care Teams Product Manager E Commerce Relationship Specialty Start Date End Date Jannet Doherty MD PCP - General Internal Medicine 02/27/17 07/17/21 Cain Cooley DO PCP - General Internal Medicine 07/18/21 12/24/23 Namita Brown MD PCP - General Internal Medicine 12/25/23 Michael Herron MD Lung Cancer Nurses Medical Assistants Phlebotomists 10/08/23 Vahid Baum PA-C [address] [phone] Specialist Thoracic Surgery 04/02/24 documented as of this encounter
--- OUTSIDE RECORDS SUMMARY | 2024-11-20 12:07 | XMS_ITS | Encounter Summary ---
Author Organization [facility] Address [address] [place] [address] Care Team Providers Care Bookmobile Driver Name Role Phone Cain Cooley DO Primary Care Provider UnavailMichael Leonard MD Unavailable Namita Brown MD Primary Care Provider Un available Vahid Baum PA-C Unavailable [phone] Encounter Details Date Type Department Care Team Description 03/10/2022 [facility] Medical Records [address] [place] [address] Abstract, Provider Social History Tobacco Use Types [...] on filedocumented in this encounter Care Teams Bookmobile Driver Relationship Specialty Start Date End Date Cain Cooley DO PCP - General Internal Medicine 07/18/21 12/24/23 Namita Brown MD PCP - General Internal Medicine 12/25/23 Michael Herron MD Lung Cancer Insurance Professional 10/08/23 Vahid Baum PA-C [address] [place] [phone] Specialist Thoracic Surgery 04/02/24 documented as of this encounter
--- OUTSIDE RECORDS SUMMARY | 2024-11-20 12:07 | XMS_ITS | Encounter Summary ---
Author Organization [facility] Address [address] [place] [address] Care Team Providers Care Home Health Care Coordinator Name Role Phone Jannet Doherty MD Primary Care Provider Unavailable Cain Cooley DO Primary Care Provider UnavailMichael Leonard MD Unavailable Namita Brown MD Primary Care Provider Un available Vahid Baum PA-C Unavailable [phone] Encounter Details Date Type Department Care Team Description 03/12/2019 News Videographer Report Medical Records [address] [place] [address] [place] [address] [place] [address] Social History Tobacco Use Types Packs/Day Years [...] week 09/13/2022 How often do you attend [facility] or cheondoism services? Never 09/13/2022 Do [...] on filedocumented in this encounter Care Teams Home Health Care Coordinator Relationship Specialty Start Date End Date Jannet Doherty MD PCP - General Internal Medicine 02/27/17 07/17/21 Cain Cooley DO PCP - General Internal Medicine 07/18/21 12/24/23 Namita Brown MD PCP - General Internal Medicine 12/25/23 Michael Herron MD Lung Cancer Magistrate Judge 10/08/23 Vahid Baum PA-C [address] [place] [phone] Specialist Thoracic Surgery 04/02/24 documented as of this encounter
--- OUTSIDE RECORDS SUMMARY | 2024-11-20 12:07 | XMS_ITS | Encounter Summary ---
Author Organization [facility] Address [address] [place] [address] Care Team Providers Care Texturing Machine Fixer Name Role Phone Jannet Doherty MD Primary Care Provider Unavailable Cain Cooley DO Primary Care Provider UnavailMichael Leonard MD Unavailable Namita Brown MD Primary Care Provider Un available Vahid Baum PA-C Unavailable [phone] Encounter Details Date Type Department Care Team Description 05/18/2021 Orders Only Medical Records [address] [place] [address] Alex Navarrete MD [address] [place] [address] Social History Tobacco Use Types Packs/Day Years [...] week 09/13/2022 How often do you attend [facility] or yazidism services? Never 09/13/2022 Do you belong to any clubs o r organizations such as gnosticism groups, unions, fraternal or athletic groups, or [...] on filedocumented in this encounter Care Teams Texturing Machine Fixer Relationship Specialty Start Date End Date Jannet Doherty MD PCP - General Internal Medicine 02/27/17 07/17/21 Cain Cooley DO PCP - General Internal Medicine 07/18/21 12/24/23 Namita Brown MD PCP - General Internal Medicine 12/25/23 Michael Herron MD Lung Cancer Chief Construction Inspector 10/08/23 Vahid Baum PA-C [address] [place] [phone] Specialist Thoracic Surgery 04/02/24 documented as of this encounter
--- OUTSIDE RECORDS SUMMARY | 2024-11-20 12:07 | XMS_ITS | Encounter Summary ---
Author Organization [facility] Address [address] [place] [address] Care Team Providers Care Exhauster Engineer Name Role Phone Cain Cooley DO Primary Care Provider UnavailMichael Leonard MD Unavailable Namita Brown MD Primary Care Provider Un available Vahid Baum PA-C Unavailable [phone] Reason for Visit * Reason Onset Date Comments refill request 01/04/2022 Encounter Details Date Type Department Care Team Description 01/04/2022 Telephone [facility] Medical [facility] [address] [facility] [address] [place] [phone] Angelo Quan DPM refill request Social History [...] How often do you attend [facility] or jew services? Never 09/13/2022 Do you [...] Please call her with any questions @ [phone]. documented in this encounter Plan of Treatment Not on file documented as of this encounter Visit Diagnoses Not on filedocumented in this encounter Care Teams Exhauster Engineer Relationship Specialty Start Date End Date Cain Cooley DO PCP - General Internal Medicine 07/18/21 12/24/23 Namita Brown MD PCP - General Internal Medicine 12/25/23 Michael Herron MD Lung Cancer Systems Software Designer 10/08/23 Vahid Baum PA-C [address] [phone] Specialist Thoracic Surgery 04/02/24 documented as of this encounter
--- OUTSIDE RECORDS SUMMARY | 2024-11-20 12:07 | XMS_ITS | Encounter Summary ---
Author Organization [facility] Address [address] [place] [address] Care Team Providers Care Truck Farmer Name Role Phone Cain Cooley DO Primary Care Provider UnavailMichael Leonard MD Unavailable Namita Brown MD Primary Care Provider Un available Vahid Baum PA-C Unavailable [phone] Encounter Details Date Type Department Care Team Description 06/27/2023 Orders Only Medical Records [address] [place] [address] Génesis Valero PA-C Social History Tobacco Use [...] often do you attend chur ch or confucianism services? Never 09/13/2022 Do you belong to [...] on filedocumented in this encounter Care Teams Truck Farmer Relationship Specialty Start Date End Date Cain Cooley DO PCP - General Internal Medicine 07/18/21 12/24/23 Namita Brown MD PCP - General Internal Medicine 12/25/23 Michael Herron MD Lung Cancer Wage Adjuster 10/08/23 Vahid Baum PA-C [address] [place] [phone] Specialist Thoracic Surgery 04/02/24 documented as of this encounter
--- OUTSIDE RECORDS SUMMARY | 2024-11-20 12:07 | XMS_ITS | Encounter Summary ---
Author Organization [facility] Address [address] [place] [address] Care Team Providers Care Roto Mixer Operator Name Role Phone Jannet Doherty MD Primary Care Provider Unavailable Cain Cooley DO Primary Care Provider UnavailMichael Leonard MD Unavailable Namita Brown MD Primary Care Provider Un available Vahid Baum PA-C Unavailable [phone] Encounter Details Date Type Department Care Team Description 01/29/2020 Orders Only Medical Records [address] [place] [address] Jannet Doherty MD Social History Tobacco Use [...] How often do you attend chur or buddhism services? Never 09/13/2022 Do you [...] on filedocumented in this encounter Care Teams Roto Mixer Operator Relationship Specialty Start Date End Date Jannet Doherty MD PCP - General Internal Medicine 02/27/17 07/17/21 Cain Cooley DO PCP - General Internal Medicine 07/18/21 12/24/23 Namita Brown MD PCP - General Internal Medicine 12/25/23 Michael Herron MD Lung Cancer Bonbon Dipper 10/08/23 Vahid Baum PA-C [address] [place] [phone] Specialist Thoracic Surgery 04/02/24 documented as of this encounter
--- OUTSIDE RECORDS SUMMARY | 2024-11-20 12:07 | XMS_ITS | Encounter Summary ---
Author Organization [facility] Address [address] [place] [address] Care Team Providers Care Heater Mechanic Name Role Phone Jannet Doherty MD Primary Care Provider Unavailable Cain Cooley DO Primary Care Provider UnavailMichael Leonard MD Unavailable Namita Borwn MD Primary Care Provider Un available Vahid Baum PA-C Unavailable [phone] Encounter Details Date Type Department Care Team Description 03/05/2019 Shop [facility] Report Medical Records [address] [place] [address] Swapnil Casey MD Social History Tobacco Use [...] on filedocumented in this encounter Care Teams Heater Mechanic Relationship Specialty Start Date End Date Jannet Doherty MD PCP - General Internal Medicine 02/27/17 07/17/21 Cain Cooley DO PCP - General Internal Medicine 07/18/21 12/24/23 Namita Brown MD PCP - General Internal Medicine 12/25/23 Michael Herron MD Lung Cancer Steward/Stewardess Second 10/08/23 Vahid Baum PA-C [address] [place] [phone] Specialist Thoracic Surgery 04/02/24 documented as of this encounter
--- OUTSIDE RECORDS SUMMARY | 2024-11-20 12:07 | XMS_ITS | Encounter Summary ---
Author Organization [facility] Address [address] [place] [address] Care Team Providers Care Principal Biostatistician Name Role Phone Michael Herron MD Unavailable Namita Brown MD Primary Care Provider Un available Vahid Baum PA-C Unavailable Encounter Details Date Type Department Care Team Description 12/31/2023 Refill Adult Medicine [address] [address] Cain Cooley, DO Social History Tobacco Use [...] following medications: Other - Prednisone Preferred pharmacy: [facility][id number] - [address] Medication renewals requested in this message routed separately: methocarbamol (ROBAXIN) 750 MG tablet [James Cooley, DO] documented in this encounter Plan of Treatment Not on file documented as of this encounter Visit Diagnoses Not on filedocumented in this encounter Care Teams Principal Biostatistician Relationship Specialty Start Date End Date Namita Brown MD PCP - General Internal Medicine 12/25/23 Michael Herron MD Lung Cancer Air Intercept Controller Supervisor 10/08/23 Vahid Baum PA-C [address] [place] [phone] Specialist Thoracic Surgery 04/02/24 documented as of this encounter
--- OUTSIDE RECORDS SUMMARY | 2024-11-20 12:07 | XMS_ITS | Encounter Summary ---
Author Organization [facility] Address [address] [place] [address] Care Team Providers Care Equipment Maintenance Tech Name Role Phone Jannet Doherty MD Primary Care Provider Unavailable Cain Cooley DO Primary Care Provider UnavailMichael Leonard MD Unavailable Namita Brown MD Primary Care Provider Un available Vahid Baum PA-C Unavailable [phone] Encounter Details Date Type Department Care Team Description 10/29/2020 [facility] Medical Records [address] [place] [address] Abstract, Provider Social History Tobacco Use Types [...] often do you attend chur ch or spiritism services? Never 09/13/2022 Do you belong to [...] on filedocumented in this encounter Care Teams Equipment Maintenance Tech Relationship Specialty Start Date End Date Jannet Doherty MD PCP - General Internal Medicine 02/27/17 07/17/21 Cain Cooley DO PCP - General Internal Medicine 07/18/21 12/24/23 Namita Brown MD PCP - General Internal Medicine 12/25/23 Michael Herron MD Lung Cancer Tactical Intelligence Officer 10/08/23 Vahid Baum PA-C [address] [phone] Specialist Thoracic Surgery 04/02/24 documented as of this encounter
--- OUTSIDE RECORDS SUMMARY | 2024-11-20 12:07 | XMS_ITS | Encounter Summary ---
Author Organization [facility] Address [address] [place] [address] Care Team Providers Care Industrial Rehabilitation Consultant Name Role Phone Cain Cooley DO Primary Care Provider UnavailMichael Leonard MD Unavailable Namita Brown MD Primary Care Provider Un available Vahid Baum PA-C Unavailable [phone] Encounter Details Date Type Department Care Team Description 07/02/2023 Pt. Non Urgent Medic al Question Adult Medicine - [address] [address] Cain Cooley, Social History Tobacco Use Types [...] filedocumented in this encounter Care Teams Industrial Rehabilitation Consultant Relationship Specialty Start Date End Date Cain Cooley DO PCP - General Internal Medicine 07/18/21 12/24/23 Namita Brown MD PCP - General Internal Medicine 12/25/23 Michael Herron MD Lung Cancer Financial Systems Administrator 10/08/23 Vahid Baum PA-C [address] [phone] Specialist Thoracic Surgery 04/02/24 documented as of this encounter
--- OUTSIDE RECORDS SUMMARY | 2024-11-20 12:07 | XMS_ITS | Encounter Summary ---
Author Organization [facility] Address [address] [place] [address] Care Team Providers Care Grades 9 12 Tutor Name Role Phone Jannet Doherty MD Primary Care Provider Unavailable Cain Cooley DO Primary Care Provider UnavailMichael Leonard MD Unavailable Namita Brown MD Primary Care Provider Un available Vahid Baum PA-C Unavailable [phone] Encounter Details Date Type Department Care Team Description 07/23/2020 [facility] Medical Records [address] [place] [address] Abstract, Provider Social History Tobacco Use Types [...] often do you attend chur ch or jainism services? Never 09/13/2022 Do you [...] on filedocumented in this encounter Care Teams Grades 9 12 Tutor Relationship Specialty Start Date End Date Jannet Doherty MD PCP - General Internal Medicine 02/27/17 07/17/21 Cain Cooley DO PCP - General Internal Medicine 07/18/21 12/24/23 Namita Brown MD PCP - General Internal Medicine 12/25/23 Michael Herron MD Lung Cancer Aircraft Cleaning Supervisor 10/08/23 Vahid Baum PA-C [address] [phone] Specialist Thoracic Surgery 04/02/24 documented as of this encounter
--- OUTSIDE RECORDS SUMMARY | 2024-11-20 12:07 | XMS_ITS | Encounter Summary ---
Author Organization [facility] Address [address] [place] [address] Care Team Providers Care Farmworker Fruit Name Role Phone Michael Herron MD Unavailable Namita Brown MD Primary Care Provider Un available Vahid Baum PA-C Unavailable [phone] Encounter Details Date Type Department Care Team Description 02/12/2024 Pt. Non Urgent Medic al Question Adult Medicine - [address] [address] Namita Brown MD Social History Tobacco Use [...] out again. My brother this weekend in [place]. Did a lot of driving and was in his ICU room for 36 hour straight. Was hoping for a refill on the prednisone and roboxin. I did submit the refill requeat documented in this encounter Plan of Treatment Not on file documented as of this encounter Visit Diagnoses Not on filedocumented in this encounter Care Teams Farmworker Fruit Relationship Specialty Start Date End Date Namita Brown MD PCP - General Internal Medicine 12/25/23 Michael Herron MD Lung Cancer Diabetes Educator 10/08/23 Vahid Baum PA-C [address] [place] [phone] Specialist Thoracic Surgery 04/02/24 documented as of this encounter
--- OUTSIDE RECORDS SUMMARY | 2024-11-20 12:07 | XMS_ITS | Encounter Summary ---
Author Organization [facility] Address [address] [place] [address] Care Team Providers Care Deputy Sheriff Name Role Phone Cain Cooley DO Primary Care Provider UnavailMichael Leonard MD Unavailable Namita Brown MD Primary Care Provider Un available Vahid Baum PA-C Unavailable [phone] Encounter Details Date Type Department Care Team Description 12/07/2021 Pt. Non Urgent Medic al Question Adult Medicine - [address] [address] Cain Cooley, Social History Tobacco Use Types [...] . I have a referral with a silo painter on December 27. The naproxen did not help at all. Could we possibly try something else like maybe prednisone? documented in this encounter Plan of Treatment Not on file documented as of this encounter Visit Diagnoses Not on filedocumented in this encounter Care Teams Deputy Sheriff Relationship Specialty Start Date End Date Cani Cooley DO PCP - General Internal Medicine 07/18/21 12/24/23 Namita Brown MD PCP - General Internal Medicine 12/25/23 Michael Herron MD Lung Cancer Resawyer 10/08/23 Vahid Baum PA-C [address] [place] [phone] Specialist Thoracic Surgery 04/02/24 documented as of this encounter
--- OUTSIDE RECORDS SUMMARY | 2024-11-20 12:07 | XMS_ITS | Encounter Summary ---
Author Organization [facility]ly [facility] Address [address] [place] [address] Care Team Providers Care Mule Developer Name Role Phone Jannet Doherty MD Primary Care Provider Unavailable Cain Cooley DO Primary Care Provider UnavailMichael Leonard MD Unavailable Namita Brown MD Primary Care Provider Un available Vahid Baum PA-C Unavailable [phone] Encounter Details Date Type Department Care Team Description 04/06/2017 Release of Information Medical Records [address] [place] [address] Abstract, Provider Social History Tobacco Use Types [...] on filedocumented in this encounter Care Teams Mule Developer Relationship Specialty Start Date End Date Jannet Doherty MD PCP - General Internal Medicine 02/27/17 07/17/21 Cain Cooley DO PCP - General Internal Medicine 07/18/21 12/24/23 Namita Brown MD PCP - General Internal Medicine 12/25/23 Michael Herron MD Lung Cancer Beauty Consultant 10/08/23 Vahid Baum PA-C [address] [phone] Specialist Thoracic Surgery 04/02/24 documented as of this encounter
--- OUTSIDE RECORDS SUMMARY | 2024-11-20 12:07 | XMS_ITS | Encounter Summary ---
Author Organization [facility] Address [address] [place] [address] Care Team Providers Care Bobcat Operator Name Role Phone Cain Cooley DO Primary Care Provider UnavailMichael Leonard MD Unavailable Namita Brown MD Primary Care Provider Un available Vahid Baum PA-C Unavailable [phone] Encounter Details Date Type Department Care Team Description 07/02/2023 Refill Pediatrics [address] [address] Cain Cooley DO Social History Tobacco Use [...] often do you attend chur ch or faith services? Never 09/13/2022 Do you belong to any clubs o r organizations such as scientology groups, unions, fraternal or athletic groups, or [...] this encounter Visit Diagnoses Diagnosis Pancolitis (HCC) Dunbar ulcerative (chronic) colitis documented in this encounter Care Teams Bobcat Operator Relationship Specialty Start Date End Date Cain Cooley DO PCP - General Internal Medicine 07/18/21 12/24/23 Namita Brown MD PCP - General Internal Medicine 12/25/23 Michael Herron MD Lung Cancer Environmental Adviser 10/08/23 Vahid Baum PA-C [address] [place] [phone] Specialist Thoracic Surgery 04/02/24 documented as of this encounter
--- OUTSIDE RECORDS SUMMARY | 2024-11-20 12:07 | XMS_ITS | Encounter Summary ---
Author Organization [facility] Address [address] [place] [address] Care Team Providers Care Intelligence Senior Sergeant Name Role Phone Cain Cooley DO Primary Care Provider UnavailMichael Leonard MD Unavailable Namita Brown MD Primary Care Provider Un available Vahid Baum PA-C Unavailable [phone] Encounter Details Date Type Department Care Team Description 12/27/2021 Pt. Non Urgent Medic al Question [facility] [address] [place] [address] [place] [phone] Angelo Quan DPM Social History Tobacco [...] do [facility] attend [facility] or tenriism services? Never 09/13/2022 Do you [...] on filedocumented in this encounter Care Teams Intelligence Senior Sergeant Relationship Specialty Start Date End Date Cain Cooley DO PCP - General Internal Medicine 07/18/21 12/24/23 Namita Brown MD PCP - General Internal Medicine 12/25/23 Michael Herron MD Lung Cancer Solutions Analyst 10/08/23 Vahid Baum PA-C [address] [phone] Specialist Thoracic Surgery 04/02/24 documented as of this encounter
--- OUTSIDE RECORDS SUMMARY | 2024-11-20 12:07 | XMS_ITS | Encounter Summary ---
Author Organization [facility] Address [address] [place] [address] Care Team Providers Care Scrub Tech Name Role Phone Jannet Doherty MD Primary Care Provider Unavailable Cain Cooley DO Primary Care Provider UnavailMichael Leonard MD Unavailable Namita Brown MD Primary Care Provider Un available Vahid Baum PA-C Unavailable [phone] Encounter Details Date Type Department Care Team Description 06/16/2020 Refill Adult Medicine [address] [address] Jannet Doherty MD Social History Tobacco Use [...] 09/13/2022 How often do you attend [facility] or yazidism services? Never 09/13/2022 Do you belong to any clubs o r organizations such as methodist groups, unions, fraternal or athletic groups, or [...] 06/16/2020 11:57 AM EST Placed at patient last picker * Telephone Encounter - Brigette Barber [...] on filedocumented in this encounter Care Teams Scrub Tech Relationship Specialty Start Date End Date Jannet Doherty MD PCP - General Internal Medicine 02/27/17 07/17/21 Cain Cooley DO PCP - General Internal Medicine 07/18/21 12/24/23 Namita Brown MD PCP - General Internal Medicine 12/25/23 Michael Herron MD Lung Cancer Drying And Winding Supervisor 10/08/23 Vahid Baum PA-C [address] [place] [phone] Specialist Thoracic Surgery 04/02/24 documented as of this encounter
--- OUTSIDE RECORDS SUMMARY | 2024-11-20 12:07 | XMS_ITS | Encounter Summary ---
Author Organization [facility] Address [address] [place] [address] Care Team Providers Care Grounding Engineer Name Role Phone Cain Cooley DO Primary Care Provider UnavailMichael Leonard MD Unavailable Namita Brown MD Primary Care Provider Un available Vahid Baum PA-C Unavailable [phone] Reason for Visit * Reason Comments E-prescribe Rx Request Encounter Details Date Type Department Care Team Description 05/12/2023 Refill Adult Medicine [address] [address] Yoli Mckeon PA-C [address] [place] [address] E-prescribe Rx Request Social History Tobacco Use [...] do you attend [facility] or moravian services? Never 09/13/2022 Do [...] N/A Patients current insurance carrier is: Payor[facility] / Plan: JOSÉ LUIS GARCIA $20/$35 / Product Type: HMO [employer] documented in this encounter Plan of Treatment Not on file documented as of this encounter Visit Diagnoses Diagnosis Type 2 diabetes mellitus without complication, without long-term current use of insulin (HCC) documented in this encounter Care Teams Grounding Engineer Relationship Specialty Start Date End Date Cain Cooley DO PCP - General Internal Medicine 07/18/21 12/24/23 Namita Brown MD PCP - General Internal Medicine 12/25/23 Michael Herron MD Lung Cancer County Program Technician 10/08/23 Vahid Baum PA-C [address] [place] [phone] Specialist Thoracic Surgery 04/02/24 documented as of this encounter
--- OUTSIDE RECORDS SUMMARY | 2024-11-20 12:07 | XMS_ITS | Encounter Summary ---
Author Organization [facility] Address [address] [place] [address] Care Team Providers Care Window Unit Air Conditioning Mechanic Name Role Phone Jannet Doherty MD Primary Care Provider Unavailable Cain Cooley DO Primary Care Provider UnavailMichael Leonard MD Unavailable Namita Brown MD Primary Care Provider Un available Vahid Baum PA-C Unavailable [phone] Encounter Details Date Type Department Care Team Description 12/12/2018 [facility] Medical Records [address] [place] [address] Abstract, Provider Social History Tobacco Use Types [...] on filedocumented in this encounter Care Teams Window Unit Air Conditioning Mechanic Relationship Specialty Start Date End Date Jannet Doherty MD PCP - General Internal Medicine 02/27/17 07/17/21 Cain Cooley DO PCP - General Internal Medicine 07/18/21 12/24/23 Namita Brown MD PCP - General Internal Medicine 12/25/23 Michael Herron MD Lung Cancer Senior Outside Sales Representative 10/08/23 Vahid Baum PA-C [address] [phone] Specialist Thoracic Surgery 04/02/24 documented as of this encounter
--- OUTSIDE RECORDS SUMMARY | 2024-11-20 12:07 | XMS_ITS | Encounter Summary ---
Author Organization [facility] Address [address] [place] [address] Care Team Providers Care Custodial Worker Name Role Phone Cain Cooley DO Primary Care Provider UnavailMichael Leonard MD Unavailable Namita Brown MD Primary Care Provider Un available Vahid Baum PA-C Unavailable [phone] Encounter Details Date Type Department Care Team Description 03/19/2022 Pt. Non Urgent Medic al Question Adult Medicine - [address] [address] Cain Cooley, Social History Tobacco Use Types [...] today 03/19/22. I have a Telehealth with [employer] and am taking paxlovid antiviral. documented in this encounter Plan of Treatment Not on file documented as of this encounter Visit Diagnoses Not on filedocumented in this encounter Care Teams Custodial Worker Relationship Specialty Start Date End Date Cain Cooley DO PCP - General Internal Medicine 07/18/21 12/24/23 Namita Brown MD PCP - General Internal Medicine 12/25/23 Michael Herron MD Lung Cancer Pharmacy General Manager 10/08/23 Vahid Baum PA-C [address] [place] [phone] Specialist Thoracic Surgery 04/02/24 documented as of this encounter
--- OUTSIDE RECORDS SUMMARY | 2024-11-20 12:07 | XMS_ITS | Encounter Summary ---
Author Organization [facility] Address [address] [place] [address] Care Team Providers Care Cardio Clinician Name Role Phone Jannet Doherty MD Primary Care Provider Unavailable Cain Cooley DO Primary Care Provider UnavailMichael Leonard MD Unavailable Namita Brown MD Primary Care Provider Un available Vahid Baum PA-C Unavailable [phone] Encounter Details Date Type Department Care Team Description 04/15/2019 Release of Information Medical Records [address] [place] [id number] Abstract, Provider Social History Tobacco Use Types [...] on filedocumented in this encounter Care Teams Cardio Clinician Relationship Specialty Start Date End Date Jannet Doherty MD PCP - General Internal Medicine 02/27/17 07/17/21 Cain Cooley DO PCP - General Internal Medicine 07/18/21 12/24/23 Namita Brown MD PCP - General Internal Medicine 12/25/23 Michael Herron MD Lung Cancer Ladle Handler 10/08/23 Vahid Baum PA-C [address] [phone] Specialist Thoracic Surgery 04/02/24 documented as of this encounter
--- OUTSIDE RECORDS SUMMARY | 2024-11-20 12:07 | XMS_ITS | Encounter Summary ---
Author Organization [facility] Address [address] [place] [address] Care Team Providers Care Helper Teacher Name Role Phone Jannet Doherty MD Primary Care Provider Unavailable Cain Cooley DO Primary Care Provider UnavailMichael Leonard MD Unavailable Namita Brown MD Primary Care Provider Un available Vahid Baum PA-C Unavailable [phone] Encounter Details Date Type Department Care Team Description 03/27/2019 [facility] Medical Records [address] [place] [address] Abstract, Provider Social History Tobacco Use Types [...] often do you attend chur ch or methodist services? Never 09/13/2022 Do you [...] on filedocumented in this encounter Care Teams Helper Teacher Relationship Specialty Start Date End Date Jannet Doherty MD PCP - General Internal Medicine 02/27/17 07/17/21 Cain Cooley DO PCP - General Internal Medicine 07/18/21 12/24/23 Namita Brown MD PCP - General Internal Medicine 12/25/23 Michael Herron MD Lung Cancer Mother Baby Rn 10/08/23 Vahid Baum PA-C [address] [phone] Specialist Thoracic Surgery 04/02/24 documented as of this encounter
--- OUTSIDE RECORDS SUMMARY | 2024-11-20 12:07 | XMS_ITS | Encounter Summary ---
Author Organization [facility] Address [address] [place] [address] Care Team Providers Care Pump Machine Operator Name Role Phone Jannet Doherty MD Primary Care Provider Unavailable Cain Cooley DO Primary Care Provider UnavailMichael Leonard MD Unavailable Namita Brown MD Primary Care Provider Un available Vahid Bamu PA-C Unavailable [phone] Reason for Visit * Reason Comments E-prescribe Rx Request Encounter Details Date Type Department Care Team Description 12/01/2018 Refill Adult Medicine [address] [address] Jannet Doherty MD E-prescribe Rx Request Social [...] How often do you attend [facility] or muslim services? Never 09/13/2022 Do [...] on filedocumented in this encounter Care Teams Pump Machine Operator Relationship Specialty Start Date End Date Jannet Doherty MD PCP - General Internal Medicine 02/27/17 07/17/21 Cain Cooley DO PCP - General Internal Medicine 07/18/21 12/24/23 Namita Brown MD PCP - General Internal Medicine 12/25/23 Michael Herron MD Lung Cancer Ribbon Lap Machine Tender 10/08/23 Vahid Baum PA-C [address] [place] [phone] Specialist Thoracic Surgery 04/02/24 documented as of this encounter
--- OUTSIDE RECORDS SUMMARY | 2024-11-20 12:07 | XMS_ITS | Encounter Summary ---
Author Organization [facility] Address [address] [place] [address] Care Team Providers Care Food Technologist Name Role Phone Jannet Doherty MD Primary Care Provider Unavailable aCin Cooley DO Primary Care Provider UnavailMichael Leonard MD Unavailable Namita Brown MD Primary Care Provider Un available Vahid Baum PA-C Unavailable [phone] Reason for Visit * Reason Onset Date Comments Medication 05/05/2021 Encounter Details Date Type Department Care Team Description 05/05/2021 Refill Gastroenterology - [address] [place] [address] Alex Navarrete MD [address] [place] [address] Medication Social History Tobacco Use Types Packs/Day Years [...] on filedocumented in this encounter Care Teams Food Technologist Relationship Specialty Start Date End Date Jannet Doherty MD PCP - General Internal Medicine 02/27/17 07/17/21 Cain Cooley DO PCP - General Internal Medicine 07/18/21 12/24/23 Namita Brown MD PCP - General Internal Medicine 12/25/23 Michael Herron MD Lung Cancer Family Living Educator 10/08/23 Vahid Baum PA-C [address] [phone] Specialist Thoracic Surgery 04/02/24 documented as of this encounter
--- OUTSIDE RECORDS SUMMARY | 2024-11-20 12:07 | XMS_ITS | Encounter Summary ---
Author Organization [facility] Address [address] [place] [address] Care Team Providers Care Crm Marketing Manager Name Role Phone Cain Cooley DO Primary Care Provider UnavailMichael Leonard MD Unavailable Namita Brown MD Primary Care Provider Un available Vahid Baum PA-C Unavailable [phone] Reason for Visit * Reason Onset Date Comments Information Needed 06/15/2023 Encounter Details Date Type Department Care Team Description 06/15/2023 Telephone Gastroenterology - [facility] [address] [facility] [address] [place] [address] Alex Navarrete MD [address] [place] [phone] Information Needed Social History Tobacco Use Types [...] week 09/13/2022 How often do you attend [facility] or worship services? Never 09/13/2022 Do you [...] referral message to PCP and placed in [facility] accordian documented in this encounter Plan of Treatment Not on file documented as of this encounter Visit Diagnoses Not on filedocumented in this encounter Care Teams Crm Marketing Manager Relationship Specialty Start Date End Date Cain Cooley DO PCP - General Internal Medicine 07/18/21 12/24/23 Namita Brown MD PCP - General Internal Medicine 12/25/23 Michael Herron MD Lung Cancer Hoist Cylinder Loader 10/08/23 Vahid Baum PA-C [address] [place] [phone] Specialist Thoracic Surgery 04/02/24 documented as of this encounter
--- OUTSIDE RECORDS SUMMARY | 2024-11-20 12:07 | XMS_ITS | Encounter Summary ---
Author Organization [facility] Address [address] [place] [address] Care Team Providers Care Quilting Supervisor Name Role Phone Jannet Doherty MD Primary Care Provider Unavailable Cain Cooley DO Primary Care Provider UnavailMichael Leonard MD Unavailable Namita Brown MD Primary Care Provider Un available Vahid Baum PA-C Unavailable [phone] Encounter Details Date Type Department Care Team Description 03/19/2019 [facility] Medical Records [address] [place] [address] Abstract, Provider Social History Tobacco Use Types [...] on filedocumented in this encounter Care Teams Quilting Supervisor Relationship Specialty Start Date End Date Jannet Doherty MD PCP - General Internal Medicine 02/27/17 07/17/21 Cain Cooley DO PCP - General Internal Medicine 07/18/21 12/24/23 Namita Brown MD PCP - General Internal Medicine 12/25/23 Michael Herron MD Lung Cancer Plaster Machine Operator 10/08/23 Vahid Baum PA-C [address] [phone] Specialist Thoracic Surgery 04/02/24 documented as of this encounter
--- OUTSIDE RECORDS SUMMARY | 2024-11-20 12:07 | XMS_ITS | Encounter Summary ---
Author Organization [facility] Address [address] [place] [address] Care Team Providers Care Activity Aide Name Role Phone Jannet Doherty MD Primary Care Provider Unavailable Cain Cooley DO Primary Care Provider UnavailMichael Leonard MD Unavailable Namita Brown MD Primary Care Provider Un available Vahid Baum PA-C Unavailable [phone] Encounter Details Date Type Department Care Team Description 09/30/2019 Refill Adult Medicine [address] [address] Jannet Doherty MD Social History Tobacco Use [...] often do you attend [facility] or restorationism services? Never 09/13/2022 Do you belong to any clubs o r organizations such as shinto groups, unions, fraternal or athletic groups, or [...] on filedocumented in this encounter Care Teams Activity Aide Relationship Specialty Start Date End Date Jannet Doherty MD PCP - General Internal Medicine 02/27/17 07/17/21 Cain Cooley DO PCP - General Internal Medicine 07/18/21 12/24/23 Namita Brown MD PCP - General Internal Medicine 12/25/23 Michael Herron MD Lung Cancer Utilization Management Manager 10/08/23 Vahid Baum PA-C [address] [place] [phone] Specialist Thoracic Surgery 04/02/24 documented as of this encounter
--- OUTSIDE RECORDS SUMMARY | 2024-11-20 12:07 | XMS_ITS | Encounter Summary ---
Author Organization [facility] Address [address] [place] [address] Care Team Providers Care Carrot Tier Name Role Phone Jannet Doherty MD Primary Care Provider Unavailable Cain Cooley DO Primary Care Provider UnavailMichael Leonard MD Unavailable Namita Brown MD Primary Care Provider Un available Vahid Baum PA-C Unavailable [phone] Encounter Details Date Type Department Care Team Description 09/27/2019 Refill Adult Medicine [address] [address] Jannet Doherty MD Social History Tobacco Use [...] week 09/13/2022 How often do you attend [facility] or christian services? Never 09/13/2022 Do you [...] on filedocumented in this encounter Care Teams Carrot Tier Relationship Specialty Start Date End Date Jannet Doherty MD PCP - General Internal Medicine 02/27/17 07/17/21 Cain Cooley DO PCP - General Internal Medicine 07/18/21 12/24/23 Namita Brown MD PCP - General Internal Medicine 12/25/23 Michael Herron MD Lung Cancer Classifying Machine Operator 10/08/23 Vahid Baum PA-C [address] [place] [phone] Specialist Thoracic Surgery 04/02/24 documented as of this encounter
--- OUTSIDE RECORDS SUMMARY | 2024-11-20 12:07 | XMS_ITS | Encounter Summary ---
Author Organization [facility] Address [address] [place] [address] Care Team Providers Care Genetic Scientist Name Role Phone Jannet Doherty MD Primary Care Provider Unavailable Cain Cooley DO Primary Care Provider UnavailMichael Leonard MD Unavailable Namita Brown MD Primary Care Provider Un available Vahid Baum PA-C Unavailable Encounter Details Date Type Department Care Team Description 08/10/2020 [facility] Medical Records [address] [place] [address] Abstract, Provider Social History Tobacco Use Types [...] any clubs o r organizations such as pentecostal groups, unions, fraternal or athletic groups, or [...] on filedocumented in this encounter Care Teams Genetic Scientist Relationship Specialty Start Date End Date Jannet Doherty MD PCP - General Internal Medicine 02/27/17 07/17/21 Cain Cooley DO PCP - General Internal Medicine 07/18/21 12/24/23 Namita Brown MD PCP - General Internal Medicine 12/25/23 Michael Herron MD Lung Cancer Tail Dogger 10/08/23 Vahid Baum PA-C [address] [phone] Specialist Thoracic Surgery 04/02/24 documented as of this encounter
--- OUTSIDE RECORDS SUMMARY | 2024-11-20 12:07 | XMS_ITS | Encounter Summary ---
Author Organization [facility] Address [address] [place] [address] Care Team Providers Care Pruner Name Role Phone Cain Cooley DO Primary Care Provider UnavailMichael Leonard MD Unavailable Nmaita Brown MD Primary Care Provider Un available Vahid Baum PA-C Unavailable [phone] Encounter Details Date Type Department Care Team Description 08/23/2021 Pt. 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
--- OUTSIDE RECORDS SUMMARY | 2024-11-20 12:07 | XMS_ITS | Encounter Summary ---
Author Organization [facility] Address [address] [place] [address] Care Team Providers Care Catalyst Operator Name Role Phone Jannet Doherty MD Primary Care Provider Unavailable Cain Cooley DO Primary Care Provider UnavailMichael Leonard MD Unavailable Namita Brown MD Primary Care Provider Un available Vahid Baum PA-C Unavailable [phone] Encounter Details Date Type Department Care Team Description 02/06/2019 Oracle Database Analyst Report Medical Records [address] [place] [address] [place] [address] [place] [address] Social History Tobacco Use Types Packs/Day Years [...] often do you attend [facility] or quaker services? Never 09/13/2022 Do you [...] on filedocumented in this encounter Care Teams Catalyst Operator Relationship Specialty Start Date End Date Jannet Doherty MD PCP - General Internal Medicine 02/27/17 07/17/21 Cain Cooley DO PCP - General Internal Medicine 07/18/21 12/24/23 Namita Brown MD PCP - General Internal Medicine 12/25/23 Michael Herron MD Lung Cancer Cafeteria Or Lunchroom Checker 10/08/23 Vahid Baum PA-C [address] [place] [phone] Specialist Thoracic Surgery 04/02/24 documented as of this encounter
--- OUTSIDE RECORDS SUMMARY | 2024-11-20 12:07 | XMS_ITS | Clinical Summary ---
Author Organization [facility] Address [address] [place] [address] Care Team Providers Care Tissue Technician Name Role Phone Cain Cooley DO Primary Care Provider [phone] Allergies No known active allergies Medications Medication [...] age to complete this topic Care Teams Tissue Technician Relationship Specialty Start Date End Date Cain Cooley DO [address] [place] [address] PCP - General Family Medicine 03/30/23
--- OUTSIDE RECORDS SUMMARY | 2024-11-20 12:08 | XMS_ITS | Encounter Summary ---
Author Organization [facility] Address [address] [place] [address] Care Team Providers Care Box Covering Machine Operator Name Role Phone Jannet Doherty MD Primary Care Provider Unavailable Cain Cooley DO Primary Care Provider UnavailMichael Leonard MD Unavailable Namita Brown MD Primary Care Provider Un available Vahid Baum PA-C Unavailable [phone] Encounter Details Date Type Department Care Team Description 01/18/2021 Pt. Non Urgent Medic al Question Adult Medicine - [address] [address] Jannet Doherty MD Social History Tobacco Use [...] 09/13/2022 How often do you attend [facility] or muslim services? Never 09/13/2022 Do [...] Doherty Sent: 01/18/2021 3:14 PM EDT Subject: Marble I submitted a refill request for my Marble and for some reason it went to another physician within the group. I will be out of medication tomorrow and am having back issues. documented in this encounter Plan of Treatment Not on file documented as of this encounter Visit Diagnoses Not on filedocumented in this encounter Care Teams Box Covering Machine Operator Relationship Specialty Start Date End Date Jannet Doherty MD PCP - General Internal Medicine 02/27/17 07/17/21 Cain Cooley DO PCP - General Internal Medicine 07/18/21 12/24/23 Namita Brown MD PCP - General Internal Medicine 12/25/23 Michael Herron MD Lung Cancer Gravel Wheeler 10/08/23 Vahid Baum PA-C [address] [place] [phone] Specialist Thoracic Surgery 04/02/24 documented as of this encounter
--- OUTSIDE RECORDS SUMMARY | 2024-11-20 12:08 | XMS_ITS | Encounter Summary ---
Author Organization [facility] Address [address] [place] [address] Care Team Providers Care Packager Machine Name Role Phone Jannet Doherty MD Primary Care Provider Unavailable Cain Cooley DO Primary Care Provider UnavailMichael Leonard MD Unavailable Namita Brown MD Primary Care Provider Un available Vahid Baum PA-C Unavailable [phone] Encounter Details Date Type Department Care Team Description 07/17/2017 Correspondence Dictator Report Medical Records [address] [place] [id number] Abstract, Provider Social History Tobacco Use Types [...] on filedocumented in this encounter Care Teams Packager Machine Relationship Specialty Start Date End Date Jannet Doherty MD PCP - General Internal Medicine 02/27/17 07/17/21 Cain Cooley DO PCP - General Internal Medicine 07/18/21 12/24/23 Namita Brown MD PCP - General Internal Medicine 12/25/23 Michael Herron MD Lung Cancer Pharmaceutical Sales Specialist 10/08/23 Vahid Baum PA-C [address] [place] [phone] Specialist Thoracic Surgery 04/02/24 documented as of this encounter
--- OUTSIDE RECORDS SUMMARY | 2024-11-20 12:08 | XMS_ITS | Encounter Summary ---
Author Organization [facility] Address [address] [place] [address] Care Team Providers Care Clothespin Drier Operator Name Role Phone Jannet Doherty MD Primary Care Provider Unavailable Cain Cooley DO Primary Care Provider UnavailMichael Leonard MD Unavailable Namita Brown MD Primary Care Provider Un available Vahid Baum PA-C Unavailable [phone] Reason for Visit * Reason Comments E-prescribe Rx Request Encounter Details Date Type Department Care Team Description 10/20/2020 Refill Adult Medicine [address] [address] Jannet Doherty MD E-prescribe Rx Request Social [...] How often do you attend [facility] or holiness services? Never 09/13/2022 Do you [...] N/A Patients current insurance carrier is: Payor: [facility]/HMO FFS / Plan: [employer] [facility] $20/$35 / Product Type: HMO [id number] documented in this encounter Plan of Treatment Not on file documented as of this encounter Visit Diagnoses Not on filedocumented in this encounter Care Teams Clothespin Drier Operator Relationship Specialty Start Date End Date Jannet Doherty MD PCP - General Internal Medicine 02/27/17 07/17/21 Cain Cooley DO PCP - General Internal Medicine 07/18/21 12/24/23 Namita Brown MD PCP - General Internal Medicine 12/25/23 Michael Herron MD Lung Cancer Spiral Winding Machine Helper 10/08/23 Vahid Baum PA-C [address] [place] [phone] Specialist Thoracic Surgery 04/02/24 documented as of this encounter
--- OUTSIDE RECORDS SUMMARY | 2024-11-20 12:08 | XMS_ITS | Encounter Summary ---
Author Organization [facility] Address [address] [place] [address] Care Team Providers Care Hyster Machine Operator Name Role Phone Jannet Doherty MD Primary Care Provider Unavailable Cain Cooley DO Primary Care Provider UnavailMichael Leonard MD Unavailable Namita Brown MD Primary Care Provider Un available Vahid Baum PA-C Unavailable [phone] Encounter Details Date Type Department Care Team Description 06/04/2018 [facility] Medical Records [address] [place] [address] Abstract, Provider Social History Tobacco Use Types [...] on filedocumented in this encounter Care Teams Hyster Machine Operator Relationship Specialty Start Date End Date Jannet Doherty MD PCP - General Internal Medicine 02/27/17 07/17/21 Cain Cooley DO PCP - General Internal Medicine 07/18/21 12/24/23 Namita Brown MD PCP - General Internal Medicine 12/25/23 Michael Herron MD Lung Cancer Senior Underwriting Assistant 10/08/23 Vahid Baum PA-C [address] [phone] Specialist Thoracic Surgery 04/02/24 documented as of this encounter
--- OUTSIDE RECORDS SUMMARY | 2024-11-20 12:08 | XMS_ITS | Encounter Summary ---
Author Organization [facility] Address [address] [place] [address] Care Team Providers Care Watershed Manager Name Role Phone Cain Cooley DO Primary Care Provider UnavailMichael Leonard MD Unavailable Namiat Brown MD Primary Care Provider Un available Vahid Baum PA-C Unavailable [phone] Encounter Details Date Type Department Care Team Description 09/07/2023 Pt. Non Urgent Medic al Question Adult Medicine - [address] [address] Cain Cooley, Social History Tobacco Use Types [...] on filedocumented in this encounter Care Teams Watershed Manager Relationship Specialty Start Date End Date Cain Cooley DO PCP - General Internal Medicine 07/18/21 12/24/23 Namita Brown MD PCP - General Internal Medicine 12/25/23 Michael Herron MD Lung Cancer Health Sanitarian 10/08/23 Vahid Baum PA-C [address] [phone] Specialist Thoracic Surgery 04/02/24 documented as of this encounter
--- OUTSIDE RECORDS SUMMARY | 2024-11-20 12:08 | XMS_ITS | Encounter Summary ---
Author Organization [facility] Address [address] [place] [address] Care Team Providers Care Butter Melter Name Role Phone Jannet Doherty MD Primary Care Provider Unavailable Cain Cooley DO Primary Care Provider UnavailMichael Leonard MD Unavailable Namita Brown MD Primary Care Provider Un available Vahid Baum PA-C Unavailable [phone] Encounter Details Date Type Department Care Team Description 09/27/2018 Trade Marker Report Medical Records [address] [place] [address] Rehab., [place] Social History Tobacco Use Types Packs/Day Years [...] on filedocumented in this encounter Care Teams Butter Melter Relationship Specialty Start Date End Date Jannet Doherty MD PCP - General Internal Medicine 02/27/17 07/17/21 Cain Cooley DO PCP - General Internal Medicine 07/18/21 12/24/23 Namita Brown MD PCP - General Internal Medicine 12/25/23 Michael Herron MD Lung Cancer Ladderman 10/08/23 Vahid Baum PA-C [address] [place] [phone] Specialist Thoracic Surgery 04/02/24 documented as of this encounter
--- OUTSIDE RECORDS SUMMARY | 2024-11-20 12:08 | XMS_ITS | Encounter Summary ---
Author Organization [facility] Address [address] [place] [address] Care Team Providers Care Psychic Reader Name Role Phone Cain Cooley DO Primary Care Provider UnavailMichael Leonard MD Unavailable Namita Brown MD Primary Care Provider Un available Vahid Baum PA-C Unavailable [phone] Encounter Details Date Type Department Care Team Description 06/20/2023 Telephone Gastroenterology - [address] [place] [address] Shaina Gay DScPAS Social History [...] How often do you attend chur or congregational services? Never 09/13/2022 Do you [...] on filedocumented in this encounter Care Teams Psychic Reader Relationship Specialty Start Date End Date Cain Cooley DO PCP - General Internal Medicine 07/18/21 12/24/23 Namita Brown MD PCP - General Internal Medicine 12/25/23 Michael Herron MD Lung Cancer Spinning Frame Tender 10/08/23 Vahid Baum PA-C [address] [phone] Specialist Thoracic Surgery 04/02/24 documented as of this encounter
--- OUTSIDE RECORDS SUMMARY | 2024-11-20 12:08 | XMS_ITS | Encounter Summary ---
Author Organization [facility] Address [address] [place] [address] Care Team Providers Care Equipment Mechanic Specialist Name Role Phone Michael Herron MD Unavailable Namita Brown MD Primary Care Provider Un available Vahid Baum PA-C Unavailable Encounter Details Date Type Department Care Team Description 12/31/2023 Refill Adult Medicine [address] [address] Cain Cooley, DO Social History Tobacco Use [...] often do you attend chur ch or mu-ism services? Never 09/13/2022 Do you belong to [...] disc documented in this encounter Care Teams Equipment Mechanic Specialist Relationship Specialty Start Date End Date Namita Brown MD PCP - General Internal Medicine 12/25/23 Michael Herron MD Lung Cancer Signal Intelligence/Electronic Warfare 10/08/23 Vahid Baum PA-C [address] [place] [phone] Specialist Thoracic Surgery 04/02/24 documented as of this encounter
--- OUTSIDE RECORDS SUMMARY | 2024-11-20 12:08 | XMS_ITS | Encounter Summary ---
Author Organization [facility] Address [address] [place] [address] Care Team Providers Care Flocculator Operator Name Role Phone Jannet Doherty MD Primary Care Provider Unavailable Cain Cooley DO Primary Care Provider UnavailMichael Leonard MD Unavailable Namita Brown MD Primary Care Provider Un available Vahid Baum PA-C Unavailable [phone] Encounter Details Date Type Department Care Team Description 03/15/2021 Refill Adult Medicine [address] [address] Jannet Doherty MD Social History Tobacco Use [...] you attend [facility] or adventism services? Never 09/13/2022 Do [...] on filedocumented in this encounter Care Teams Flocculator Operator Relationship Specialty Start Date End Date Jannet Doherty MD PCP - General Internal Medicine 02/27/17 07/17/21 Cain Cooley DO PCP - General Internal Medicine 07/18/21 12/24/23 Namita Brown MD PCP - General Internal Medicine 12/25/23 Michael Herron MD Lung Cancer Engine Maintenance Mechanic 10/08/23 Vahid Baum PA-C [address] [place] [phone] Specialist Thoracic Surgery 04/02/24 documented as of this encounter
== END 2024-11-20 11:43 | disposition home or self-care (01) ==
LOC: HO.PMCPRC 10:42
PROVIDERS: PCP Internal Medicine; Visit Provider Internal Medicine
DX: M47.816 Spondylosis without myelopathy or radiculopathy, lumbar region (principal); M43.16 Spondylolisthesis, lumbar region; G89.29 Other chronic pain; Z98.890 Other specified postprocedural states
CPT/HCPCS: 64555

== ENCOUNTER 2024-11-24 09:40 | Outpatient (AMB) | payer BC, SELFPAY ==
--- NOTE | 2024-11-24 09:43 | A.OFFVIS_ITS ---
Vital Signs 11/24/24 09:44 Height 6 ft 3 in Weight 290 lb BMI 36.2 BP 145/74 H Blood Pressure Location Lt brachial Position Sitting Respiration 16 Pulse 67 Pulse Source Pulse Oximeter Pulse Oximetry (%) 100 Oxygen Delivery Method Room Air Intake Visit Reasons: s/p right L3 Sprint Flare Maker Required: No Allergies No Known Allergies Allergy (Verified 11/24/24 09:45) Medication List - Last Reconciled 11/24/24 by Anisha Lui LPN atorvastatin 20 mg PO BEDTIME famotidine 20 mg PO BID PRN gabapentin 600 mg PO TID ibuprofen 800 mg PO TID losartan 25 mg PO DAILY metformin 500 mg PO DAILY HPI HPI s/p right L3 Sprint: Details: History of Present Illness The patient is a 59-year-old male presenting for a follow-up appointment after the recent placement of a right L3 sprint for medial branch nerve stimulation. He has been experiencing persistent back pain localized to the lumbar area, and this condition has been ongoing. His , a registered nurse, observed no signs of infection while changing his dressing recently. The patient reports constant numbness in the thighs and calves, attributing this primarily to nerve involvement, whereas pain is localized to the back. Despite initial treatments, the patient reports only a slight improvement, describing it as tiny. Another intervention is planned for his left side in the upcoming weeks due to ongoing discomfort. Additionally, he has previously used heat application for symptom relief, although it has led to skin complications. The MRI findings illustrate nerve root compression and disc herniations, though his leg symptoms are limited to numbness rather than severe pain. Discussion highlighted the complexity of addressing his back pain, with surgical interventions potentially worsening his condition. The emphasis remains on exploring less invasive options to improve quality of life. Pain Description - Onset: Chronic, long-standing - Quality: Continuous numbness in thighs and calves, predominant pain in the lumbar region - Location: Lumbar back, right-sided focus initially; symptoms on the left side as well - Exacerbating Factors: Limited relief from recent interventions - Alleviating Factors: Previous heat application provided relief but caused skin issues - Interference: Affects daily comfort and stresses the complexity of pain management Physical Exam - Appears afebrile. - Alert and oriented. - Mood and affect appropriate. - Follows and participates in conversation appropriately. - Respiratory effort is unlabored. - Able to transition from sit to stand unassisted. - Ambulates with bilaterally normal heel strike and toe off. - Able to stand and walk on toes and heels. - Lead insertion site c/d/i Results - Tests and diagnostics: - MRI showing nerve root compression and lumbar disc herniations Pain Management - Affect: Pain primarily impacts the patient's ability to feel relief in usual ways - Analgesia: Limited improvement from recent nerve stimulation; mostly hopeful rather than effective - Adverse Effects: Skin complications from heat application - Activities of Daily Living: Constant numbness affecting lower extremities, though without pain; reluctant avoidance of heat application - Aberrant Drug Related Behaviors: Not discussed [facility] Medical History Family history of colon cancer Pulmonary nodule GERD (gastroesophageal reflux disease) Spinal stenosis Cervical radiculopathy Ground glass opacity present on imaging of lung Mesenteric panniculitis Lumbosacral radiculitis Controlled type 2 diabetes mellitus Essential hypertension Surgical History S/P epidural steroid injection History of laminectomy (2018) Hx of varicose vein ligation (~1998) Hx of colonoscopy Hx of appendectomy (~1974) Social History Housing: House Are you a primary team primary care physician to a significant other at home: No Do you presently have visiting nurse or other home services: No Alcohol intake: never Patient Tobacco Use Status: Former Tobacco user Tobacco use type: Cigarette Cigarette Packs Per Day: 1 Years Smoked: 20 e-Cigarette/Vaping Use: Never Used service: Yes Current occupational status: employed 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 Current occupational exposures/hazards: No Cognitive needs: No Hearing needs: No Vision needs: No Physical Exam Vital Signs: Last Vital Signs Pulse 67 11/24/24 09:44 Resp 16 11/24/24 09:44 BP 145/74 H 11/24/24 09:44 Pulse Ox 100 11/24/24 09:44 Oxygen Delivery Method Room Air 11/24/24 09:44 BMI result Body Mass Index 36.2 Assessment & Plan Assessment & Plan (1) Lumbar spondylosis: Code(s): M47.816 - Spondylosis without myelopathy or radiculopathy, lumbar region Category: Medical (2) Chronic pain: Code(s): G89.29 - Other chronic pain Category: Medical Qualifiers: Chronic pain type: other chronic pain Qualified Code(s): G89.29 - Other chronic pain Plan Plan - Monitor the response to medial branch nerve stimulation. - Proceed with planning left-side intervention as scheduled. - Ensure patient understands the need to avoid problematic heat applications. - Explore further non-surgical, conservative management options. Patient was informed and verbally consented to the use of an ambient scribe for clinic note documentation during this visit. Discussion Notes I discussed with the patient the complexities associated with his back pain, emphasizing that surgical solutions are primarily beneficial for leg pain, not back pain. We talked about the recent interventions and his slight improvement, as well as the upcoming treatment on the left side. Alternatives to manage his symptoms were communicated, considering the skin complications from heat use. The patient remains hopeful for improvement through additional conservative options, agreeing to monitor and avoid aggravating factors like direct heat to sensitive areas. Patient Instructions - Follow up on upcoming left side treatment as discussed. - Avoid direct heat applications on the back to prevent further skin complications. - Monitor any changes or improvements in symptoms and report significant differences or concerns. - Discuss any alternative pain relief strategies or management preferences with me during the next visit. Coding Level of Care Code Est Pt Level 3 (10493) Diagnoses Lumbar spondylosis M47.816 Other chronic pain G89.29 Chronic pain type: other chronic pain
[2024-11-24 09:44] VITALS: BP 145/74; PULSE 67; RESP 16; O2SAT 100; BMI 36.2
--- OUTSIDE RECORDS SUMMARY | 2024-11-24 10:00 | XMS_ITS | Encounter Summary ---
Author Organization [facility] Address [address] [place] [address] Care Team Providers Care Assistant Research Scientist Name Role Phone Jannet Doherty MD Primary Care Provider Unavailable Cain Cooley DO Primary Care Provider UnavailMichael Leonard MD Unavailable Namita Brown MD Primary Care Provider Un available Vahid Baum PA-C Unavailable [phone] Encounter Details Date Type Department Care Team Description 04/13/2017 X Ray Nurse Report Medical Records [address] [place] [address] Rehab., [place] Social History Tobacco Use Types Packs/Day Years [...] often do you attend chur ch or mosque services? Never 09/13/2022 Do you [...] on filedocumented in this encounter Care Teams Assistant Research Scientist Relationship Specialty Start Date End Date Jannet Doherty MD PCP - General Internal Medicine 02/27/17 07/17/21 Cain Cooley DO PCP - General Internal Medicine 07/18/21 12/24/23 Namita Brown MD PCP - General Internal Medicine 12/25/23 Michael Herron MD Lung Cancer Gas Mask Assembler 10/08/23 Vahid Baum PA-C [address] [phone] Specialist Thoracic Surgery 04/02/24 documented as of this encounter
--- OUTSIDE RECORDS SUMMARY | 2024-11-24 10:00 | XMS_ITS | Encounter Summary ---
Author Organization [facility] Address [address] [place] [address] Care Team Providers Care General Intern Name Role Phone Cain Cooley DO Primary Care Provider UnavailMichael Leonard MD Unavailable Namita Brown MD Primary Care Provider Un available Vahid Baum PA-C Unavailable [phone] Encounter Details Date Type Department Care Team Description 09/16/2022 Pt. Non Urgent Medic al Question Adult Medicine - [address] [address] Foreign Gardner PA-C [address] [place] [address] Social History Tobacco Use Types Packs/Day Years [...] How often do you attend [facility] or gnosticism services? Never 09/13/2022 Do you [...] on filedocumented in this encounter Care Teams General Intern Relationship Specialty Start Date End Date Cain Cooley DO PCP - General Internal Medicine 07/18/21 12/24/23 Namita Brown MD PCP - General Internal Medicine 12/25/23 Michael Herron MD Lung Cancer Real Time Trader 10/08/23 Vahid Baum PA-C [address] [phone] Specialist Thoracic Surgery 04/02/24 documented as of this encounter
--- OUTSIDE RECORDS SUMMARY | 2024-11-24 10:00 | XMS_ITS | Encounter Summary ---
Author Organization [facility] Address [address] [place] [address] Care Team Providers Care Counter Professional Name Role Phone Cain Cooley DO Primary Care Provider UnavailMichael Leonard MD Unavailable Namita Brown MD Primary Care Provider Un available Vahid Baum PA-C Unavailable [phone] Encounter Details Date Type Department Care Team Description 04/05/2022 [facility] Adult Medicine [address] [address] Cain Cooley DO Social History Tobacco Use [...] on filedocumented in this encounter Care Teams Counter Professional Relationship Specialty Start Date End Date Cain Cooley DO PCP - General Internal Medicine 07/18/21 12/24/23 Namita Brown MD PCP - General Internal Medicine 12/25/23 Michael Herron MD Lung Cancer Keno Attendant 10/08/23 Vahid Baum PA-C [address] [place] [phone] Specialist Thoracic Surgery 04/02/24 documented as of this encounter
--- OUTSIDE RECORDS SUMMARY | 2024-11-24 10:00 | XMS_ITS | Clinical Summary ---
Author Organization [facility] Address [address] [place] [address] Care Team Providers Care Roll Weigher Name Role Phone Cain Cooley DO Primary Care Provider [phone] Allergies No known active allergies Medications Medication [...] age to complete this topic Care Teams Roll Weigher Relationship Specialty Start Date End Date Cain Cooley DO [address] [place] [address] PCP - General Family Medicine 03/30/23
--- OUTSIDE RECORDS SUMMARY | 2024-11-24 10:01 | XMS_ITS | Encounter Summary ---
Author Organization [facility] Address [address] [place] [address] Care Team Providers Care Marketing Strategy Analyst Name Role Phone Cain Cooley DO Primary Care Provider UnavailMichael Leonard MD Unavailable Namita Brown MD Primary Care Provider Un available Vahid Baum PA-C Unavailable [phone] Reason for Visit * Reason Onset Date Comments refill request 01/04/2022 Encounter Details Date Type Department Care Team Description 01/04/2022 Telephone [facility] [address] [facility] [address] [place] [phone] Angelo Quan DPM refill request Social History [...] you attend [facility] or orthodoxy services? Never 09/13/2022 [...] Please call her with any questions @ [phone]. documented in this encounter Plan of Treatment Not on file documented as of this encounter Visit Diagnoses Not on filedocumented in this encounter Care Teams Marketing Strategy Analyst Relationship Specialty Start Date End Date Cain Cooley DO PCP - General Internal Medicine 07/18/21 12/24/23 Namita Brown MD PCP - General Internal Medicine 12/25/23 Michael Herron MD Lung Cancer Bag Worker 10/08/23 Vaihd Baum PA-C [address] [phone] Specialist Thoracic Surgery 04/02/24 documented as of this encounter
--- OUTSIDE RECORDS SUMMARY | 2024-11-24 10:01 | XMS_ITS | Encounter Summary ---
Author Organization [facility] Address [address] [place] [address] Care Team Providers Care Educational Technologist Name Role Phone Jannet Doherty MD Primary Care Provider Unavailable Cain Cooley DO Primary Care Provider UnavailMichael Leonard MD Unavailable Namita Brown MD Primary Care Provider Un available Vahid Baum PA-C Unavailable [phone] Encounter Details Date Type Department Care Team Description 09/10/2019 Pt. Non Urgent Medic al Question Adult Medicine - [address] [address] Jannet Doherty MD Social History Tobacco Use [...] How often do you attend [facility] or denominational services? Never 09/13/2022 Do [...] on filedocumented in this encounter Care Teams Educational Technologist Relationship Specialty Start Date End Date Jannet Doherty MD PCP - General Internal Medicine 02/27/17 07/17/21 Cain Cooley DO PCP - General Internal Medicine 07/18/21 12/24/23 Namita Brown MD PCP - General Internal Medicine 12/25/23 Michael Herron MD Lung Cancer Manager Science 10/08/23 Vahid Baum PA-C [address] [place] [phone] Specialist Thoracic Surgery 04/02/24 documented as of this encounter
--- OUTSIDE RECORDS SUMMARY | 2024-11-24 10:01 | XMS_ITS | Encounter Summary ---
Author Organization [facility] Address [address] [place] [address] Care Team Providers Care Reading Teacher Name Role Phone Jannet Doherty MD Primary Care Provider Unavailable Cain Cooley DO Primary Care Provider UnavailMichael Leonard MD Unavailable Namita Brown MD Primary Care Provider Un available Vahid Baum PA-C Unavailable [phone] Encounter Details Date Type Department Care Team Description 09/27/2019 Refill Adult Medicine [address] [address] Jannet Doherty MD Social History Tobacco Use [...] do you attend [facility] or gnosticist services? Never 09/13/2022 Do you [...] on filedocumented in this encounter Care Teams Reading Teacher Relationship Specialty Start Date End Date Jannet Doherty MD PCP - General Internal Medicine 02/27/17 07/17/21 Cain Cooley DO PCP - General Internal Medicine 07/18/21 12/24/23 Namita Brown MD PCP - General Internal Medicine 12/25/23 Michael Herron MD Lung Cancer Ctc Operator 10/08/23 Vahid Baum PA-C [address] [place] [phone] Specialist Thoracic Surgery 04/02/24 documented as of this encounter
--- OUTSIDE RECORDS SUMMARY | 2024-11-24 10:01 | XMS_ITS | Encounter Summary ---
Author Organization [facility] Address [address] [place] [address] Care Team Providers Care Kelp Cutter Name Role Phone Jannet Doherty MD Primary Care Provider Unavailable Cain Cooley DO Primary Care Provider UnavailMichael Leonard MD Unavailable Namita Brown MD Primary Care Provider Un available Vahid Baum PA-C Unavailable [phone] Encounter Details Date Type Department Care Team Description 10/28/2020 Quickbooks Bookkeeper Report Medical Records [address] [place] [address] Amy Young Social History Tobacco Use Types [...] often do you attend chur ch or mandaeism services? Never 09/13/2022 Do you [...] on filedocumented in this encounter Care Teams Kelp Cutter Relationship Specialty Start Date End Date Jannet Doherty MD PCP - General Internal Medicine 02/27/17 07/17/21 Cain Cooley DO PCP - General Internal Medicine 07/18/21 12/24/23 Namita Brown MD PCP - General Internal Medicine 12/25/23 Michael Herron MD Lung Cancer Stamp Classifier 10/08/23 Vahid Baum PA-C [address] [place] [phone] Specialist Thoracic Surgery 04/02/24 documented as of this encounter
--- OUTSIDE RECORDS SUMMARY | 2024-11-24 10:01 | XMS_ITS | Clinical Summary ---
Author Organization [facility] Address [address] [place] [address] Care Team Providers Care Dba Name Role Phone Michael Herron MD Unavailable Namita Brown MD Primary Care Provider Un available Vahid Baum PA-C Unavailable [phone] Allergies No known active allergies Medications Medication [...] a CT scan of the chest at [facility] on 06/19/2023. Thoracic surgery has been following [...] sleep. He was instructed to trial a [id number] PPI she has omeprazole and to continue [...] HEPATITIS C SCREENING Completed 10/22/2017 Care Teams Dba Relationship Specialty Start Date End Date Namita Brown MD PCP - General Internal Medicine 12/25/23 Michael Herron MD Lung Cancer Fulling Machine Operator 10/08/23 Vahid Baum PA-C [address] [place] [address] Specialist Thoracic Surgery 04/02/24
--- OUTSIDE RECORDS SUMMARY | 2024-11-24 10:01 | XMS_ITS | Encounter Summary ---
Author Organization [facility] Address [address] [place] [address] Care Team Providers Care Braddisher Name Role Phone Jannet Doherty MD Primary Care Provider Unavailable Cain Cooley DO Primary Care Provider UnavailMichael Leonard MD Unavailable Namita Brown MD Primary Care Provider Un available Vahid Baum PA-C Unavailable [phone] Encounter Details Date Type Department Care Team Description 01/02/2019 Grain Unloader Machine Report Medical Records [address] [place] [address] Swapnil Casey MD Social History Tobacco Use [...] on filedocumented in this encounter Care Teams Braddisher Relationship Specialty Start Date End Date Jannet Doherty MD PCP - General Internal Medicine 02/27/17 07/17/21 Cain Cooley DO PCP - General Internal Medicine 07/18/21 12/24/23 Namita Brown MD PCP - General Internal Medicine 12/25/23 Michael Herron MD Lung Cancer Radio Officer 10/08/23 Vahid Baum PA-C [address] [place] [phone] Specialist Thoracic Surgery 04/02/24 documented as of this encounter
--- OUTSIDE RECORDS SUMMARY | 2024-11-24 10:01 | XMS_ITS | Encounter Summary ---
Author Organization [facility] Address [address] [place] [address] Care Team Providers Care Storm Door Maker Name Role Phone Jannet Doherty MD Primary Care Provider Unavailable Cain Cooley DO Primary Care Provider UnavailMichael Leonard MD Unavailable Namita Brown MD Primary Care Provider Un available Vahid Baum PA-C Unavailable [phone] Encounter Details Date Type Department Care Team Description 05/03/2017 Pt. Non Urgent Medic al Question Adult Medicine - [address] [address] Nuris Rivera PA-C Social History Tobacco Use [...] do you attend [facility] or episcopal services? Never 09/13/2022 Do you [...] on filedocumented in this encounter Care Teams Storm Door Maker Relationship Specialty Start Date End Date Jannet Doherty MD PCP - General Internal Medicine 02/27/17 07/17/21 Cain Cooley DO PCP - General Internal Medicine 07/18/21 12/24/23 Namita Brown MD PCP - General Internal Medicine 12/25/23 Michael Herron MD Lung Cancer Cover Mat Machine Operator 10/08/23 Vahid Baum PA-C [address] [place] [phone] Specialist Thoracic Surgery 04/02/24 documented as of this encounter
--- OUTSIDE RECORDS SUMMARY | 2024-11-24 10:01 | XMS_ITS | Encounter Summary ---
Author Organization [facility] Address [address] [place] [address] Care Team Providers Care Assistant Designer Name Role Phone Jannet Doherty MD Primary Care Provider Unavailable Cain Cooley DO Primary Care Provider UnavailMichael Leonard MD Unavailable Namita Brown MD Primary Care Provider Un available Vahid Baum PA-C Unavailable [phone] Encounter Details Date Type Department Care Team Description 05/25/2021 Orders Only Medical Records [address] [place] [address] Alex Navarrete MD [address] [place] [address] Social History Tobacco Use Types Packs/Day Years [...] week 09/13/2022 How often do you attend [facility] or methodist services? Never 09/13/2022 Do you [...] Certified Gastroenterology and Internal Medicine Transplant Hepatology [facility] documented in this encounter Plan of Treatment Not on file documented as of this encounter Procedures Procedure Name Priority Date/Time Associated Diagnosis Comments OUTSIDE PATHOLOGY Routine 05/19/2021 documented in this encounter Results * OUTSIDE PATHOLOGY (05/19/2021) H Timo Navarrete MD OUTSIDE LAB documented in this encounter Visit Diagnoses Not on filedocumented in this encounter Care Teams Assistant Designer Relationship Specialty Start Date End Date Jannet Doherty MD PCP - General Internal Medicine 02/27/17 07/17/21 Cain Cooley DO PCP - General Internal Medicine 07/18/21 12/24/23 Namita Brown MD PCP - General Internal Medicine 12/25/23 Michael Herron MD Lung Cancer One Piece Expansion Maker Hand 10/08/23 Vahid Baum PA-C [address] [place] [phone] Specialist Thoracic Surgery 04/02/24 documented as of this encounter
--- OUTSIDE RECORDS SUMMARY | 2024-11-24 10:01 | XMS_ITS | Encounter Summary ---
Author Organization [facility] Address [address] [place] [address] Care Team Providers Care Deputy Head Name Role Phone Jannet Doherty MD Primary Care Provider Unavailable Cain Cooley DO Primary Care Provider UnavailMichael Leonard MD Unavailable Namita Brown MD Primary Care Provider Un available Vahid Baum PA-C Unavailable [phone] Encounter Details Date Type Department Care Team Description 04/02/2019 Chief Financial Officer Report Medical Records [address] [place] [address] Swapnil Casey MD Social History Tobacco Use [...] often do you attend chur ch or alevism services? Never 09/13/2022 Do you [...] filedocumented in this encounter Care Teams Deputy Head Relationship Specialty Start Date End Date Jannet Doherty MD PCP - General Internal Medicine 02/27/17 07/17/21 Cain Cooley DO PCP - General Internal Medicine 07/18/21 12/24/23 Namita Brown MD PCP - General Internal Medicine 12/25/23 Michael Herron MD Lung Cancer Fleecer 10/08/23 Vahid Baum PA-C [address] [place] [phone] Specialist Thoracic Surgery 04/02/24 documented as of this encounter
--- OUTSIDE RECORDS SUMMARY | 2024-11-24 10:01 | XMS_ITS | Encounter Summary ---
Author Organization [facility] Address [address] [place] [address] Care Team Providers Care Retail Project Merchandiser Name Role Phone Cain Cooley DO Primary Care Provider UnavailMichael Leonard MD Unavailable Namita Brown MD Primary Care Provider Un available Vahid Baum PA-C Unavailable [phone] Encounter Details Date Type Department Care Team Description 06/27/2023 Orders Only Medical Records [address] [place] [address] Génesis Valero PA-C Social History Tobacco Use [...] on filedocumented in this encounter Care Teams Retail Project Merchandiser Relationship Specialty Start Date End Date Cain Cooley DO PCP - General Internal Medicine 07/18/21 12/24/23 Namita Brown MD PCP - General Internal Medicine 12/25/23 Michael Herron MD Lung Cancer Central Supply Nurse 10/08/23 Vahid Baum PA-C [address] [place] [phone] Specialist Thoracic Surgery 04/02/24 documented as of this encounter
--- OUTSIDE RECORDS SUMMARY | 2024-11-24 10:01 | XMS_ITS | Encounter Summary ---
Author Organization [facility] Address [address] [place] [address] Care Team Providers Care Locomotive Crane Operator Helper Name Role Phone Michael Herron MD Unavailable Namita Brown MD Primary Care Provider Un available Vahid Baum PA-C Unavailable [phone] Encounter Details Date Type Department Care Team Description 12/31/2023 Refill Adult Medicine [address] [address] Cain Cooley, DO Social History Tobacco Use [...] following medications: Other - Prednisone Preferred pharmacy: [id number] - [address] Medication renewals requested in this message routed separately: methocarbamol (ROBAXIN) 750 MG tablet [James Cooley, DO] documented in this encounter Plan of Treatment Not on file documented as of this encounter Visit Diagnoses Not on filedocumented in this encounter Care Teams Locomotive Crane Operator Helper Relationship Specialty Start Date End Date Namita Brown MD PCP - General Internal Medicine 12/25/23 Michael Herron MD Lung Cancer School Cafeteria Cook Head 10/08/23 Vahid Baum PA-C [address] [place] [phone] Specialist Thoracic Surgery 04/02/24 documented as of this encounter
--- OUTSIDE RECORDS SUMMARY | 2024-11-24 10:01 | XMS_ITS | Encounter Summary ---
Author Organization [facility] Address [address] [place] [address] Care Team Providers Care Pelt Salter Name Role Phone Michael Herron MD Unavailable Namita Brown MD Primary Care Provider Un available Vahid Baum PA-C Unavailable [phone] Encounter Details Date Type Department Care Team Description 02/12/2024 Pt. Non Urgent Medic al Question Adult Medicine - [address] [address] Namita Brown MD Social History Tobacco Use [...] often do you attend chur ch or caodaism services? Never 09/13/2022 Do you [...] out again. My brother this weekend in [place]. Did a lot of driving and was in his ICU room for 36 hour straight. Was hoping for a refill on the prednisone and roboxin. I did submit the refill requeat documented in this encounter Plan of Treatment Not on file documented as of this encounter Visit Diagnoses Not on filedocumented in this encounter Care Teams Pelt Salter Relationship Specialty Start Date End Date Namita Brown MD PCP - General Internal Medicine 12/25/23 Michael Herron MD Lung Cancer Detective And Intelligence Analyst 10/08/23 Vahid Baum PA-C [address] [place] [phone] Specialist Thoracic Surgery 04/02/24 documented as of this encounter
--- OUTSIDE RECORDS SUMMARY | 2024-11-24 10:01 | XMS_ITS | Encounter Summary ---
Author Organization [facility] Address [address] [place] [address] Care Team Providers Care Eeg Tech Name Role Phone Michael Herron MD Unavailable Namita Brown MD Primary Care Provider Un available Vahid Baum PA-C Unavailable Reason for Visit * Reason Comments E-prescribe Rx Request Encounter Details Date Type Department Care Team Description 03/11/2024 Refill Adult Medicine [address] [address] Cain Cooley, E-prescribe Rx Request Social History [...] often do you attend chur ch or uatsdin services? Never 09/13/2022 Do you belong to [...] on filedocumented in this encounter Care Teams Eeg Tech Relationship Specialty Start Date End Date Namita Brown MD PCP - General Internal Medicine 12/25/23 Michael Herron MD Lung Cancer Public Policy Professor 10/08/23 Vahid Baum PA-C [address] [place] [phone] Specialist Thoracic Surgery 04/02/24 documented as of this encounter
--- OUTSIDE RECORDS SUMMARY | 2024-11-24 10:01 | XMS_ITS | Encounter Summary ---
Author Organization [facility] Address [address] [place] [address] Care Team Providers Care Chart Writer Name Role Phone Jannet Doherty MD Primary Care Provider Unavailable Cain Cooely DO Primary Care Provider UnavailMichael Leonard MD Unavailable Namita Brown MD Primary Care Provider Un available Vahid Baum PA-C Unavailable Encounter Details Date Type Department Care Team Description 03/19/2019 [facility] Medical Records [address] [place] [address] Abstract, Provider Social History Tobacco Use Types [...] on filedocumented in this encounter Care Teams Chart Writer Relationship Specialty Start Date End Date Jannet Doherty MD PCP - General Internal Medicine 02/27/17 07/17/21 Cain Cooley DO PCP - General Internal Medicine 07/18/21 12/24/23 Namita Brown MD PCP - General Internal Medicine 12/25/23 Michael Herron MD Lung Cancer Fork Truck Operator 10/08/23 Vahid Baum PA-C [address] [phone] Specialist Thoracic Surgery 04/02/24 documented as of this encounter
--- OUTSIDE RECORDS SUMMARY | 2024-11-24 10:01 | XMS_ITS | Encounter Summary ---
Author Organization [facility] Address [address] [place] [address] Care Team Providers Care Traffic Survey Technician Name Role Phone Cain Cooley DO Primary Care Provider UnavailMichael Leonard MD Unavailable Namita Brown MD Primary Care Provider Un available Vahid Baum PA-C Unavailable [phone] Encounter Details Date Type Department Care Team Description 07/02/2023 Refill Pediatrics [address] [address] Cain Cooley DO Social History Tobacco Use [...] this encounter Visit Diagnoses Diagnosis Pancolitis (HCC) [place] ulcerative (chronic) colitis documented in this encounter Care Teams Traffic Survey Technician Relationship Specialty Start Date End Date Cain Cooley DO PCP - General Internal Medicine 07/18/21 12/24/23 Namita Brown MD PCP - General Internal Medicine 12/25/23 Michael Herron MD Lung Cancer Vocational Instructor 10/08/23 Vahid Baum PA-C [address] [place] [phone] Specialist Thoracic Surgery 04/02/24 documented as of this encounter
--- OUTSIDE RECORDS SUMMARY | 2024-11-24 10:01 | XMS_ITS | Encounter Summary ---
Author Organization [facility] Address [address] [place] [address] Care Team Providers Care Custodian Supervisor Name Role Phone Cain Cooley DO Primary Care Provider UnavailMichael Leonard MD Unavailable Namita Brown MD Primary Care Provider Un available Vahid Baum PA-C Unavailable [phone] Encounter Details Date Type Department Care Team Description 08/23/2021 Pt. Non Urgent Medic al Question Adult Medicine - [address] [address] Cain Cooley, Social History Tobacco Use Types [...] any clubs o r organizations such as caodaism groups, unions, fraternal or athletic groups, or [...] I had to be in [facility] for work to cover [...] on filedocumented in this encounter Care Teams Custodian Supervisor Relationship Specialty Start Date End Date Cain Cooley DO PCP - General Internal Medicine 07/18/21 12/24/23 Namita Brown MD PCP - General Internal Medicine 12/25/23 Michael Herron MD Lung Cancer Mechanical Sound Technician 10/08/23 Vahid Baum PA-C [address] [place] [phone] Specialist Thoracic Surgery 04/02/24 documented as of this encounter
--- OUTSIDE RECORDS SUMMARY | 2024-11-24 10:01 | XMS_ITS | Encounter Summary ---
Author Organization [facility] Address [address] [place] [address] Care Team Providers Care Derrick Boat Operator Name Role Phone Jannet Doherty MD Primary Care Provider Unavailable Cain Cooley DO Primary Care Provider UnavailMichael Leonard MD Unavailable Namita Brown MD Primary Care Provider Un available Vahid Baum PA-C Unavailable [phone] Reason for Visit * Reason Comments E-prescribe Rx Request Encounter Details Date Type Department Care Team Description 12/01/2018 Refill Adult Medicine [address] [address] Jannet Doherty MD E-prescribe Rx Request Social [...] 09/13/2022 How often do you attend [facility] or latter-day services? Never 09/13/2022 Do [...] on filedocumented in this encounter Care Teams Derrick Boat Operator Relationship Specialty Start Date End Date Jannet Doherty MD PCP - General Internal Medicine 02/27/17 07/17/21 Cain Cooley DO PCP - General Internal Medicine 07/18/21 12/24/23 Namita Brown MD PCP - General Internal Medicine 12/25/23 Michael Herron MD Lung Cancer Coremaker Supervisor 10/08/23 Vahid Baum PA-C [address] [place] [phone] Specialist Thoracic Surgery 04/02/24 documented as of this encounter
--- OUTSIDE RECORDS SUMMARY | 2024-11-24 10:01 | XMS_ITS | Encounter Summary ---
Author Organization [facility] Address [address] [place] [address] Care Team Providers Care Acid Treater Name Role Phone Cain Cooley DO Primary Care Provider UnavailMichael Leonard MD Unavailable Namita Brown MD Primary Care Provider Un available Vahid Baum PA-C Unavailable [phone] Encounter Details Date Type Department Care Team Description 06/25/2023 Transfer Records Medical Records [address] [place] [address] Abstract, Provider Social History Tobacco Use Types [...] on filedocumented in this encounter Care Teams Acid Treater Relationship Specialty Start Date End Date Cain Cooley DO PCP - General Internal Medicine 07/18/21 12/24/23 Namita Brown MD PCP - General Internal Medicine 12/25/23 Michael Herron MD Lung Cancer Reclaimer 10/08/23 Vahid Baum PA-C [address] [place] [phone] Specialist Thoracic Surgery 04/02/24 documented as of this encounter
--- OUTSIDE RECORDS SUMMARY | 2024-11-24 10:01 | XMS_ITS | Encounter Summary ---
Author Organization [facility] Address [address] [place] [address] Care Team Providers Care Internet Media Planner Name Role Phone Jannet Doherty MD Primary Care Provider Unavailable Cain Cooley DO Primary Care Provider UnavailMichael Leonard MD Unavailable Namita Brown MD Primary Care Provider Un available Vahid Baum PA-C Unavailable [phone] Encounter Details Date Type Department Care Team Description 07/23/2020 [facility] Medical Records [address] [place] [address] Abstract, Provider Social History Tobacco Use Types [...] any clubs o r organizations such as spiritism groups, unions, fraternal or athletic groups, or [...] on filedocumented in this encounter Care Teams Internet Media Planner Relationship Specialty Start Date End Date Jannet Doherty MD PCP - General Internal Medicine 02/27/17 07/17/21 Cain Cooley DO PCP - General Internal Medicine 07/18/21 12/24/23 Namita Brown MD PCP - General Internal Medicine 12/25/23 Michael Herron MD Lung Cancer Assistant Track And Field Coach 10/08/23 Vahid Baum PA-C [address] [phone] Specialist Thoracic Surgery 04/02/24 documented as of this encounter
--- OUTSIDE RECORDS SUMMARY | 2024-11-24 10:01 | XMS_ITS | Encounter Summary ---
Author Organization [facility] Address [address] [place] [address] Care Team Providers Care Pack Changer Name Role Phone Jannet Doherty MD Primary Care Provider Unavailable Cain Cooley DO Primary Care Provider UnavailMichael Leonard MD Unavailable Namita Brown MD Primary Care Provider Un available Vahid Baum PA-C Unavailable [phone] Encounter Details Date Type Department Care Team Description 12/12/2018 [facility] Medical Records [address] [place] [address] Abstract, Provider Social History Tobacco Use Types [...] on filedocumented in this encounter Care Teams Pack Changer Relationship Specialty Start Date End Date Jannet Doherty MD PCP - General Internal Medicine 02/27/17 07/17/21 Cain Cooley DO PCP - General Internal Medicine 07/18/21 12/24/23 Namita Brown MD PCP - General Internal Medicine 12/25/23 Michael Herron MD Lung Cancer Wireless Field Technician 10/08/23 Vahid Baum PA-C [address] [phone] Specialist Thoracic Surgery 04/02/24 documented as of this encounter
--- OUTSIDE RECORDS SUMMARY | 2024-11-24 10:01 | XMS_ITS | Encounter Summary ---
Author Organization [facility] Address [address] [place] [address] Care Team Providers Care Mailroom Personnel Name Role Phone Jannet Doherty MD Primary Care Provider Unavailable Cani Cooley DO Primary Care Provider UnavailMichael Leonard MD Unavailable Namita Brown MD Primary Care Provider Un available Vahid Baum PA-C Unavailable [phone] Reason for Visit * Reason Onset Date Comments Medication 05/05/2021 Encounter Details Date Type Department Care Team Description 05/05/2021 Refill Gastroenterology - [address] [place] [address] Alex Navarrete MD [address] [place] [address] Medication Social History Tobacco Use Types Packs/Day [...] often do you attend chur ch or rastafari services? Never 09/13/2022 Do you [...] on filedocumented in this encounter Care Teams Mailroom Personnel Relationship Specialty Start Date End Date Jannet Doherty MD PCP - General Internal Medicine 02/27/17 07/17/21 Cain Cooley DO PCP - General Internal Medicine 07/18/21 12/24/23 Namita Brown MD PCP - General Internal Medicine 12/25/23 Mcihael Herron MD Lung Cancer Cosmetic Counselor 10/08/23 Vahid Baum PA-C [address] [phone] Specialist Thoracic Surgery 04/02/24 documented as of this encounter
--- OUTSIDE RECORDS SUMMARY | 2024-11-24 10:01 | XMS_ITS | Encounter Summary ---
Author Organization [facility] Address [address] [place] [address] Care Team Providers Care Clinical Team Lead Name Role Phone Jannet Doherty MD Primary Care Provider Unavailable Cain Cooley DO Primary Care Provider UnavailMichael Leonard MD Unavailable Namita Brown MD Primary Care Provider Un available Vahid Baum PA-C Unavailable [phone] Encounter Details Date Type Department Care Team Description 09/26/2019 [facility] Medical Records [address] [place] [address] Abstract, Provider Social History Tobacco Use Types [...] filedocumented in this encounter Care Teams Clinical Team Lead Relationship Specialty Start Date End Date Jannet Doherty MD PCP - General Internal Medicine 02/27/17 07/17/21 Cain Cooley DO PCP - General Internal Medicine 07/18/21 12/24/23 Namita Brown MD PCP - General Internal Medicine 12/25/23 Michael Herron MD Lung Cancer Natural Gas Basis Trader 10/08/23 Vahid Baum PA-C [address] [phone] Specialist Thoracic Surgery 04/02/24 documented as of this encounter
--- OUTSIDE RECORDS SUMMARY | 2024-11-24 10:01 | XMS_ITS | Encounter Summary ---
Author Organization [facility] Address [address] [place] [address] Care Team Providers Care Parachute/Combatant Diver Officer Name Role Phone Jannet Doherty MD Primary Care Provider Unavailable Cain Cooley DO Primary Care Provider UnavailMichael Leonard MD Unavailable Namita Brown MD Primary Care Provider Un available Vahid Baum PA-C Unavailable [phone] Encounter Details Date Type Department Care Team Description 03/05/2019 Java Technical Manager Report Medical Records [address] [place] [address] Swapnil Casey MD Social History Tobacco Use [...] on filedocumented in this encounter Care Teams Parachute/Combatant Diver Officer Relationship Specialty Start Date End Date Jannet Doherty MD PCP - General Internal Medicine 02/27/17 07/17/21 Cain Cooley DO PCP - General Internal Medicine 07/18/21 12/24/23 Namita Brown MD PCP - General Internal Medicine 12/25/23 Michael Herron MD Lung Cancer Hasher Machine Operator 10/08/23 Vahid Baum PA-C [address] [place] [phone] Specialist Thoracic Surgery 04/02/24 documented as of this encounter
--- OUTSIDE RECORDS SUMMARY | 2024-11-24 10:01 | XMS_ITS | Encounter Summary ---
Author Organization [facility] Address [address] [place] [address] Care Team Providers Care Copier Field Service Technician Name Role Phone Jannet Doherty MD Primary Care Provider Unavailable Cain Cooley DO Primary Care Provider UnavailMichael Leonard MD Unavailable Namita Brown MD Primary Care Provider Un available Vahid Baum PA-C Unavailable [phone] Reason for Visit * Reason Comments E-prescribe Rx Request Encounter Details Date Type Department Care Team Description 05/26/2020 Refill Adult Medicine [address] [address] Janent Doherty MD E-prescribe Rx Request Social History [...] attend [facility] or pentecostalism services? Never 09/13/2022 Do [...] an upcoming appointment? No-unable to reach left [facility] to call for appointment due [...] ?? Patients current insurance carrier is: Payor: [place]/H[place] FFS / Plan: JOSÉ LUIS GARCIA $20/$35 / Product Type: HMO [id number] ? documented in this encounter Plan of Treatment Not on file documented as of this encounter Visit Diagnoses Not on filedocumented in this encounter Care Teams Copier Field Service Technician Relationship Specialty Start Date End Date Jannet Doherty MD PCP - General Internal Medicine 02/27/17 07/17/21 Cain Cooley DO PCP - General Internal Medicine 07/18/21 12/24/23 Namita Brown MD PCP - General Internal Medicine 12/25/23 Michael Herron MD Lung Cancer Matcher Operator 10/08/23 Vahid Baum PA-C [address] [phone] Specialist Thoracic Surgery 04/02/24 documented as of this encounter
--- OUTSIDE RECORDS SUMMARY | 2024-11-24 10:01 | XMS_ITS | Encounter Summary ---
Author Organization [facility] Address [address] [place] [address] Care Team Providers Care Airplane Charter Clerk Name Role Phone Jannet Doherty MD Primary Care Provider Unavailable Cain Cooley DO Primary Care Provider UnavailMichael Leonard MD Unavailable Namita Brown MD Primary Care Provider Un available Vahid Baum PA-C Unavailable [phone] Encounter Details Date Type Department Care Team Description 04/06/2017 Release of Information Medical Records [address] [place] [address] Abstract, Provider Social History Tobacco Use Types [...] on filedocumented in this encounter Care Teams Airplane Charter Clerk Relationship Specialty Start Date End Date Jannet Doherty MD PCP - General Internal Medicine 02/27/17 07/17/21 Cain Cooley DO PCP - General Internal Medicine 07/18/21 12/24/23 Namita Brown MD PCP - General Internal Medicine 12/25/23 Michael Herron MD Lung Cancer Printing Table Hand 10/08/23 Vahid Baum PA-C [address] [phone] Specialist Thoracic Surgery 04/02/24 documented as of this encounter
--- OUTSIDE RECORDS SUMMARY | 2024-11-24 10:01 | XMS_ITS | Encounter Summary ---
Author Organization [facility] Address [address] [place] [address] Care Team Providers Care Edge Burnisher Name Role Phone Jannet Doherty MD Primary Care Provider Unavailable Cain Cooley DO Primary Care Provider UnavailMichael Leonard MD Unavailable Namita Brown MD Primary Care Provider Un available Vahid Baum PA-C Unavailable [phone] Encounter Details Date Type Department Care Team Description 10/29/2020 [facility] Medical Records [address] [place] [address] Abstract, Provider Social History Tobacco Use Types [...] on filedocumented in this encounter Care Teams Edge Burnisher Relationship Specialty Start Date End Date Jannet Doherty MD PCP - General Internal Medicine 02/27/17 07/17/21 Cain Cooley DO PCP - General Internal Medicine 07/18/21 12/24/23 Namita Brown MD PCP - General Internal Medicine 12/25/23 Michael Herron MD Lung Cancer Business Writer 10/08/23 Vahid Baum PA-C [address] [phone] Specialist Thoracic Surgery 04/02/24 documented as of this encounter
--- OUTSIDE RECORDS SUMMARY | 2024-11-24 10:01 | XMS_ITS | Encounter Summary ---
Author Organization [facility] Address [address] [place] [address] Care Team Providers Care Liaison Officer Name Role Phone Jannet Doherty MD Primary Care Provider Unavailable Cain Cooley DO Primary Care Provider UnavailMichael Leonard MD Unavailable Namita Brown MD Primary Care Provider Un available Vahid Baum PA-C Unavailable [phone] Encounter Details Date Type Department Care Team Description 03/27/2019 [facility] Medical Records [address] [place] [id number] Abstract, Provider Social History Tobacco Use Types [...] on filedocumented in this encounter Care Teams Liaison Officer Relationship Specialty Start Date End Date Jannet Doherty MD PCP - General Internal Medicine 02/27/17 07/17/21 Cain Cooley DO PCP - General Internal Medicine 07/18/21 12/24/23 Namita Brown MD PCP - General Internal Medicine 12/25/23 Michael Herron MD Lung Cancer Technology Auditor 10/08/23 Vahid Baum PA-C [address] [phone] Specialist Thoracic Surgery 04/02/24 documented as of this encounter
--- OUTSIDE RECORDS SUMMARY | 2024-11-24 10:01 | XMS_ITS | Encounter Summary ---
Author Organization [facility] Address [address] [place] [address] Care Team Providers Care Cafe Helper Name Role Phone Cain Cooley DO Primary Care Provider UnavailMichael Leonard MD Unavailable Namita Brown MD Primary Care Provider Un available Vahid Baum PA-C Unavailable [phone] Encounter Details Date Type Department Care Team Description 11/04/2021 Telephone Adult Medicine - [address] [address] Cain Cooley DO Social History Tobacco Use [...] on filedocumented in this encounter Care Teams Cafe Helper Relationship Specialty Start Date End Date Cain Cooley DO PCP - General Internal Medicine 07/18/21 12/24/23 Namita Brown MD PCP - General Internal Medicine 12/25/23 Michael Herron MD Lung Cancer Supervisor Estimator And Drafter 10/08/23 Vahid Baum PA-C [address] [place] [phone] Specialist Thoracic Surgery 04/02/24 documented as of this encounter
--- OUTSIDE RECORDS SUMMARY | 2024-11-24 10:02 | XMS_ITS | Encounter Summary ---
Author Organization [facility] Address [address] [place] [address] Care Team Providers Care Credit Product Analyst Name Role Phone Cain Cooley DO Primary Care Provider UnavailMichael Leonard MD Unavailable Namita Brown MD Primary Care Provider Un available Vahid Baum PA-C Unavailable [phone] Reason for Visit * Reason Onset Date Comments REFERRAL 07/04/2023 Referral to [facility] with Dr. Looney Encounter Details Date Type Department Care Team Description 07/04/2023 Telephone Adult Medicine - [address] [address] Cain Cooley DO REFERRAL (Referral to [facility] with Dr. Looney) Social History Tobacco [...] week 09/13/2022 How often do you attend [facility] or mu-ism services? Never 09/13/2022 Do you [...] EST FYI: [facility] any [facility]. Pt was informed of two new providers being hired in August 2022. He should continue calling from time to time. Pt informed. documented in this encounter Plan of Treatment Not on file documented as of this encounter Visit Diagnoses Not on filedocumented in this encounter Care Teams Credit Product Analyst Relationship Specialty Start Date End Date Cain Cooley DO PCP - General Internal Medicine 07/18/21 12/24/23 Namita Brown MD PCP - General Internal Medicine 12/25/23 Michael Herron MD Lung Cancer Residential Appliance Repair Technician 10/08/23 Vahid Baum PA-C [address] [phone] Specialist Thoracic Surgery 04/02/24 documented as of this encounter
--- OUTSIDE RECORDS SUMMARY | 2024-11-24 10:02 | XMS_ITS | Encounter Summary ---
Author Organization [facility] Address [address] [place] [address] Care Team Providers Care Pilates Instructor Name Role Phone Cain Cooley DO Primary Care Provider UnavailMichael Leonard MD Unavailable Namita Brown MD Primary Care Provider Un available Vahid Baum PA-C Unavailable [phone] Reason for Visit * Reason Comments E-prescribe Rx Request Encounter Details Date Type Department Care Team Description 05/12/2023 Refill Adult Medicine [address] [address] Yoli Mckeon PA-C [address] [place] [address] E-prescribe Rx Request Social History Tobacco Use [...] often do you attend [facility] or moravian services? Never 09/13/2022 Do you [...] N/A Patients current insurance carrier is: [facility] / Plan: JOSÉ LUIS GARCIA $20/$35 / Product Type: HMO [id number] documented in this encounter Plan of Treatment Not on file documented as of this encounter Visit Diagnoses Diagnosis Type 2 diabetes mellitus without complication, without long-term current use of insulin (HCC) documented in this encounter Care Teams Pilates Instructor Relationship Specialty Start Date End Date Cain Cooley DO PCP - General Internal Medicine 07/18/21 12/24/23 Namita Brown MD PCP - General Internal Medicine 12/25/23 Michael Herron MD Lung Cancer Foundation Drill Operator 10/08/23 Vahid Baum PA-C [address] [place] [phone] Specialist Thoracic Surgery 04/02/24 documented as of this encounter
--- OUTSIDE RECORDS SUMMARY | 2024-11-24 10:02 | XMS_ITS | Encounter Summary ---
Author Organization [facility] Address [address] [place] [address] Care Team Providers Care It Telecom Technician Name Role Phone Cain Cooley DO Primary Care Provider UnavailMichael Leonard MD Unavailable Namita Brown MD Primary Care Provider Un available Vahid Baum PA-C Unavailable [phone] Encounter Details Date Type Department Care Team Description 09/07/2023 Pt. Non Urgent Medic al Question Adult Medicine - [address] [address] Cain Cooley, Social History Tobacco Use Types [...] on filedocumented in this encounter Care Teams It Telecom Technician Relationship Specialty Start Date End Date Cain Cooley DO PCP - General Internal Medicine 07/18/21 12/24/23 Namita Brown MD PCP - General Internal Medicine 12/25/23 Michael Herron MD Lung Cancer Event Coordinator 10/08/23 Vahid Baum PA-C [address] [phone] Specialist Thoracic Surgery 04/02/24 documented as of this encounter
--- OUTSIDE RECORDS SUMMARY | 2024-11-24 10:02 | XMS_ITS | Encounter Summary ---
Author Organization [facility] Address [address] [place] [address] Care Team Providers Care Used Car Make Ready Mechanic Name Role Phone Jannet Doherty MD Primary Care Provider Unavailable Cain Cooley DO Primary Care Provider UnavailMichael Leonard MD Unavailable Namita Brown MD Primary Care Provider Un available Vahid Baum PA-C Unavailable [phone] Encounter Details Date Type Department Care Team Description 09/27/2018 Risk And Compliance Analytics Director Report Medical Records [address] [place] [address] Rehab[facility] [place] Social History Tobacco Use Types Packs/Day Years [...] often do you attend chur ch or anabaptism services? Never 09/13/2022 Do you belong to [...] on filedocumented in this encounter Care Teams Used Car Make Ready Mechanic Relationship Specialty Start Date End Date Jannet Doherty MD PCP - General Internal Medicine 02/27/17 07/17/21 Cain Cooley DO PCP - General Internal Medicine 07/18/21 12/24/23 Namita Brown MD PCP - General Internal Medicine 12/25/23 Michael Herron MD Lung Cancer Stallion Keeper 10/08/23 Vahid Baum PA-C [address] [place] [phone] Specialist Thoracic Surgery 04/02/24 documented as of this encounter
--- OUTSIDE RECORDS SUMMARY | 2024-11-24 10:02 | XMS_ITS | Encounter Summary ---
Author Organization [facility] Address [address] [place] [address] Care Team Providers Care Sprinkler Irrigation Equipment Mechanic Name Role Phone Jannet Doherty MD Primary Care Provider Unavailable Cain Cooley DO Primary Care Provider UnavailMichael Leonard MD Unavailable Namita Brown MD Primary Care Provider Un available Vahid Baum PA-C Unavailable Encounter Details Date Type Department Care Team Description 06/04/2018 [facility] Medical Records [address] [place] [address] Abstract, Provider Social History Tobacco Use Types [...] on filedocumented in this encounter Care Teams Sprinkler Irrigation Equipment Mechanic Relationship Specialty Start Date End Date Jannet Doherty MD PCP - General Internal Medicine 02/27/17 07/17/21 Cain Cooley DO PCP - General Internal Medicine 07/18/21 12/24/23 Namita Brown MD PCP - General Internal Medicine 12/25/23 Michael Herron MD Lung Cancer Strip Catcher 10/08/23 Vahid Baum PA-C [address] [phone] Specialist Thoracic Surgery 04/02/24 documented as of this encounter
--- OUTSIDE RECORDS SUMMARY | 2024-11-24 10:02 | XMS_ITS | Encounter Summary ---
Author Organization [facility] Address [address] [place] [address] Care Team Providers Care Sewing Supervisor Name Role Phone Jannet Doherty MD Primary Care Provider Unavailable Cain Cooley DO Primary Care Provider UnavailMichael Leonard MD Unavailable Namita Brown MD Primary Care Provider Un available Vahid Baum PA-C Unavailable [phone] Reason for Visit * Reason Comments E-prescribe Rx Request Encounter Details Date Type Department Care Team Description 10/20/2020 Refill Adult Medicine [address] [address] Jannet Doherty MD E-prescribe Rx Request Social [...] week 09/13/2022 How often do you attend [facility] or oriental orthodox services? Never 09/13/2022 Do [...] N/A Patients current insurance carrier is: Payor: [facility]/HMO FFS / Plan: [employer] [facility] $20/$35 / Product Type: HMO [id number] documented in this encounter Plan of Treatment Not on file documented as of this encounter Visit Diagnoses Not on filedocumented in this encounter Care Teams Sewing Supervisor Relationship Specialty Start Date End Date Jannet Doherty MD PCP - General Internal Medicine 02/27/17 07/17/21 Cain Cooley DO PCP - General Internal Medicine 07/18/21 12/24/23 Namita Brown MD PCP - General Internal Medicine 12/25/23 Michael Herron MD Lung Cancer Concrete Crusher Loader Operator 10/08/23 Vahid Baum PA-C [address] [place] [phone] Specialist Thoracic Surgery 04/02/24 documented as of this encounter
--- OUTSIDE RECORDS SUMMARY | 2024-11-24 10:02 | XMS_ITS | Encounter Summary ---
Author Organization [facility] Address [address] [place] [address] Care Team Providers Care Ballistics Expert Forensic Name Role Phone Cain Cooley DO Primary Care Provider UnavailMichael Leonard MD Unavailable Namita Brown MD Primary Care Provider Un available Vahid Baum PA-C Unavailable [phone] Encounter Details Date Type Department Care Team Description 07/25/2023 Orders Only Medical Records [address] [place] [id number] Génesis Valero PA-C Social History Tobacco Use [...] often do you attend chur ch or voodoo services? Never 09/13/2022 Do you [...] on filedocumented in this encounter Care Teams Ballistics Expert Forensic Relationship Specialty Start Date End Date Cain Cooley DO PCP - General Internal Medicine 07/18/21 12/24/23 Namita Brown MD PCP - General Internal Medicine 12/25/23 Michael Herron MD Lung Cancer College Physics Instructor 10/08/23 Vahid Baum PA-C [address] [place] [phone] Specialist Thoracic Surgery 04/02/24 documented as of this encounter
--- OUTSIDE RECORDS SUMMARY | 2024-11-24 10:02 | XMS_ITS | Encounter Summary ---
Author Organization [facility] Address [address] [place] [address] Care Team Providers Care Education Adviser Name Role Phone Jannet Doherty MD Primary Care Provider Unavailable Cain Cooley DO Primary Care Provider UnavailMichael Leonard MD Unavailable Namita Brown MD Primary Care Provider Un available Vahid Baum PA-C Unavailable [phone] Encounter Details Date Type Department Care Team Description 07/17/2017 Oil Expert Report Medical Records [address] [place] [address] Abstract, Provider Social History Tobacco Use Types [...] on filedocumented in this encounter Care Teams Education Adviser Relationship Specialty Start Date End Date Jannet Doherty MD PCP - General Internal Medicine 02/27/17 07/17/21 Cain Cooley DO PCP - General Internal Medicine 07/18/21 12/24/23 Namita Brown MD PCP - General Internal Medicine 12/25/23 Michael Herron MD Lung Cancer Thermo Processor 10/08/23 Vahid Baum PA-C [address] [place] [phone] Specialist Thoracic Surgery 04/02/24 documented as of this encounter
--- OUTSIDE RECORDS SUMMARY | 2024-11-24 10:02 | XMS_ITS | Encounter Summary ---
Author Organization [facility] Address [address] [place] [address] Care Team Providers Care Value Analyst Name Role Phone Jannet Doherty MD Primary Care Provider Unavailable Cain Cooley DO Primary Care Provider UnavailMichael Leonard MD Unavailable Namita Brown MD Primary Care Provider Un available Vahid Baum PA-C Unavailable [phone] Encounter Details Date Type Department Care Team Description 09/29/2020 Refill Adult Medicine - [place] [address] [place] [address] Arina Gerber MD [address] [place] [address] Social History Tobacco Use Types Packs/Day Years [...] How often do you attend [facility] or yazidism services? Never 09/13/2022 Do [...] 09/29/2020 10:02 AM EDT Placed at patient picker feeder * Telephone Encounter - Pat York M.A. [...] region documented in this encounter Care Teams Value Analyst Relationship Specialty Start Date End Date Jannet Doherty MD PCP - General Internal Medicine 02/27/17 07/17/21 Cain Cooley DO PCP - General Internal Medicine 07/18/21 12/24/23 Namita Brown MD PCP - General Internal Medicine 12/25/23 Michael Herron MD Lung Cancer Self Propelled Mining Machine Operator 10/08/23 Vahid Baum PA-C [address] [place] [phone] Specialist Thoracic Surgery 04/02/24 documented as of this encounter
--- OUTSIDE RECORDS SUMMARY | 2024-11-24 10:02 | XMS_ITS | Encounter Summary ---
Author Organization [facility] Address [address] [place] [address] Care Team Providers Care Senior Marketing Specialist Name Role Phone Cain Cooley DO Primary Care Provider UnavailMichael Leonard MD Unavailable Namita Brown MD Primary Care Provider Un available Vahid Baum PA-C Unavailable Encounter Details Date Type Department Care Team Description 04/19/2023 Pt. Non Urgent Medic al Question Adult Medicine - [place] [address] [place] [address] Felton Kenny PA [address] [place] [address] Social History Tobacco Use Types Packs/Day Years [...] How often do you attend [facility] or nondenominational services? Never 09/13/2022 Do [...] filedocumented in this encounter Care Teams Senior Marketing Specialist Relationship Specialty Start Date End Date Cain Cooley DO PCP - General Internal Medicine 07/18/21 12/24/23 Namita Brown MD PCP - General Internal Medicine 12/25/23 Michael Herron MD Lung Cancer Cook Roast 10/08/23 Vahid Baum PA-C [address] [place] [phone] Specialist Thoracic Surgery 04/02/24 documented as of this encounter
--- OUTSIDE RECORDS SUMMARY | 2024-11-24 10:02 | XMS_ITS | Encounter Summary ---
Author Organization [facility] Address [address] [place] [address] Care Team Providers Care Corporate Compliance Manager Name Role Phone Cain Cooley DO Primary Care Provider UnavailMichael Leonard MD Unavailable Namita Brown MD Primary Care Provider Un available Vahid Baum PA-C Unavailable [phone] Encounter Details Date Type Department Care Team Description 08/13/2023 Pt. Non Urgent Medical Question Gastroenterology - [place] [address] [facility] [address] [place] [address] Pratik Looney PA-C [address] [facility] [address] [place] [address] Social History Tobacco Use Types Packs/Day Years [...] often do you attend [facility] or jainism services? Never 09/13/2022 Do [...] filedocumented in this encounter Care Teams Corporate Compliance Manager Relationship Specialty Start Date End Date Cain Cooley DO PCP - General Internal Medicine 07/18/21 12/24/23 Namita Brown MD PCP - General Internal Medicine 12/25/23 Michael Herron MD Lung Cancer Platform Stapler 10/08/23 Vhaid Baum PA-C [address] [place] [phone] Specialist Thoracic Surgery 04/02/24 documented as of this encounter
--- OUTSIDE RECORDS SUMMARY | 2024-11-24 10:02 | XMS_ITS | Encounter Summary ---
Author Organization [facility] Address [address] [place] [address] Care Team Providers Care Merchandise Manager Name Role Phone Cain Cooley DO Primary Care Provider UnavailMichael Leonard MD Unavailable Namita Brown MD Primary Care Provider Un available Vahid Baum PA-C Unavailable [phone] Reason for Visit * Reason Onset Date Comments Information Needed 06/15/2023 Encounter Details Date Type Department Care Team Description 06/15/2023 Telephone Gastroenterology - [place] [address] [facility] [address] [place] [address] Alex Navarrete MD [address] [place] [address] [id number] Information Needed Social History Tobacco Use Types [...] week 09/13/2022 How often do you attend [facility] or [facility] services? Never 09/13/2022 Do [...] referral message to PCP and placed in [facility] accordian documented in this encounter Plan of Treatment Not on file documented as of this encounter Visit Diagnoses Not on filedocumented in this encounter Care Teams Merchandise Manager Relationship Specialty Start Date End Date Cain Cooley DO PCP - General Internal Medicine 07/18/21 12/24/23 Namita Brown MD PCP - General Internal Medicine 12/25/23 Michael Herron MD Lung Cancer Marketing Traffic Coordinator 10/08/23 Vahid Baum PA-C [address] [place] [phone] Specialist Thoracic Surgery 04/02/24 documented as of this encounter
--- OUTSIDE RECORDS SUMMARY | 2024-11-24 10:02 | XMS_ITS | Encounter Summary ---
Author Organization [facility] Address [address] [place] [address] Care Team Providers Care Director Of Market Intelligence Name Role Phone Cain Cooley DO Primary Care Provider UnavailMichael Leonard MD Unavailable Namita Brown MD Primary Care Provider Un available Vahid Baum PA-C Unavailable [phone] Encounter Details Date Type Department Care Team Description 09/06/2023 Pt. Non Urgent Medic al Question Adult Medicine - [address] [address] Cain Cooley, Social History Tobacco Use Types [...] is bad. I had to drive to [place] for work and driving back tonight. I have sent in a request to refill the Robaxin please. documented in this encounter Plan of Treatment Not on file documented as of this encounter Visit Diagnoses Not on filedocumented in this encounter Care Teams Director Of Market Intelligence Relationship Specialty Start Date End Date Cain Cooley DO PCP - General Internal Medicine 07/18/21 12/24/23 Namita Brown MD PCP - General Internal Medicine 12/25/23 Michael Herron MD Lung Cancer Specimen Boss 10/08/23 Vahid Baum PA-C [address] [phone] Specialist Thoracic Surgery 04/02/24 documented as of this encounter
--- OUTSIDE RECORDS SUMMARY | 2024-11-24 10:02 | XMS_ITS | Encounter Summary ---
Author Organization [facility] Address [address] [place] [address] Care Team Providers Care Milking System Installer Name Role Phone Jannet Doherty MD Primary Care Provider Unavailable Cain Cooley DO Primary Care Provider UnavailMichael Leonard MD Unavailable Namita Brown MD Primary Care Provider Un available Vahid Baum PA-C Unavailable [phone] Reason for Visit * Reason Comments E-prescribe Rx Request Encounter Details Date Type Department Care Team Description 10/25/2018 Refill Adult Medicine [address] [address] Jannet Doherty MD E-prescribe Rx Request Social [...] attend [facility] or [facility] services? Never 09/13/2022 Do you [...] an upcoming appointment? No-unable to reach left [facility] to call for appointment due to [...] N/A Patients current insurance carrier is: Payor: MehranPA/O FFS / Plan: HMO $15 [employer] [id number] / ProductType: O [id number] documented in this encounter Plan of Treatment Not on file documented as of this encounter Visit Diagnoses Not on filedocumented in this encounter Care Teams Milking System Installer Relationship Specialty Start Date End Date Jannet Doherty MD PCP - General Internal Medicine 02/27/17 07/17/21 Cain Cooley DO PCP - General Internal Medicine 07/18/21 12/24/23 Namita Brown MD PCP - General Internal Medicine 12/25/23 Michael Herron MD Lung Cancer Display Director 10/08/23 Vahid Baum PA-C [address] [place] [phone] Specialist Thoracic Surgery 04/02/24 documented as of this encounter
--- OUTSIDE RECORDS SUMMARY | 2024-11-24 10:02 | XMS_ITS | Encounter Summary ---
Author Organization [facility] Address [address] [place] [address] Care Team Providers Care Retail Support Associate Name Role Phone Michael Herron MD Unavailable Namita Brown MD Primary Care Provider Un available Vahid Baum PA-C Unavailable [phone] Encounter Details Date Type Department Care Team Description 12/31/2023 Refill Adult Medicine [address] [address] Cain Cooley, DO Social History Tobacco Use [...] disc documented in this encounter Care Teams Retail Support Associate Relationship Specialty Start Date End Date Namita Brown MD PCP - General Internal Medicine 12/25/23 Michael Herron MD Lung Cancer Medical Office Secretary 10/08/23 Vahid Baum PA-C [address] [place] [phone] Specialist Thoracic Surgery 04/02/24 documented as of this encounter
== END 2024-11-24 09:57 | disposition home or self-care (01) ==
PROVIDERS: PCP Internal Medicine; Visit Provider Internal Medicine
DX: M47.816 Spondylosis without myelopathy or radiculopathy, lumbar region (principal); G89.29 Other chronic pain
CPT/HCPCS: 99024

== ENCOUNTER → 2024-11-24 09:40 | Outpatient (BNVA) | payer BC, SELFPAY | PROVIDERS: PCP Internal Medicine; Visit Provider Internal Medicine ==

== ENCOUNTER 2024-11-24 14:01 | Outpatient (AMB) | payer BC, SELFPAY ==
--- NOTE | 2024-11-24 14:13 | A.OFFPC_ITS ---
Vital Signs 11/24/24 14:18 Height 6 ft 3 in Weight 292 lb BMI 36.5 BP 136/78 Blood Pressure Location Lt brachial Position Sitting Pulse 90 Pulse Source Pulse Oximeter Pulse Oximetry (%) 98 Oxygen Delivery Method Room Air Intake Visit Reasons: Physical - see comments Intake Note: Physical Textile Conversion Manager Required: No Allergies No Known Allergies Allergy (Verified 11/24/24 09:45) Tobacco use date assessed: 11/24/24 Dental Screening Dental Screen Date: 11/24/24 Did you have a dental visit in the last 12 months?: Yes Did you have a dental problem in the last 6 months where you did not have access to dental care?: No Was dental information given to patient?: Patient has dentist HPI HPI Comments History of Present Illness Details 58-year-old male with a past medical his tory of lumbosacral radiculopathy, controlled type 2 diabetes, hypertension, mesenteric panniculitis and ground glass opacities on chest CT presenting for physical exam Chronic back pain: Unable to return to work due to disability. Patient is s/p right L4-5 lumbar microdiscectomy, extraforaminal approach with microscope on 05/22/2024. He only some residual neuralgia in the right leg and right lower extremity neuropathy. He is off opiates. He continues the neurontin 300mg cap three times daily. Patient reports having surgery for herniated discs in his lower back in [address] Casey. MSK:Back as above. Remove gout. Followiing with pain management GI: has followed for mesenteric panniculitis. Due for colonoscopy 2025. Last at [place]. He has a personal history of colon polyps, family history of rectal cancer and family history of esophageal cancer Endocrine: Type 2 diabetes His A1c was 6.3 from 5.9% in March. Continues metformin 500mg daily. On statin and ARB. He sees thoracic surgery, Dr. Jasso, for ground-glass opacities that were originally in the left lung which resolved and now has them in the right lung. He sees him once per year. He quit smoking 20 years ago. Increased anxiety, some depressive symptoms now that he is unable to work, unable to golf and walk. He is following with a therapist ROS see HPI PHYSICAL EXAM: GENERAL: Alert and oriented x 3. NAD EYES: EOMI. Anicteric. HENT: Moist mucous membranes. No scleral icterus. No cervical lymphadenopathy. LUNGS: Clear to auscultation bilaterally. CARDIOVASCULAR: Regular rate and rhythm. No murmur. No JVD. ABDOMEN: Soft, non-tender +bs : Normal penis and testes EXTREMITIES: No edema. Non-tender. SKIN: Dark irregularly shaped nevi lower back NEUROLOGIC: No focal neurological deficits. CN II-XII grossly intact PSYCHIATRIC: Cooperative. Appropriate mood and affect [facility] Medical History Family history of colon cancer Pulmonary nodule GERD (gastroesophageal reflux disease) Spinal stenosis Cervical radiculopathy Ground glass opacity present on imaging of lung Mesenteric panniculitis Lumbosacral radiculitis Controlled type 2 diabetes mellitus Essential hypertension Surgical History S/P epidural steroid injection History of laminectomy (2019) Hx of varicose vein ligation (~1998) Hx of colonoscopy Hx of appendectomy (~1974) Social History Housing: House Are you a primary manager critical care unit to a significant other at home: No Do you presently have visiting nurse or other home services: No Alcohol intake: never Patient Tobacco Use Status: Former Tobacco user Tobacco use type: Cigarette Cigarette Packs Per Day: 1 Years Smoked: 20 e-Cigarette/Vaping Use: Never Used service: Yes Current occupational status: employed 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 1. Little interest or pleasure in doing things: more than half the days 2. Feeling down, depressed, or hopeless: more than half the days 3. Trouble falling or staying asleep, or sleeping too much: several days 4. Feeling tired or having little energy: not at all 5. Poor appetite or overeating: not at all 6. Feeling bad about yourself - or that you are a failure or have let yourself or your family down: nearly every day 7. Trouble concentrating on things, such as reading the newspaper or watching television: more than half the days 8. Moving or speaking so slowly that other people could have noticed. Or the opposite - being so fidgety or restless that you have been moving around a lot more than usual: not at all 9. Thoughts that you would be better off or of hurting yourself in some way: not at all Total score: 10 Depression Screening Interpretation: Positive Depression Screening Follow-up: In treatment Depression Screening Done: Yes Source: Developed by Drs. Efraín Cardona, Marcy Villegas, Miki Garcia and colleagues, with an educational elsa from [employer]. Thrive Questionnaire Date Thrive assessed: 11/17/24 I am a: Patient What is your living situation today?: I have a steady place to live Within the past 12 months, did the food you bought not last and you didn't have the money to get more?: Never true Within the past 12 months, did you worry whether your food would run out before you got money to buy more?: Never true Do you have trouble paying for medicines?: No Do you have trouble getting transportation to medical appointments?: No Do you have trouble paying your heating and electricity bill?: No Do you have trouble taking care of your child, family member or friend?: No Do you have trouble with day-to-day activities such as bathing, preparing meals, shopping, managing finances, etc.?: Yes Are you currently unemployed and looking for a job?: No Are you interested in more education?: No Please select the resources that you would like help with: None Currently or been in a relationship where the following occur: No concerns reported THRIVE Score: 0 AUDIT C Alcohol Use Questionnaire (AUDIT-C) 1. How often do you have a drink containing alcohol?: Never 3. How often do you have six or more drinks on one occasion?: Never Total Score: 0 MAYA-7 AMB Questionnaire MAYA-7 Feeling nervous, anxious, or on edge: 3 = Nearly every day Not being able to stop or control worryin = Nearly every day Worrying too much about different things: 3 = Nearly every day Trouble relaxin = Nearly every day Being so restless that it is hard to sit still: 2 = More than half the days Becoming easily annoyed or irritable: 0 = Not at all Feeling afraid as if something awful might happen: 1 = Several days Total MAYA-7 score (0-4 normal; 5-9 mild; 10-14 moderate; 15-21 severe): 15 Source: Developed by Drs. Efraín Cardona, Marcy Villegas, Miki Garcia and colleagues, with an educational elsa from [employer]. Physical exam (Primary Care) Vital Signs: Last Vital Signs Pulse 90 11/24/24 14:18 BP 136/78 11/24/24 14:18 Pulse Ox 98 11/24/24 14:18 Oxygen Delivery Method Room Air 11/24/24 14:18 BMI result Body Mass Index 36.5 Tobacco/Smoking Status: Tobacco use Status Tobacco use date assessed 11/24/24 11/24/24 14:20 Patient Tobacco Use Status Former Tobacco user 11/24/24 14:20 Tobacco use type Cigarette 11/24/24 14:20 e-Cigarette/Vaping Use Never Used 11/24/24 14:20 PHQ-9: PHQ-9 Score PHQ-9: Total score 10 11/24/24 14:20 Depression Screening Interpretation: Positive Depression Screening Follow-up: In treatment Thrive Assessment: Date of Thrive Assessment Date Thrive assessed 11/17/24 11/24/24 14:20 Currently or been in a relationship where the following occur: No concerns reported Coding Level of Care Code Est Pt Prev Care 40-64y(10606) Diagnoses Physical exam Z00.00 Other chronic pain G89.29 Chronic pain type: other chronic pain Lumbar spondylosis M47.816 Spondylolisthesis, lumbar region M43.16 Assessment & Plan Assessment & Plan (1) Physical exam: Code(s): Z00.00 - Encounter for general adult medical examination without abnormal findings (2) Chronic pain: Code(s): G89.29 - Other chronic pain Category: Medical Qualifiers: Chronic pain type: other chronic pain Qualified Code(s): G89.29 - Other chronic pain (3) Lumbar spondylosis: Code(s): M47.816 - Spondylosis without myelopathy or radiculopathy, lumbar region Category: Medical (4) Spondylolisthesis, lumbar region: Code(s): M43.16 - Spondylolisthesis, lumbar region Category: Medical Plan 59 year old male for CPE Back pain-continue follow up pain management HTN-adequately controlled Referral to dermatology Referral to gastroenterology Orders: Referrals Dermatology Referral D22.9 - Melanocytic nevi, unspecified Medications: New lorazepam 0.5 mg PO BID PRN 60 tabs 1RF anxiety albuterol sulfate 90 mcg/actuation 2 puffs inhalation .every 4 hour PRN 8.5 grams 3RF shortness of breath or wheezing
[2024-11-24 14:18] VITALS: BP 136/78; PULSE 90; O2SAT 98; BMI 36.5
--- OUTSIDE RECORDS SUMMARY | 2024-11-24 14:19 | XMS_ITS | Clinical Summary ---
Author Organization [facility] Address [address] [place] [address] Care Team Providers Care Yarn Dumper Name Role Phone Cain Cooley DO Primary Care Provider [phone] Allergies No known active allergies Medications Medication [...] age to complete this topic Care Teams Yarn Dumper Relationship Specialty Start Date End Date Cain Cooley DO [address] [place] [id number] PCP - General Family Medicine 03/30/23
== END 2024-11-24 14:48 | disposition home or self-care (01) ==
LOC: HO.HMCFM 14:02
PROVIDERS: PCP Internal Medicine; Visit Provider Internal Medicine
DX: Z00.00 Encounter for general adult medical examination without abnormal findings (principal); G89.29 Other chronic pain; M47.816 Spondylosis without myelopathy or radiculopathy, lumbar region; M43.16 Spondylolisthesis, lumbar region

== ENCOUNTER 2024-12-04 06:11 | Outpatient (REF) | payer BC, SELFPAY ==
--- NOTE | ~2024-12-04 | FL_ITS ---
EXAMINATION: FL GUIDANCE ONLY HISTORY: M47.816 - Spondylosis without myelopathy or radiculopathy, lumbar region COMPARISON: None available. TECHNIQUE: Fluoroscopy time: 0.1 minutes. Cumulative Dose: 8.29 mGy. DAP: 0.0997 mGym2 Images: 3. FINDINGS: Fluoroscopic spot films of the lumbar spine demonstrate electrodes in place. FL/FL guidance in treatment room IMPRESSION: Fluoroscopy during procedure. Please see procedure report for additional information. Electronically signed by: Efraín Garcia MD 12/04/2024 12:57 PM EDT
--- OUTSIDE RECORDS SUMMARY | 2024-12-04 06:13 | XMS_ITS | Clinical Summary ---
Author Organization [facility] Address [address] [place] [address] Care Team Providers Care Patrol Inspector Name Role Phone Cain Cooley DO Primary Care Provider Allergies No known active allergies Medications Medication [...] age to complete this topic Care Teams Patrol Inspector Relationship Specialty Start Date End Date Cain Cooley DO [address] [place] [id number] PCP - General Family Medicine 03/30/23
== END 2024-12-04 06:12 | disposition home or self-care (01) ==
LOC: CF 06:11
PROVIDERS: Visit Provider Internal Medicine
DX: M47.816 Spondylosis without myelopathy or radiculopathy, lumbar region (principal); G89.29 Other chronic pain; M43.16 Spondylolisthesis, lumbar region
CPT/HCPCS: 64555; C1778; J2003

== ENCOUNTER 2024-12-04 10:26 | Outpatient (AMB) | payer BC, SELFPAY ==
[2024-12-04 10:35] VITALS: BP 142/76; PULSE 63; RESP 16; O2SAT 96
--- NOTE | 2024-12-04 10:35 | A.OFFVIS_ITS ---
Vital Signs 12/04/24 10:35 12/04/24 11:43 BP 142/76 H 138/72 Blood Pressure Location Lt brachial Lt brachial Position Sitting Sitting Respiration 16 16 Pulse 63 66 Pulse Source Pulse Oximeter Pulse Oximeter Pulse Oximetry (%) 96 97 Oxygen Delivery Method Room Air Room Air Intake Visit Reasons: Left L3 Sprint/ ativan Is Project Manager Required: No Allergies No Known Allergies Allergy (Verified 12/04/24 10:35) Medication List - Last Reconciled 12/04/24 by Anisha Lui LPN albuterol sulfate 90 mcg/actuation 2 puffs inhalation .every 4 hour PRN atorvastatin 20 mg PO BEDTIME famotidine 20 mg PO BID PRN gabapentin 600 mg PO TID lorazepam 0.5 mg PO BID PRN lorazepam (Ativan) 1 mg PO ONCE losartan 25 mg PO DAILY metformin 500 mg PO DAILY HPI HPI Left L3 Sprint/ ativan: Details: Patient presents for scheduled procedure. Denies any recent cough, cold, infection, fever or other significant changes in medical history since last office visit. [facility] Medical History Family history of colon cancer Pulmonary nodule GERD (gastroesophageal reflux disease) Spinal stenosis Cervical radiculopathy Ground glass opacity present on imaging of lung Mesenteric panniculitis Lumbosacral radiculitis Controlled type 2 diabetes mellitus Essential hypertension Surgical History S/P epidural steroid injection History of laminectomy (2019) Hx of varicose vein ligation (~1998) Hx of colonoscopy Hx of appendectomy (~1974) Social History Housing: House Are you a primary childcare center director to a significant other at home: No Do you presently have visiting nurse or other home services: No Alcohol intake: never Patient Tobacco Use Status: Former Tobacco user Tobacco use type: Cigarette Cigarette Packs Per Day: 1 Years Smoked: 20 e-Cigarette/Vaping Use: Never Used service: Yes Current occupational status: employed 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 After the risks, benefits and alternatives were discussed with the patient and informed consent was obtained, patient was placed in the prone position and padded to foster comfort. The skin overlying the lumbosacral spine was prepped and draped in sterile fashion. Fluoroscopy was used to identify the spinous process and lamina in the center of the patient?s region of pain. After identifying and marking the intended target along the course of the medial branch nerve, the skin around the planned entry point and the subcutaneous tissues were injected with lidocaine 1%. An introducer needle and stimulating probe were assembled, inserted and advanced along the intended course of the medial branch nerve as it traverses the lamina medial and inferior to the zygapophyseal joint, taking care to maintain the proper depth of insertion as the introducer is advanced under fluoroscopic guidance. The introducer needle was delivered to a location in proximity to the nerve. Multiple stimulation parameters were used to deliver stimulation to the target medial branch nerve in concert with stimulating at multiple positions around the nerve. Nerve target acquisition was confirmed noting generation of paresthesias in the paravertebral regions corresponding to the level being stimulated. Various electrical parameter combinations were tested, and the lead location was adjusted (physically relocated) until the patient indicated paresthesia/muscle tension overlapping the distribution of the patient?s typical region of pain. The stimulating probe was removed from the introducer and a percutaneous lead was guided through the needle and delivered to a location in similar proximity to the nerve. Final location was verified with electrical stimulation and documented with fluoroscopy. The introducer needle was removed, and the exposed end of the percutaneous lead was attached to an external stimulator unit. Various electrical parameter combinations were again tested until the patient indicated paresthesia or muscle tension overlapping the distribution of the patient?s typical region of pain. After confirming that lead impedance was in the normal range, the external unit was detached, the needle was removed, and the lead was anchored at the skin. The lead was threaded into the connector block and electrical continuity and desired patient response was confirmed. The connector block was attached to the external stimulator unit. The site was covered with a sterile occlusive dressing. The patient was observed for stability of vital signs and comfort. Sprint PNS Device: Sprint PNS Device [id number] Percutaneous Peripheral Neuroelectrode Procedure: 12706 - Percutaneous Peripheral Neuroelectrode Procedure code (CPT) selection complete Office Meds lidocaine HCl 10 mg/mL (1 %) injection solution Performing Provider: Niurka Dukes APRN, CNP Performing Location: [facility] Documented (not given) by: Leonardo Andrews MD on 12/04/24 11:43 Dose Route Admin Location Dispensed Lot Number Expiration Date NDC Circuit Breaker Assembler 5 mL subcut mL Assessment & Plan Assessment & Plan (1) Lumbar spondylosis: Code(s): M47.816 - Spondylosis without myelopathy or radiculopathy, lumbar region Category: Medical (2) Chronic pain: Code(s): G89.29 - Other chronic pain Category: Medical Qualifiers: Chronic pain type: other chronic pain Qualified Code(s): G89.29 - Other chronic pain (3) Spondylolisthesis, lumbar region: Code(s): M43.16 - Spondylolisthesis, lumbar region Category: Medical (4) Status post lumbar spine surgery for decompression of spinal cord: Code(s): Z98.890 - Other specified postprocedural states Category: Medical Plan Patient is status post left L3 medial branch temporary nerve stimulator placement. Patient tolerated procedure well and was discharged home in stable condition with discharge instructions. All questions were answered. We will follow-up via telephone or in clinic to assess response to therapy. A follow-up appointment was made during today's visit. Orders: Orders [place] guidance in treatment room Today M47.816 - Spondylosis without myelopathy or radiculopathy, lumbar region AMB Sprint PNS Today M47.816 - Spondylosis without myelopathy or radiculopathy, lumbar region Medications: New lorazepam (Ativan) Take 30 minutes prior to arrival to procedure 1 mg PO ONCE 1 tab 0RF anxiety lidocaine HCl 5 mL subcut ONCE 5 mL 0RF M47.816 - Spondylosis without myelopat hy or radiculopathy, lumbar region Coding Level of Care Code Procedure Only Diagnoses Lumbar spondylosis M47.816 Other chronic pain G89.29 Chronic pain type: other chronic pain Spondylolisthesis, lumbar region M43.16 Status post lumbar spine surgery for decompression of spinal cord Z98.890 CPT Codes Sprint PNS - Sprint PNS Device: Sprint PNS Device ([id number]) Sprint PNS - SPRINT: 02507 - Percutaneous Peripheral Neuroelectrode ([id number]) Implantable Device Implantable Device Implantable Devices Qty Circuit Breaker Assembler Implant Date Expiration Date Analgesic PENS system 1 [employer] 11/20/24 Analgesic PENS system 1 [employer] 12/04/24
--- OUTSIDE RECORDS SUMMARY | 2024-12-04 10:58 | XMS_ITS | Encounter Summary ---
Author Organization [facility] Address [address] [place] [address] Care Team Providers Care Cash Crop Farmer Name Role Phone Jannet Doherty MD Primary Care Provider Unavailable Cain Cooley DO Primary Care Provider UnavailMichael Leonard MD Unavailable Namita Brown MD Primary Care Provider Un available Vahid Baum PA-C Unavailable [phone] Reason for Visit * Reason Comments E-prescribe Rx Request Encounter Details Date Type Department Care Team Description 05/26/2020 Refill Adult Medicine [address] [address] Jannet Doherty MD E-prescribe Rx Request Social [...] 09/13/2022 How often do you attend [facility] or confucianism services? Never 09/13/2022 Do you [...] an upcoming appointment? No-unable to reach left [facility] to call for appointment due to [...] ?? Patients current insurance carrier is: Payor: [place] / Plan: JOSÉ LUIS GARCIA $20/$35 / Product Type: HMO [id number] ? documented in this encounter Plan of Treatment Not on file documented as of this encounter Visit Diagnoses Not on filedocumented in this encounter Care Teams Cash Crop Farmer Relationship Specialty Start Date End Date Jannet Doherty MD PCP - General Internal Medicine 02/27/17 07/17/21 Cain Cooley DO PCP - General Internal Medicine 07/18/21 12/24/23 Namita Brown MD PCP - General Internal Medicine 12/25/23 Michael Herron MD Lung Cancer Owner 10/08/23 Vahid Baum PA-C [address] [phone] Specialist Thoracic Surgery 04/02/24 documented as of this encounter
--- OUTSIDE RECORDS SUMMARY | 2024-12-04 10:58 | XMS_ITS | Encounter Summary ---
Author Organization [facility] Address [address] [place] [address] Care Team Providers Care Tenterer Name Role Phone Cain Cooley DO Primary Care Provider UnavailMichael Leonard MD Unavailable Namita Brown MD Primary Care Provider Un available Vahid Baum PA-C Unavailable [phone] Encounter Details Date Type Department Care Team Description 07/01/2022 Refill Adult Medicine [address] [address] Jannet Doherty MD Social History Tobacco Use [...] on filedocumented in this encounter Care Teams Tenterer Relationship Specialty Start Date End Date Cain Cooley DO PCP - General Internal Medicine 07/18/21 12/24/23 Namita Brown MD PCP - General Internal Medicine 12/25/23 Michael Herron MD Lung Cancer Conduit Reamer Operator 10/08/23 Vahid Baum PA-C [address] [place] [phone] Specialist Thoracic Surgery 04/02/24 documented as of this encounter
--- OUTSIDE RECORDS SUMMARY | 2024-12-04 10:58 | XMS_ITS | Encounter Summary ---
Author Organization [facility] Address [address] [place] [address] Care Team Providers Care Oil Field Laborer Name Role Phone Jannet Doherty MD Primary Care Provider Unavailable Cain Cooley DO Primary Care Provider UnavailMichael Leonard MD Unavailable Namita Brown MD Primary Care Provider Un available Vahid Baum PA-C Unavailable [phone] Encounter Details Date Type Department Care Team Description 01/29/2020 Orders Only Medical Records [address] [place] [address] Jannet Doherty MD Social History Tobacco Use [...] How often do you attend chur or gnosticist services? Never 09/13/2022 Do you [...] on filedocumented in this encounter Care Teams Oil Field Laborer Relationship Specialty Start Date End Date Jannet Doherty MD PCP - General Internal Medicine 02/27/17 07/17/21 Cain Cooley DO PCP - General Internal Medicine 07/18/21 12/24/23 Namita Brown MD PCP - General Internal Medicine 12/25/23 Michael Herron MD Lung Cancer Ibm Websphere Commerce Consultant 10/08/23 Vahid Baum PA-C [address] [place] [phone] Specialist Thoracic Surgery 04/02/24 documented as of this encounter
--- OUTSIDE RECORDS SUMMARY | 2024-12-04 10:58 | XMS_ITS | Encounter Summary ---
Author Organization [facility] Address [address] [place] [address] Care Team Providers Care Automat Watcher Name Role Phone Michael Herron MD Unavailable Namita Brown MD Primary Care Provider Un available Vahid Baum PA-C Unavailable [phone] Encounter Details Date Type Department Care Team Description 02/12/2024 Pt. Non Urgent Medic al Question Adult Medicine - [address] [address] Namita Brown MD Social History Tobacco Use [...] out again. My brother this weekend in [place]. Did a lot of driving and was in his ICU room for 36 hour straight. Was hoping for a refill on the prednisone and roboxin. I did submit the refill requeat documented in this encounter Plan of Treatment Not on file documented as of this encounter Visit Diagnoses Not on filedocumented in this encounter Care Teams Automat Watcher Relationship Specialty Start Date End Date Namita Brown MD PCP - General Internal Medicine 12/25/23 Michael Herron MD Lung Cancer Supervisor Hand Workers 10/08/23 Vahid Baum PA-C [address] [place] [phone] Specialist Thoracic Surgery 04/02/24 documented as of this encounter
--- OUTSIDE RECORDS SUMMARY | 2024-12-04 10:58 | XMS_ITS | Clinical Summary ---
Author Organization [facility] Address [address] [place] [address] Care Team Providers Care Water Quality Manager Name Role Phone Cain Cooley DO Primary Care Provider [phone] Allergies No known active allergies Medications Medication [...] age to complete this topic Care Teams Water Quality Manager Relationship Specialty Start Date End Date Cain Cooley DO [address] [place] [address] PCP - General Family Medicine 03/30/23
--- OUTSIDE RECORDS SUMMARY | 2024-12-04 10:58 | XMS_ITS | Clinical Summary ---
Author Organization [facility] Address [address] [place] [address] Care Team Providers Care Weather Reporter Name Role Phone Michael Herron MD Unavailable Namita Brown MD Primary Care Provider Un available Vahid Baum PA-C Unavailable [phone] Allergies No known active allergies Medications Medication [...] a CT scan of the chest at [place] on 06/19/2023. Thoracic surgery has been following [...] sleep. He was instructed to trial a [id number] PPI she has omeprazole and to continue [...] often do you attend chur ch or restoration services? Never 09/13/2022 Do you [...] HEPATITIS C SCREENING Completed 10/22/2017 Care Teams Weather Reporter Relationship Specialty Start Date End Date Namita Brown MD PCP - General Internal Medicine 12/25/23 Michael Herron MD Lung Cancer Pharmacy Informatics Manager 10/08/23 Vahid Baum PA-C [address] [place] [address] Specialist Thoracic Surgery 04/02/24
--- OUTSIDE RECORDS SUMMARY | 2024-12-04 10:58 | XMS_ITS | Encounter Summary ---
Author Organization [facility] Address [address] [place] [address] Care Team Providers Care Film Reader Name Role Phone Jannet Doherty MD Primary Care Provider Unavailable Cain Cooley DO Primary Care Provider UnavailMichael Leonard MD Unavailable Namita Brown MD Primary Care Provider Un available Vahid Baum PA-C Unavailable [phone] Encounter Details Date Type Department Care Team Description 05/18/2021 Orders Only Medical Records [address] [place] [address] Alex Navarrete MD [address] [place] [address] Social History Tobacco Use Types Packs/Day Years [...] do you attend [facility] or buddhism services? Never 09/13/2022 Do [...] on filedocumented in this encounter Care Teams Film Reader Relationship Specialty Start Date End Date Jannet Doherty MD PCP - General Internal Medicine 02/27/17 07/17/21 Cain Cooley DO PCP - General Internal Medicine 07/18/21 12/24/23 Namita Brown MD PCP - General Internal Medicine 12/25/23 Michael Herron MD Lung Cancer Processing Rep 10/08/23 Vahid Baum PA-C [address] [place] [phone] Specialist Thoracic Surgery 04/02/24 documented as of this encounter
--- OUTSIDE RECORDS SUMMARY | 2024-12-04 10:58 | XMS_ITS | Encounter Summary ---
Author Organization [facility] Address [address] [place] [address] Care Team Providers Care Drapery Cutter Name Role Phone Jannet Doherty MD Primary Care Provider Unavailable Cain Cooley DO Primary Care Provider UnavailMichael Leonard MD Unavailable Namita Brown MD Primary Care Provider Un available Vahid Baum PA-C Unavailable Encounter Details Date Type Department Care Team Description 08/05/2020 PNO Controlled Substance Contract Medical Records [address] [place] [address] Abstract, Provider Social History Tobacco Use Types [...] on filedocumented in this encounter Care Teams Drapery Cutter Relationship Specialty Start Date End Date Jannet Doherty MD PCP - General Internal Medicine 02/27/17 07/17/21 Cani Cooley DO PCP - General Internal Medicine 07/18/21 12/24/23 Namita Brown MD PCP - General Internal Medicine 12/25/23 Michael Herron MD Lung Cancer Harness Preparer 10/08/23 Vahid Baum PA-C [address] [phone] Specialist Thoracic Surgery 04/02/24 documented as of this encounter
--- OUTSIDE RECORDS SUMMARY | 2024-12-04 10:58 | XMS_ITS | Encounter Summary ---
Author Organization [facility] Address [address] [place] [address] Care Team Providers Care Collections Officer Name Role Phone Jannet Doherty MD Primary Care Provider Unavailable Cain Cooley DO Primary Care Provider UnavailMichael Leonard MD Unavailable Namita Brown MD Primary Care Provider Un available Vahid Baum PA-C Unavailable [phone] Encounter Details Date Type Department Care Team Description 09/26/2019 [facility] Medical Records [address] [place] [address] Abstract, Provider Social History Tobacco Use Types [...] on filedocumented in this encounter Care Teams Collections Officer Relationship Specialty Start Date End Date Jannet Doherty MD PCP - General Internal Medicine 02/27/17 07/17/21 Cain Cooley DO PCP - General Internal Medicine 07/18/21 12/24/23 Namita Brown MD PCP - General Internal Medicine 12/25/23 Michael Herron MD Lung Cancer Rocket Propellant Plant Supervisor 10/08/23 Vahid Baum PA-C [address] [phone] Specialist Thoracic Surgery 04/02/24 documented as of this encounter
--- OUTSIDE RECORDS SUMMARY | 2024-12-04 10:58 | XMS_ITS | Encounter Summary ---
Author Organization [facility] Address [address] [place] [address] Care Team Providers Care Race Car Driver Name Role Phone Jannet Doherty MD Primary Care Provider Unavailable Cain Cooley DO Primary Care Provider UnavailMichael Leonard MD Unavailable Namita Brown MD Primary Care Provider Un available Vahid Baum PA-C Unavailable [phone] Encounter Details Date Type Department Care Team Description 01/30/2020 [facility] Medical Records [address] [place] [address] Abstract, Provider Social History Tobacco Use Types [...] on filedocumented in this encounter Care Teams Race Car Driver Relationship Specialty Start Date End Date Jannet Doherty MD PCP - General Internal Medicine 02/27/17 07/17/21 Cian Cooley DO PCP - General Internal Medicine 07/18/21 12/24/23 Namita Brown MD PCP - General Internal Medicine 12/25/23 Michael Herron MD Lung Cancer Printer'S Assistant 10/08/23 Vahid Baum PA-C [address] [phone] Specialist Thoracic Surgery 04/02/24 documented as of this encounter
--- OUTSIDE RECORDS SUMMARY | 2024-12-04 10:58 | XMS_ITS | Encounter Summary ---
Author Organization [facility] Address [address] [place] [address] Care Team Providers Care Fiction And Nonfiction Writer Prose Name Role Phone Jannet Doherty MD Primary Care Provider Unavailable Cain Cooley DO Primary Care Provider UnavailMichael Leonard MD Unavailable Namita Brown MD Primary Care Provider Un available Vahid Baum PA-C Unavailable [phone] Encounter Details Date Type Department Care Team Description 01/31/2019 Expense Clerk Report Medical Records [address] [place] [address] Swapnil Casey MD Social History Tobacco Use [...] on filedocumented in this encounter Care Teams Fiction And Nonfiction Writer Prose Relationship Specialty Start Date End Date Jannet Doherty MD PCP - General Internal Medicine 02/27/17 07/17/21 Cain Cooley DO PCP - General Internal Medicine 07/18/21 12/24/23 Namita Brown MD PCP - General Internal Medicine 12/25/23 Michael Herron MD Lung Cancer Prevention Specialist 10/08/23 Vahid Baum PA-C [address] [place] [phone] Specialist Thoracic Surgery 04/02/24 documented as of this encounter
--- OUTSIDE RECORDS SUMMARY | 2024-12-04 10:58 | XMS_ITS | Encounter Summary ---
Author Organization [facility] Address [address] [place] [address] Care Team Providers Care Outreach Professional Name Role Phone Jannet Doherty MD Primary Care Provider Unavailable Cain Cooley DO Primary Care Provider UnavailMichael Leonard MD Unavailable Namita Brown MD Primary Care Provider Un available Vahid Baum PA-C Unavailable [phone] Encounter Details Date Type Department Care Team Description 01/02/2019 Bias Cutter Report Medical Records [address] [place] [address] Swapnil Casey MD Social History Tobacco Use [...] often do you attend chur ch or episcopal services? Never 09/13/2022 Do you [...] on filedocumented in this encounter Care Teams Outreach Professional Relationship Specialty Start Date End Date Jannet Doherty MD PCP - General Internal Medicine 02/27/17 07/17/21 Cain Cooley DO PCP - General Internal Medicine 07/18/21 12/24/23 Namita Brown MD PCP - General Internal Medicine 12/25/23 Michael Herron MD Lung Cancer Director Of Community Services 10/08/23 Vahid Baum PA-C [address] [place] [phone] Specialist Thoracic Surgery 04/02/24 documented as of this encounter
--- OUTSIDE RECORDS SUMMARY | 2024-12-04 10:58 | XMS_ITS | Encounter Summary ---
Author Organization [facility] Address [address] [place] [address] Care Team Providers Care Electronic Publisher Name Role Phone Jannet Doherty MD Primary Care Provider Unavailable Cain Coolye DO Primary Care Provider UnavailMichael Leonard MD Unavailable Namita Brown MD Primary Care Provider Un available Vahid Baum PA-C Unavailable [phone] Encounter Details Date Type Department Care Team Description 03/12/2019 Er Physician Report Medical Records [address] [place] [address] [facility] [address] [place] [address] Social History Tobacco Use Types Packs/Day Years [...] health [facility] or holiness services? Never 09/13/2022 Do you [...] on filedocumented in this encounter Care Teams Electronic Publisher Relationship Specialty Start Date End Date Jannet Doherty MD PCP - General Internal Medicine 02/27/17 07/17/21 Cain Cooley DO PCP - General Internal Medicine 07/18/21 12/24/23 Namita Brown MD PCP - General Internal Medicine 12/25/23 Michael Herron MD Lung Cancer Religious Ritual Slaughterer 10/08/23 Vahid Baum PA-C [address] [place] [phone] Specialist Thoracic Surgery 04/02/24 documented as of this encounter
--- OUTSIDE RECORDS SUMMARY | 2024-12-04 10:58 | XMS_ITS | Encounter Summary ---
Author Organization [facility] Address [address] [place] [address] Care Team Providers Care Cylinder Block Mechanic Name Role Phone Cain Cooley DO Primary Care Provider UnavailMichael Leonard MD Unavailable Namita Brown MD Primary Care Provider Un available Vahid Baum PA-C Unavailable [phone] Encounter Details Date Type Department Care Team Description 04/05/2022 [facility] Adult Medicine [address] [address] Cain Cooley DO Social History Tobacco Use [...] on filedocumented in this encounter Care Teams Cylinder Block Mechanic Relationship Specialty Start Date End Date Cain Cooley DO PCP - General Internal Medicine 07/18/21 12/24/23 Namita Brown MD PCP - General Internal Medicine 12/25/23 Michael Herron MD Lung Cancer Silk Screen Etcher 10/08/23 Vahid Baum PA-C [address] [place] [phone] Specialist Thoracic Surgery 04/02/24 documented as of this encounter
--- OUTSIDE RECORDS SUMMARY | 2024-12-04 10:58 | XMS_ITS | Encounter Summary ---
Author Organization [facility] Address [address] [place] [address] Care Team Providers Care Electrical Linesworker Name Role Phone Jannet Doherty MD Primary Care Provider Unavailable Cain Cooley DO Primary Care Provider UnavailMichael Leonard MD Unavailable Namita Brown MD Primary Care Provider Un available Vahid Baum PA-C Unavailable [phone] Encounter Details Date Type Department Care Team Description 08/10/2020 [facility] Medical Records [address] [place] [address] Abstract, Provider Social History Tobacco Use Types [...] filedocumented in this encounter Care Teams Electrical Linesworker Relationship Specialty Start Date End Date Jannet Doherty MD PCP - General Internal Medicine 02/27/17 07/17/21 Cain Cooley DO PCP - General Internal Medicine 07/18/21 12/24/23 Namita Brown MD PCP - General Internal Medicine 12/25/23 Michael Herron MD Lung Cancer Wastewater Treatment Plant Chemist 10/08/23 Vahid Baum PA-C [address] [phone] Specialist Thoracic Surgery 04/02/24 documented as of this encounter
--- OUTSIDE RECORDS SUMMARY | 2024-12-04 10:58 | XMS_ITS | Encounter Summary ---
Author Organization [facility] Address [address] [place] [address] Care Team Providers Care Obstetrics Scrub Nurse Name Role Phone Jannet Doherty MD Primary Care Provider Unavailable Cain Cooley DO Primary Care Provider UnavailMichael Leonard MD Unavailable Namita Brown MD Primary Care Provider Un available Vahid Baum PA-C Unavailable [phone] Encounter Details Date Type Department Care Team Description 07/23/2020 [facility] Medical Records [address] [place] [address] Abstract, Provider Social History Tobacco Use Types [...] on filedocumented in this encounter Care Teams Obstetrics Scrub Nurse Relationship Specialty Start Date End Date Jannet Doherty MD PCP - General Internal Medicine 02/27/17 07/17/21 Cain Cooley DO PCP - General Internal Medicine 07/18/21 12/24/23 Namita Brown MD PCP - General Internal Medicine 12/25/23 Michael Herron MD Lung Cancer Water Technician 10/08/23 Vahid Baum PA-C [address] [phone] Specialist Thoracic Surgery 04/02/24 documented as of this encounter
--- OUTSIDE RECORDS SUMMARY | 2024-12-04 10:58 | XMS_ITS | Encounter Summary ---
Author Organization [facility] Address [address] [place] [address] Care Team Providers Care Spinner Tender Name Role Phone Cain Cooley DO Primary Care Provider UnavailMichael Leonard MD Unavailable Namita Brown MD Primary Care Provider Un available Vahid aBum PA-C Unavailable [phone] Encounter Details Date Type Department Care Team Description 12/07/2021 Pt. Non Urgent Medic al Question Adult Medicine - [address] [address] Cain Cooley, Social History Tobacco Use Types [...] . I have a referral with a cement crusher operator on December 27. The naproxen did not help at all. Could we possibly try something else like maybe prednisone? documented in this encounter Plan of Treatment Not on file documented as of this encounter Visit Diagnoses Not on filedocumented in this encounter Care Teams Spinner Tender Relationship Specialty Start Date End Date Cain Cooley DO PCP - General Internal Medicine 07/18/21 12/24/23 Namita Brown MD PCP - General Internal Medicine 12/25/23 Michael Herron MD Lung Cancer Reshipping Clerk 10/08/23 Vahid Baum PA-C [address] [place] [phone] Specialist Thoracic Surgery 04/02/24 documented as of this encounter
--- OUTSIDE RECORDS SUMMARY | 2024-12-04 10:58 | XMS_ITS | Encounter Summary ---
Author Organization [facility] Address [address] [place] [address] Care Team Providers Care Lead Systems Engineer Name Role Phone Cain Cooley DO Primary Care Provider UnavailMichael Leonard MD Unavailable Namita Brown MD Primary Care Provider Un available Vahid Baum PA-C Unavailable [phone] Encounter Details Date Type Department Care Team Description 11/04/2021 Telephone Adult Medicine - [address] [address] Cain Cooley DO Social History Tobacco Use [...] on filedocumented in this encounter Care Teams Lead Systems Engineer Relationship Specialty Start Date End Date Cain Cooley DO PCP - General Internal Medicine 07/18/21 12/24/23 Namita Brown MD PCP - General Internal Medicine 12/25/23 Michael Herron MD Lung Cancer Suction Roller 10/08/23 Vahid Baum PA-C [address] [place] [phone] Specialist Thoracic Surgery 04/02/24 documented as of this encounter
--- OUTSIDE RECORDS SUMMARY | 2024-12-04 10:58 | XMS_ITS | Encounter Summary ---
Author Organization [facility] Address [address] [place] [address] Care Team Providers Care Gin Clerk Name Role Phone Jannet Doherty MD Primary Care Provider Unavailable Cain Cooley DO Primary Care Provider UnavailMichael Leonard MD Unavailable Namita Brown MD Primary Care Provider Un available Vahid Baum PA-C Unavailable [phone] Encounter Details Date Type Department Care Team Description 09/27/2019 Refill Adult Medicine [address] [address] Jannet Doherty MD Social History Tobacco Use [...] attend [facility] or adventist services? Never 09/13/2022 Do [...] on filedocumented in this encounter Care Teams Gin Clerk Relationship Specialty Start Date End Date Jannet Doherty MD PCP - General Internal Medicine 02/27/17 07/17/21 Cain Cooley DO PCP - General Internal Medicine 07/18/21 12/24/23 Namita Brown MD PCP - General Internal Medicine 12/25/23 Michael Herron MD Lung Cancer Manager Privacy 10/08/23 Vahid Baum PA-C [address] [place] [phone] Specialist Thoracic Surgery 04/02/24 documented as of this encounter
--- OUTSIDE RECORDS SUMMARY | 2024-12-04 10:58 | XMS_ITS | Encounter Summary ---
Author Organization [facility] Address [address] [place] [address] Care Team Providers Care Operator Bearer Systems Name Role Phone Jannet Doherty MD Primary Care Provider Unavailable Cain Cooley DO Primary Care Provider UnavailMichael Leonard MD Unavailable Namita Brown MD Primary Care Provider Un available Vahid Baum PA-C Unavailable [phone] Encounter Details Date Type Department Care Team Description 12/06/2018 [facility] Adult [address] [address] Nuris Rivera PA-C Social History Tobacco Use [...] per tablet [Nuris Rivera PA-C] Preferred pharmacy: [facility] [address] [place] [address] Comment: still no relief. surgery is scheduled for 12/12. hoping this will be my last refill ever! documented in this encounter Plan of Treatment Not on file documented as of this encounter Visit Diagnoses Not on filedocumented in this encounter Care Teams Operator Bearer Systems Relationship Specialty Start Date End Date Jannet Doherty MD PCP - General Internal Medicine 02/27/17 07/17/21 Cain Cooley DO PCP - General Internal Medicine 07/18/21 12/24/23 Namita Brown MD PCP - General Internal Medicine 12/25/23 Michael Herron MD Lung Cancer Staff Midwife/Apprenticeship Director 10/08/23 Vahid Baum PA-C [address] [place] [phone] Specialist Thoracic Surgery 04/02/24 documented as of this encounter
--- OUTSIDE RECORDS SUMMARY | 2024-12-04 10:58 | XMS_ITS | Encounter Summary ---
Author Organization [facility] Address [address] [place] [address] Care Team Providers Care Toe Stripper Name Role Phone Jannet Doherty MD Primary Care Provider Unavailable Cain Cooley DO Primary Care Provider UnavailMichael Leonard MD Unavailable Namita [place] MD Primary Care Provider Un available Vahid Baum PA-C Unavailable [phone] Encounter Details Date Type Department Care Team Description 04/02/2019 Charge Coordinator Report Medical Records [address] [place] [address] Swapnil Casey MD Social History Tobacco Use [...] on filedocumented in this encounter Care Teams Toe Stripper Relationship Specialty Start Date End Date Jannet Doherty MD PCP - General Internal Medicine 02/27/17 07/17/21 Cain Cooley DO PCP - General Internal Medicine 07/18/21 12/24/23 Namita Brown MD PCP - General Internal Medicine 12/25/23 Michael Herron MD Lung Cancer Bi Tri Operator 10/08/23 Vahid Baum PA-C [address] [place] [phone] Specialist Thoracic Surgery 04/02/24 documented as of this encounter
--- OUTSIDE RECORDS SUMMARY | 2024-12-04 10:58 | XMS_ITS | Encounter Summary ---
Author Organization [facility] Address [address] [place] [address] Care Team Providers Care Medical Territory Manager Name Role Phone Jannet Doherty MD Primary Care Provider Unavailable Cain Cooley DO Primary Care Provider UnavailMichael Leonard MD Unavailable Namita [place] MD Primary Care Provider Un available Vahid Baum PA-C Unavailable [phone] Encounter Details Date Type Department Care Team Description 12/12/2018 [facility] Medical Records [address] [place] [address] Abstract, Provider Social History Tobacco Use Types [...] on filedocumented in this encounter Care Teams Medical Territory Manager Relationship Specialty Start Date End Date Jannet Doherty MD PCP - General Internal Medicine 02/27/17 07/17/21 Cain Cooley DO PCP - General Internal Medicine 07/18/21 12/24/23 Namita [place] MD PCP - General Internal Medicine 12/25/23 Michael Herron MD Lung Cancer Manufacturing Coordinator 10/08/23 Vahid Baum PA-C [address] [phone] Specialist Thoracic Surgery 04/02/24 documented as of this encounter
--- OUTSIDE RECORDS SUMMARY | 2024-12-04 10:58 | XMS_ITS | Encounter Summary ---
Author Organization [facility] Address [address] [place] [address] Care Team Providers Care Fuel Assembler Name Role Phone Jannet Doherty MD Primary Care Provider Unavailable Cain Cooley DO Primary Care Provider UnavailMichael Leonard MD Unavailable Namita [place] MD Primary Care Provider Un available Vahid Baum PA-C Unavailable [phone] Encounter Details Date Type Department Care Team Description 2020 [facility] Medical Records [address] [place] [id number] Abstract, Provider Social History Tobacco Use Types [...] on filedocumented in this encounter Care Teams Fuel Assembler Relationship Specialty Start Date End Date Jannet Doherty MD PCP - General Internal Medicine 02/27/17 07/17/21 Cain Cooley DO PCP - General Internal Medicine 07/18/21 12/24/23 Namita [place] MD PCP - General Internal Medicine 12/25/23 Michael Herron MD Lung Cancer Tire Servicer 10/08/23 Vahid Baum PA-C [address] [phone] Specialist Thoracic Surgery 04/02/24 documented as of this encounter
--- OUTSIDE RECORDS SUMMARY | 2024-12-04 10:58 | XMS_ITS | Encounter Summary ---
Author Organization [facility] Address [address] [place] [address] Care Team Providers Care Airport Attendant Name Role Phone Jannet Doherty MD Primary Care Provider Unavailable Cain Cooley DO Primary Care Provider UnavailMichael Leonard MD Unavailable Namita [place] MD Primary Care Provider Un available Vahid Baum PA-C Unavailable [phone] Reason for Visit * Reason Onset Date Comments Medication 05/05/2021 Encounter Details Date Type Department Care Team Description 05/05/2021 Refill Gastroenterology - [address] [place] [address] Alex Navarrete MD [address] [place] [address] Medication Social History Tobacco Use Types Packs/Day [...] on filedocumented in this encounter Care Teams Airport Attendant Relationship Specialty Start Date End Date Jannet Doherty MD PCP - General Internal Medicine 02/27/17 07/17/21 Cain Cooley DO PCP - General Internal Medicine 07/18/21 12/24/23 Namita [place] MD PCP - General Internal Medicine 12/25/23 Michael Herron MD Lung Cancer Soda Fountain Clerk 10/08/23 Vahid Baum PA-C [address] [phone] Specialist Thoracic Surgery 04/02/24 documented as of this encounter
--- OUTSIDE RECORDS SUMMARY | 2024-12-04 10:58 | XMS_ITS | Encounter Summary ---
Author Organization [facility] Address [address] [place] [address] Care Team Providers Care Blower Room Attendant Name Role Phone Michael Herron MD Unavailable Namita [place] MD Primary Care Provider Un available Vahid Baum PA-C Unavailable [phone] Encounter Details Date Type Department Care Team Description 12/31/2023 Refill Adult Medicine [address] [address] Cain Cooley, DO Social History Tobacco Use [...] following medications: Other - Prednisone Preferred pharmacy: [facility][id number] - [address] Medication renewals requested in this message routed separately: methocarbamol (ROBAXIN) 750 MG tablet [James Cooley, DO] documented in this encounter Plan of Treatment Not on file documented as of this encounter Visit Diagnoses Not on filedocumented in this encounter Care Teams Blower Room Attendant Relationship Specialty Start Date End Date Namita [place] MD PCP - General Internal Medicine 12/25/23 Michael Herron MD Lung Cancer Concrete Mixer 10/08/23 Vahid Baum PA-C [address] [place] [phone] Specialist Thoracic Surgery 04/02/24 documented as of this encounter
--- OUTSIDE RECORDS SUMMARY | 2024-12-04 10:58 | XMS_ITS | Encounter Summary ---
Author Organization [facility] Address [address] [place] [address] Care Team Providers Care Bottling Room Worker Name Role Phone Jannet Doherty MD Primary Care Provider Unavailable Cain Cooley DO Primary Care Provider UnavailMichael Leonard MD Unavailable Namita [place] MD Primary Care Provider Un available Vahid Baum PA-C Unavailable [phone] Encounter Details Date Type Department Care Team Description 05/03/2017 Pt. Non Urgent Medic al Question Adult Medicine - [address] [address] Nuris Rivera PA-C Social History Tobacco Use [...] week 09/13/2022 How often do you attend [facility] or denominational services? Never 09/13/2022 Do [...] on filedocumented in this encounter Care Teams Bottling Room Worker Relationship Specialty Start Date End Date Jannet Doherty MD PCP - General Internal Medicine 02/27/17 07/17/21 Cain Cooley DO PCP - General Internal Medicine 07/18/21 12/24/23 Namita [place] MD PCP - General Internal Medicine 12/25/23 Michael Herron MD Lung Cancer Collision Mechanic 10/08/23 Vahid Baum PA-C [address] [place] [phone] Specialist Thoracic Surgery 04/02/24 documented as of this encounter
--- OUTSIDE RECORDS SUMMARY | 2024-12-04 10:59 | XMS_ITS | Encounter Summary ---
Author Organization [facility] Address [address] [place] [address] Care Team Providers Care Quiller Runner Name Role Phone Jannet Doherty MD Primary Care Provider Unavailable Cain Cooley DO Primary Care Provider UnavailMichael Leonard MD Unavailable Namita [place] MD Primary Care Provider Un available Vahid Baum PA-C Unavailable [phone] Encounter Details Date Type Department Care Team Description 03/15/2021 Refill Adult Medicine [address] [address] Jannet Doherty MD Social History Tobacco Use [...] often do you attend [facility] or voodoo services? Never 09/13/2022 Do [...] on filedocumented in this encounter Care Teams Quiller Runner Relationship Specialty Start Date End Date Jannet Doherty MD PCP - General Internal Medicine 02/27/17 07/17/21 Cain Cooley DO PCP - General Internal Medicine 07/18/21 12/24/23 Namita [place] MD PCP - General Internal Medicine 12/25/23 Michael Herron MD Lung Cancer Earth Auger Operator 10/08/23 Vahid Baum PA-C [address] [place] [phone] Specialist Thoracic Surgery 04/02/24 documented as of this encounter
--- OUTSIDE RECORDS SUMMARY | 2024-12-04 10:59 | XMS_ITS | Encounter Summary ---
Author Organization [facility] Address [address] [place] [address] Care Team Providers Care Assistant Professor Name Role Phone Cain Cooley DO Primary Care Provider UnavailMichael Leonard MD Unavailable Namita [place] MD Primary Care Provider Un available Vahid Baum PA-C Unavailable [phone] Encounter Details Date Type Department Care Team Description 07/25/2023 Orders Only Medical Records [address] [place] [address] Génesis Valero PA-C Social History Tobacco Use [...] often do you attend [facility] or denominational services? Never 09/13/2022 Do you [...] filedocumented in this encounter Care Teams Assistant Professor Relationship Specialty Start Date End Date Cain Cooley DO PCP - General Internal Medicine 07/18/21 12/24/23 Namita [place] MD PCP - General Internal Medicine 12/25/23 Michael Herron MD Lung Cancer Textile Science Technician 10/08/23 Vahid Baum PA-C [address] [place] [phone] Specialist Thoracic Surgery 04/02/24 documented as of this encounter
--- OUTSIDE RECORDS SUMMARY | 2024-12-04 10:59 | XMS_ITS | Encounter Summary ---
Author Organization [facility] Address [address] [place] [address] Care Team Providers Care Trustee Of Estate Name Role Phone Jannet Doherty MD Primary Care Provider Unavailable Cain Cooley DO Primary Care Provider UnavailMichael Leonard MD Unavailable Namita [place] MD Primary Care Provider Un available Vahid Baum PA-C Unavailable [phone] Encounter Details Date Type Department Care Team Description 12/24/2020 [facility] Medical Records [address] [place] [address] Abstract, Provider Social History Tobacco Use Types [...] on filedocumented in this encounter Care Teams Trustee Of Estate Relationship Specialty Start Date End Date Jannet Doherty MD PCP - General Internal Medicine 02/27/17 07/17/21 Cain Cooley DO PCP - General Internal Medicine 07/18/21 12/24/23 Namita [place] MD PCP - General Internal Medicine 12/25/23 Michael Herron MD Lung Cancer Quitline Counselor 10/08/23 Vahid Baum PA-C [address] [phone] Specialist Thoracic Surgery 04/02/24 documented as of this encounter
--- OUTSIDE RECORDS SUMMARY | 2024-12-04 10:59 | XMS_ITS | Encounter Summary ---
Author Organization [facility] Address [address] [place] [address] Care Team Providers Care Service Unit Operator Oil Well Name Role Phone Cain Cooley DO Primary Care Provider UnavailMichael Leonard MD Unavailable Namita Brown MD Primary Care Provider Un available Vahid Baum PA-C Unavailable [phone] Encounter Details Date Type Department Care Team Description 06/20/2023 Telephone Gastroenterology - [address] [place] [address] Shaina Gay DScPAS Social History [...] How often do you attend [facility] or orthodox services? Never 09/13/2022 Do you [...] on filedocumented in this encounter Care Teams Service Unit Operator Oil Well Relationship Specialty Start Date End Date Cain Cooley DO PCP - General Internal Medicine 07/18/21 12/24/23 Namita [place] MD PCP - General Internal Medicine 12/25/23 Michael Herron MD Lung Cancer Prom Burn Off Operator 10/08/23 Vahid Baum PA-C [address] [phone] Specialist Thoracic Surgery 04/02/24 documented as of this encounter
--- OUTSIDE RECORDS SUMMARY | 2024-12-04 10:59 | XMS_ITS | Encounter Summary ---
Author Organization [facility] Address [address] [place] [address] Care Team Providers Care Vehicle Safety Inspector Name Role Phone Jannet Doherty MD Primary Care Provider Unavailable Cain Cooley DO Primary Care Provider UnavailMichael Leonard MD Unavailable Namita Brown MD Primary Care Provider Un available Vahid Baum PA-C Unavailable [phone] Encounter Details Date Type Department Care Team Description 06/04/2018 [facility] Medical Records [address] [place] [id number] Abstract, Provider Social History Tobacco Use Types [...] on filedocumented in this encounter Care Teams Vehicle Safety Inspector Relationship Specialty Start Date End Date Jannet Doherty MD PCP - General Internal Medicine 02/27/17 07/17/21 Cain Cooley DO PCP - General Internal Medicine 07/18/21 12/24/23 Namita Brown MD PCP - General Internal Medicine 12/25/23 Michael Herron MD Lung Cancer Technical Data Analyst 10/08/23 Vahid Baum PA-C [address] [phone] Specialist Thoracic Surgery 04/02/24 documented as of this encounter
--- OUTSIDE RECORDS SUMMARY | 2024-12-04 10:59 | XMS_ITS | Encounter Summary ---
Author Organization [facility] Address [address] [place] [address] Care Team Providers Care Workers Compensation Consultant Name Role Phone Cain Cooley DO Primary Care Provider UnavailMichael Leonard MD Unavailable Namita Brown MD Primary Care Provider Un available Vahid Baum PA-C Unavailable [phone] Encounter Details Date Type Department Care Team Description 06/25/2023 Transfer Records Medical Records [address] [place] [address] Abstract, Provider Social History Tobacco Use Types [...] on filedocumented in this encounter Care Teams Workers Compensation Consultant Relationship Specialty Start Date End Date Cain Cooley DO PCP - General Internal Medicine 07/18/21 12/24/23 Namita Brown MD PCP - General Internal Medicine 12/25/23 Michael Herron MD Lung Cancer Networking Technology Instructor 10/08/23 Vahid Baum PA-C [address] [place] [phone] Specialist Thoracic Surgery 04/02/24 documented as of this encounter
--- OUTSIDE RECORDS SUMMARY | 2024-12-04 10:59 | XMS_ITS | Encounter Summary ---
Author Organization [facility] Address [address] [place] [address] Care Team Providers Care Proj Mgr Name Role Phone Jannet Doherty MD Primary Care Provider Unavailable Cain Cooley DO Primary Care Provider UnavailMichael Leonard MD Unavailable Namita Brown MD Primary Care Provider Un available Vahid Baum PA-C Unavailable [phone] Encounter Details Date Type Department Care Team Description 10/28/2020 [employer] Report Medical Records [address] [place] [address] Amy Young Social History Tobacco Use Types [...] on filedocumented in this encounter Care Teams Proj Mgr Relationship Specialty Start Date End Date Jannet Doherty MD PCP - General Internal Medicine 02/27/17 07/17/21 Cain Cooley DO PCP - General Internal Medicine 07/18/21 12/24/23 Namita Brown MD PCP - General Internal Medicine 12/25/23 Michael Herron MD Lung Cancer Burnisher And Bumper 10/08/23 Vahid Baum PA-C [address] [place] [phone] Specialist Thoracic Surgery 04/02/24 documented as of this encounter
--- OUTSIDE RECORDS SUMMARY | 2024-12-04 10:59 | XMS_ITS | Encounter Summary ---
Author Organization [facility] Address [address] [place] [address] Care Team Providers Care Documentation Writer Name Role Phone Jannet Doherty MD Primary Care Provider Unavailable Cain Cooley DO Primary Care Provider UnavailMichael Leonard MD Unavailable Namita Brown MD Primary Care Provider Un available Vahid Baum PA-C Unavailable [phone] Reason for Visit * Reason Onset Date Comments Pre-visit Diabetes Lab Adult Medicine 10/26/202011/08 Encounter Details Date Type Department Care Team Description 10/26/2020 Telephone Adult Medicine - [address] [address] Jannet Doherty MD Pre-visit Diabetes Lab Adult [...] you attend [facility] or taoism services? Never 09/13/2022 Do you [...] <6.5 % 10/27/2020 8:32 PM EDT [facility] ESTIMATED AVERAGE GLUCOSE 137 mg/dL 10/27/2020 8:32 PM EDT [facility] 10/27/2020 4:43 PM EDT 10/27/2020 4:44 PM EDT Narrative [facility] - 10/27/2020 8:32 PM EDT Release to patient->Immediate Jannet Doherty MD [facility] documented in this encounter Visit Diagnoses Diagnosis Type 2 diabetes mellitus without complication, without long-term current use of insulin (HCC)- Primary Type 2 diabetes mellitus without complication, without long-term current use of insulin (HCC) documented in this encounter Care Teams Documentation Writer Relationship Specialty Start Date End Date Jannet Doherty MD PCP - General Internal Medicine 02/27/17 07/17/21 Cain Cooley DO PCP - General Internal Medicine 07/18/21 12/24/23 Namita Brown MD PCP - General Internal Medicine 12/25/23 Michael Herron MD Lung Cancer Epic Beacon Analyst 10/08/23 Vahid Baum PA-C [address] [place] [phone] Specialist Thoracic Surgery 04/02/24 documented as of this encounter
--- OUTSIDE RECORDS SUMMARY | 2024-12-04 10:59 | XMS_ITS | Encounter Summary ---
Author Organization [facility] Address [address] [place] [address] Care Team Providers Care Campus Recruiting Internship Name Role Phone Jannet Doherty MD Primary Care Provider Unavailable Cain Cooley DO Primary Care Provider UnavailMichael Leonard MD Unavailable Namita Brown MD Primary Care Provider Un available Vahid Baum PA-C Unavailable [phone] Reason for Visit * Reason Comments E-prescribe Rx Request Encounter Details Date Type Department Care Team Description 10/25/2018 Refill Adult Medicine [address] [address] Jannet Doherty MD E-prescribe Rx Request Social [...] you attend [facility] or mormonism services? Never 09/13/2022 Do you [...] an upcoming appointment? No-unable to reach left [facility] to call for appointment due to [...] N/A Patients current insurance carrier is: Payor: [employer] FFS / Plan: HMO $15 [employer] [id number] / ProductType: O [id number] documented in this encounter Plan of Treatment Not on file documented as of this encounter Visit Diagnoses Not on filedocumented in this encounter Care Teams Campus Recruiting Internship Relationship Specialty Start Date End Date Jannet Doherty MD PCP - General Internal Medicine 02/27/17 07/17/21 Cain Cooley DO PCP - General Internal Medicine 07/18/21 12/24/23 Namita Brown MD PCP - General Internal Medicine 12/25/23 Michael Herron MD Lung Cancer Box Folding Machine Operator 10/08/23 Vahid Baum PA-C [address] [place] [phone] Specialist Thoracic Surgery 04/02/24 documented as of this encounter
--- OUTSIDE RECORDS SUMMARY | 2024-12-04 10:59 | XMS_ITS | Encounter Summary ---
Author Organization [facility] Address [address] [place] [address] Care Team Providers Care Optical Glass Wet Inspector Name Role Phone Michael Herron MD Unavailable Namita Brown MD Primary Care Provider Un available Vahid Baum PA-C Unavailable [phone] Encounter Details Date Type Department Care Team Description 12/31/2023 Refill Adult Medicine [address] [address] Cain Cooley, DO Social History Tobacco Use [...] disc documented in this encounter Care Teams Optical Glass Wet Inspector Relationship Specialty Start Date End Date Namita Brown MD PCP - General Internal Medicine 12/25/23 Michael Herron MD Lung Cancer Pan[place] 10/08/23 Vahid Baum PA-C [address] [place] [phone] Specialist Thoracic Surgery 04/02/24 documented as of this encounter
--- OUTSIDE RECORDS SUMMARY | 2024-12-04 10:59 | XMS_ITS | Encounter Summary ---
Author Organization [facility] Address [address] [place] [address] Care Team Providers Care Medical Pathology Teacher Name Role Phone Jannet Doherty MD Primary Care Provider Unavailable Cain Cooley DO Primary Care Provider UnavailMichael Leonard MD Unavailable Namita Brown MD Primary Care Provider Un available Vahid Baum PA-C Unavailable [phone] Reason for Visit * Reason Comments E-prescribe Rx Request Encounter Details Date Type Department Care Team Description 10/20/2020 Refill Adult Medicine [address] [address] Jannet Doherty MD E-prescribe Rx Request Social [...] 09/13/2022 How often do you attend [facility] or sabianism services? Never 09/13/2022 Do [...] N/A Patients current insurance carrier is: Payor: [facility]/HMO FFS / Plan: [employer] [facility] $20/$35 / Product Type: HMO [id number] documented in this encounter Plan of Treatment Not on file documented as of this encounter Visit Diagnoses Not on filedocumented in this encounter Care Teams Medical Pathology Teacher Relationship Specialty Start Date End Date Jannet Doherty MD PCP - General Internal Medicine 02/27/17 07/17/21 Cain Cooley DO PCP - General Internal Medicine 07/18/21 12/24/23 Namita Brown MD PCP - General Internal Medicine 12/25/23 Michael Herron MD Lung Cancer Carving Machine Operator 10/08/23 Vahid Baum PA-C [address] [place] [phone] Specialist Thoracic Surgery 04/02/24 documented as of this encounter
--- OUTSIDE RECORDS SUMMARY | 2024-12-04 10:59 | XMS_ITS | Encounter Summary ---
Author Organization [facility] Address [address] [place] [address] Care Team Providers Care Manager Online Name Role Phone Cain Cooley DO Primary Care Provider UnavailMichael Leonard MD Unavailable Namita Brown MD Primary Care Provider Un available Vahid Baum PA-C Unavailable [phone] Encounter Details Date Type Department Care Team Description 09/06/2023 Pt. Non Urgent Medic al Question Adult Medicine - [address] [address] Cain Cooley, Social History Tobacco Use Types [...] is bad. I had to drive to [place] for work and driving back tonight. I have sent in a request to refill the Robaxin please. documented in this encounter Plan of Treatment Not on file documented as of this encounter Visit Diagnoses Not on filedocumented in this encounter Care Teams Manager Online Relationship Specialty Start Date End Date Cain Cooley DO PCP - General Internal Medicine 07/18/21 12/24/23 Namita Brown MD PCP - General Internal Medicine 12/25/23 Michael Herron MD Lung Cancer Insurance Policy Clerk 10/08/23 Vahid Baum PA-C [address] [phone] Specialist Thoracic Surgery 04/02/24 documented as of this encounter
--- OUTSIDE RECORDS SUMMARY | 2024-12-04 10:59 | XMS_ITS | Encounter Summary ---
Author Organization [facility] Address [address] [place] [address] Care Team Providers Care Lace Pinner Name Role Phone Jannet Doherty MD Primary Care Provider Unavailable Cain Cooley DO Primary Care Provider UnavailMichael Leonard MD Unavailable Namita Brown MD Primary Care Provider Un available Vahid Baum PA-C Unavailable [phone] Encounter Details Date Type Department Care Team Description 04/18/2021 [facility] Medical Records [address] [place] [id number] Abstract, Provider Social History Tobacco Use Types [...] on filedocumented in this encounter Care Teams Lace Pinner Relationship Specialty Start Date End Date Jannet Doherty MD PCP - General Internal Medicine 02/27/17 07/17/21 Cain Cooley DO PCP - General Internal Medicine 07/18/21 12/24/23 Namita Brown MD PCP - General Internal Medicine 12/25/23 Michael Herron MD Lung Cancer Director Of Physical Therapy 10/08/23 Vahid Baum PA-C [address] [phone] Specialist Thoracic Surgery 04/02/24 documented as of this encounter
--- OUTSIDE RECORDS SUMMARY | 2024-12-04 10:59 | XMS_ITS | Encounter Summary ---
Author Organization [facility] Address [address] [place] [address] Care Team Providers Care Director Of Finance Name Role Phone Jannet Doherty MD Primary Care Provider Unavailable Cain Cooley DO Primary Care Provider UnavailMichael Leonard MD Unavailable Namita Brown MD Primary Care Provider Un available Vahid Baum PA-C Unavailable [phone] Encounter Details Date Type Department Care Team Description 09/27/2018 Federal Java Developer Report Medical Records [address] [place] [address] Rehab., [place] Social History Tobacco Use Types Packs/Day Years [...] in this encounter Care Teams Director Of Finance Relationship Specialty Start Date End Date Jannet Doherty MD PCP - General Internal Medicine 02/27/17 07/17/21 Cain Cooley DO PCP - General Internal Medicine 07/18/21 12/24/23 Namita Brown MD PCP - General Internal Medicine 12/25/23 Michael Herron MD Lung Cancer Senior Medical Technologist 10/08/23 Vahid Baum PA-C [address] [place] [phone] Specialist Thoracic Surgery 04/02/24 documented as of this encounter
--- OUTSIDE RECORDS SUMMARY | 2024-12-04 10:59 | XMS_ITS | Encounter Summary ---
Author Organization [facility] Address [address] [place] [address] Care Team Providers Care Environmental Lawyer Name Role Phone Jannet Doherty MD Primary Care Provider Unavailable Cain Cooley DO Primary Care Provider UnavailMichael Leonard MD Unavailable Namita Brown MD Primary Care Provider Un available Vahid Baum PA-C Unavailable [phone] Encounter Details Date Type Department Care Team Description 07/17/2017 Emergency Worker Report Medical Records [address] [place] [id number] Abstract, Provider Social History Tobacco Use Types [...] on filedocumented in this encounter Care Teams Environmental Lawyer Relationship Specialty Start Date End Date Jannet Doherty MD PCP - General Internal Medicine 02/27/17 07/17/21 Cain Cooley DO PCP - General Internal Medicine 07/18/21 12/24/23 Namita Brown MD PCP - General Internal Medicine 12/25/23 Michael Herron MD Lung Cancer Components Engineer 10/08/23 Vahid Baum PA-C [address] [place] [phone] Specialist Thoracic Surgery 04/02/24 documented as of this encounter
--- OUTSIDE RECORDS SUMMARY | 2024-12-04 10:59 | XMS_ITS | Encounter Summary ---
Author Organization [facility] Address [address] [place] [address] Care Team Providers Care Behavioral Health Case Manager Name Role Phone Cain Cooley DO Primary Care Provider UnavailMichael Leonard MD Unavailable Namita Brown MD Primary Care Provider Un available Vahid Baum PA-C Unavailable [phone] Reason for Visit * Reason Comments E-prescribe Rx Request Encounter Details Date Type Department Care Team Description 05/12/2023 Refill Adult Medicine [address] [address] Yoli Mckeon PA-C [address] [place] [address] E-prescribe Rx Request Social History Tobacco Use [...] week 09/13/2022 How often do you attend [facility] or oriental orthodox services? Never 09/13/2022 [...] N/A Patients current insurance carrier is: [facility] / Plan: JOSÉ LUIS GARCIA $20/$35 / Product Type: HMO [id number] documented in this encounter Plan of Treatment Not on file documented as of this encounter Visit Diagnoses Diagnosis Type 2 diabetes mellitus without complication, without long-term current use of insulin (HCC) documented in this encounter Care Teams Behavioral Health Case Manager Relationship Specialty Start Date End Date Cain Cooley DO PCP - General Internal Medicine 07/18/21 12/24/23 Namita Brown MD PCP - General Internal Medicine 12/25/23 Michael Herron MD Lung Cancer Apn 10/08/23 Vahid Baum PA-C [address] [place] [phone] Specialist Thoracic Surgery 04/02/24 documented as of this encounter
--- OUTSIDE RECORDS SUMMARY | 2024-12-04 10:59 | XMS_ITS | Encounter Summary ---
Author Organization [facility] Address [address] [place] [address] Care Team Providers Care Industrial Technologist Name Role Phone Jannet Doherty MD Primary Care Provider Unavailable Cain Cooley DO Primary Care Provider UnavailMichael Leonard MD Unavailable Namita Brown MD Primary Care Provider Un available Vahid Baum PA-C Unavailable [phone] Encounter Details Date Type Department Care Team Description 10/29/2020 [facility] Medical Records [address] [place] [address] Abstract, Provider Social History Tobacco Use Types [...] often do you attend chur ch or hinduism services? Never 09/13/2022 Do you [...] filedocumented in this encounter Care Teams Industrial Technologist Relationship Specialty Start Date End Date Jannet Doherty MD PCP - General Internal Medicine 02/27/17 07/17/21 Cain Cooley DO PCP - General Internal Medicine 07/18/21 12/24/23 Namita Brown MD PCP - General Internal Medicine 12/25/23 Michael Herron MD Lung Cancer Staff Forester 10/08/23 Vahid Baum PA-C [address] [phone] Specialist Thoracic Surgery 04/02/24 documented as of this encounter
--- OUTSIDE RECORDS SUMMARY | 2024-12-04 10:59 | XMS_ITS | Encounter Summary ---
Author Organization [facility] Address [address] [place] [address] Care Team Providers Care Oncology Transplant Network Manager Name Role Phone Cain Cooley DO Primary Care Provider UnavailMichael Leonard MD Unavailable Namita Brown MD Primary Care Provider Un available Vahid Baum PA-C Unavailable [phone] Reason for Visit * Reason Onset Date Comments REFERRAL 07/04/2023 Referral to [facility] with Dr. Looney Encounter Details Date Type Department Care Team Description 07/04/2023 Telephone Adult Medicine - [address] [address] Cain Cooley DO REFERRAL (Referral to [facility] with Dr. Looney) Social History Tobacco Use [...] How often do you attend [facility] or yazdanism services? Never 09/13/2022 Do you belong to any clubs o r organizations such as hinduism groups, unions, fraternal or athletic groups, or [...] EST FYI: [facility] and they do not have any cancellations. Pt was informed of two new providers being hired in August 2022. He should continue calling from time to time. Pt informed. documented in this encounter Plan of Treatment Not on file documented as of this encounter Visit Diagnoses Not on filedocumented in this encounter Care Teams Oncology Transplant Network Manager Relationship Specialty Start Date End Date Cain Cooley DO PCP - General Internal Medicine 07/18/21 12/24/23 Namita Brown MD PCP - General Internal Medicine 12/25/23 Michael Herron MD Lung Cancer Lead Based Paint Technician 10/08/23 Vahid Baum PA-C [address] [phone] Specialist Thoracic Surgery 04/02/24 documented as of this encounter
--- OUTSIDE RECORDS SUMMARY | 2024-12-04 10:59 | XMS_ITS | Encounter Summary ---
Author Organization [facility] Address [address] [place] [address] Care Team Providers Care Senior Database Administrator Name Role Phone Cain Cooley DO Primary Care Provider UnavailMichael Leonard MD Unavailable Namita Brown MD Primary Care Provider Un available Vahid Baum PA-C Unavailable [phone] Encounter Details Date Type Department Care Team Description 06/13/2023 House Wrecker Report Medical Records [address] [place] [address] Génesis Valero PA-C Social History Tobacco Use [...] often do you attend chur ch or nondenominational services? Never 09/13/2022 Do you [...] filedocumented in this encounter Care Teams Senior Database Administrator Relationship Specialty Start Date End Date Cain Cooley DO PCP - General Internal Medicine 07/18/21 12/24/23 Namita Brown MD PCP - General Internal Medicine 12/25/23 Michael Herron MD Lung Cancer Transcription Manager 10/08/23 Vahid Baum PA-C [address] [place] [phone] Specialist Thoracic Surgery 04/02/24 documented as of this encounter
--- OUTSIDE RECORDS SUMMARY | 2024-12-04 10:59 | XMS_ITS | Encounter Summary ---
Author Organization [facility] Address [address] [place] [address] Care Team Providers Care Cotton Grader Name Role Phone Cain Cooley DO Primary Care Provider UnavailMichael Leonard MD Unavailable Namita Brown MD Primary Care Provider Un available Vahid Baum PA-C Unavailable [phone] Encounter Details Date Type Department Care Team Description 08/13/2023 Pt. Non Urgent Medical Question Gastroenterology - [place] [address] [facility] [address] [place] [address] Pratik Looney PA-C [address] [facility] [address] [place] [address] Social History Tobacco Use Types Packs/Day Years [...] 09/13/2022 How often do you attend [facility] or christianity services? Never 09/13/2022 Do you [...] on filedocumented in this encounter Care Teams Cotton Grader Relationship Specialty Start Date End Date Cain Cooley DO PCP - General Internal Medicine 07/18/21 12/24/23 Namita Brown MD PCP - General Internal Medicine 12/25/23 Michael Herron MD Lung Cancer Jewel Stripper 10/08/23 Vahid Baum PA-C [address] [place] [phone] Specialist Thoracic Surgery 04/02/24 documented as of this encounter
--- OUTSIDE RECORDS SUMMARY | 2024-12-04 10:59 | XMS_ITS | Encounter Summary ---
Author Organization [facility] Address [address] [place] [address] Care Team Providers Care Commission Auditor Name Role Phone Cain Cooley DO Primary Care Provider UnavailMichael Leonard MD Unavailable Namita Brown MD Primary Care Provider Un available Vahid Baum PA-C Unavailable [phone] Encounter Details Date Type Department Care Team Description 06/25/2023 Pt. Non Urgent Medic al Question Adult Medicine - [address] [address] Cain Cooley, Social History Tobacco Use Types [...] on filedocumented in this encounter Care Teams Commission Auditor Relationship Specialty Start Date End Date Cain Cooley DO PCP - General Internal Medicine 07/18/21 12/24/23 Namita Brown MD PCP - General Internal Medicine 12/25/23 Michael Herron MD Lung Cancer Electron Gun Assembler 10/08/23 Vahid Baum PA-C [address] [phone] Specialist Thoracic Surgery 04/02/24 documented as of this encounter
[2024-12-04 11:43] VITALS: BP 138/72; PULSE 66; RESP 16; O2SAT 97
== END 2024-12-04 11:48 | disposition home or self-care (01) ==
LOC: HO.PMCPRC 10:26
PROVIDERS: PCP Internal Medicine; Visit Provider Internal Medicine
DX: M47.816 Spondylosis without myelopathy or radiculopathy, lumbar region (principal); G89.29 Other chronic pain; M43.16 Spondylolisthesis, lumbar region; Z98.890 Other specified postprocedural states
CPT/HCPCS: 64555

== ENCOUNTER 2025-01-14 09:35 | Outpatient (AMB) | payer BC, SELFPAY ==
--- NOTE | 2025-01-14 09:36 | A.OFFVIS_ITS ---
Vital Signs 01/14/25 09:38 Height 6 ft 3 in Weight 296 lb BMI 37.0 BP 158/74 H Blood Pressure Location Lt brachial Position Sitting Respiration 16 Pulse 64 Pulse Source Pulse Oximeter Pulse Oximetry (%) 100 Oxygen Delivery Method Room Air Intake Visit Reasons: Right Sprint removal Intake Note: Right Sprint lead removed, intact including the tip Activities Director Scouting Required: No Allergies No Known Allergies Allergy (Verified 01/14/25 09:49) Medication List - Last Reconciled 01/14/25 by Anisha Lui LPN albuterol sulfate 90 mcg/actuation 2 puffs inhalation .every 4 hour PRN atorvastatin 20 mg PO BEDTIME escitalopram oxalate (Lexapro) 10 mg PO DAILY famotidine 20 mg PO BID PRN gabapentin 600 mg PO TID lorazepam 0.5 mg PO BID PRN losartan 25 mg PO DAILY metformin 500 mg PO DAILY HPI HPI Right Sprint removal: Details: History of Present Illness The patient is a 59-year-old male presenting for follow-up for removal of the temporary medial branch nerve stimulator on the right side. The patient reports approximately 70% improvement in symptoms on the right side following the procedure, while the left side shows only about 40% improvement. The left-sided lead is scheduled for removal on the 28 of January. The patient has been using gabapentin, initially at 600 mg in the morning, but reports no significant difference in pain relief between 600 mg and higher doses. He plans to reduce the dose to 300 mg as previously discussed. The patient has undergone previous interventions including epidural injections and facet blocks, which provided diagnostic relief for a day. The plan includes a repeat diagnostic medial branch block on the left side followed by potential radiofrequency ablation if necessary. Pain Description - Right side pain improved by 70% - Left side pain improved by 40%, with ongoing discomfort during position changes - No significant difference in pain relief between 600 mg and lower doses of gabapentin Physical Exam - Back: Site is clean and dry, left-sided lead intact Results Pain Management - Analgesia: Gabapentin 600 mg in the morning, considering reduction to 300 mg - Activities of Daily Living: Pain improvement on the right side allows for easier movement without holding breath [facility] Medical History Family history of colon cancer Pulmonary nodule GERD (gastroesophageal reflux disease) Spinal stenosis Cervical radiculopathy Ground glass opacity present on imaging of lung Mesenteric panniculitis Lumbosacral radiculitis Controlled type 2 diabetes mellitus Essential hypertension Surgical History S/P epidural steroid injection History of laminectomy (2019) Hx of varicose vein ligation (~1998) Hx of colonoscopy Hx of appendectomy (~1974) Social History Housing: House Are you a primary hospice care transitions coordinator to a significant other at home: No Do you presently have visiting nurse or other home services: No Alcohol intake: never Patient Tobacco Use Status: Former Tobacco user Tobacco use type: Cigarette Cigarette Packs Per Day: 1 Years Smoked: 20 e-Cigarette/Vaping Use: Never Used service: Yes Current occupational status: employed 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 Current occupational exposures/hazards: No Cognitive needs: No Hearing needs: No Vision needs: No Physical Exam Vital Signs: Last Vital Signs Pulse 64 01/14/25 09:38 Resp 16 01/14/25 09:38 BP 158/74 H 01/14/25 09:38 Pulse Ox 100 01/14/25 09:38 Oxygen Delivery Method Room Air 01/14/25 09:38 BMI result Body Mass Index 37.0 Assessment & Plan Assessment & Plan (1) Lumbar spondylosis: Code(s): M47.816 - Spondylosis without myelopathy or radiculopathy, lumbar region Category: Medical (2) Chronic pain: Code(s): G89.29 - Other chronic pain Category: Medical Qualifiers: Chronic pain type: other chronic pain Qualified Code(s): G89.29 - Other chronic pain Plan Plan - Plan to reduce gabapentin dosage to 300 mg and monitor effectiveness - Schedule repeat diagnostic medial branch block on the left side - Consider radiofrequency ablation if diagnostic block provides relief - Follow-up appointment scheduled in two weeks to assess progress Patient was informed and verbally consented to the use of an ambient scribe for clinic note documentation during this visit. Discussion Notes I discussed with the patient the current status of his pain management, noting the improvement on the right side and the limited relief on the left. We reviewed the use of gabapentin and the plan to reduce the dosage to 300 mg. I explained the potential next steps, including a repeat diagnostic medial branch block and the possibility of radiofrequency ablation if necessary. The patient was informed about the follow-up appointment in two weeks to evaluate progress. Patient Instructions - Continue current medication regimen and reduce gabapentin to 300 mg as discussed - Attend follow-up appointment in two weeks - Report any significant changes in pain or side effects from medication Medications: New gabapentin 300 mg PO DAILY 30 caps 3RF Discontinued gabapentin Discontinued Reason: Duplicate 600 mg PO TID 90 tabs 3RF Coding Level of Care Code Est Pt Level 3 (89839) Diagnoses Lumbar spondylosis M47.816 Other chronic pain G89.29 Chronic pain type: other chronic pain
[2025-01-14 09:38] VITALS: BP 158/74; PULSE 64; RESP 16; O2SAT 100; BMI 37.0
--- OUTSIDE RECORDS SUMMARY | 2025-01-14 09:55 | XMS_ITS | Clinical Summary ---
Author Organization [facility] Address [address] [place] [address] Care Team Providers Care Bench Hand Name Role Phone Cain Cooley DO Primary Care Provider [phone] Allergies No known active allergies Medications Medication [...] 79 06/13/2023 9:41 AM EST Temperature 37 C (98.6 F) 06/13/2023 9:41 AM EST Respiratory Rate - [...] 2023-2 5 season) 2024 10/21/2020 Influenza Vaccine (Season Ended) 2025 04/17/2023, 03/17/2020, 04/10/2018 DTap / Tdap / Td [...] age to complete this topic Care Teams Bench Hand Relationship Specialty Start Date End Date Cain oColey DO [address] [place] [address] PCP - General Family Medicine 03/30/23
== END 2025-01-14 10:18 | disposition home or self-care (01) ==
LOC: HO.PMC 09:35
PROVIDERS: PCP Internal Medicine; Visit Provider Internal Medicine
DX: M47.816 Spondylosis without myelopathy or radiculopathy, lumbar region (principal); G89.29 Other chronic pain
CPT/HCPCS: 99213

== ENCOUNTER 2025-01-28 09:21 | Outpatient (AMB) | payer BC, SELFPAY ==
--- NOTE | 2025-01-28 09:24 | A.OFFVIS_ITS ---
Vital Signs 01/28/25 09:25 Height 6 ft 3 in Weight 287 lb BMI 35.9 BP 138/75 Blood Pressure Location Lt brachial Position Sitting Respiration 16 Pulse 66 Pulse Source Pulse Oximeter Pulse Oximetry (%) 99 Oxygen Delivery Method Room Air Intake Visit Reasons: Left Sprint removal Intake Note: Sprint lead removed entirely, tip intact Allergies No Known Allergies Allergy (Verified 01/28/25 09:26) Medication List - Last Reconciled 01/28/25 by Anisha Lui LPN albuterol sulfate 90 mcg/actuation 2 puffs inhalation .every 4 hour PRN atorvastatin 20 mg PO BEDTIME escitalopram oxalate (Lexapro) 10 mg PO DAILY famotidine 20 mg PO BID PRN gabapentin 300 mg PO DAILY lorazepam 0.5 mg PO BID PRN losartan 25 mg PO DAILY metformin 500 mg PO DAILY HPI HPI Left Sprint removal: Details: History of Present Illness The patient is a 59-year-old male presenting for removal of his left sprint PNS and management of lumbar radicular symptoms. The patient reports persistent pain on the left side, described as nerve compression with pain radiating down the leg. He has undergone previous surgical intervention and multiple MRIs, with the most recent MRI conducted in July. Despite surgical intervention, the patient continues to experience significant lumbar radicular discomfort. The patient has previously received an epidural injection at the L4-5 level on the right side, which provided right-sided relief. He expresses concern about living with chronic pain and is considering further interventions, including transforaminal injections and potentially an implantable spinal stimulator. Pain Description - Onset and Timing: Persistent pain on the left side - Quality and Character: Described as nerve compression with radiation down the leg - Primary Location: Left side - Exacerbating Factors: Chronic nature of the condition - Interference with Activities: Causes significant discomfort and concern about chronic pain management Physical Exam - Musculoskeletal: Positive straight leg raise on the left side indicating possible nerve root irritation - left sprint lead removed with tip intact Results - Imaging: MRI conducted in July Pain Management - Affect: Patient expresses concern about living with chronic pain - Analgesia: Previous epidural injection at L4-5 provided limited relief - Activities of Daily Living: Pain causes significant discomfort, impacting daily activities [facility] Medical History Family history of colon cancer Pulmonary nodule GERD (gastroesophageal reflux disease) Spinal stenosis Cervical radiculopathy Ground glass opacity present on imaging of lung Mesenteric panniculitis Lumbosacral radiculitis Controlled type 2 diabetes mellitus Essential hypertension Surgical History S/P epidural steroid injection History of laminectomy (2019) Hx of varicose vein ligation (~1998) Hx of colonoscopy Hx of appendectomy (~1974) Social History Housing: House Are you a primary animal care attendant to a significant other at home: No Do you presently have visiting nurse or other home services: No Alcohol intake: never Patient Tobacco Use Status: Former Tobacco user Tobacco use type: Cigarette Cigarette Packs Per Day: 1 Years Smoked: 20 e-Cigarette/Vaping Use: Never Used service: Yes Current occupational status: employed 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 Current occupational exposures/hazards: No Cognitive needs: No Hearing needs: No Vision needs: No Physical Exam Vital Signs: Last Vital Signs Pulse 66 01/28/25 09:25 Resp 16 01/28/25 09:25 BP 138/75 01/28/25 09:25 Pulse Ox 99 01/28/25 09:25 Oxygen Delivery Method Room Air 01/28/25 09:25 BMI result Body Mass Index 35.9 Assessment & Plan Assessment & Plan (1) Lumbosacral radiculitis: Code(s): M54.17 - Radiculopathy, lumbosacral region Category: Medical Plan Plan - Plan for left transforaminal injection at L3-4 and L4-5 to address lumbar radicular symptoms - Consideration of an implantable spinal stimulator if pain persists and injections provide limited relief - Provide patient with a brochure on spinal stimulator for further information Patient was informed and verbally consented to the use of an ambient scribe for clinic note documentation during this visit. Discussion Notes I discussed with the patient the option of a transforaminal injection at L3-4 and L4-5 to manage lumbar radicular symptoms. We also considered the potential for an implantable spinal stimulator if pain persists despite injections. I provided a brochure for further information on the spinal stimulator and discussed the possibility of scheduling a cortisone shot if needed. Patient Instructions - Follow up for transforaminal injection at left L3-4 and L4-5 - Review the brochure on spinal stimulator for further information - Monitor pain levels and report any changes - Schedule a cortisone shot if pain relief is insufficient Medications: New lorazepam 1 mg PO BID PRN 2 tabs 0RF anxiety Coding Level of Care Code Est Pt Level 4 (21611) Diagnoses Lumbosacral radiculitis M54.17
[2025-01-28 09:25] VITALS: BP 138/75; PULSE 66; RESP 16; O2SAT 99; BMI 35.9
--- OUTSIDE RECORDS SUMMARY | 2025-01-28 09:41 | XMS_ITS | Clinical Summary ---
Author Organization [facility] Address [address] [place] [address] Care Team Providers Care Car Greaser Name Role Phone Cain Cooley DO Primary Care Provider [phone] Allergies No known active allergies Medications Medication [...] 5 season) 2024 10/21/2020 Influenza Vaccine (#1) 2025 3, 03/17/2020, 04/10/2018 DTap / Tdap / [...] age to complete this topic Care Teams Car Greaser Relationship Specialty Start Date End Date Cain Cooley DO [address] [place] [id number] PCP - General Family Medicine 03/30/23
== END 2025-01-28 09:58 | disposition home or self-care (01) ==
LOC: HO.PMC 09:21
PROVIDERS: PCP Internal Medicine; Visit Provider Internal Medicine
DX: M54.17 Radiculopathy, lumbosacral region (principal)
CPT/HCPCS: 99214

== ENCOUNTER 2025-02-19 06:12 | Outpatient (REF) | payer BC, SELFPAY ==
--- NOTE | ~2025-02-19 | FL_ITS ---
EXAMINATION: FL GUIDANCE ONLY HISTORY: M43.16 - Spondylolisthesis, lumbar region COMPARISON: None available. TECHNIQUE: Fluoroscopy time: 0.3 minutes. Cumulative Dose: 10.6 mGy. DAP: 0.102 mGym2 Images: 3. FINDINGS: Fluoroscopic spot films of the lumbar spine demonstrate needles and contrast material inferior to two left-sided pedicles. FL/FL guidance in treatment room IMPRESSION: Fluoroscopy during procedure. Please see procedure report for additional information. Electronically signed by: Efraín Garcia MD 02/19/2025 01:08 PM EDT
--- OUTSIDE RECORDS SUMMARY | 2025-02-19 06:14 | XMS_ITS | Encounter Summary ---
Author Organization [facility] Address [address] [place] [address] Care Team Providers Care Industrial Servicer Name Role Phone Cain Cooley DO Primary Care Provider UnavailMichael Leonard MD Unavailable Namita Brown MD Primary Care Provider Un available Vahid Baum PA-C Unavailable [phone] Encounter Details Date Type Department Care Team Description 09/16/2022 Pt. Non Urgent Medic al Question Adult Medicine - [address] [address] Foreign Gardner PA-C [address] [place] [address] Social History Tobacco Use Types Packs/Day Years [...] week 09/13/2022 How often do you attend [facility] or nondenominational services? Never 09/13/2022 Do [...] filedocumented in this encounter Care Teams Industrial Servicer Relationship Specialty Start Date End Date Cain Cooley DO PCP - General Internal Medicine 07/18/21 12/24/23 Namita Brown MD PCP - General Internal Medicine 12/25/23 Michael Herron MD Lung Cancer Orthotist 10/08/23 Vahid Baum PA-C [address] [phone] Specialist Thoracic Surgery 04/02/24 documented as of this encounter
--- OUTSIDE RECORDS SUMMARY | 2025-02-19 06:14 | XMS_ITS | Clinical Summary ---
Author Organization [facility] Address [address] [place] [address] Care Team Providers Care Mobile Home Lot Utility Worker Name Role Phone Cain Cooley DO Primary Care Provider [phone] Allergies No known active allergies Medications Medication [...] MG CAPS Take by mouth. 0 Act vivina Turmeric (QC TUMERIC COMPLEX PO) Take by [...] age to complete this topic Care Teams Mobile Home Lot Utility Worker Relationship Specialty Start Date End Date Cain Cooley DO [address] [place] [address] PCP - General Family Medicine 03/30/23
--- OUTSIDE RECORDS SUMMARY | 2025-02-19 06:14 | XMS_ITS ---
Author Name [facility] Organization Unknown Care Team Organization Name Specialty Phone Email Start Date End Da te [facility] Cain Cooley DO Primary Care 05/23/202202/13
== END 2025-02-19 06:13 | disposition home or self-care (01) ==
LOC: CF 06:12
PROVIDERS: Visit Provider Internal Medicine
DX: M54.17 Radiculopathy, lumbosacral region (principal); M43.16 Spondylolisthesis, lumbar region
CPT/HCPCS: 64483; 64484; J1100

== ENCOUNTER 2025-02-19 11:06 | Outpatient (AMB) | payer BC, SELFPAY ==
[2025-02-19 11:11] VITALS: BP 138/71; PULSE 60; RESP 18; O2SAT 100; BMI 35.9
--- NOTE | 2025-02-19 11:11 | MHC.OFFVIS ---
Vital Signs 02/19/25 11:11 02/19/25 11:45 Height 6 ft 3 in Weight 287 lb BMI 35.9 BP 138/71 140/68 H Blood Pressure Location Lt brachial Lt brachial Position Sitting Sitting Respiration 18 18 Pulse 60 56 Pulse Source Pulse Oximeter Pulse Oximeter Pulse Oximetry (%) 100 100 Oxygen Delivery Method Room Air Room Air Intake Visit Reasons: Left L3-L4, L4-L5 TFESI Auto Design Detailer Required: No Allergies No Known Allergies Allergy (Verified 02/20/25 08:55) HPI HPI Left L3-L4, L4-L5 TFESI: Details: Patient presents for scheduled procedure. Denies any recent cough, cold, infection, fever or other significant changes in medical history since last office visit. FORMERLY [facility], [facility] Medical History Family history of colon cancer Pulmonary nodule GERD (gastroesophageal reflux disease) Spinal stenosis Cervical radiculopathy Ground glass opacity present on imaging of lung Mesenteric panniculitis Lumbosacral radiculitis Controlled type 2 diabetes mellitus Essential hypertension Surgical History S/P epidural steroid injection History of laminectomy (2018) Hx of varicose vein ligation (~1998) Hx of colonoscopy Hx of appendectomy (~1974) Social History Housing: House Are you a primary health care social worker to a significant other at home: No Do you presently have visiting nurse or other home services: No Alcohol intake: never Patient Tobacco Use Status: Former Tobacco user Tobacco use type: Cigarette Cigarette Packs Per Day: 1 Years Smoked: 20 Packs Per Year: 20 e-Cigarette/Vaping Use: Never Used service: Yes Current occupational status: employed 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 The patient was placed in the prone position on the fluoroscopy table. The lumbosacral area was prepped with chloraprep, allowed to dry and draped in sterile fashion. Using fluoroscopy, the skin overlying our target was anesthetized with 0.5% lidocaine. A 22 gauge 3.5 inch spinal needle was advanced to the safe triangle in the upper pole of the left L3 foramen. No paresthesias were elicited with needle placement and aspiration was negative for blood and CSF. Correct needle position was confirmed with approximately 1 ml contrast dye (Omnipaque 180 mg/ml) injected under real-time fluoroscopy. No evidence of vascular or intrathecal uptake was seen and there was both epidural and peripheral spread of the contrast agent. 7.5 mg dexamethasone plus 1 ml containing 0.5% lidocaine was slowly injected. The needle was flushed and removed. The same procedure was repeated for the L4/5 level. The skin was cleansed and a sterile bandages were applied. The patient tolerated the procedure well and no complications were encountered. Following the procedure the patient's vital signs were stable. The patient was discharged home in good condition with post-procedural instructions. Time Out: Immediately prior to the procedure, the following was verbally confirmed that there is a signed consent form and that the correct patient, planned procedure, site and side are consistent with documentation and that necessary equipment and/or blood products are available prior to the start of the case. Complications: none EBL: <5 cc 31665 - Lumbar/Sacral 94784 - Lumbar/Sacral, additional level Procedure code (CPT) selection complete Assessment & Plan Assessment & Plan (1) Lumbosacral radiculitis: Code(s): M54.17 - Radiculopathy, lumbosacral region Category: Medical Plan Patient is status post left L3/4, L4/5 TFESI. Patient tolerated procedure well and was discharged home in stable condition with discharge instructions. All questions were answered. We will follow-up via telephone or in clinic to assess response to therapy. A follow-up appointment was made during today's visit. Orders: Orders FL guidance in treatment room 02/19/25 M43.16 - Spondylolisthesis, lumbar region, M54.16 - Radiculopathy, lumbar region Coding Level of Care Code Procedure Only Diagnoses Lumbosacral radiculitis M54.17 CPT Codes Transforaminal Epidural Steroid Inj - TESI 3: 71182 - Lumbar/Sacral ([id number]) Transforaminal Epidural Steroid Inj - TESI 4: 72475 - Lumbar/Sacral, additional level ([id number])
--- OUTSIDE RECORDS SUMMARY | 2025-02-19 11:43 | XMS_ITS | Clinical Summary ---
Author Organization [facility] Address [address] [place] [address] Phone Care Team Providers Care Computer Aided Design Designer Name Role Phone Namita Brown MD Primary Care Provider [phone] Medications ibuprofen (ADVIL,MOTRIN) 800 mg tablet TAKE 1 TABLET BY MOUTH EVERY 8 HOURS NEEDED FOR PAIN FOR UP TO 90 DAYS. 90 tablet 1 06/23/2024 Active methocarbamoL (ROBAXIN) 750 mg tablet Take 1 tablet (750 mg total) by mouth 3 (three) times a day. 90 tablet 1 06/23/2024 Active famotidine (PEPCID) 20 mg tablet TAKE 1 TABLET BY MOUTH 2 TIMES DAILY NEEDED FOR HEARTBURN. 180 tablet 3 07/28/2024 Active Surgical History Surgery Date Site/Laterality Comments LUMBAR LAMINECTOMY 2008 PROCEDURE: HISTORICAL LUMB LAMINECTOMY; COMMENT: L3,L5,S1-- Dr. Casey OTHER SURGICAL HISTORY PROCEDURE: [facility] LE[facility]; [facility] 11/2018 PROCEDURE: [place] TRANSPEDICULAR DCMPRN SPINAL CORD 1 SEG LUMBAR; COMMENT: laminectomy- L2- L3 Medical History Medical History Date Comments Diverticulosis 04/06/2017 DX:Diverticulosi s Hx of pancreatitis 04/06/2017 DX:Hx of panc reatitis Reactive hypoglycemia 04/06/2017 DX:Reactiv e hypoglycemia; COMMENT: Seen by Dr. Jernigan GERD (gastroesophageal reflux disease) 7 DX:GERD (gastroesophageal reflux disease) Gout 04/24/2017 DX:Gout Diabetes mellitus type 2, uncomplicated (CMS/HCC V24, CMS/HCC V28) 04/24/2017 DX:Diabetes mellitus type 2, uncomplicated (HCC) Osteoarthritis of cervical spine 10/22/2017 DX:Osteoarthritis of cervical spine Pulmonary nodule 10/22/2017 DX:Pulmonary no dule Covid-19 07/05/2020 DX:COVID-19 Mesenteric panniculitis (CMS /HCC V24, CMS/HCC V28) DX:Mesenteric panniculitis ( HCC) Chills (without fever) DX:Chills (without fever) Change in bowel habit DX:Change in bowel habit Weight loss DX:Weight loss Family History Medical History Relation Name Comments Prostate cancer Brother 1 No Known Problems Brother 2 No Known Problems Brother 3 No Known Problems Brother 4 Esophageal cancer Father Diabetes Mother type II, breast CA at 40 Other: rectal ca Sister Relation Name Status Comments Brother 1 Alive Brother 2 Alive Brother 3 Alive Brother 4 Alive Father Mother Sister Alive Social History Tobacco Use Types Packs/Day Years Used Date Smoking Tobacco: Former Cigarettes Smokeless Tobacco: Never Alcohol Use Standard Drinks/Week Comments No 0 (1 standard drink = 0.6 oz pur e alcohol) Sex and Gender Information Value Date Recorded Sex Assigned at Not on file Legal Sex Male 12:14 PM EST Gender Identity Not on file Sexual Orientation Not on file Obstetrics History Last Filed Vital Signs Vital Sign Reading Time Taken Comments Blood Pressure 151/67 04/14/2024 9:40 AM EDT Pulse 72 04/14/2024 9:40 AM EDT Temperature - - Respiratory Rate - - Oxygen Saturation - - Inhaled Oxygen Concentration - - Weight 126 kg (278 lb 9.6 oz) 04/14/2024 9:40 AM EDT Height 190.5 cm (6' 3 ) 04/14/2024 9:40 AM EDT Body Mass Index 34.82 04/14/2024 9:40 AM EDT Plan of Treatment Upcoming Encounters Date Type Department Care Team (Late st Contact Info) Description 03/19/2025 3:00 PM EDT Appointment [facility] Scan [address] [place] [address] Health Maintenance Due Date Last Done Comments Diabetes: Annual Foot Exam 1973 Diabetes: Annual Retina Eye Exam 1973 Zoster Vaccines (1 of 2) 2013 Pneumococcal Vaccine: 50+ Years (2 of 2 - PCV) 10/22/2018 10/22/2017 Cholesterol Screening (Lipid Panel) 06/24/2022 Diabetes: Annual Urine Albumin-Creatinine Ratio (uACR) 06/24/2022 HIV Screening 06/24/2022 Hepatitis C Screening 06/24/2022 Social Influencers of Health Screening 06/24/2022 COVID-19 Vaccine (3 - 2023-2 5 season) 2024 06/23/2021, 10/21/2020 Depression Screening 07/16/2024 Diabetes: Blood Sugar Contro l Test (HGBA1C) 10/12/2024 04/14/2024 Influenza Vaccine (#1) 2025 , 03/17/2020, 04/10/2018 Diabetes: Annual GFR (Glomerular Filtration Rate) 04/14/2025 04/14/2024 Hypertension/CHF/CAD Annual BMP Blood Test 04/14/2025 04/14/2024 Colorectal Cancer Screening: Colonoscopy 05/19/2026 05/19/2021 DTaP,Tdap,and Td Vaccines (2 - Td or Tdap) 10/23/2027 10/22/2017 RSV Immunization Adult Patients (1 - 1-dose 75+ series) 2038 HIB Vaccines Aged Out No longer eligi ble based on patient's age to complete this topic HPV Vaccines Aged Out No longer eligi ble based on patient's age to complete this topic Hepatitis A Vaccines Aged Out No long er eligible based on patient's age to complete this topic Hepatitis B Vaccines Aged Out No long er eligible based on patient's age to complete this topic IPV Vaccines Aged Out No longer eligi ble based on patient's age to complete this topic MMR Vaccines Aged Out No longer eligi ble based on patient's age to complete this topic Meningococcal ACWY Vaccine Aged Out N o longer eligible based on patient's age to complete this topic Meningococcal B Vaccine Aged Out No l onger eligible based on patient's age to complete this topic RSV Immunization Patients Under 20 months Aged Out No longer eligible b ased on patient's age to complete this topic Varicella Vaccines Aged Out No longer eligible based on patient's age to complete this topic Insurance [facility] Care Teams Computer Aided Design Designer Relationship Specialty Start Date End Date Namita Brown MD PCP - General 12/25/23
[2025-02-19 11:45] VITALS: BP 140/68; PULSE 56; RESP 18; O2SAT 100
== END 2025-02-19 11:45 | disposition home or self-care (01) ==
LOC: HO.PMCPRC 11:06
PROVIDERS: PCP Internal Medicine; Visit Provider Internal Medicine
DX: M54.17 Radiculopathy, lumbosacral region (principal)
CPT/HCPCS: 64483; 64484

== ENCOUNTER 2025-02-20 08:44 | Outpatient (AMB) | payer BC, SELFPAY ==
--- NOTE | 2025-02-20 08:51 | A.OFFPC_ITS ---
Vital Signs 02/20/25 08:57 Height 6 ft 3 in Weight 299 lb 6 oz BMI 37.4 BP 126/72 Blood Pressure Location Lt brachial Position Sitting Respiration 14 Pulse 83 Pulse Source Pulse Oximeter Temp 98.2 F Temp Source Oral Pulse Oximetry (%) 99 Oxygen Delivery Method Room Air Intake Visit Reasons: Back pain Intake Note: Lower back pain. Went to pain clinic yesterday and had injections. 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 He is having severe pain -just received injection at pain management yesterday. Patient is s/p right L4-5 lumbar microdiscectomy, extraforaminal approach with microscope on 05/22/2024. Continues to have some residual neuralgia in the right leg and right lower extremity neuropathy. He is off opiates. He continues the neurontin 300mg cap three times daily. Patient reports having surgery for herniated discs in his lower back in [address] Casey. MSK:Back as above. Remote gout. Following with pain management. Percocet worked better than oxycodone. GI: has followed for mesenteric panniculitis. Due for colonoscopy 2025. Last at [facility]. He has a personal history of colon polyps, family history of rectal cancer and family history of esophageal cancer Endocrine: Type 2 diabetes. His A1c was 6.3 from 5.9% in March. Continues metformin 500mg daily. On statin and ARB. He sees thoracic surgery, Dr. Jasso, for ground-glass opacities that were originally in the left lung which resolved and now has them in the right lung. He sees him once per year. He quit smoking 20 years ago. Increased anxiety, some depressive symptoms now that he is unable to work, unable to golf and walk. He is following with a therapist ROS see HPI PHYSICAL EXAM: GENERAL: Alert and oriented x 3. NAD EYES: EOMI. Anicteric. HENT: Moist mucous membranes. No scleral icterus. No cervical lymphadenopathy. LUNGS: Clear to auscultation bilaterally. CARDIOVASCULAR: Regular rate and rhythm. No murmur. No JVD. ABDOMEN: Soft, non-tender +bs : Normal penis and testes EXTREMITIES: No edema. Non-tender. SKIN: Dark irregularly shaped nevi lower back NEUROLOGIC: No focal neurological deficits. CN II-XII grossly intact PSYCHIATRIC: Cooperative. Appropriate mood and affect FORMERLY [facility], [facility] Medical History Family history of colon cancer Pulmonary nodule GERD (gastroesophageal reflux disease) Spinal stenosis Cervical radiculopathy Ground glass opacity present on imaging of lung Mesenteric panniculitis Lumbosacral radiculitis Controlled type 2 diabetes mellitus Essential hypertension Surgical History S/P epidural steroid injection History of laminectomy (2019) Hx of varicose vein ligation (~1998) Hx of colonoscopy Hx of appendectomy (~1974) Social History Housing: House Are you a primary skin care specialist to a significant other at home: No Do you presently have visiting nurse or other home services: No Alcohol intake: never Patient Tobacco Use Status: Former Tobacco user Tobacco use type: Cigarette Cigarette Packs Per Day: 1 Years Smoked: 20 Packs Per Year: 20 e-Cigarette/Vaping Use: Never Used service: Yes Current occupational status: employed 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 Current occupational exposures/hazards: No Cognitive needs: No Hearing needs: No Vision needs: No Questionnaire Thrive Questionnaire Date Thrive assessed: 11/17/24 I am a: Patient What is your living situation today?: I have a steady place to live Within the past 12 months, did the food you bought not last and you didn't have the money to get more?: Never true Within the past 12 months, did you worry whether your food would run out before you got money to buy more?: Never true Do you have trouble paying for medicines?: No Do you have trouble getting transportation to medical appointments?: No Do you have trouble paying your heating and electricity bill?: No Do you have trouble taking care of your child, family member or friend?: No Do you have trouble with day-to-day activities such as bathing, preparing meals, shopping, managing finances, etc.?: Yes Are you currently unemployed and looking for a job?: No Are you interested in more education?: No Please select the resources that you would like help with: None Currently or been in a relationship where the following occur: No concerns reported THRIVE Score: 0 AUDIT C Alcohol Use Questionnaire (AUDIT-C) 3. How often do you have six or more drinks on one occasion?: Never Total Score: 0 Physical exam (Primary Care) Vital Signs: Last Vital Signs Temp 98.2 F 02/20/25 08:57 Pulse 83 02/20/25 08:57 Resp 14 02/20/25 08:57 BP 126/72 02/20/25 08:57 Pulse Ox 99 02/20/25 08:57 Oxygen Delivery Method Room Air 02/20/25 08:57 BMI result Body Mass Index 37.4 Tobacco/Smoking Status: Tobacco use Status Tobacco use date assessed 11/24/24 02/20/25 08:56 Patient Tobacco Use Status Former Tobacco user 02/20/25 08:56 Tobacco use type Cigarette 02/20/25 08:56 e-Cigarette/Vaping Use Never Used 02/20/25 08:56 Thrive Assessment: Date of Thrive Assessment Date Thrive assessed 11/17/24 02/20/25 08:56 Currently or been in a relationship where the following occur: No concerns reported Coding Level of Care Code Est Pt Level 4 (72729) Diagnoses Controlled type 2 diabetes mellitus E11.9 Essential hypertension I10 Assessment & Plan Assessment & Plan (1) Controlled type 2 diabetes mellitus: Comment: FBS usually 100-115, checks it daily, last A1c 5.7----04/14/24 Code(s): E11.9 - Type 2 diabetes mellitus without complications Category: Medical (2) Essential hypertension: Code(s): I10 - Essential (primary) hypertension Category: Medical Plan 59 year old for follow up Back pain, flare at present. Suboptimal control pain management-percocet ordered DM-has been controlled Orders: Referrals Orthopedics Referral M43.16 - Spondylolisthesis, lumbar region, M48.061 - Spinal stenosis, lumbar region without neurogenic claudication, M54.17 - Radiculopathy, lumbosacral region, Z98.890 - Other specified postprocedural states Medications: New oxycodone-acetaminophen 5-325 mg (Percocet) Partial Fill upon patient request. Patient can pay out of pocket if not covered by insurance 1 - 2 tabs PO Q8H PRN 42 tabs 0RF pain 7 days
--- OUTSIDE RECORDS SUMMARY | 2025-02-20 08:56 | XMS_ITS | Clinical Summary ---
Author Organization [facility] Address [address] [place] [address] Phone Care Team Providers Care Inspector Conveyor Line Name Role Phone Namita Brown MD Primary Care Provider [phone] Medications ibuprofen (ADVIL,MOTRIN) 800 mg tablet TAKE [...] LEG VEINS; [facility]: [facility] H[facility] 11/2018 PROCEDURE: [place] TRANSPEDICULAR DCMPRN SPINAL CORD 1 SEG LUMBAR; [...] V28) 04/24/2017 DX:Diabetes mellitus type 2, uncomplicated ([facility]) Osteoarthritis of cervical spine 10/22/2017 DX:Osteoarthritis of [...] Info) Description 03/19/2025 3:00 PM EDT Appointment [facility] CT Scan [address] [place] [address] Health Maintenance Due Date Last [...] patient's age to complete this topic Insurance [facility] Care Teams Inspector Conveyor Line Relationship Specialty Start Date End Date Namita Brown MD PCP - General 12/25/23
--- OUTSIDE RECORDS SUMMARY | 2025-02-20 08:56 | XMS_ITS | Clinical Summary ---
Author Organization [facility] Address [address] [place] [address] Care Team Providers Care Car Builder Name Role Phone Cain Cooley DO Primary Care Provider [phone] Allergies No known active allergies Medications Medication [...] to complete this topic Care Teams Car Builder Relationship Specialty Start Date End Date Cain Cooley DO [address] [place] [address] PCP - General Family Medicine 03/30/23
[2025-02-20 08:57] VITALS: BP 126/72; PULSE 83; RESP 14; TEMP 36.8; O2SAT 99; BMI 37.4
== END 2025-02-20 10:24 | disposition home or self-care (01) ==
LOC: HO.HMCFM 08:44
PROVIDERS: PCP Internal Medicine; Visit Provider Internal Medicine
DX: E11.9 Type 2 diabetes mellitus without complications (principal); I10 Essential (primary) hypertension

== ENCOUNTER 2025-03-25 09:15 | Outpatient (AMB) | payer BC, SELFPAY ==
--- OUTSIDE RECORDS SUMMARY | 2025-03-19 14:42 | XMS_ITS | Encounter Summary ---
Author Organization [facility] Address [address] [place] [address] Care Team Providers Care Tailings Dam Laborer Name Role Phone Rosario Heaton MD Primary Care Provider [phone] Reason for Referral * Imaging (Routine) - Closed Specialty Diagnoses / Procedures Referred By Leroy saba Referred To Contact Radiology Diagnoses Multiple pulmonary nodules Procedures CT Chest wo Contrast Alicia Louise PA [address] [address] Phone: tel: fax: [address] [address] Phone: tel: Referral ID Status Reason Start Date Expiration Date Visits Re quested Visits Authorized [id number] Closed 02/19/2025 04/19/2025 1 1 Reason for Visit * Imaging (Routine) - Closed Specialty Diagnoses / Procedures Referred By Leroy t Referred To Contact Radiology Diagnoses Multiple pulmonary nodules Procedures CT Chest wo Contrast Alicia Louise PA [address] [facility], [address] [place] [address] Phone: tel: fax: [address] [address] Phone: tel: Referral ID Status Reason Start Date Expiration Date Visits Re quested Visits Authorized [id number] Closed 02/19/2025 04/19/2025 1 1 Encounter Details Date Type Department Care Team (Latest Contact Info) Description 03/19/2025 2:42 PM EDT - 03/19/2025 11:59 PM EDT Hospital Encounter [facility] CT Scan [address] [place] [phone] Multiple pulmonary nodules Discharge Disposition: Home or Self Care Social History Tobacco Use Types Packs/Day Years Used Date Smoking Tobacco: Former Cigarettes Smokeless Tobacco: Never Alcohol Use Standard Drinks/Week Comments No 0 (1 standard drink = 0.6 oz pur e alcohol) Sex and Gender Information Value Date Recorded Sex Assigned at Not on file Legal Sex Male 12:14 PM EST Gender Identity Not on file Sexual Orientation Not on file documented as of this encounter Medications at Time of Discharge famotidine (PEPCID) 20 mg tablet TAKE 1 TABLET BY MOUTH 2 TIMES DAILY NEEDED FOR HEARTBURN. 180 tablet 3 07/28/2024 ibuprofen (ADVIL,MOTRIN) 800 mg tablet TAKE 1 TABLET BY MOUTH EVERY 8 HOURS NEEDED FOR PAIN FOR UP TO 90 DAYS. 90 tablet 1 06/23/2024 methocarbamoL (ROBAXIN) 750 mg tablet Take 1 tablet (750 mg total) by mouth 3 (three) times a day. 90 tablet 1 06/23/2024 documented as of this encounter Discharge Disposition Disposition Code Departure Means Destination Home or Self Care documented in this encounter Plan of Treatment Upcoming Encounters Date Type Department Care Team (Late st Contact Info) Description 03/31/2025 9:30 AM EDT Office Visit Thoracic Surgery - [place] [address] [facility] [address] [place] [phone] Jolie Quintero, CURTIS [address] [place] [phone] Pending Results Name Type Priority Associated Diagnoses Date /Time CT Chest wo Contrast Imaging Routine Multiple pulmonary nodules 03/19/2025 2:49 PM EDT Scheduled Orders Name Type Priority Associated Diagnoses Orde r Schedule CT Chest wo Contrast Imaging Routine Multiple pulmonary nodules Once for 1 Occurrences starting 03/19/2025 until 03/19/2025 documented as of this encounter Visit Diagnoses Diagnosis Multiple pulmonary nodules Other diseases of lung, not elsewhere classified documented in this encounter Care Teams Tailings Dam Laborer Relationship Specialty Start Date End Date Rosario Heaton MD [address] [place] [address] PCP - General Internal Medicine 03/18/25 documented as of this encounter
--- NOTE | 2025-03-25 09:20 | MHC.OFFVIS ---
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[employer] Installation Required: No Allergies No Known Allergies Allergy (Verified 03/25/25 09:24) Medication List - Last Reconciled 03/25/25 by Anisha Lui LPN albuterol sulfate 90 mcg/actuation 2 puffs inhalation .every 4 hour PRN atorvastatin 20 mg PO BEDTIME escitalopram oxalate (Lexapro) 10 mg PO DAILY famotidine 20 mg PO DAILY PRN gabapentin 300 mg PO DAILY gabapentin 600 mg (2 x 300 mg) PO BEDTIME lorazepam 0.5 mg PO BID PRN losartan 25 mg PO DAILY metformin 500 mg PO DAILY oxycodone-acetaminophen 5-325 mg (Percocet) 1 tab PO Q8H PRN 28 days HPI HPI s/p Left L3-L4, L4-L5 TFESI: Details: History of Present Illness The patient is a 59-year-old male presenting with low back pain. The pain is primarily on the left side, with previous right-sided pain resolved after nerve stimulation. Numbness in the thigh and calf is attributed to nerve damage from surgery in May last year. L3 and L4 transforaminal epidural steroid injections were administered on the left side, alleviating leg pain but not back pain. The second injection caused significant discomfort, suggesting nerve involvement. MRI findings indicate discogenic degeneration at L5-S1, with a leftward bulging disc not compressing nerve roots, explaining the lack of sciatica. The disc asymmetry is likely contributing to the lower back pain. Sacroiliac joint dysfunction is noted, with positive sacroiliac joint compression thrust and SADIE test on examination. Pain Description - Onset: Persistent low back pain primarily on the left side - Quality: Numbness in thigh and calf - Location: Left side, previously right-sided pain resolved - Exacerbating factors: Second injection caused significant discomfort - Relieving factors: Nerve stimulator helped resolve right-sided pain Physical Exam - Musculoskeletal: Positive sacroiliac joint compression thrust and SADIE test indicating sacroiliac joint dysfunction Results - MRI: Discogenic degeneration at L5-S1 with leftward bulging disc not compressing nerve roots Pain Management - Affect: Pain impacts daily activities, primarily on the left side - Analgesia: L3 and L4 transforaminal epidural steroid injections provided partial relief - Activities of Daily Living: Pain affects mobility, particularly sitting PFSH Medical History Family history of colon cancer Pulmonary nodule GERD (gastroesophageal reflux disease) Spinal stenosis Cervical radiculopathy Ground glass opacity present on imaging of lung Mesenteric panniculitis Lumbosacral radiculitis Controlled type 2 diabetes mellitus Essential hypertension Surgical History S/P epidural steroid injection History of laminectomy (2018) Hx of varicose vein ligation (~1998) Hx of colonoscopy Hx of appendectomy (~1974) Social History Housing: House Are you a primary customer care coordinator to a significant other at home: No Do you presently have visiting nurse or other home services: No Alcohol intake: never Patient Tobacco Use Status: Former Tobacco user Tobacco use type: Cigarette Cigarette Packs Per Day: 1 Years Smoked: 20 e-Cigarette/Vaping Use: Never Used service: Yes Current occupational status: employed 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 Current occupational exposures/hazards: No Cognitive needs: No Hearing needs: No Vision needs: No Physical Exam Vital Signs: Last Vital Signs Pulse 64 03/25/25 09:22 Resp 16 03/25/25 09:22 BP 122/64 03/25/25 09:22 Pulse Ox 98 03/25/25 09:22 Oxygen Delivery Method Room Air 03/25/25 09:22 BMI result Body Mass Index 37.2 Assessment & Plan Assessment & Plan (1) Sacroiliac dysfunction: Code(s): M53.3 - Sacrococcygeal disorders, not elsewhere classified Category: Medical (2) Spondylolisthesis, lumbar region: Code(s): M43.16 - Spondylolisthesis, lumbar region Category: Medical (3) Lumbosacral radiculitis: Code(s): M54.17 - Radiculopathy, lumbosacral region Category: Medical Plan Plan Patient was informed and verbally consented to the use of an ambient scribe for clinic note documentation during this visit. 1. Low Back Pain - Diagnostic left sacroiliac joint injection planned to identify pain source. - Consideration for transforaminal epidural steroid injection at left L5-S1 if sacroiliac joint injection is non-diagnostic. 2. 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 3. Sacroiliac Joint Dysfunction - Diagnostic LEFT sacroiliac joint injection to evaluate its role in low back pain. - Cortisone injection to sacroiliac joint if diagnostic. Discussion Notes I discussed with the patient the plan to perform a diagnostic left sacroiliac joint injection to determine the source of his low back pain. If the injection is diagnostic, we will proceed with a cortisone injection to the sacroiliac joint. If not, we will consider a transforaminal epidural steroid injection at the left L5-S1 level. We also discussed the potential for implantable therapies for chronic pain management in the future. Patient Instructions - Follow up after the diagnostic sacroiliac joint injection to assess its effectiveness. - Monitor for any changes in pain or new symptoms and report them. - Consider potential future options for chronic pain management, including implantable therapies. Medications: Discontinued oxycodone Partial Fill upon patient request. Patient may pay out of pocket Discontinued Reason: Doctor's Order 5 mg PO BID PRN 14 tabs 0RF pain Coding Level of Care Code Est Pt Level 4 (39988) Diagnoses Sacroiliac dysfunction M53.3 Spondylolisthesis, lumbar region M43.16 Lumbosacral radiculitis M54.17
[2025-03-25 09:22] VITALS: BP 122/64; PULSE 64; RESP 16; O2SAT 98; BMI 37.2
--- OUTSIDE RECORDS SUMMARY | 2025-03-25 11:01 | XMS_ITS | Clinical Summary ---
Author Organization [facility] Address [address] [place] [address] Care Team Providers Care Curriculum Designer Name Role Phone Cain Cooley DO Primary Care Provider [phone] Allergies No known active allergies Medications Medication [...] f 2) 2013 COVID-19 Vaccine (2 - 2024-2 6 season) 2025 10/21/2020 Influenza Vaccine (#1) 2025 3, 03/17/2020, [...] age to complete this topic Care Teams Curriculum Designer Relationship Specialty Start Date End Date Cain Cooley DO [address] [place] [id number] PCP - General Family Medicine 03/30/23
--- OUTSIDE RECORDS SUMMARY | 2025-03-25 11:01 | XMS_ITS | Clinical Summary ---
Author Organization [facility] Address [address] [place] [address] Phone Care Team Providers Care Advertising Inserter Name Role Phone Rosario Heaton MD Primary Care Provider [phone] Medications ibuprofen (ADVIL,MOTRIN) 800 mg tablet TAKE [...] FOR HEARTBURN. 180 tablet 3 07/28/2024 Active Encounters Date Type Department Care Team Description 03/19/2025 2:42 PM EDT - 03/19/2025 11:59 PM EDT Hospital Encounter [facility] CT Scan [address] [place] [address] Multiple pulmonary nodules Discharge Disposition: Home or Self Care from Last 3 Months Surgical History Surgery Date Site/Laterality Comments LUMBAR LAMINECTOMY 2008 PROCEDURE: HISTORICAL LUMB LAMINECTOMY; COMMENT: L3,L5,S1-- Dr. Casey OTHER SURGICAL HISTORY PROCEDURE: REMOVAL OF LEG VEINS; COMMENT: vein ligation left leg- Lori OTHER SURGICAL HISTORY 11/2018 PROCEDURE: [place] TRANSPEDICULAR DCMPRN SPINAL CORD 1 SEG LUMBAR; [...] AM EDT Office Visit Thoracic Surgery - [address] [place] [id number] Jolie Quintero, CURTIS [address] [place] [address] Health Maintenance Due Date Last Done Comments Diabetes: Annual Foot Exam 1973 Diabetes: Annual Retina Eye Exam 1973 Pneumococcal Vaccine: 50+ Years (2 of 2 - PCV) 10/22/2018 10/22/2017 Cholesterol Screening (Lipid Panel) 06/24/2022 Diabetes: Annual Urine Albumin-Creatinine Ratio (uACR) 06/24/2022 HIV Screening 06/24/2022 Hepatitis C Screening 06/24/2022 Social Influencers of Health Screening 06/24/2022 Depression Screening 07/16/2024 Zoster Vaccines (2 of 2) 09/07/2024 07/13/2024 Diabetes: Blood Sugar Control Test (HGBA1C) 10/12/2024 04/14/2024 COVID-19 Vaccine ( season) 2025 06/23/2021, 10/21/2020 Influenza Vaccine (#1) 2025 , 04/17/2023, 05/05/2022, Additional history exists Diabetes: Annual GFR (Glomerular Filtration Rate) 04/14/2025 [...] 20 months Aged Out No longer eligible based on patient's age to complete this topic Varicella Vaccines Aged Out No longer eligible based on patient's age to complete this topic Insurance [facility] Care Teams Advertising Inserter Relationship Specialty Start Date End Date Rosario Heaton MD [address] [place] [id number] PCP - General Internal Medicine 03/18/25
== END 2025-03-25 09:52 | disposition home or self-care (01) ==
LOC: HO.PMC 09:16
PROVIDERS: PCP Internal Medicine; Visit Provider Internal Medicine
DX: M53.3 Sacrococcygeal disorders, not elsewhere classified (principal); M43.16 Spondylolisthesis, lumbar region; M54.17 Radiculopathy, lumbosacral region
CPT/HCPCS: 99214

== ENCOUNTER 2025-04-11 13:43 | Outpatient (REF) | payer BC, SELFPAY ==
--- OUTSIDE RECORDS SUMMARY | 2025-04-06 09:30 | XMS_ITS | Encounter Summary ---
Author Organization [facility] Address [address] [place] [address] Care Team Providers Care Brick Wheeler Name Role Phone Rosario Heaton MD Primary Care Provider [phone] Reason for Referral * Imaging (Routine) - Pending Review Specialty Diagnoses / Procedures Referred By Contradha t Referred To Contact Radiology Diagnoses Pulmonary nodules Procedures CT Chest wo Contrast Jolie Quintero NP Phone: tel: fax: [facility] Referral ID Status Reason Start Date Expiration Date V isits Requested Visits Authorized [id number] Pending Review 04/06/2025 04/06/2026 1 1 Reason for Visit * Reason Comments office visit Chest CT 03/19/25 Encounter Details Date Type Department Care Team (Late st Contact Info) Description 04/06/2025 9:30 AM EDT Office Visit Thoracic Surgery - [place] [address] [place] [phone] Jolie Quintero NP [address] [place] [address] [place] [phone] Pulmonary nodules (Primary Dx) Social History Tobacco Use Types Packs/Day Years [...] on file documented as of this encounter Last Filed Vital Signs Vital Sign Reading Time Taken Comments Blood Pressure 130/71 04/06/2025 9:13 AM EDT Pulse 65 04/06/2025 9:13 AM EDT Temperature 36.9 C (98.4 F) 04/06/2025 9:13 AM EDT Respiratory Rate 14 04/06/2025 9:13 AM EDT Oxygen Saturation 99% 04/06/2025 9:13 AM EDT Inhaled Oxygen Concentration - - Weight 132 kg (290 lb 1.6 oz) 04/06/2025 9:13 AM EDT Height 190.5 cm (6' 3 ) 04/06/2025 9:13 AM EDT Body Mass Index 36.26 04/06/2025 9:13 AM EDT documented in this encounter Progress Notes * Jolie Quintero, CURTIS - 04/06/2025 9:30 AM EDT Images from the original note were not included. Thoracic Surgery Follow Up Visit Patient name: Swapnil Peralta : 1965 Date of Visit: April 06, 2025 Care Team PCP: Rosario Heaton MD Reason for Visit Chief Complaint Patient presents with office visit Chest CT 03/19/25 History of Present Illness Mr. Peralta is a 59 y.o. male former smoker who smoked a pack per day starting at age 16 quit in [address] scan of the chest at [place] on 06/19/2023. This was compared with a CT scan from [place] at [address] scan shows a stable 7 mm mixed pulmonary nodule in the right lowerlobe and new cluster of groundglass nodules in the left lower lobe measuring 1.4 x 0.8, 0.7, and 1 cm. There is no lymphadenopathy and no pleural fluid. There is also some nondistinct borders to these nodules in the left lower lobe. Repeat CT scan was done on 09/28/2023 showed the 7 mm nodule mixed in nature to be stable in size. The left sided groundglass areas had resolved and there are some newright middle lobe areas of groundglass with nondistinct borders more like an infiltrate than anything else. His next CT scan obtained 03/26/2024 showed multiple areas of groundglass opacity throughoutthe right upper lobe and minimally in the right middle and right lower lobes and left lower lobes. The area of confluent groundglass opacity in the right middle lobe adjacent to the right major fissure noted in September 2023 had markedly improved. Previously described peripheral 0.7 cm nodule in the posterior aspect of the right lower lobe also remained stable and most likely represents focal atelectasis. Decision was made at that point to repeat chest CT scan in 1 year, which was done 03/19/2025. The patient has been doing very well over the past year, denies any changes in his medical health. He denies any new or worrisome symptoms such as new or worsening shortness of breath, cough, hemoptysis, unintended weight loss, drenching night sweats, fevers, or chills. Past Medical History: Diagnosis Date Change in bowel habit DX:Change in bowel habit Chills (without fever) DX:Chills (without fever) COVID-19 07/05/2020 DX:COVID-19 Diabetes mellitus type 2, uncomplicated (CMS/HCC V24, CMS/HCC V28) 04/24/2017 DX:Diabetes mellitus type 2, uncomplicated (HCC) Diverticulosis 04/06/2017 DX:Diverticulosis GERD (gastroesophageal reflux disease) 04/24/2017 DX:GERD (gastroesophageal reflux disease) Gout 04/24/2017 DX:Gout Hx of pancreatitis 04/06/2017 DX:Hx of pancreatitis Mesenteric panniculitis (CMS/HCC V24, CMS/HCC V28) DX:Mesenteric panniculitis (HCC) Osteoarthritis of cervical spine 10/22/2017 DX:Osteoarthritis of cervical spine Pulmonary nodule 10/22/2017 DX:Pulmonary nodule Reactive hypoglycemia 04/06/2017 DX:Reactive hypoglycemia; COMMENT: Seen by Dr. Jernigan Weight loss DX:Weight loss Patient Active Problem List Diagnosis Pulmonary nodules Past Surgical History: Procedure Laterality Date LUMBAR LAMINECTOMY 2008 PROCEDURE: HISTORICAL LUMB LAMINECTOMY; COMMENT: L3,L5,S1-- Dr. Casey OTHER SURGICAL HISTORY PROCEDURE: REMOVAL OF LEG VEINS; COMMENT: vein ligation left leg- Lori OTHER SURGICAL HISTORY 11/2018 PROCEDURE: [place] TRANSPEDICULAR DCMPRN SPINAL CORD 1 SEG LUMBAR; COMMENT: laminectomy- L2- L3 No Known Allergies Current Outpatient Medications on File Prior to Visit Medication Sig Dispense Refill famotidine (PEPCID) 20 mg tablet TAKE 1 TABLET BY MOUTH 2 TIMES DAILY NEEDED FOR HEARTBURN. 180 tablet 3 ibuprofen (ADVIL,MOTRIN) 800 mg tablet TAKE 1 TABLET BY MOUTH EVERY 8 HOURS NEEDED FOR PAIN FOR UP TO 90 DAYS. 90 tablet 1 methocarbamoL (ROBAXIN) 750 mg tablet Take 1 tablet (750 mg total) by mouth 3 (three) times a day. 90 tablet 1 No current facility-administered medications on file prior to visit. Social History Tobacco Use Smoking status: Former Current packs/day: 1.00 Types: Cigarettes Smokeless tobacco: Never Substance Use Topics Alcohol use: No Drug use: No Social History Social History Narrative Lives with and cat Review of Systems Review of Systems Constitutional: Negative for chills, fever, night sweats and weight loss. Cardiovascular: Negative for chest pain and palpitations. Respiratory: Negative for cough, hemoptysis and shortness of breath. Gastrointestinal: Negative for abdominal pain, nausea and vomiting. Physical Exam Vitals: 04/06/25 0913 BP: 130/71 BP Location: Left arm Patient Position: Sitting BP Cuff Size: Large adult long Pulse: 65 Resp: 14 Temp: 36.9 ??C (98.4 ??F) TempSrc: Temporal SpO2: 99% Weight: 132 kg (290 lb 1.6 oz) Height: 1.905 m (75 ) Physical Exam Vitals reviewed. Constitutional: Appearance: Normal appearance. HENT: Head: Normocephalic and atraumatic. Eyes: General: No scleral icterus. Pulmonary: Effort: Pulmonary effort is normal. Skin: General: Skin is warm. Neurological: General: No focal deficit present. Mental Status: He is alert and oriented to person, place, and time. Psychiatric: Mood and Affect: Mood normal. Behavior: Behavior normal. Radiology I personally viewed the patient's current and past imaging studies, in addition to reviewing the dictated report from the reading radiologist. CT Chest wo Contrast Narrative: PROCEDURE: CT of the chest without intravenous contrast. TECHNIQUE: CT of the chest without intravenous contrast administration. Coronal and sagittal reformats and MIP reconstructions were created. Dose length product: 176 mGy-cm. HISTORY: Lung nodule, > 8mm COMPARISON: 03/26/2024. FINDINGS: LUNGS/PLEURA: The central airways are clear and normal in caliber. Patchy groundglass opacities in the right lung seen on the previous study have resolved and were presumably infectious/inflammatory.There is a stable small curvilinear focus of scarring in the posterior right lower lobe (series 3, image 79). There are a few stable small scattered pulmonary nodules. No new nodule.. No pleural effusion or pneumothorax. MEDIASTINUM/RADHA: No mediastinal mass or lymphadenopathy. No appreciable hilar lymphadenopathy on limited noncontrast evaluation. VASCULATURE: Normal caliber pulmonary arteries. Minimal atherosclerotic calcifications of the aortaand great vessels. CARDIAC: Normal heart size. Minimal aortic annular and coronary artery calcification. CHEST WALL: No axillary or supraclavicular lymphadenopathy. LIMITED ABDOMEN: Unremarkable. BONES: Degenerative changes of the spine and shoulders. T10 and T11 vertebral body hemangiomas. Stable sclerotic lesion in the right humeral neck, probably a bone island.. Impression: Previously demonstrated patchy multifocal groundglass opacities in the right lung have resolved and were presumably infectious/inflammatory. -------- FINAL REPORT -------- Dictated By: Will Amos Dictated Date: 03/26/2025 14:20 ET Assigned Physician: Will Amos Reviewed and Electronically Signed By: Will Amos Signed Date: 03/26/2025 15:06 ET Workstation ID: [id number] Transcribed By: Self Edit Transcribed Date: 03/26/2025 14:51 ET Assessment and Plan Problem List Items Addressed This Visit Pulmonary nodules - Primary 1-year-old male former smoker smoked a pack per day starting at age 16 quit in 1994 who we have been following for pulmonary nodules after being seen on a CT scan of the chest at [place] on 06/19/2023. Thoracic surgery has been following him for a 7 mm pulmonary nodule in the right lower lobe as well as waxing and waning groundglass opacities. The patient's most recent chest CT scan done on March 19, 2025 stability in the RLL nodule, as well as other previously seen few small scattered pulmonary nodules. There is a stable small curvilinear focus of scarring in the posterior right lower lobe. Patchy groundglass opacities in the right lung seen on the previous study have resolved and were presumably infectious/inflammatory. There are no new nodules. No pleural effusion or pneumothorax. Will repeat his next chest CT scan in year, March 2026. Patient will be seen in the office after that to go over the results and perform a physical exam. Patient is instructed to call the office with any questions or concerns prior to this time. Relevant Orders CT Chest wo Contrast Jloie Quintero NP [facility] Thoracic Surgery [address] [facility] [facility], [address] [facility] [address] * Jolie Quintero NP - 04/06/2025 9:16 AM EDTAssociated Problem(s): Pulmonary nodules 1-year-old male former smoker smoked a pack per day starting at age 16 quit in 1994 who we have been following for pulmonary nodules after being seen on a CT scan of the chest at [place] on 06/19/2023. Thoracic surgery has been following him for a 7 mm pulmonary nodule in the right lower lobe as well as waxing and waning groundglass opacities. The patient's most recent chest CT scan done on March 19, 2025 stability in the RLL nodule, as well as other previously seen few small scattered pulmonary nodules. There is a stable small curvilinear focus of scarring in the posterior right lower lobe. Patchy groundglass opacities in the right lung seen on the previous study have resolved and were presumably infectious/inflammatory. There are no new nodules. No pleural effusion or pneumothorax. Will repeat his next chest CT scan in year, March 2026. Patient will be seen in the office after that to go over the results and perform a physical exam. Patient is instructed to call the office with any questions or concerns prior to this time. documented in this encounter Plan of Treatment Scheduled Orders Name Type Priority Associated Diagnoses Orde r Schedule CT Chest wo Contrast Imaging Routine Pulmonary nodules Expected: 04/06/2026, Expires: 04/06/2026 documented as of this encounter Visit Diagnoses Diagnosis Pulmonary nodules- Primary Other diseases of lung, not elsewhere classified documented in this encounter Care Teams Brick Wheeler Relationship Specialty Start Date End Date Rosario Heaton MD [address] [place] [id number] PCP - General Internal Medicine 03/18/25 documented as of this encounter
--- OUTSIDE RECORDS SUMMARY | 2025-04-11 13:46 | XMS_ITS | Clinical Summary ---
Author Organization [facility] Address [address] [place] [address] Phone Care Team Providers Care Shredded Filler Hopper Feeder Name Role Phone Rosario Heaton MD Primary Care Provider [phone] Allergies No known active allergies Medications ibuprofen (ADVIL,MOTRIN) 800 mg tablet TAKE [...] FOR HEARTBURN. 180 tablet 3 07/28/2024 Active Active Problems Problem Noted Date Diagnosed Date Pulmonary nodules 03/30/2025 Assessment & Plan (04/06/2025 9:16 AM EDT): 1-year-old male former smoker smoked a pack per day starting at age 16 quit in 1994 who we have been following for pulmonary nodules after being seen on a CT scan of the chest at [facility] on 06/19/2023. Thoracic surgery has been following [...] questions or concerns prior to this time. Encounters Date Type Department Care Team Description 04/06/2025 9:30 AM EDT Office Visit Thoracic Surgery - [place] [address] [facility] [address] [place] [phone] Jolie Quintero NP Pulmonary nodules (Primary Dx) 03/19/2025 2:42 PM EDT - 03/19/2025 11:59 PM EDT Hospital Encounter [facility] CT Scan [address] [place] [phone] Multiple pulmonary nodules Discharge Disposition: Home or Self Care from Last 3 Months Surgical History Surgery Date Site/Laterality Comments LUMBAR LAMINECTOMY 2008 PROCEDURE: HISTORICAL LUMB LAMINECTOMY; COMMENT: L3,L5,S1-- Dr. Casey OTHER SURGICAL HISTORY PROCEDURE: REMOVAL OF LEG VEINS; COMMENT: vein ligation left leg- Lori OTHER SURGICAL HISTORY 11/2018 PROCEDURE: LA TRANSPEDICULAR DCMPRN SPINAL CORD 1 SEG LUMBAR; [...] Mass Index 36.26 04/06/2025 9:13 AM EDT Plan of Treatment Health Maintenance [...] Control Test (HGBA1C) 10/12/2024 04/14/2024 COVID-19 Vaccine (3 - season) 2025 06/23/2021, 10/21/2020 Influenza Vaccine (#1) [...] on patient's age to complete this topic Procedures Procedure Name Priority Date/Time Associated Diagnosis Comments CT CHEST WO CONTRAST Routine 03/19/2025 2:49 PM EDT Multiple pulmonary nodules from Last 3 Months Results * CT Chest wo Contrast (03/19/2025 2:49 PM EDT) Anatomical Region Laterality Modality Body Computed Tomogra phy 03/26/2025 2:20 PM EDT Impressions 03/26/2025 3:06 PM EDT Previously demonstrated patchy multifocal groundglass opacities in the right lung have resolved and were presumably infectious/inflammatory. -------- FINAL REPORT -------- Dictated By: Will Amos Dictated Date: 03/26/2025 14:20 ET Assigned Physician: Will Amos Reviewed and Electronically Signed By: Will Amos Signed Date: 03/26/2025 15:06 ET Workstation ID: [id number] Transcribed By: Self Edit Transcribed Date: 03/26/2025 14:51 ET Narrative 03/26/2025 3:06 PM EDT PROCEDURE: CT of the chest without intravenous [...] have resolved and were presumably infectious/inflammatory. There is a stable small curvilinear focus of scarring in the posterior right lower lobe (series 3, image 79). There are a few stable small scattered pulmonary nodules. No new nodule.. No pleural effusion or pneumothorax. MEDIASTINUM/RADHA: No mediastinal mass or lymphadenopathy. No appreciable hilar lymphadenopathy on limited noncontrast evaluation. VASCULATURE: Normal caliber pulmonary arteries. Minimal atherosclerotic calcifications of the aorta and great vessels. CARDIAC: Normal heart size. Minimal aortic annular and coronary artery calcification. CHEST WALL: No axillary or supraclavicular lymphadenopathy. LIMITED ABDOMEN: Unremarkable. BONES: Degenerative changes of the spine and shoulders. T10 and T11 vertebral body hemangiomas. Stable sclerotic lesion in the right humeral neck, probably a bone island.. Procedure Note Will Amos MD - 03/26/2025 PROCEDURE: CT of the chest without intravenous contrast. TECHNIQUE: CT of the chest without intravenous contrast administration.Coronal and sagittal reformats and MIP reconstructions were created. Dose length product: 176 mGy-cm. HISTORY: Lung nodule, > 8mm COMPARISON: 03/26/2024. FINDINGS: LUNGS/PLEURA: The central airways are clear and normal in caliber. Patchygroundglass opacities in the right lung seen on the previous study haveresolved and were presumably infectious/inflammatory. There is a stablesmall curvilinear focus of scarring in the posterior right lower lobe(series 3, image 79). There are a few stable small scattered pulmonarynodules. No new nodule.. No pleural effusion or pneumothorax. MEDIASTINUM/RADHA: No mediastinal mass or lymphadenopathy. No appreciablehilar lymphadenopathy on limited noncontrast evaluation. VASCULATURE: Normal caliber pulmonary arteries. Minimal atheroscleroticcalcifications of the aorta and great vessels. CARDIAC: Normal heart size. Minimal aortic annular and coronary arterycalcification. CHEST WALL: No axillary or supraclavicular lymphadenopathy. LIMITED ABDOMEN: Unremarkable. BONES: Degenerative changes of the spine and shoulders. T10 and S72tzxkoovls body hemangiomas. Stable sclerotic lesion in the right humeralneck, probably a bone island.. IMPRESSION: Previously demonstrated patchy multifocal groundglass opacities in theright lung have resolved and were presumably infectious/inflammatory. -------- FINAL REPORT -------- Dictated By: Will Amos Dictated Date: 03/26/2025 14:20 ET Assigned Physician: Will Amos Reviewed and Electronically Signed By: Will Amos Signed Date: 03/26/2025 15:06 ET Workstation ID: [id number] Transcribed By: Self Edit Transcribed Date: 03/26/2025 14:51 ET Alicia CAMPOS IMG CT PROCEDURES Final Resul t from Last 3 Months Insurance [facility] Care Teams Shredded Filler Hopper Feeder Relationship Specialty Start Date End Date Rosario Heaton MD [address] [place] [id number] PCP - General Internal Medicine 03/18/25
--- OUTSIDE RECORDS SUMMARY | 2025-04-11 13:46 | XMS_ITS | Clinical Summary ---
Author Organization [facility] Address [address] [place] [address] Care Team Providers Care Political Science Faculty Member Name Role Phone Cain Cooley DO Primary Care Provider [phone] Allergies No known active allergies Medications Medication [...] age to complete this topic Care Teams Political Science Faculty Member Relationship Specialty Start Date End Date Cain Cooley DO [address] [place] [id number] PCP - General Family Medicine 03/30/23
== END 2025-04-11 13:44 | disposition home or self-care (01) ==
LOC: HO.MRI 13:43
PROVIDERS: PCP Internal Medicine; Visit Provider Internal Medicine
DX: M48.061 Spinal stenosis, lumbar region without neurogenic claudication (principal); Z98.890 Other specified postprocedural states
CPT/HCPCS: 72158; A9585

== ENCOUNTER → 2025-04-11 13:43 | Outpatient (BNV) | payer BC, SELFPAY | PROVIDERS: PCP Internal Medicine; Visit Provider General Practice | DX: M48.061 Spinal stenosis, lumbar region without neurogenic claudication (principal) | CPT/HCPCS: 72158 ==

== ENCOUNTER 2025-05-11 10:52 | Outpatient (AMB) | payer BC, SELFPAY ==
--- NOTE | 2025-05-11 10:54 | A.OFFVIS_ITS ---
Vital Signs 05/11/25 10:55 Height 6 ft 3 in Weight 301 lb BMI 37.6 BP 128/80 Blood Pressure Location Lt brachial Position Sitting Respiration 16 Pulse 82 Pulse Source Pulse Oximeter Pulse Oximetry (%) 96 Oxygen Delivery Method Room Air Intake Visit Reasons: LBP Emergency Service Worker Required: No Allergies No Known Allergies Allergy (Verified 05/11/25 10:57) Medication List - Last Reconciled 05/11/25 by Anisha Lui LPN albuterol sulfate 90 mcg/actuation 2 puffs inhalation .every 4 hour PRN atorvastatin 20 mg PO BEDTIME escitalopram oxalate (Lexapro) 10 mg PO DAILY famotidine 20 mg PO DAILY PRN gabapentin 300 mg PO DAILY gabapentin 600 mg (2 x 300 mg) PO BEDTIME lorazepam 0.5 mg PO BID PRN losartan 25 mg PO DAILY metformin 500 mg PO DAILY methocarbamol 750 mg PO BEDTIME oxycodone-acetaminophen 5-325 mg (Percocet) 1 tab PO Q8H PRN 28 days HPI HPI LBP: Details: History of Present Illness The patient is a 59-year-old male presenting with low back pain. The patient reports that the pain initially subsided after a planned SI joint injection was canceled due to symptom improvement, but the original pain on the left side has returned. He experiences thigh cramps at night, which may start or end with a jabbing pain in the back of the thigh. The patient has a history of left L4 nerve root compression, which correlates with his current symptoms. Previous interventions included physical therapy and injections at the L3-L5 levels, which provided temporary relief. The patient has undergone nerve stimulation on both sides, with the right side being manageable, but the left side remains problematic. He has not been able to work due to his condition and has filed for Social Security Disability, which was denied, and he is currently in the appeal process. Pain Description - Onset: Pain initially subsided but returned on the left side. - Quality: Jabbing pain associated with thigh cramps at night. - Location: Left side, with radiation to the back of the thigh. - Exacerbating factors: Not explicitly mentioned. - Relieving factors: Previous injections provided temporary relief. Physical Exam - Appears afebrile. - Alert and oriented. - Mood and affect appropriate. - Follows and participates in conversation appropriately. - Respiratory effort is unlabored. [facility] Medical History Family history of colon cancer Pulmonary nodule GERD (gastroesophageal reflux disease) Spinal stenosis Cervical radiculopathy Ground glass opacity present on imaging of lung Mesenteric panniculitis Lumbosacral radiculitis Controlled type 2 diabetes mellitus Essential hypertension Surgical History S/P epidural steroid injection History of laminectomy (2019) Hx of varicose vein ligation (~1998) Hx of colonoscopy Hx of appendectomy (~1974) Social History Housing: House Are you a primary director medicare sales to a significant other at home: No Do you presently have visiting nurse or other home services: No Alcohol intake: never Patient Tobacco Use Status: Former Tobacco user Tobacco use type: Cigarette Cigarette Packs Per Day: 1 Years Smoked: 20 e-Cigarette/Vaping Use: Never Used service: Yes Current occupational status: employed 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 Current occupational exposures/hazards: No Cognitive needs: No Hearing needs: No Vision needs: No Physical Exam Vital Signs: Last Vital Signs Pulse 82 05/11/25 10:55 Resp 16 05/11/25 10:55 BP 128/80 05/11/25 10:55 Pulse Ox 96 05/11/25 10:55 Oxygen Delivery Method Room Air 05/11/25 10:55 BMI result Body Mass Index 37.6 Assessment & Plan Assessment & Plan (1) Status post lumbar spine surgery for decompression of spinal cord: Code(s): Z98.890 - Other specified postprocedural states Category: Medical (2) Lumbosacral radiculitis: Code(s): M54.17 - Radiculopathy, lumbosacral region Category: Medical Plan Plan Patient was informed and verbally consented to the use of an ambient scribe for clinic note documentation during this visit. Left L4 Nerve Root Compression - Plan for repeat left L4-5 transforaminal epidural steroid injection. Last one 3 months ago provided >50% relief. - Consider diagnostic facet blocks and radiofrequency ablation if current interventions are ineffective. Discussion Notes I discussed with the patient the plan to repeat the previous injection for pain management and the possibility of radiofrequency ablation on the left side if pain persists. We also talked about ordering x-rays of the lumbar spine to assess for instability and the potential for diagnostic facet blocks and radiofrequency ablation if current interventions are ineffective. Patient Instructions - Schedule the injection as discussed. - Complete the x-rays of the lumbar spine when coming in for the injection. - Follow up with the clinic to discuss the results and next steps. Orders: Orders XR lumbar spine 6V w bending 05/11/25 Z98.890 - Other specified postprocedural states Coding Level of Care Code Est Pt Level 3 (23951) Diagnoses Status post lumbar spine surgery for decompression of spinal cord Z98.890 Lumbosacral radiculitis M54.17
[2025-05-11 10:55] VITALS: BP 128/80; PULSE 82; RESP 16; O2SAT 96; BMI 37.6
--- OUTSIDE RECORDS SUMMARY | 2025-05-11 13:30 | XMS_ITS | Clinical Summary ---
Author Organization [facility] Address [address] [place] [address] Phone Care Team Providers Care Bone Puller Name Role Phone Rosario Heaton MD Primary Care Provider [phone] Allergies No known active allergies Medications ibuprofen [...] a CT scan of the chest at [facility] on 06/19/2023. Thoracic surgery has been following [...] AM EDT Office Visit Thoracic Surgery - [place] [address] [facility] [address] [place] [phone] Jolie Quintero NP Pulmonary nodules (Primary Dx) 03/19/2025 2:42 PM EDT - 03/19/2025 11:59 PM EDT Hospital Encounter [facility] CT Scan [address] [place] [phone] Multiple pulmonary nodules Discharge Disposition: Home or Self Care from Last 3 Months Surgical History Surgery Date Site/Laterality Comments LUMBAR LAMINECTOMY 2008 PROCEDURE: HISTORICAL LUMB LAMINECTOMY; COMMENT: L3,L5,S1-- Dr. Csaey OTHER SURGICAL HISTORY PROCEDURE: REMOVAL OF LEG VEINS; COMMENT: vein ligation left leg- Lori OTHER SURGICAL HISTORY 11/2018 PROCEDURE: [place] TRANSPEDICULAR DCMPRN SPINAL CORD 1 SEG LUMBAR; [...] Annual GFR (Glomerular Filtration Rate) 04/14/2025 04/14/2024 Colorectal Cancer Screening: Colonoscopy 05/19/2026 [...] Signed Date: 03/26/2025 15:06 ET Workstation ID: [id number] Transcribed By: Self Edit Transcribed Date: 03/26/2025 [...] of the spine and shoulders. T10 and T69gfddvsury body hemangiomas. Stable sclerotic lesion in the right humeralneck, probably a bone island.. IMPRESSION: Previously demonstrated patchy multifocal groundglass opacities in theright lung have resolved and were presumably infectious/inflammatory. -------- FINAL REPORT -------- Dictated By: Will Amos Dictated Date: 03/26/2025 14:20 ET Assigned Physician: Will Amos Reviewed and Electronically Signed By: Will Amos Signed Date: 03/26/2025 15:06 ET Workstation ID: [id number] Transcribed By: Self Edit Transcribed Date: 03/26/2025 14:51 ET Alicia CAMPOS IMG CT PROCEDURES Final Resul t from Last 3 Months Insurance [facility] Care Teams Bone Puller Relationship Specialty Start Date End Date Rosario Heaton MD [address] [place] [address] [address] [place] [address] PCP - General Internal Medicine 03/18/25
--- OUTSIDE RECORDS SUMMARY | 2025-05-11 13:31 | XMS_ITS | Clinical Summary ---
Author Organization [facility] Address [address] [place] [address] Care Team Providers Care Wheel Alignment Technician Name Role Phone Cain Cooley DO Primary Care Provider [phone] Allergies No known active allergies Medications Medication [...] age to complete this topic Care Teams Wheel Alignment Technician Relationship Specialty Start Date End Date Cain Cooley DO [address] [place] [id number] PCP - General Family Medicine 03/30/23
== END 2025-05-11 11:54 | disposition home or self-care (01) ==
LOC: HO.PMC 10:53
PROVIDERS: PCP Internal Medicine; Visit Provider Internal Medicine
DX: M54.17 Radiculopathy, lumbosacral region (principal); Z98.890 Other specified postprocedural states
CPT/HCPCS: 99213

== ENCOUNTER 2025-06-02 12:42 | Outpatient (AMB) | payer BC, SELFPAY ==
--- NOTE | 2025-06-02 13:03 | MHC.PC.OV ---
Vital Signs 06/02/25 13:07 Height 6 ft 3 in Weight 303 lb 2 oz BMI 37.9 BP 155/70 H Blood Pressure Location Rt brachial Position Sitting Respiration 16 Pulse 77 Pulse Source Pulse Oximeter Temp 97.4 F Temp Source Oral Pulse Oximetry (%) 98 Oxygen Delivery Method Room Air Intake Visit Reasons: bp Intake Note: patient here for follow up on BP Business Systems Consultant Required: No Allergies No Known Allergies Allergy (Verified 06/02/25 13:06) Tobacco use date assessed: 06/02/25 Dental Screening Dental Screen Date: 06/02/25 Did you have a dental visit in the last 12 months?: Yes Did you have a dental problem in the last 6 months where you did not have access to dental care?: No Was dental information given to patient?: Patient has dentist HPI HPI Comments History of Present Illness Details 60-year-old male with a past medical history of lumbosacral radiculopathy, controlled type 2 diabetes, hypertension, mesenteric panniculitis and ground glass opacities on chest CT presenting for follow up Chronic back pain: Unable to return to work due to disability. He is having moderate/severe pain. Has received injections. Maybe getting ?ablation. Patient is s/p right L4-5 lumbar microdiscectomy, extraforaminal approach with microscope on 05/22/2024. Has residual neuralgia in the right leg and right lower extremity neuropathy. He is off opiates. He continues the neurontin 300mg cap three times daily. Patient reports having surgery for herniated discs in his lower back in [address] Casey. methocarbamol is no longer working. Continues oxycodone. History of gout. GI: has followed for mesenteric panniculitis. Due for colonoscopy 2025. Last at [facility]. He has a personal history of colon polyps, family history of rectal cancer and family history of esophageal cancer Endocrine: Type 2 diabetes. His A1c was 6.3 from 5.9% in March. Continues metformin 500mg daily. On statin and ARB. He sees thoracic surgery, Dr. Jasso, for ground-glass opacities that were originally in the left lung which resolved and now has them in the right lung. He sees him once per year. He quit smoking 20 years ago. BH: On lexapro. Increased anxiety, some depressive symptoms now that he is unable to work, unable to golf and walk. He is following with a therapist ROS see HPI PHYSICAL EXAM: GENERAL: Alert and oriented x 3. NAD EYES: EOMI. Anicteric. HENT: Moist mucous membranes. No scleral icterus. No cervical lymphadenopathy. LUNGS: Clear to auscultation bilaterally. CARDIOVASCULAR: Regular rate and rhythm. No murmur. No JVD. ABDOMEN: Soft, non-tender +bs : Normal penis and testes EXTREMITIES: No edema. Non-tender. SKIN: Dark irregularly shaped nevi lower back NEUROLOGIC: No focal neurological deficits. CN II-XII grossly intact PSYCHIATRIC: Cooperative. Appropriate mood and affect [facility] Medical History Family history of colon cancer Pulmonary nodule GERD (gastroesophageal reflux disease) Spinal stenosis Cervical radiculopathy Ground glass opacity present on imaging of lung Mesenteric panniculitis Lumbosacral radiculitis Controlled type 2 diabetes mellitus Essential hypertension Surgical History S/P epidural steroid injection History of laminectomy (2019) Hx of varicose vein ligation (~1998) Hx of colonoscopy Hx of appendectomy (~1974) Social History Housing: House Are you a primary home care associate to a significant other at home: No Do you presently have visiting nurse or other home services: No Alcohol intake: never Patient Tobacco Use Status: Former Tobacco user Tobacco use type: Cigarette Cigarette Packs Per Day: 1 Years Smoked: 20 e-Cigarette/Vaping Use: Never Used service: Yes Current occupational status: employed 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 Current occupational exposures/hazards: No Cognitive needs: No Hearing needs: No Vision needs: No Questionnaire Thrive Questionnaire Date Thrive assessed: 11/17/24 I am a: Patient What is your living situation today?: I have a steady place to live Within the past 12 months, did the food you bought not last and you didn't have the money to get more?: Never true Within the past 12 months, did you worry whether your food would run out before you got money to buy more?: Never true Do you have trouble paying for medicines?: No Do you have trouble getting transportation to medical appointments?: No Do you have trouble paying your heating and electricity bill?: No Do you have trouble taking care of your child, family member or friend?: No Do you have trouble with day-to-day activities such as bathing, preparing meals, shopping, managing finances, etc.?: Yes Are you currently unemployed and looking for a job?: No Are you interested in more education?: No Please select the resources that you would like help with: None Currently or been in a relationship where the following occur: No concerns reported THRIVE Score: 0 Physical exam (Primary Care) Vital Signs: Last Vital Signs Temp 97.4 F 06/02/25 13:07 Pulse 77 06/02/25 13:07 Resp 16 06/02/25 13:07 BP 155/70 H 06/02/25 13:07 Pulse Ox 98 06/02/25 13:07 Oxygen Delivery Method Room Air 06/02/25 13:07 BMI result Body Mass Index 37.9 Tobacco/Smoking Status: Tobacco use Status Tobacco use date assessed 06/02/25 06/02/25 13:08 Patient Tobacco Use Status Former Tobacco user 06/02/25 13:08 Tobacco use type Cigarette 06/02/25 13:08 e-Cigarette/Vaping Use Never Used 06/02/25 13:08 Thrive Assessment: Date of Thrive Assessment Date Thrive assessed 11/17/24 06/02/25 13:08 Currently or been in a relationship where the following occur: No concerns reported Coding Level of Care Code Est Pt Level 4 (84429) Diagnoses Controlled type 2 diabetes mellitus E11.9 Essential hypertension I10 Lumbar radiculopathy, acute M54.16 Assessment & Plan Assessment & Plan (1) Controlled type 2 diabetes mellitus: Code(s): E11.9 - Type 2 diabetes mellitus without complications Category: Medical (2) Essential hypertension: Code(s): I10 - Essential (primary) hypertension Category: Medical (3) Lumbar radiculopathy, acute: Code(s): M54.16 - Radiculopathy, lumbar region Category: Medical Plan 60 year old male presenting for follow up Chronic back pain-stop methocarbamol. Start flexeril. Advised risk of sedation. Continue percocet, pain management follow up. Increased L4 radiculopathy-double gabapentin as tolerated DM-continues to be well controlled on current medications. Could consider GLP Follow up three months Orders: Orders TSH reflex Free T4 Today R63.5 - Abnormal weight gain Hemoglobin A1c Today E11.42 - Type 2 diabetes mellitus with diabetic polyneuropathy Comprehensive Met. Panel Today E11.42 - Type 2 diabetes mellitus with diabetic polyneuropathy Medications: New gabapentin 600 mg PO TID 270 tabs 3RF cyclobenzaprine 5 mg PO Q8H 270 tabs 3RF Changed From oxycodone-acetaminophen 5-325 mg (Percocet) Partial Fill upon patient request. Patient can pay out of pocket if not covered by insurance 1 tab PO Q8H 28 days PRN 84 tabs 0RF pain M48.061 - Spinal stenosis, lumbar region without neurogenic claudication To oxycodone-acetaminophen 5-325 mg (Percocet) Partial Fill upon patient request. Patient can pay out of pocket if not covered by insurance 1 tab PO Q6H PRN 112 tabs 0RF pain 28 days M48.061 - Spinal stenosis, lumbar region without neurogenic claudication Discontinued gabapentin Discontinued Reason: Doctor's Order 300 mg PO TID 90 caps 5RF On Hold methocarbamol Hold Comment: Doctor's Order 750 mg PO BEDTIME 90 tabs 3RF
[2025-06-02 13:07] VITALS: BP 155/70; PULSE 77; RESP 16; TEMP 36.3; O2SAT 98; BMI 37.9
--- OUTSIDE RECORDS SUMMARY | 2025-06-03 03:53 | XMS_ITS | Clinical Summary ---
Author Organization [facility] Address [address] [place] [address] Phone Care Team Providers Care Roving Changer Name Role Phone Rosario Heaton MD Primary Care Provider [phone] Allergies No known active allergies Medications ibuprofen [...] a CT scan of the chest at [facility] on 06/19/2023. Thoracic surgery has been following [...] AM EDT Office Visit Thoracic Surgery - [place] [address] [facility] [address] [place] [phone] Jolie Quintero NP Pulmonary nodules (Primary Dx) 03/19/2025 2:42 PM EDT - 03/19/2025 11:59 PM EDT Hospital Encounter [facility] CT Scan [address] [place] [phone] Multiple pulmonary nodules Discharge Disposition: Home or Self Care from Last 3 Months Surgical History Surgery Date Site/Laterality Comments LUMBAR LAMINECTOMY 2008 PROCEDURE: HISTORICAL LUMB LAMINECTOMY; COMMENT: L3,L5,S1-- Dr. Casey OTHER SURGICAL HISTORY PROCEDURE: REMOVAL OF LEG VEINS; COMMENT: vein ligation left leg- Lori OTHER SURGICAL HISTORY 11/2018 PROCEDURE: CT TRANSPEDICULAR DCMPRN SPINAL CORD 1 SEG LUMBAR; [...] Signed Date: 03/26/2025 15:06 ET Workstation ID: [id number] Transcribed By: Self Edit Transcribed Date: 03/26/2025 [...] of the spine and shoulders. T10 and R45mrofpkhid body hemangiomas. Stable sclerotic lesion in the right humeralneck, probably a bone island.. IMPRESSION: Previously demonstrated patchy multifocal groundglass opacities in theright lung have resolved and were presumably infectious/inflammatory. -------- FINAL REPORT -------- Dictated By: Will Amos Dictated Date: 03/26/2025 14:20 ET Assigned Physician: Will Amos Reviewed and Electronically Signed By: Will Amos Signed Date: 03/26/2025 15:06 ET Workstation ID: [id number] Transcribed By: Self Edit Transcribed Date: 03/26/2025 14:51 ET Alicia CAMPOS IMG CT PROCEDURES Final Resul t from Last 3 Months Insurance [facility] Care Teams Roving Changer Relationship Specialty Start Date End Date Rosario Heaton MD [address] [place] [address] [address] [place] [address] PCP - General Internal Medicine 03/18/25
--- OUTSIDE RECORDS SUMMARY | 2025-06-03 03:53 | XMS_ITS | Clinical Summary ---
Author Organization [facility] Address [address] [place] [address] Care Team Providers Care Coating Mixer Tender Name Role Phone Cain Cooley DO Primary Care Provider [phone] Allergies No known active allergies Medications Medication [...] age to complete this topic Care Teams Coating Mixer Tender Relationship Specialty Start Date End Date Cain Cooley DO [address] [place] [id number] PCP - General Family Medicine 03/30/23
== END 2025-06-02 13:33 | disposition home or self-care (01) ==
LOC: HO.HMCFM 12:42
PROVIDERS: PCP Internal Medicine; Visit Provider Internal Medicine
DX: E11.9 Type 2 diabetes mellitus without complications (principal); I10 Essential (primary) hypertension; M54.16 Radiculopathy, lumbar region

== ENCOUNTER 2025-06-04 12:44 | Outpatient (REF) | payer BC, SELFPAY ==
[2025-06-04 14:41] LABS: Alanine Aminotransferase 97 U/L (0-40); Albumin Level 4.3 g/dL (3.5-5.0); Alkaline Phosphatase 88 U/L (39-117); Anion Gap 11 (12-20); Aspartate Amino Transferase 44 U/L (5-37); Blood Urea Nitrogen 10 mg/dL (9-16); Calcium 8.8 mg/dL (8.4-10.2); Carbon Dioxide 33 mmol/L (22-29); Chloride 102 mmol/L (96-108); Estimated Glomerular Filt Rate > 60; Potassium 4.3 mmol/L (3.3-5.1); Sodium 142 mmol/L (135-145); Total Protein 6.8 g/dL (6.5-8.0)
--- OUTSIDE RECORDS SUMMARY | 2025-06-04 18:28 | XMS_ITS | Clinical Summary ---
Author Organization [facility] Address [address] [place] [address] Care Team Providers Care Vault Custodian Name Role Phone Cain Cooley DO Primary Care Provider [phone] Allergies No known active allergies Medications Medication [...] age to complete this topic Care Teams Vault Custodian Relationship Specialty Start Date End Date Cain Cooley DO [address] [place] [phone] PCP - General Family Medicine 03/30/23
[2025-06-10 19:39] LABS: Testosterone, Free 25.3 pg/mL (35.0-155.0)
== END 2025-06-04 12:45 | disposition home or self-care (01) ==
LOC: HO.WFDLDS 12:44
PROVIDERS: Visit Provider Internal Medicine
DX: E11.42 Type 2 diabetes mellitus with diabetic polyneuropathy (principal); R63.5 Abnormal weight gain; R53.83 Other fatigue
CPT/HCPCS: 36415; 80053; 83036; 84402; 84403; 84443